=== PATIENT | female | born 1955 | race Caucasian/White ===

== ENCOUNTER 2019-06-01 10:12 | Outpatient (CLI) | payer MEDICARE, SELFPAY ==
--- NOTE | ~2019-06-01 | US_ITS ---
EXAMINATION: US carotid duplex BI DATE: 06/01/2019 10:45 INDICATION: Dizziness and giddiness. TECHNIQUE: Grayscale, color Doppler, and pulsed Doppler images of the cervical carotid arteries were obtained. The degree of vessel stenosis is placed in one of the following categories: normal, <50%, 5 0-69%, >=70% but less than near-occlusion, near-occlusion, or total occlusion. Note that percent sten osis relative to normal distal artery lumen diameter is indirectly measured from velocity measurement s as described by Nelson, et al. Radiology 2003; 229:340-346. COMPARISON: None. FINDINGS: RIGHT: The right common carotid artery (CCA) peak systolic velocity (PSV) is 112 cm/s. The right internal ca rotid artery (ICA) PSV is 110 cm/s. The right ICA end-diastolic velocity (EDV) is 24 cm/s. The right ICA/CCA PSV ratio is 1.0. Grayscale and color Doppler images yield an estimate of <50% diameter reduc tion from plaque in the ICA. There is antegrade flow in the right vertebral artery. LEFT: The left CCA PSV is 116 cm/s. The left ICA PSV is 118 cm/s. The left ICA EDV is 37 cm/s. The left ICA /CCA PSV ratio is 1.0. Grayscale and color Doppler images yield an estimate of 0% diameter reduction from plaque in the ICA. There is antegrade flow in the left vertebral artery. IMPRESSION: 1. <50% stenosis in the right internal carotid artery. 2. Normal left internal carotid artery. Reviewed, dictated and finalized at location A. RVISOR BRINE
== END 2019-06-01 10:13 | disposition home or self-care (01) ==
PROVIDERS: PCP Family Medicine; Visit Provider Physician Assistant
DX: R42 Dizziness and giddiness (principal); I65.21 Occlusion and stenosis of right carotid artery
CPT/HCPCS: 93880

== ENCOUNTER → 2019-06-28 11:50 | Outpatient (CLI) | payer MEDICARE, SELFPAY ==
--- NOTE | ~2019-06-28 | MR_ITS ---
EXAMINATION: MR brain IAC wo/w con DATE: 06/28/2019 13:26 INDICATION: Right-sided pulsatile tinnitus. TECHNIQUE: Magnetic resonance imaging (MRI) of the brain, brainstem, and internal auditory canals was performed without and with 17 mL MultiHance intravenous contrast. Sequences included sagittal and ax ial T1-weighted FSE, axial diffusion-weighted FS EPI, axial T2*-weighted GRE, axial T2-weighted FLAIR Propeller, axial T2-weighted Propeller, small obytv-uj-ezhd coronal FIESTA, small rdubp-ap-iqzi abril nal T1-weighted FSE, and small lezzc-pv-rcex axial T1-weighted SPGR. Postcontrast sequences included axial T1-weighted FSE, small drntj-cw-bxjy coronal T1-weighted FSE, and small vyimw-ts-vham axial T1- weighted SPGR. Apparent diffusion coefficient (ADC) maps were created. COMPARISON: Brain MRI 10/07/2018, head CT 11/09/2018 FINDINGS: There are scattered areas of nonspecific increased T2-weighted signal intensity in the cere bral white matter, which is within normal limits for the patient's age. There is no intracranial hemo rrhage, acute infarction, or abnormal intracranial mass lesion. The ventricles are normal in size. Th ere is mild mucosal thickening in the ethmoid sinuses. The orbits are normal. The internal auditory c anals and inner and middle ears are normal. There are trace mastoid effusions. IMPRESSION: 1. Normal aging brain. Reviewed, dictated and finalized at location A. IMPRESSION: 1. Normal aging brain.
[2019-06-28 12:38] LABS: Estimated Glomerular Filt Rate > 60
== END ==
PROVIDERS: Visit Provider Physician Assistant
DX: H93.A1 Pulsatile tinnitus, right ear (principal); R42 Dizziness and giddiness
CPT/HCPCS: 36415; 70553; A9577

== ENCOUNTER 2021-02-09 13:33 | Emergency (ER) | payer MEDICARE, SELFPAY ==
[2021-02-09 13:48] VITALS: BP 153/75; PULSE 65; RESP 18; TEMP 37.1; O2SAT 98
--- NOTE | 2021-02-09 14:15 | ED.FEMALEGU ---
HPI - Female Genitourinary General Chief complaint: Urogenital-Female Stated complaint: uti Time Seen by Provider: 02/09/21 13:58 Source: patient Mode of arrival: ambulatory Limitations: no limitations History of Present Illness HPI Narrative: Patient is a 65-year-old female complaining of red ring last night, has not recurred since. Patient is worried that she might have a urinary tract infection, since she has a multiple history of it. Patient denies any other symptoms. Patient denies any abdominal pain, flank pain, nausea, vomiting, dysuria, urinary frequency, fever or chills. Related Data Home Medications Medication Instructions Recorded Confirmed multivitamin 1 tablet PO DAILY 04/01/19 01/25/21 calcium citrate 200 mg 1 tablet PO BID 06/18/19 01/25/21 calcium-vitamin D3 6.25 mcg (250 unit) tablet 5-hydroxytryptophan (5-HTP) 100 mg 100 mg PO BID 01/11/20 01/25/21 capsule glycine 500 mg capsule mg PO 01/11/20 01/25/21 prasterone (dhea) 25 mg tablet 25 mg PO DAILY 01/11/20 01/25/21 ascorbic acid (vitamin C) 500 mg 500 mg PO DAILY 09/21/20 01/25/21 tablet cholecalciferol (vitamin D3) 75 6,000 unit PO DAILY tablet 09/21/20 01/25/21 mcg (3,000 unit) tablet Allergies Allergy/AdvReac Type Severity Reaction Status Date / Time naproxen Allergy Intermediate Other Verified 01/25/21 15:34 albuterol Allergy Mild Jittery Verified 01/25/21 15:34 budesonide Allergy Unknown Unknown Verified 01/25/21 15:34 erythromycin base Allergy Unknown Diarrhea Verified 01/25/21 15:34 formoterol Allergy Unknown Unknown Verified 01/25/21 15:34 cephalexin Allergy Rash Verified 02/09/21 14:09 nitrofurantoin Allergy Rash Verified 02/09/21 14:10 [From Macrobid] acetaminophen AdvReac Mild Fatigued Verified 01/25/21 15:34 donepezil AdvReac Mild Hypertensio Verified 01/25/21 15:34 n topiramate AdvReac Mild VISION Verified 01/25/21 15:34 ABNORMALITIES Review of Systems Review of Systems: All systems reviewed & are unremarkable except as noted in HPI and below Constitutional: Constitutional: Denies body ache(s), Denies chills, Denies excessive sweating, Denies fatigue, Denies fever(s), Denies headache(s), Denies lethargy, Denies malaise, Denies weakness and Denies weight loss Eyes: Eyes: Denies blurry vision, Denies change in vision and Denies loss of vision ENT: Denies dizziness, Denies ear discharge, Denies headache(s), Denies lip swelling, Denies epistaxis, Denies nasal congestion, Denies neck pain, Denies throat swelling and Denies tongue swelling Cardiovascular: Cardiovascular: Denies chest pain, Denies chest pain at rest, Denies chest pain with activity, Denies diaphoresis, Denies rapid heart rate, Denies edema, Denies irregular heart rhythm, Denies lightheadedness, Denies palpitations, Denies dyspnea and Denies dyspnea on exertion Respiratory: Respiratory: Denies chest congestion, Denies cough, Denies hemoptysis, Denies dyspnea and Denies dyspnea on exertion Gastrointestinal: Gastrointestinal: Denies abdominal pain, Denies melena, Denies hematochezia, Denies diarrhea, Denies nausea, Denies vomiting and Denies hematemesis Musculoskeletal: Musculoskeletal: Denies abnormal gait, Denies deformity, Denies joint swelling, Denies limited range of motion, Denies neck pain and Denies numbness Neurologic: Denies Abnormal speech present, Denies abnormal gait, Denies confusion, Denies dizziness, Denies headache(s), Denies focal weakness, Denies loss of vision, Denies numbness, Denies Other visual disturbances, Denies Sensory deficit (Neuro) and Denies weakness Psychiatric: Psychiatric: Denies confusion, Denies depression, Denies auditory hallucinations, Denies homicidal ideation and Denies suicidal ideation Endocrine: Endocrine: Denies cold intolerance, Denies excessive sweating, Denies fatigue, Denies heat intolerance and Denies palpitations Hematologic/Lymphatic: Hematologic/Lymphatic: Denies easy bleeding and Denies easy bruising
[2021-02-09 15:37] LABS: Add Urine Microscopic? YES; Appearance Urine Cloudy (Clear); Bilirubin Urine Negative (Negative); Color Urine Yellow (Yellow); Glucose Urine UA Negative (Negative); Ketones Urine Negative (Negative); Leukocyte Esterase Ur 1+ LEU/UL (Negative); Mucus Urine Rare /lpf; Nitrate Urine Negative (Negative); Protein Urine Negative (Negative); Specific Grav Ur 1.011 (1.001-1.035); Squamous Epithelial Cell Urine Few /hpf (Few); Urobilinogen Urine Negative mg/dL (<2.0)
[2021-02-09 15:54] LABS: Blood Urine Negative (Negative)
== END 2021-02-09 16:29 | disposition home or self-care (01) ==
PROVIDERS: Emergency Provider Emergency Medicine; PCP Family Medicine
DX: N30.01 Acute cystitis with hematuria (principal); I10 Essential (primary) hypertension; E03.9 Hypothyroidism, unspecified; E78.2 Mixed hyperlipidemia; E66.3 Overweight; Z68.26 Body mass index [BMI] 26.0-26.9, adult
CPT/HCPCS: 81001; 87086; 99283

== ENCOUNTER 2021-08-20 09:35 | Outpatient (CLI) | payer MEDICARE, SELFPAY ==
--- NOTE | ~2021-08-20 | DEXA_ITS ---
Bone Density Report Name: ASHLEY HILL Age: 65 Sex: Female Ethnicity: White Date of : 1955 Indication: postmenopausal; screening for osteoporosis; Referring Provider: JAISON MILNER Study: Bone densitometry was performed. Exam Date: August 20, 2021 Accession number: [id number] Bone Density: Region BMD T-score Z-score Classification AP Spine(L1-L4) 0.980 -0.6 1.3 Normal Femoral Neck (Left) 0.674 -1.6 0.1 Osteopenia Total Hip (Left) 0.773 -1.4 0.0 Osteopenia Femoral Neck (Right) 0.700 -1.3 0.3 Osteopenia Total Hip (Right) 0.806 -1.1 0.3 Osteopenia Total Hip Mean 0.790 -1.3 0.2 Osteopenia World Health Organization criteria for BMD impression classify patients as: Normal (T-score at or above -1.0), Osteopenia (T-score between -1.0 and -2.5), or Osteoporosis (T-score at or below -2.5). 10-year Fracture Risk(1): Major Osteoporotic Fracture 9.5% Hip Fracture 1.2% Reported Risk Factors: [place] (), Neck BMD=0.674, BMI=27.2 (1) FRAX(R) Version 3.08. Fracture probability calculated for an untreated patient. Fracture probability may be lower if the patient has received treatment. Previous Exams: Region Exam Age BMD T-score BMD Change BMD Change Date g/cm2 vs Baseline vs Previous AP Spine (L1-L4) 08/20/2021 65 0.980 -0.6 -0.017 (-1.8%) -0.017 (-1.8%) 04/29/2019 63 0.998 -0.4 Total Hip(Left) 08/20/2021 65 0.773 -1.4 -0.056 (-6.7%) -0.056 (-6.7%) 04/29/2019 63 0.828 -0.9 Total Hip(Right) 08/20/2021 65 0.806 -1.1 -0.099 (-11.0% -0.099 (-11.0% 04/29/2019 63 0.906 -0.3 *Denotes significance at 95% confidence level, LSC for AP Spine = 0.022 g/cm2, LSC for Total Hip = 0.027 g/cm2 Clinical Information Provided by Patient: Has used the following medications: Vitamin D, Calcium Patient maximum height was 71 Menopause Age: 46 No regular weight bearing exercise Does not regularly consume dairy products Drinks caffeinated beverages Onset of menses at age 11 Number of children 2 Impression: The patient has low bone mass, based on the Left Femoral Neck T-score. The patient has an estimated ten-year risk of hip fracture of 1.2% and an estimated ten-year risk of major fracture of 9.5%, based on the WHO FRAX algorithm. The BMD for the Total Hip(Left) decreased, changing by -6.7% since the last DXA exam. The BMD for the Total Hip(Right) decreased, changing by -11.0% since the last DXA exam. Di
== END 2021-08-20 09:36 | disposition home or self-care (01) ==
LOC: ANHIMG 09:36
PROVIDERS: PCP Family Medicine; Visit Provider Physician Assistant
DX: Z78.0 Asymptomatic menopausal state (principal); M85.852 Other specified disorders of bone density and structure, left thigh; M85.851 Other specified disorders of bone density and structure, right thigh
CPT/HCPCS: 77080

== ENCOUNTER → 2023-03-20 13:36 | Outpatient (CLI) | payer MEDICARE, SELFPAY ==
--- NOTE | ~2023-03-20 | XR_ITS ---
XR knee LT min 4V 03/20/2023 14:17 Indication: Left knee pain Procedure: 4 views left knee Comparison: No prior studies for comparison. Findings: No fracture, subluxation or dislocation. No significant joint effusion. No foreign bodies. There is a possible small osteochondral defect medial femoral condyle. Impression: 1: Possible small osteochondral defect medial femoral condyle. Reviewed, dictated and finalized at location L. E SWAGER Impression: 1: Possible small osteochondral defect medial femoral condyle.
--- NOTE | ~2023-03-20 | XR_ITS ---
XR shoulder LT min 2V 03/20/2023 14:17 Indication: Left shoulder pain Procedure: 4 views left shoulder Comparison: No prior studies for comparison. Findings: There is mild osteoarthritis of the left acromioclavicular joint with marginal osteophytes. No fracture or traumatic malalignment. No soft tissue abnormality. No foreign body. Impression: 1: Mild osteoarthritis of the left acromioclavicular joint. Reviewed, dictated and finalized at location L. CTOR PARK Impression: 1: Mild osteoarthritis of the left acromioclavicular joint.
== END ==
PROVIDERS: PCP Family Medicine; Visit Provider Emergency Medicine
DX: M25.562 Pain in left knee (principal); M19.012 Primary osteoarthritis, left shoulder
CPT/HCPCS: 73030; 73564

== ENCOUNTER 2023-05-17 06:39 | Emergency (ER) | payer MEDICARE, SELFPAY ==
--- NOTE | ~2023-05-17 | US_ITS ---
EXAMINATION:US venous doppler LE RT INDICATION:Right leg pain TECHNIQUE: Multiple grayscale, color flow and Doppler images of the right lower extremity deep venous systems were obtained and reviewed. COMPARISON:No prior studies for comparison. FINDINGS: The common femoral, superficial femoral and popliteal veins demonstrate normal respiratory variation, augmentation and compressibility. Color flow is also seen within the posterior tibial, pe roneal, greater saphenous and profunda veins. IMPRESSION: 1: No lower extremity deep venous thrombosis. Reviewed, dictated and finalized at location A. ICE COUNSELOR
[2023-05-17 06:37] VITALS: BP 165/79; PULSE 72; RESP 16; O2SAT 100
--- NOTE | 2023-05-17 07:26 | ED.EXTPRO ---
HPI - Extremity Problem General Chief complaint: Extremity Problem,Nontraumatic Stated complaint: foot discomfort / lump palpated by pt Time Seen by Provider: 05/17/23 07:14 History of Present Illness HPI Narrative: patient is a 67-year-old female who presents ER with concerns for DVT. She woke up this morning and saw that her right foot might be slightly more swollen. She then felt a lump over the medial aspect of her distal calf and proximal ankle. She read on [employer] that this could be insurance representative of a blood clot so she came here for further evaluation. No chest pain or shortness of breath. No recent trauma. She is not on any hormonal medications. No recent surgeries. No long distance travel. Related Data Home Medications Medication Instructions Recorded Confirmed multivitamin 1 tablet PO DAILY 04/01/19 05/07/23 calcium citrate 200 mg 1 tablet PO BID 06/18/19 05/07/23 calcium-vitamin D3 6.25 mcg (250 unit) tablet 5-hydroxytryptophan (5-HTP) 100 mg 100 mg PO BID 01/11/20 05/07/23 capsule glycine 500 mg capsule mg PO 01/11/20 05/07/23 prasterone (dhea) 25 mg tablet 25 mg PO DAILY 01/11/20 05/07/23 (DHEA) ascorbic acid (vitamin C) 500 mg 500 mg PO DAILY 09/21/20 05/07/23 tablet cholecalciferol (vitamin D3) 75 6,000 unit PO DAILY 09/21/20 05/07/23 mcg (3,000 unit) tablet Allergies Allergy/AdvReac Type Severity Reaction Status Date / Time naproxen Allergy Intermediate Other Verified 05/07/23 13:11 albuterol Allergy Mild Jittery Verified 05/07/23 13:11 budesonide Allergy Unknown Unknown Verified 05/07/23 13:11 erythromycin base Allergy Unknown Diarrhea Verified 05/07/23 13:11 formoterol Allergy Unknown Unknown Verified 05/07/23 13:11 cephalexin Allergy Rash Verified 05/07/23 13:11 nitrofurantoin Allergy Rash Verified 05/07/23 13:11 [From Macrobid] acetaminophen AdvReac Mild Fatigued Verified 05/07/23 13:11 donepezil AdvReac Mild Hypertensio Verified 05/07/23 13:11 n topiramate AdvReac Mild VISION Verified 05/07/23 13:11 ABNORMALITIES Review of Systems Constitutional: Constitutional: Reports no additional constitutional complaints Cardiovascular: Cardiovascular: Reports no additional cardiovascular complaints Respiratory: Respiratory: Reports no additional respiratory complaints Musculoskeletal: Musculoskeletal: Reports no additional musculoskeletal complaints PMFSH Past Medical History Medical History Essential (primary) hypertension Hepatitis C antibody test negative (~03/11/17) Hx of colonic polyp Hypothyroidism Metabolic syndrome X Mixed hyperlipidemia Osteopenia Overweight Postmenopausal Surgical History Surgical History History of adenoidectomy (~1956) History of breast biopsy (~1991) History of colonoscopy (~02/28/21) History of dilation and curettage History of tonsillectomy (~1956) Hx of laparoscopy (~1986) Family History Family History Mother Hypertension Cerebrovascular accident Father Family history of cardiovascular disease Social History Social History Smoking status: Never smoker Second hand tobacco smoke exposure: No Alcohol intake: current Substance use: never Lack of Transportation: No Lack of Food: Never True Current Housing: I Have Housing Concerned About Future Housing: No Difficulty Paying Gas/Electric Bills: No Difficulty Paying for Meds: No Currently Unemployed: No Education: Master's Degree or Higher Difficulty w/ Childcare or Family Care: No Exam Narrative: GENERAL: Well-appearing, well-nourished, and in no acute distress. HEAD: Normocephalic, atraumatic. ENT: Mucous membranes moist. EXTREMITIES: Normal range of motion. No edema. No palpable cord SKIN: Warm, dry, no rash.
[2023-05-17 09:11] VITALS: BP 140/72; PULSE 70; RESP 12; O2SAT 100
== END 2023-05-17 09:11 | disposition home or self-care (01) ==
PROVIDERS: Emergency Provider Emergency Medicine; PCP Family Medicine
DX: R25.2 Cramp and spasm (principal); I10 Essential (primary) hypertension; E03.9 Hypothyroidism, unspecified; E78.2 Mixed hyperlipidemia; E88.810 Metabolic syndrome; E66.3 Overweight; Z68.29 Body mass index [BMI] 29.0-29.9, adult; M85.80 Other specified disorders of bone density and structure, unspecified site; Z86.010 Personal history of colon polyps
CPT/HCPCS: 93971; 99284

== ENCOUNTER 2023-07-06 13:21 | Outpatient (CLI) | payer MEDICARE, SELFPAY ==
--- NOTE | ~2023-07-06 | MR_ITS ---
MRI of the left shoulder Technique: Axial proton-density fat-sat images, coronal proton density fat-sat and T2 fat-sat images, and sagittal T1-weighted and T2 fat-sat images were acquired. Clinical History: Arthropathy Findings: There is moderate AC joint degenerative change, probably productive change about the joint and minimal fluid within the joint space. No significant subacromial spur evident. Coracoclavicular, coracoacromial, and coracohumeral ligaments are intact. Supraspinatus and infraspinatus tendons are intact, without partial or full-thickness tear. There is minimal tendinosis. Subscapularis tendon intact. Tendon of long head of the biceps is intact. There is probable degenerative attenuation/tearing of the superior labrum extending to the anterosupe rior portion. There is extensive high-grade chondromalacia the glenoid, subchondral cystic change in the superior g lenoid. There is mild contemplation the medial humeral head. Inferior glenohumeral ligament is intact with minimal glenohumeral joint fluid. No subacromial/subdeltoid bursitis. No muscle atrophy or danita a. Impression: Moderate glenohumeral joint degenerative change, as above. Rotator cuff tendinosis without partial or full-thickness tear. Moderate AC joint degenerative change. Probable degenerative attenuation/tearing of the superior labrum, extending to the anterosuperior por tion. Reviewed, dictated and finalized at [facility]. Impression: Moderate glenohumeral joint degenerative change, as above. Rotator cuff tendinosis without partial or full-thickness tear. Moderate AC joint degenerative change. Probable degenerative attenuation/tearing of the superior labrum, extending to the anterosuperior portion.
--- NOTE | ~2023-07-06 | MR_ITS ---
MRI of the left humerus CLINICAL HISTORY: Arthropathy TECHNIQUE: Coronal T1-weighted and STIR images, axial T1-weighted and STIR images, and sagittal T1-we ighted and STIR images were acquired. FINDINGS: Bone marrow signals are essentially unremarkable. No fracture, suspicious marrow edema, or other suspicious bony lesion identified. No periosteal reaction evident. No significant joint effusion seen at the shoulder or elbow. Visualized musculature unremarkable. Subcutaneous soft tissues are unremarkable. No muscle atrophy or edema seen. No mass lesion or fluid collection evident. IMPRESSION: No significant abnormality seen. Please refer to separately reported shoulder MR for further details of findings about the shoulder. Reviewed, dictated and finalized at location M. IMPRESSION: No significant abnormality seen. Please refer to separately reported shoulder M R for further details of findings about the shoulder.
== END 2023-07-06 13:22 | disposition home or self-care (01) ==
LOC: ANHIMG 13:22
PROVIDERS: PCP Family Medicine; Visit Provider Family Medicine
DX: M25.612 Stiffness of left shoulder, not elsewhere classified (principal); M89.8X2 Other specified disorders of bone, upper arm; M19.012 Primary osteoarthritis, left shoulder
CPT/HCPCS: 73218; 73221

== ENCOUNTER 2023-08-28 10:51 | Outpatient (CLI) | payer MEDICARE, SELFPAY ==
--- NOTE | ~2023-08-28 | XR_ITS ---
AP view of the pelvis and AP and lateral views of the left hip Clinical history: Pain Findings: No acute fracture or dislocation is seen. Osseous alignment is anatomic. Bilateral hip and SI joint spaces are preserved. Soft tissues are unremarkable. Impression: No significant abnormality is seen. Reviewed, dictated and finalized at location . Impression: No significant abnormality is seen.
== END 2023-08-28 10:52 ==
LOC: GOSHIMG 10:52
PROVIDERS: PCP Family Medicine; Visit Provider Family Medicine
DX: M25.552 Pain in left hip (principal)
CPT/HCPCS: 73502

== ENCOUNTER 2023-10-09 15:33 | Outpatient (CLI) | payer MEDICARE, SELFPAY ==
--- NOTE | ~2023-10-09 | MR_ITS ---
EXAMINATION: MR hip LT wo con DATE: 10/09/2023 17:29 INDICATION: Left hip pain. Left lower quadrant abdominal pain. TECHNIQUE: Magnetic resonance imaging (MRI) of the left hip was performed without intravenous contras t. COMPARISON: Pelvis and left hip radiographs 08/28/2023 FINDINGS: Bones/cartilage: There is lumbar levocurvature and severe spondylosis. No fracture. The femoral head/neck morphologies are normal. The hip joints demonstrate tiny osteophytes. Right hip joint demonstrates deep partial-t hickness cartilage loss superiorly. Small uqoec-iq-uwfp images of left hip demonstrate deep partial-t hickness cartilage loss superiorly. Labrum: There is a tear of the left acetabular labrum. Fluid: There is a left hip joint effusion. There is mild bilateral trochanteric bursitis. Soft tissues: There is moderate tendinopathy of right gluteus minimus tendon with partial tear. There is mild tendi nopathy of right gluteus medius and left gluteus minimus and gluteus medius. There is mild tendinopat hy of the hamstring origins bilaterally. There is a 14 mm Bartholin's cyst on the left. IMPRESSION: 1. Moderate chondrosis of the hips. 2. Left hip joint effusion. Reviewed, dictated and finalized at location A.
--- NOTE | ~2023-10-09 | MR_ITS ---
EXAMINATION: MR pelvis wo con DATE: 10/09/2023 17:28 INDICATION: Left hip pain. Left lower quadrant abdominal pain. TECHNIQUE: Magnetic resonance imaging (MRI) of the pelvis was performed without intravenous contrast. COMPARISON: None. FINDINGS: There are no dilated loops of bowel. There are no pathologically enlarged lymph nodes. There is no fr ee intraperitoneal fluid. There is a 14 mm cyst in the vulva on the left, likely a Bartholin cyst. Thien ne alignment is normal. No fracture. There is mild osteoarthritis of the hips. There is a left hip nathaniel int effusion. IMPRESSION: 1. Left hip joint effusion. Reviewed, dictated and finalized at location A. IMPRESSION: 1. Left hip joint effusion.
== END 2023-10-09 15:34 | disposition home or self-care (01) ==
LOC: ANHIMG 15:33
PROVIDERS: PCP Family Medicine; Visit Provider Family Medicine
DX: R10.32 Left lower quadrant pain (principal); M25.552 Pain in left hip; M25.452 Effusion, left hip
CPT/HCPCS: 72195; 73721

== ENCOUNTER 2023-12-04 11:12 | Outpatient (CLI) | payer MEDICARE, SELFPAY ==
--- NOTE | ~2023-12-04 | XR_ITS ---
EXAMINATION: XR chest 2V 12/04/2023 11:43 INDICATION: Cough and congestion PROCEDURE: 2 view chest COMPARISON: 05/06/2018 FINDINGS: The lungs are clear. The cardiomediastinal silhouette is within normal limits. There are no pleural effusions. There is no pneumothorax suspected. There is apical pleural thickening/scarri ng. IMPRESSION: 1: NO ACUTE CARDIOPULMONARY DISEASE. Reviewed, dictated and finalized at location B.
== END 2023-12-04 11:13 | disposition home or self-care (01) ==
PROVIDERS: PCP Family Medicine; Visit Provider Family Medicine
DX: R05.9 Cough, unspecified (principal)
CPT/HCPCS: 71046

== ENCOUNTER 2024-04-13 02:11 | Emergency (ER) | payer MEDICARE, SELFPAY ==
--- NOTE | ~2024-04-13 | XR_ITS ---
EXAMINATION: XR chest 1V portable DATE: 04/13/2024 02:25 INDICATION: Mid to left-sided chest pain. TECHNIQUE: A single frontal view of the chest was obtained. COMPARISON: Chest 2 views 12/04/2023 FINDINGS: There is mild scarring at the lung apices. No pleural effusion or pneumothorax. The heart s ize is normal. There are prominent pericardial fat pads. IMPRESSION: 1. Stable mild scarring at the lung apices. Reviewed, dictated and finalized at location A. INA PLANT SUPERVISOR
--- NOTE | ~2024-04-13 | CT_ITS ---
EXAMINATION: CT abdomen pelvis w con DATE: 04/13/2024 03:45 INDICATION: Left lower quadrant abdominal pain. TECHNIQUE: Computed tomography (CT) of the abdomen and pelvis was performed with 100 mL Omnipaque 350 intravenous contrast. Automated exposure control and iterative reconstruction technique were employe d. The dose-length product was 1173.09 mGy-cm. COMPARISON: None. FINDINGS: The visualized portions of the lung bases demonstrate mild atelectasis. No pleural effusion . The heart size is normal. No pericardial effusion. There is a small sliding hiatal hernia. The live r and spleen are normal. There is a gallstone in the gallbladder, which is distended. The pancreas, a drenal glands, and kidneys are normal. There are no dilated loops of bowel. The appendix is normal. T here are no pathologically enlarged lymph nodes. There is no free intraperitoneal fluid. The periuter ine and ovarian veins are enlarged, consistent with pelvic venous insufficiency. There is severe lumb ar spondylosis. IMPRESSION: 1. Cholelithiasis. Gallbladder distention may be secondary to fasting or acute cholecystitis. Correla te with physical exam. 2. Small sliding hiatal hernia. 3. Pelvic venous insufficiency. Reviewed, dictated and finalized at location A. URCE ENGINEER IMPRESSION: 1. Cholelithiasis. Gallbladder distention may be secondary to fasting or acute cholecystitis. Correlate with physical exam. 2. Small sliding hiatal hernia. 3. Pelvic venous insufficiency.
[2024-04-13 01:59] VITALS: BP 176/72; PULSE 61; RESP 12; TEMP 36.7; O2SAT 95
--- NOTE | 2024-04-13 02:01 | ED_ITS ---
HPI - Chest Pain General Chief Complaint: Chest Pain Stated Complaint: L sided CP History of Present Illness HPI narrative: Patient is a 68-year-old female who presents to the emergency department this evening complaining of mid epigastric abdominal pain radiating to her chest. She describes it as a burning sensation. Admits to nausea but denies any vomiting episodes. Patient states the pain is intermittent and 3 hours prior to arrival she did feel some chest pressure and decided to come to the emergency department for further evaluation. Approximately 2 weeks ago patient was seen at [facility] for similar symptoms and full workup revealed no acute process and she was discharged home. Patient states that she had a chest x-ray that was normal but no CT scans were done. At that time she was complaining mainly of chest pain not epigastric pain. Patient admits that she has struggled with constipation. Denies any recent illness, fevers or chills, denies any urinary symptoms. No additional symptoms or concerns at this time. Related Data Home Medications ?Medication ?Instructions ?Recorded ?Confirmed ?Last Taken ?Type multivitamin 1 tablet PO DAILY 04/01/19 03/01/24 Unknown History calcium 200 mg (as 1 tablet PO BID 06/18/19 03/01/24 Unknown History citrate)-vitamin D3 6.25 mcg (250 unit) tablet glycine 500 mg capsule mg PO 01/11/20 03/01/24 Unknown History prasterone (dhea) 25 mg tablet 25 mg PO DAILY 01/11/20 03/01/24 Unknown History (DHEA) ascorbic acid (vitamin C) 500 mg 500 mg PO DAILY 09/21/20 03/01/24 Unknown History tablet cholecalciferol (vitamin D3) 75 6,000 unit PO DAILY 09/21/20 03/01/24 Unknown History mcg (3,000 unit) tablet Allergies Allergy/AdvReac Type Severity Reaction Status Date / Time naproxen Allergy Intermediate Other Verified 03/01/24 09:58 albuterol Allergy Mild Jittery Verified 03/01/24 09:58 budesonide Allergy Unknown Unknown Verified 03/01/24 09:58 erythromycin base Allergy Unknown Diarrhea Verified 03/01/24 09:58 formoterol Allergy Unknown Unknown Verified 03/01/24 09:58 cephalexin Allergy Rash Verified 03/01/24 09:58 nitrofurantoin (From Allergy Rash Verified 03/01/24 09:58 Macrobid) acetaminophen AdvReac Mild Fatigued Verified 03/01/24 09:58 donepezil AdvReac Mild Hypertensio Verified 03/01/24 09:58 n methylprednisolone AdvReac Mild Unknown Verified 03/01/24 09:58 topiramate AdvReac Mild VISION Verified 03/01/24 09:58 ABNORMALITIES Review of Systems 2 Review of Systems: All systems are reviewed and are negative unless stated otherwise in the HPI. [facility] Past Medical History Medical History Hx of colonic polyp Osteopenia Postmenopausal Hepatitis C antibody test negative (~03/11/17) Metabolic syndrome X Mixed hyperlipidemia Overweight Hypothyroidism Essential (primary) hypertension Surgical History Surgical History History of dilation and curettage History of tonsillectomy (~1956) History of adenoidectomy (~1956) Hx of laparoscopy (~1986) History of breast biopsy (~1991) History of colonoscopy (~02/28/21) Family History Family History Mother Hypertension Father Family history of cardiovascular disease Grandparent Cerebrovascular accident Social History Social History Smoking status: Never smoker Second hand tobacco smoke exposure: No Alcohol intake: current Alcohol use details: rarely Substance use: never Do You Feel Safe in your Home?: Yes Lack of Transportation: No Lack of Food: Never True Current Housing: I Have Housing Concerned About Future Housing: No Difficulty Paying Gas/Electric Bills: No Difficulty Paying for Meds: No Currently Unemployed: No Education: Master's Degree or Higher Difficulty w/ Childcare or Family Care: No Living arrangements: with family Occupation/Education: retired Exam 2 Narrative: General: Alert, awake, afebrile, in no acute distress. HEENT: PERRL, no rhinorrhea, no post nasal drip, oropharynx clear. Neck: Trachea midline, no JVD, no lymphadenopathy. Cardiovascular: Regular rate and rhythm, no murmurs, rubs or gallops, no peripheral edema. Respiratory: Clear to auscultation bilaterally, no tachypnea, no wheezing, no rhonchi, no rubs, no respiratory distress. Abdomen: Soft, nontender, nondistended, no rebound, no guarding, no peritoneal signs. Musculoskeletal: No joint swelling or deformity, normal muscle tone. Skin: No rashes or petechia, no signs of infection. Psychiatric: Alert and oriented, normal behavior and judgment for situation. Neurological: Alert and oriented to person, place, and time. Follows all commands. No focal deficits, speech is clear and fluent. Course Vital Signs Vital signs: Vital Signs Temperature 98.0 F 04/13/24 01:59 Pulse Rate 61 04/13/24 01:59 Respiratory Rate 12 04/13/24 01:59 Blood Pressure 176/72 H 04/13/24 01:59 Pulse Oximetry 95 04/13/24 01:59 Oxygen Delivery Room Air 04/13/24 01:59 Temperature 98.0 F 04/13/24 01:59 Pulse Rate 61 04/13/24 01:59 Respiratory Rate 12 04/13/24 01:59 Blood Pressure 176/72 H 04/13/24 01:59 Pulse Oximetry 100 04/13/24 02:06 Oxygen Delivery Room Air 04/13/24 02:06 MDM - Chest Pain MDM Narrative Medical decision making narrative: The patient was evaluated by myself in the emergency department. History is obtained from patient who is an independent historian and physical exam was performed. External medical records were reviewed at this time. IV was established and pertinent tests were ordered. Patient was administered 1 L IV fluid bolus with normal saline and 40 mg of IV Protonix. Patient was also administered 2 mg of IV morphine for pain and 4 mg IV Zofran for nausea. EKG was obtained which revealed sinus bradycardia rate of 59 beats per minute. No ST changes, T wave inversions or evidence of acute ischemia. EKG was independently interpreted by me and is currently pending official cardiology read. Laboratory results obtained revealing no acute process. Imaging studies obtained included CT abdomen and pelvis with IV contrast which was independently interpreted by me revealing cholelithiasis no evidence of acute cholecystitis, which is pending final radiology interpretation. Patient was informed of these findings at bedside and informed that she will need to follow-up with a general surgeon regarding her symptoms as this is likely biliary colic and patient is agreeable with this plan. Differential diagnosis considerations include peptic ulcer disease, gastroenteritis, coronary artery disease, GERD, cholecystitis, pancreatitis. Comorbidities impacting this visit include none. I have evaluated and discussed social determinants of health with the patient that could potentially impact subsequent diagnosis and treatment plans. On repeat assessment of the patient, reevaluation revealed that the patient is doing well and is in no acute distress. Patient symptoms have improved since she arrived to our emergency department. Repeat vital signs were all reviewed and noted to be stable. Differential diagnosis and treatment plan were discussed with the patient at bedside. Patient agrees with discussion and after shared medical decision making agrees with discharge. All questions were answered to the patient's satisfaction. Patient will follow up with her general surgery with Dr. Mendosa in 3-5 days. Script for Pepcid and Zofran was sent to patient's pharmacy to use as needed for pain. Patient was provided with strict return precautions and instructed to return to the emergency department if any new or worsening symptoms develop. The patient was discharged in stable condition. Lab Data 04/13/24 02:07 04/13/24 02:07 Labs: Lab Results 04/13/24 04/13/24 Range/Units 02:07 02:21 WBC 11.1 H (4.5-10.0) K/mm3 RBC 3.97 L (4.2-5.4) M/mm3 Hgb 12.6 (12.0-15.0) g/dL Hct 37.9 (37.0-47.0) % MCV 95.5 (80-100) fl MCH 31.7 (26-34) pg MCHC 33.2 (32-36) g/dl RDW 12.2 (11.5-14.5) % Plt Count 324 (150-375) k/mm3 MPV 9.3 (7.4-10.4) fl Immature Gran % (Auto) 0.4 (0-0.5) % Neut % (Auto) 71.9 (45.5-73.1) % Lymph % (Auto) 19.9 (18.3-44.2) % Mcpherson % (Auto) 6.2 (2.6-8.5) % Eos % (Auto) 1.2 (0-4.4) % Baso % (Auto) 0.4 (0.2-1.2) % Lymph # (Auto) 2.22 (0.9-3.2) K/mm3 Mcpherson # (Auto) 0.7 H (0.1-0.6) K/mm3 Eos # (Auto) 0.1 (0-0.3) K/mm3 Baso # (Auto) 0.0 (0.0-0.1) K/mm3 Abs Immat Gran (auto) 0.04 H (0.00-0.031) K/mm3 Absolute Neuts (auto) 8.0 H (1.3-6.7) K/mm3 Absolute Nucleated RBC 0.000 (0.0-0.012) K/mm3 Nucleated RBC % 0.0 (0.0-0.2) % PT 14.9 H (11.1-14.7) Seconds INR 1.1 APTT 31.8 (22.3-36.8) Seconds Sodium 138 (137-145) mmol/L Potassium 3.5 (3.4-5.0) mmol/L Chloride 105 (98-107) mmol/L Carbon Dioxide 29 (22-30) mmol/L Anion Gap 4 (4-12) mmol/L BUN 18 H (7-17) mg/dL Creatinine 0.60 L (0.7-1.0) mg/dL Estim Creat Clear Calc 92 ml/min Estimated GFR > 60 (59 - ) Glucose 130 H (65-110) mg/dL Calcium 9.0 (8.4-10.2) mg/dL Magnesium 2.1 (1.6-2.3) mg/dL Total Bilirubin 0.5 (0.2-1.3) mg/dL AST 41 H (14-36) U/L ALT 29 (6-35) U/L Alkaline Phosphatase 98 (38-126) U/L Troponin I < 0.012 (0.000-0.034) ng/mL Total Protein 7.0 (6.3-8.2) g/dL Albumin 4.1 (3.5-5.1) g/dL Lipase 67 (23-300) U/L Influenza A (RT-PCR) Negative (Negative) Influenza B (RT-PCR) Negative (Negative) RSV (RT-PCR) Negative (Negative) SARS-CoV-2 RNA (RT-PCR) Negative (Negative) Discharge Plan Discharge Clinical Impression: Acute epigastric pain, Chest pain, Biliary colic, Gallstones Patient Disposition: Home, Self-Care Condition: Improved Instructions: Antibiotic Form, Chest Pain (ED), Biliary Colic (ED), Abdominal Pain (ED) Additional Instructions: Please follow-up with your doctor within the next 3-5 days. Return to the emergency department for any new or worsening symptoms develop. Use the prescribed Pepcid and Zofran as needed for nausea/epigastric pain until you follow-up with the surgeon that you were provided with today. Call tomorrow or after the holidays set up a follow-up appointment. Patient Language: Latvian Prescriptions: New famotidine [Pepcid] 20 mg tablet 20 mg PO DAILY Qty: 14 0RF ondansetron 4 mg tablet,disintegrating 4 mg PO Q8H PRN (Reason: nausea and vomiting) Qty: 14 0RF famotidine [Pepcid] 20 mg tablet 20 mg PO DAILY Qty: 14 0RF ondansetron 4 mg tablet,disintegrating 4 mg PO Q8H PRN (Reason: nausea and vomiting) Qty: 14 0RF No Action calcium citrate-vitamin D3 200 mg calcium -250 unit tablet 1 tablet PO BID cholecalciferol (vitamin D3) 75 mcg (3,000 unit) tablet 6,000 unit PO DAILY Patient Comments: 4,000 units one day 6,0000 units next day alternating nystatin 100,000 unit/gram powder 1 applic topical BID Qty: 60 0RF multivitamin Tablet 1 tablet PO DAILY DHEA 25 mg tablet 25 mg PO DAILY glycine 500 mg capsule PO ascorbic acid (vitamin C) 500 mg tablet 500 mg PO DAILY atenolol 50 mg tablet See Rx Instructions .ROUTE .COMPLEX Qty: 90 1RF Dose Instruction: TAKE 1 TABLET BY MOUTH EVERY DAY Rx Instructions: TAKE 1 TABLET BY MOUTH EVERY DAY amlodipine 5 mg tablet See Rx Instructions .ROUTE .COMPLEX Qty: 90 1RF Dose Instruction: TAKE 1 TABLET BY MOUTH EVERY DAY Rx Instructions: TAKE 1 TABLET BY MOUTH EVERY DAY thyroid (pork) [[place] Thyroid] 60 mg tablet 60 mg PO DAILY Qty: 90 1RF Follow-up/Referrals: Vika Mendosa MD [Physician] - 3 Days Rosie Bryant DO [Primary Care Provider] - 3 Days Time of Disposition: 06:18
[2024-04-13 02:05] VITALS: O2SAT 98
--- NOTE | 2024-04-13 02:05 | ECG_ITS ---
Test Date: 2024-04-13 02:09:21 Measurements Intervals [place] Rate: 59 P: 5 WA: 177 QRS: 23 QRSD: 108 T: 16 QT: 404 QTc: 403 Interpretive Statements SINUS BRADYCARDIA No previous ECG available for comparison Electronically Signed On 04-13-2024 14:53:15 REFRIGERATION ENGINEER by Henrique Hutton M.D.
[2024-04-13 02:06] VITALS: O2SAT 100
[2024-04-13 02:12] LABS: Basophils Percent Auto 0.4 % (0.2-1.2); Eosinophils Absolute Auto 0.1 K/mm3 (0-0.3); Eosinophils Percent Auto 1.2 % (0-4.4); Hematocrit 37.9 % (37.0-47.0); Hemoglobin 12.6 g/dL (12.0-15.0); Immature Granulocyte Absolute 0.04 K/mm3 (0.00-0.031); Immature Granulocyte Percent A 0.4 % (0-0.5); Lymphocytes Absolute Auto 2.22 K/mm3 (0.9-3.2); Lymphocytes Percent Auto 19.9 % (18.3-44.2); Mean Corpuscular HGB Conc 33.2 g/dl (32-36); Mean Corpuscular Hemoglobin 31.7 pg (26-34); Mean Corpuscular Volume 95.5 fl (80-100); Mean Platelet Volume 9.3 fl (7.4-10.4); Monocytes Absolute Auto 0.7 K/mm3 (0.1-0.6); Monocytes Percent Auto 6.2 % (2.6-8.5); Neutrophils Percent Auto 71.9 % (45.5-73.1); Platelet Count Result 324 k/mm3 (150-375); Red Blood Count 3.97 M/mm3 (4.2-5.4); Red Cell Distribution Width 12.2 % (11.5-14.5); White Blood Count 11.1 K/mm3 (4.5-10.0)
[2024-04-13 02:23] LABS: Alanine Aminotransferase 29 U/L (6-35); Albumin Level 4.1 g/dL (3.5-5.1); Alkaline Phosphatase 98 U/L (38-126); Anion Gap 4 mmol/L (4-12); Aspartate Amino Transferase 41 U/L (14-36); Bilirubin,Total 0.5 mg/dL (0.2-1.3); Blood Urea Nitrogen 18 mg/dL (7-17); Carbon Dioxide 29 mmol/L (22-30); Chloride 105 mmol/L (98-107); Estimated CRCL calculation 92 ml/min; Estimated Glomerular Filt Rate > 60; Glucose 130 mg/dL (65-110); INR 1.1; Lipase 67 U/L (23-300); Partial Thromboplastin Time 31.8 Seconds (22.3-36.8); Potassium 3.5 mmol/L (3.4-5.0); Prothrombin Time 14.9 Seconds (11.1-14.7); Sodium 138 mmol/L (137-145)
[2024-04-13 02:26] LABS: Magnesium 2.1 mg/dL (1.6-2.3)
[2024-04-13 02:35] LABS: Troponin I < 0.012 ng/mL (0.000-0.034)
[2024-04-13 03:02] LABS: Influenza A QL RT-PCR Negative (Negative); Influenza B QL RT-PCR Negative (Negative); RSV RNA, RT-PCR Negative (Negative); SARS-CoV-2 RNA PCR Negative (Negative)
[2024-04-13] MEDS: SODIUM CHLORIDE 0.9% IV 1,000 ML 999 ML IV CONT (03:29)
[2024-04-13] MEDS: PANTOPRAZOLE SODIUM IV 40 MG VIAL IV PUSH (03:29)
[2024-04-13] MEDS: ONDANSETRON INJ 4 MG/2 ML VIAL IV PUSH (06:25)
[2024-04-13] MEDS: MORPHINE SULFATE (*CRX) 2 MG/ML INJ IV PUSH (06:25)
--- OUTSIDE RECORDS SUMMARY | 2024-04-20 02:28 | XMS_ITS | Encounter Summary ---
Author Organization [facility] Address [address] [place] [address]. [place] [address] [place] [address] Care Team Providers Care Straightener Gun Parts Name Role Phone Rosie Bryant DO Primary Care Provider [phone] Encounter Details Date Type Department Care Team (Latest Contact Info) Description 11/11/2023 Scan HEALTH INFO SRVCS Scanned, Doc Med Group Social History Tobacco Use Types Packs/Day Years Used Date Smoking Tobacco: Never Smokeless Tobacco: Never Alcohol Use Standard Drinks/Week Comments Yes 0 (1 standard drink = 0.6 oz pur e alcohol) rare AUDIT-C Answer Date Recorded Q1: How often do you have a drink containing alc ohol? Never 02/21/2020 Average Number of Drinks Not on file 020 Frequency of Binge Drinking Not on file 05/2019 PHQ-2 Answer Date Recorded Patient Health Questionnaire-2 Score 0 11/10/2023 Comments No Sex and Gender Information Value Date Recorded Sex Assigned at Not on file Legal Sex Female 7:00 PM CDT Gender Identity Not on file Sexual Orientation Not on file documented as of this encounter Plan of Treatment Upcoming Encounters Date Type Department Care Team (Late st Contact Info) Description 04/28/2024 2:40 PM LEDGER POSTER Office Visit [facility] Orthopedic & Sports Medicine - [place] [address] [place] [address] Jared Mejia MD [address] [place] [address] 05/20/2024 10:20 AM LEDGER POSTER Office Visit [facility] Multispecialty Care - [facility] [address] [facility], [address] [place] [address] Scarlet Mendoza MD [address] [facility] [place] [address] 10/11/2024 10:00 AM CDT Office Visit [facility] [facility] [place] [address] Galdino Santos MD Three [facility]. [address] [place], [place] [address] Lary Joel PA [address] [facility], [address] [place] [address] documented as of this encounter Visit Diagnoses Not on filedocumented in this encounter Care Teams Straightener Gun Parts Relationship Specialty Start Date End Date Rosie Bryant DO [address] [place] [address] PCP - General FAMILY PRACTICE 02/21/20 documented as of this encounter
--- OUTSIDE RECORDS SUMMARY | 2024-04-20 02:28 | XMS_ITS | Encounter Summary ---
Author Organization [facility] Address [address] [place] [address]. [place], [place] [id number] [place] [address] Care Team Providers Care Spotter Name Role Phone Rosie Bryant Primary Care Provider [phone] Encounter Details Date Type Department Care Team (Latest Contact Info) Description 12/09/2023 Travel Social History Tobacco Use Types Packs/Day Years [...] st Contact Info) Description 04/28/2024 2:40 PM RADIO NEWS WRITER Office Visit [facility] Medical Group Orthopedic & Sports Medicine - [place] [address] [place] [address] Jared Mejia MD [address] [place] [address] 05/20/2024 10:20 AM RADIO NEWS WRITER Office Visit [facility] Medical Group Multispecialty Care - [facility] [address] [facility], [address] [place] [address] Scarlet Mendoza MD [address] [facility] [place] [address] 10/11/2024 10:00 AM CDT Office Visit [facility] [facility], [address] [place] [address] Galdino Santos MD [address] [facility]. [address] [place] [address] Lary Joel PA [address] [facility], [address] [place] [address] documented as of this encounter Visit Diagnoses Not on filedocumented in this encounter Care Teams Spotter Relationship Specialty Start Date End Date Rosie Bryant DO [address] [place] [address] PCP - General FAMILY PRACTICE 02/21/20 documented as of this encounter
--- OUTSIDE RECORDS SUMMARY | 2024-04-20 02:28 | XMS_ITS | Encounter Summary ---
Author Organization [facility] Address [address] [place] [address]. [place], [place] [address] [place] [address] Care Team Providers Care Personal Caregiver Name Role Phone Rosie Bryant Primary Care Provider [phone] Reason for Visit * Reason Comments Chest Pain 1yr Lipids Hypertension Encounter Details Date Type Department Care Team (Late st Contact Info) Description 10/09/2023 10:30 AM CDT Office Visit [facility], [facility] [address] [place], [place] [id number] Ed Sanchez MD [facility]. [facility] [address] [place], [place] [id number] Chest Pain (1yr); Lipids; Hypertension Social History Tobacco Use Types Packs/Day Years [...] on file 05/2019 PHQ-2 Answer Date Recorded PHQ-2 Score - If the patient scores above 3, please move on to questions 3-9 0 03/08/2022 Comments No Sex and Gender Information Value Date Recorded Sex Assigned at Not on file Legal Sex Female 7:00 PM CDT Gender Identity Not on file Sexual Orientation Not on file documented as of this encounter Last Filed Vital Signs Vital Sign Reading Time Taken Comments Blood Pressure 138/74 10/09/2023 10:34 AM CDT Pulse 74 10/09/2023 10:34 AM CDT Temperature - - Respiratory Rate - - Oxygen Saturation 95% 10/09/2023 10: 34 AM CDT Inhaled Oxygen Concentration - - Weight 97.9 kg (215 lb 12.8 oz) 024 10:34 AM CDT Height 180.3 cm (5' 11 ) 10/09/2023 10: 34 AM CDT Body Mass Index 30.1 10/09/2023 10:34 AM CDT documented in this encounter Patient Instructions * Patient Instructions* Ed Sanchez MD - 10/09/2023 10:30 AM CDT Images from the original note were not included. Patient Education Patient Education Heart Healthy Diet General With a heart healthy food plan, you will learn to make better food choices. This diet may help you lower your blood cholesterol level, manage your blood pressure, and lower your risk for heart problems. Smaller portions may also be helpful. Sodium is a type of mineral found in many foods. It helps keep the balance of fluids in your body. Too much sodium can raise your blood pressure. It can also make you take on extra water. This is called edema. Pay careful attention to how much salt or sodium is in your food. You may need to avoid salt or eat foods with less sodium. Cholesterol is a fat-like, waxy substance in your blood. It is normal to have some cholesterol in your blood because your body makes it. You also get extra cholesterol from all animal products. Theseare foods like meats, eggs, and dairy products. Too much cholesterol in your blood can block or damage your blood vessels. This can lead to a heart attack or stroke. Fats in your food have calories which give energy. Not all fats are bad. Some fats are healthy, like the fat found in fish, nuts, and olive oil. These are called unsaturated fats. They help manage body functions and lower cholesterol levels. Learn about the best fats to use in your diet and where to use them. Eating too much fat may make you more likely to weigh more than is healthy. This raises your risk of many heart problems. Fiber is found in plants. Meat and dairy products do not have fiber in them. Fiber can help you lower your unhealthy cholesterol level. You may need more water as you eat more fiber so you do not gethard stools. What lifestyle changes are needed? Eat a healthy diet and workout often. Try to use as many calories as you take in each day. What changes to diet are needed? Eat oily fish at least 2 times a week. These are fish like tuna, salmon, and mackerel. Limit sodium to no more than 2,300 mg of sodium per day. This is about 1 teaspoon (5 grams) of table salt. Use little or no salt when making food. Try other spices or seasoning instead. Limit how much cholesterol you eat to less than 300 mg per day. You can do this by having lean meats. Also eat lots of fruits, vegetables, and fat-free and low- fat dairy products. Limit how much trans fats you eat. Trans fats are found in many processed foods like stick margarine, shortening, and some fried foods. Also, lower how much hydrogenated fats you eat. They are used to make pastries, biscuits, cookies, crackers, chips, and many snack foods. Have no more than 1 drink per day of beer, wine, and mixed drinks (alcohol). Who should use this diet? A heart healthy diet is good for everyone. What foods are good to eat? Grains: Try to eat 6 to 8 servings of whole grain, high fiber foods each day. These are whole grainbread, cereals, brown rice, or pasta. Fruits and vegetables: Eat 4 to 5 servings each day. Try to pick many kinds and colors. Try to eat more that are fresh or frozen. Look for low sodium or salt- free if you choose canned. Rinse canned items before cooking or eating. Dried peas, beans, and lentils are also good. Dairy: Choose low fat (1%) or fat-free milk. Eat nonfat or low-fat products. Protein: Try to eat more low fat or lean meats like chicken and turkey. Eat less red meat and eat more fish, eggs, egg whites, and beans instead. Fats: Use good fats found in fish, nuts, and avocados. Try using olive oil, canola oil, and low-sodium and low-fat salad dressing and mayonnaise. Use corn, safflower, sunflower, and soybean oils. Condiments: Use low-sodium or salt-free broths, soups, soy sauce, and condiments. Pepper, herbs, spices, vinegar, lemon or [place] juices are great for seasoning. Sugar, cocoa powder, honey, syrup, and jams may be eaten in small amounts. Sweets: Low-fat, trans fat-free cookies, cakes, and pies; flynn crackers; animal crackers; low-fatfig bars; and jose snaps. What foods should be limited or avoided? Grains: Salted breads, rolls, crackers, quick breads, self-rising flours, biscuit mixes, regular bread crumbs, instant hot cereals, commercially-prepared rice, pasta, stuffing mixes Fruits and vegetables: Commercially-prepared potatoes and vegetable mixes, regular canned vegetables and juices, vegetables frozen with sauce or pickled vegetables, processed fruits with added sugar or salt Dairy: Whole milk, malted milk, chocolate milk, buttermilk Protein: Smoked, cured, salted, or canned meat, fish, or poultry such as rousseau and sausages Fats: Cut back on solid fats like butter, lard, and margarine. Condiments and snacks: Salted and canned peas, beans, and olives; salted snack foods; fried foods; soda, juices, or other sweetened drinks; commercially- softened water. Miso, salsa, ketchup, barbecuesauce, [place] sauce, soy sauce, and teriyaki sauce are also high in salt. Sweets: High-fat baked goods such as muffins, donuts, pastries, commercial baked goods Helpful tips When you go to a grocery store, have a list or a meal plan. Do not shop when you are hungry to avoid cravings for foods. You need to know about the sodium and fat content of the food you eat. Read food labels with care. They will show you how much of each is in a serving. This amount is given as a percentage of the total amount you need each day. Reading the labels will help you make healthy food choices. Avoid fast foods. Watch your portions when eating out. Split an order or bring home half for another meal. Talk to a dietitian for help. Last Reviewed Date 2019-07-16 Consumer Information Use and Disclaimer This generalized information is a limited summary of diagnosis, treatment, and/or medication information. It is not meant to be comprehensive and should be used as a tool to help the user understand and/or assess potential diagnostic and treatment options. It does NOT include all information about conditions, treatments, medications, side effects, or risks that may apply to a specific patient. Itis not intended to be medical advice or a substitute for the medical advice, diagnosis, or treatment of a health care provider based on the health care provider's examination and assessment of a patient???s specific and unique circumstances. Patients must speak with a health care provider for complete information about their health, medical questions, and treatment options, including any risks orbenefits regarding use of medications. This information does not endorse any treatments or medications as safe, effective, or approved for treating a specific patient. [employer] and its affiliates disclaim any warranty or liability relating to this information or the use thereof. The use of this information is governed by the Terms of Use, available at https://www.[employer].com/en/know/bpeanahw-oyjsvozcohaou-cryhy Copyright Copyright ?? 2023 [employer] and its affiliates and/or licensors. All rights reserved. documented in this encounter Progress Notes * Pao Mckeon - 10/09/2023 12:40 PM CDTAssociated Problem(s): Obesity (BMI 30-39.9) Encouraged lifestyle modifications including diet and exercise. * Pao Mckeon - 10/09/2023 12:40 PM CDTAssociated Problem(s): Hyperlipidemia, mixed Her LDL is 155. I discussed options with her including Coronary Artery Calcium scoring, PCSK9 inhibitor, or Bempedoic acid. We will try to obtain her most recent lipid panel from primary care. I encouraged lifestyle modifications we well. * Pao Mckeon - 10/09/2023 12:40 PM CDTAssociated Problem(s): Precordial pain She is not having any symptoms at this time. * Ed Sanchez MD - 10/09/2023 10:30 AM CDT Reason for Visit: Chest Pain (1yr), Lipids, and Hypertension History of Present Illness: I had the pleasure of seeing Maria G Barrow in follow-up at the [facility] in [place], [place]. Since I last saw Maria G Barrow, she denies any anginal symptoms such as chest pain. She states she recently had blood work done with her primary care provider. She reports left hip pain that radiates to her lower extremity which limits her mobility and causesdifficulty walking. She is scheduled for an MRI at [place]. Diagnoses/Impression: In summary, Maria G Barrow is a 67-year-old year old female who presents for follow-up. Recommendations and Plan: Precordial pain She is not having any symptoms at this time. Hyperlipidemia, mixed Her LDL is 155. I discussed options with her including Coronary Artery Calcium scoring, PCSK9 inhibitor, or Bempedoic acid. We will try to obtain her most recent lipid panel from primary care. I encouraged lifestyle modifications we well. Obesity (BMI 30-39.9) Encouraged lifestyle modifications including diet and exercise. No orders of the defined types were placed in this encounter. Maria G Barrow will see us in follow-up in 1 year. Maria G Barrow voiced understanding of my recommendations and did not have any further questions. Thank you for allowing me to participate in the care of your patient. Medications: Current Outpatient Medications Medication Sig Dispense Refill 5-Hydroxytryptophan (5-HTP OR) Take 200 mg by mouth daily. amLODIPine 5 MG tablet Take 1 tablet (5 mg total) by mouth daily. atenolol 50 MG tablet Take 1 tablet (50 mg total) by mouth daily. Cholecalciferol (VITAMIN D3) 50 MCG (2000 UT) Cap Take 4,000 Units by mouth daily. Alternates 2000 and 4000 Digestive Enzymes (DIGESTIVE ENZYME OR) Take 200 mg by mouth daily. [id number] OR Take 500 mg by mouth daily. 500mg AM. 1000mg PM MAGNESIUM OR Take 96 mg by mouth daily. Menaquinone-7 (VITAMIN K2 OR) Take by mouth 2 (two) times a day. Multiple Vitamin (MULTIVITAMIN IRON-FREE) Tab Take by mouth daily. 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 vitamin C 1000 MG tablet Take 1 tablet (1,000 mg total) by mouth daily. No current facility-administered medications for this visit. Allergies Allergen Reactions Symbicort [Budesonide-Formoterol Fumarate] Anaphylaxis Acetaminophen Fatigue Donepezil Other (see comment) htn Erythromycin Diarrhea Ezetimibe Memory Loss Icosapent Ethyl Diarrhea Macrobid [Nitrofurantoin] Chest pressure Melatonin Unknown Naproxen Other (see comment) Hot flashes, constipation, bruising Statins Other (see comment) Intolerant Topamax [Topiramate] Blurred vision Ventolin [Albuterol] Shakiness Cephalexin Rash Past Medical History: Diagnosis Date Disease of thyroid gland Hyperlipemia Hypertension Past Surgical History: Procedure Laterality Date TONSILLECTOMY Social History Socioeconomic History Marital status: Tobacco Use Smoking status: Never Smokeless tobacco: Never Vaping Use Vaping status: Never Used Substance and Sexual Activity Alcohol use: Yes Comment: rare Drug use: Never Other Topics Concern Caffeine Concern No Special Diet No Exercise No Family History Problem Relation Name Age of Onset Other (cardiac stent) Father Transient ischemic attack Maternal Grandmother Family Status Relation Name Status Mother Alive Father Sister Brother Alive Brother Alive Brother Alive MGM MGF PGM PGF No partnership data on file Review of Systems Constitutional: Negative for chills, fever and weight loss. HENT: Negative for ear pain, hearing loss and sore throat. Eyes: Negative for blurred vision and double vision. Respiratory: Negative for cough, hemoptysis, shortness of breath and wheezing. Cardiovascular: Negative for chest pain, palpitations, orthopnea, claudication, leg swelling and PND. Gastrointestinal: Negative for abdominal pain, blood in stool, constipation, diarrhea, heartburn, melena, nausea and vomiting. Genitourinary: Negative for dysuria, hematuria and urgency. Musculoskeletal: Positive for joint pain. Negative for myalgias. Left hip pain radiating to LE Skin: Negative for rash. Neurological: Negative for dizziness, loss of consciousness, weakness and headaches. Endo/Heme/Allergies: Negative for environmental allergies and polydipsia. Does not bruise/bleed easily. Psychiatric/Behavioral: Negative for depression. Filed Vitals: 10/09/23 1034 BP: 138/74 Pulse: 74 SpO2: 95% Weight: 97.9 kg (215 lb 12.8 oz) Height: 1.803 m (5' 11 ) Body mass index is 30.1 kg/m??. Cardiac Exam Rate/Rhythm: Normal rate and regular rhythm. PMI: PMI is not displaced. Pulses: Carotid pulses are 2+ on the right side and 2+ on the left side. Radial pulses are 2+ on the right side and 2+ on the left side. Femoral pulses are 2+ on the right side and 2+ on the left side. Popliteal pulses are 2+ on the right side and 2+ on the left side. Dorsalis pedis pulses are 2+ on the right side and 2+ on the left side. Posterior tibial pulses are 2+ on the right side and 2+ on the left side. Heart Sounds: Normal heart sounds. Normal S1 sounds. Normal S2 sounds. No gallop present. No S3. NoS4. Murmurs: Physical Exam Constitutional: No distress. Healthy Appearance. HENT: Oropharynx clear. Eyes: Pupils equal, round, and reactive to light. Conjunctivae normal. Neck: Neck supple. No JVD. Abdomen: Abdomen soft. Bowel sounds normal. No tenderness. No mass. No hepatomegaly. No splenomegaly. Abdominal aorta not palpably enlarged. No abdominal bruit present. Pulmonary: Effort normal. Breath sounds normal. Skin: No rash. No clubbing. No xanthoma. Musculoskeletal: No kyphosis. Normal ROM. Neurological: Alert. Oriented x 3. Appropriate mood and affect. Normal motor skills. Normal gait. Comments: Labs: I have personally reviewed the following labs: Lab Results Component Value Date/Time WBC 3.7 (L) 03/16/2022 12:22 PM HGB 13.0 03/16/2022 12:22 PM HCT 39.5 03/16/2022 12:22 PM PLT 194 03/16/2022 12:22 PM Lab Results Component Value Date/Time NA 140 03/16/2022 12:22 PM K 3.7 03/16/2022 12:22 PM CL 108 03/16/2022 12:22 PM CO2 27.7 03/16/2022 12:22 PM BUN 13 03/16/2022 12:22 PM CR 0.75 03/16/2022 12:22 PM GLU 94 03/16/2022 12:22 PM Lab Results Component Value Date/Time CHOL 234 02/27/2022 12:00 AM TRI 117 02/27/2022 12:00 AM HDL 56 02/27/2022 12:00 AM LDL 155 02/27/2022 12:00 AM By signing my name below, I, Pao Mckeon, attest that this documentation has been prepared under the direction of ED SANCHEZ MD on 10/09/2023. 1:01 PM, 10/09/2023, ED Fontenot MD, personally performed the services described in this documentation. I haveauthorized the scribe to complete the medical record entries input within this chart. I have reviewed the chart and agree that the record reflects my personal performance and is accurate and complete. 1:01 PM, 10/09/2023, ED SANCHEZ MD Portions of this note were dictated using [employer] speech recognition software. Occasional wrong wordor sound-alike substitutions may have occurred due to the inherent limitations of voice recognition software. Please read the chart carefully and recognize, using context, where the substitutions may have occurred. 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 [address] [facility], [address] [place] [address] Scarlet Mendoza MD [address] [facility] [place] [address] 10/11/2024 10:00 AM CDT Office Visit [facility], [facility] [address] [place] [address] Ed Sanchez MD [facility]. [facility] [address] [place], [place] [address] Lary Joel PA [address] [facility], [address] [place] [address] documented as of this encounter Visit Diagnoses Diagnosis Precordial pain- Primary Hyperlipidemia, mixed Mixed hyperlipidemia Obesity (BMI 30-39.9) Obesity, unspecified documented in this encounter Care Teams Personal Caregiver Relationship Specialty Start Date End Date Rosie Bryant DO [address] [place] [address] PCP - General FAMILY PRACTICE 02/21/20 documented as of this encounter
--- OUTSIDE RECORDS SUMMARY | 2024-04-20 02:28 | XMS_ITS | Encounter Summary ---
Author Organization [facility] Address [address] [place] [address]. [place], [place] [id number] [place] [address] Care Team Providers Care Topographical Engineer Name Role Phone Rosie Bryant DO Primary Care Provider [phone] Reason for Visit * Reason Onset Date Comments Appointment Request 09/08/2023 Encounter Details Date Type Department Care Team (Late st Contact Info) Description 09/08/2023 [facility]phone [facility] [address] [place] [address] Galdino Santos MD [facility]. [facility] [address] [place], [place] [address] Appointment Request Social History Tobacco Use Types Packs/Day Years [...] on file documented as of this encounter Progress Notes * MALIHA Taylor - 09/08/2023 9:10 AM CDT ----- Message from MALIHA Natarajan sent at 09/04/2023 2:28 PM CDT ----- Regarding: office visit Please return call to schedule visit for high cholesterol. Pt is deangelo headley/Tom CALL TO PT, WILL KEEP 10/08 APPT documented in this encounter Plan of Treatment Upcoming Encounters Date Type Department Care Team (Late st Contact Info) Description 04/28/2024 2:40 PM DOBIE MAN Office Visit [facility] [place] [address] [place] [address] Jared Mejia MD [address] [place] [address] 05/20/2024 10:20 AM DOBIE MAN Office Visit [facility] Multispecialty Care - [facility] [address] [facility], [address] [place] [id number] Scarlet Mendoza MD [address] [place] [address] 10/11/2024 10:00 AM CDT Office Visit [facility], [place] [address] [place] [address] Galdino Santos MD Three [facility]. [facility] [address] [place] [address] Lary Joel PA [address] [facility], [address] [place] [address] documented as of this encounter Visit Diagnoses Not on filedocumented in this encounter Care Teams Topographical Engineer Relationship Specialty Start Date End Date Rosie Bryant DO [address] [place] [address] PCP - General FAMILY PRACTICE 02/21/20 documented as of this encounter
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
--- OUTSIDE RECORDS SUMMARY | 2024-04-20 02:28 | XMS_ITS | Data Portability ---
Author Organization [facility] - [facility], P.CRoberta, [facility] Address [address] [place] [address] Assessment No assessment recorded. Plan of Treatment Reminders Order Date Submit Date Provider Last Modified By Organization Details Last Modified Time Details Appointments None recorded. Lab culture, skin 2014 015 jblechle Not available 5 08:49:07 rapid strep group A, throat 2017 018 [facility] In-House Results, For Internal Use Only, Do Not Delete/merge, [id number] 8 21:19:16 respirator y allergen panel - [facility] b 2018 019 smimms In-House Results, For Internal Use Only, Do Not Delete/merge, [id number] 9 09:38:18 food allergen panel, serum 2018 019 [facility] In-House Results, For Internal Use Only, Do Not Delete/merge, [id number] 9 18:56:25 TSH, serum or plasma - on or about 09-30-182018 019 [facility] In-House Results, For Internal Use Only, Do Not Delete/merge, [id number] 9 09:26:45 T4, free, serum 2018 019 [facility] In-House Results, For Internal Use Only, Do Not Delete/merge, [id number] 9 09:26:45 T3, total, serum 2018 019 [facility] In-House Results, For Internal Use Only, Do Not Delete/merge, [id number] 9 09:26:45 T3, reverse, serum 2018 019 [facility] In-House Results, For Internal Use Only, Do Not Delete/merge, [id number] 9 09:26:45 Referral None recorded. Procedures None recorded. Surgeries None recorded. Imaging XR, chest, 2 view 2018 [facility] [address] Norah Benton, Jo[facility], [place], [address], 9 04:45:22 Medication Orders Ledum Palustre 2014 015 [facility], [address] [facility] [place], [place], [address], 8 13:43:57 Zithromax 250 mg tablet 2017 018 [facility] #05921, [address], [place], [place], [id number], 9 13:22:16 Berberis Quartz 2017 018 [facility] #17899, [address], [place], [place], [id number], 9 13:22:14 Eupatorium Compound 2017 018 [facility] #73760, [address], [place], [place], [id number], 9 13:22:12 Phosphorus 2018 019 [facility] #57836, [address], [place], [place], [id number], 9 16:16:32 Phosphorus 2018 019 [facility] #95991, [address], [place], [place], [id number], 9 16:16:32 Phosphatid yl Serine 2018 019 INTERFACE [facility] #22073, [address], [place], [place], [id number], 9 17:07:20 DHEA 25mg 2018 019 [facility] #39639, [address], [place], [place], [id number], 9 17:07:13 [facility] 2018 [facility] #54589, [address], [place], [place], [id number], 9 17:07:13 Patient TargetsNo targets recorded. Patient Instructions Encounter Date Encounter Id Patient Instructions Last Modified By Organization Details Last Modified Time 02/01/2015 [id number] Don't scratch us e cream tid cwessling Not available 02/01/2015 17:57:21 04/03/2018 [id number] strep throat: care instructions cwessling Not available 04/03/2018 15:10:06 upper respirator y infection (cold): care instructions cwessling Not available 04/03/2018 15:10:06 05/05/2018 [id number] chronic cough: care instructions cwessling Not available 05/05/2018 18:43:01 [facility] IgG food Allergen panel cwessling Not available 05/05/2018 18:42:14 06/02/2018 [id number] hair loss from alopecia areata: care instructions cwessling Not available 06/02/2018 14:04:52 Provide copy of recent blood work. ZRT Neuroadrenal expanded cwessling Not available 06/02/2018 14:04:30 09/01/2018 [id number] 5HTP to bid cwessling Not available 17:07:11 Reason for Referral None Reported. Results Created Date Observation Date Name Description Value Unit Range Abnormal Flag Note LastModifiedBy Organization Detail LastModifiedTime 02/04/2015 cultu re, aerob ic culture, aerobic bacteria SEE NOTE CULTU RE, AEROB IC BACTE DEBI MICRO NUMBE R: [id number] TEST STATU S: FINAL SPECI MEN SOURC E: INSEC T BITE WOUND SPECI MEN QUALI TY: ADEQU ATE RESUL T: No Growt h NO COLLE CTION DATE RECEI LUIS. WE HAVE USED THE DATE THE SPECI MEN WAS RECEI LUIS BY THIS LABOR ATORY THE COLLE CTION DATE. IF THIS IS INCOR RECT, PLEAS E CONTA CT CLIEN T SERVI CHRYSTAL. PHONE NUMBE R: [phone] Not Available [facility] [address] [address] [place], [address], 02/05/2015 19:53:09 01/13/2001/13/2015 T4, free, serum T4, free 0.9 NG/dL 0.8-1. 8 normal Not Available [facility] [address] [address] [place], [address], 01/13/2015 08:50:19 01/13/2001/13/2015 TSH, serum or plasm a TSH 2.40 mIU/L 0.40-4 .50 normal Not Available [facility] [address] [address] [place], [address], 01/13/2015 08:50:19 01/13/2001/13/2015 T3, free, serum or plasm a T3, free 2.8 pg/mL 2.3-4. 2 normal Not Available [facility] [address] [address] [place], [address], 01/13/2015 08:50:20 01/13/2001/13/2015 vitam in D, 25-hy droxy , total , serum vitamin D,25-oh,tota l,ia 36 NG/mL 30-100 normal Vitam in D Statu s 25-OH Vitam in D: Defic iency : <20 ng/mL Insuf ficie ncy: 20 - 29 ng/mL Optim al: > or = 30 ng/mL For 25-OH Vitam in D testi ng on patie nts on D2-dotson pplem entat ion and patie nts for whom quant itati on of D2 and D3 fract ions is requi red, the [facility] Assur eD(TM ) 25-OH VIT D, (D2,D 3), LC/MS /MS is recom mirtha d: order code [id number] (pee ents >2yrs ). For more infor dia mccloud on this test, go to: http: [email or web address]/fa [email or web address] (This link is being provi ded for infor dia nal/e ducat ional purpo ses only. ) Not Available [address] [address] [place], [address], 01/13/2015 08:50:20 01/13/20 15 01/13/2015 vitam in D, 25-hy droxy , total , serum comment We recei luis a handw ritte n test order for Vitam in D and perfo rmed [id number] , Vitam in D, 25-OH ,Tota l,IA test. If this is not what you inten ded to order , pleas e conta ct your local clien t servi ce repre senta tive immed iatel y so that we may adjus t our anibal ng appro yary jessica. You may also inqui re about alter nativ e or addit ional testi ng. Not Available [address] [address] [facility] [place], [address], 01/13/2015 08:50:20 04/03/20 18 04/03/2018 rapid strep group A, throa t Strep positi ve Not Available In-House Results For Internal Use Only, Do Not Delete/merge, [id number] 04/03/2018 15:11:14 05/07/19 19 05/11/2018 respi rator y aller gen panel - [facility] er Bradley berrios y b dermatophago ides pteronyssinu s (D1) IgE <0.10 kU/L normal Not Available [address] [address] [place], [address], 05/11/2018 18:56:24 05/07/19 19 05/11/2018 respi rator y aller gen panel - great er Bradley berrios y b class 0 Not Available [address] [address] [place], [address], 05/11/2018 18:56:24 05/07/19 19 05/11/2018 respi rator y aller gen panel - great er Bradley berrios y b dermatophago ides farinae (D2) IgE <0.10 kU/L normal Not Available [address] [address] [address] , [place], [address], 05/11/2018 18:56:24 05/07/19 19 05/11/2018 respi rator y aller gen panel - great er Bradley berrios y b class 0 Not Available [address] [address] [place], [address], 05/11/2018 18:56:24 05/07/19 19 05/11/2018 respi rator y aller gen panel - great er Bradley berrios y b penicillium notatum (M1) IgE <0.10 kU/L normal Not Available [address] [address] [address] , [place], [address], 05/11/2018 18:56:24 05/07/19 19 05/11/2018 respi rator y aller gen panel - great er Bradley berrios y b class 0 Not Available [address] [address] [place], [address], 05/11/2018 18:56:24 05/07/19 19 05/11/2018 respi rator y aller gen panel - great er Bradley berrios y b cladosporium herbarum (M2) IgE <0.10 kU/L normal Not Available [address] [address] [place], [address], 05/11/2018 18:56:24 05/07/19 19 05/11/2018 respi rator y aller gen panel - great er Bradley berrios y b class 0 Not Available [address] [address] [place], [address], 05/11/2018 18:56:24 05/07/19 19 05/11/2018 respi rator y aller gen panel - great er Bradley berrios y b aspergillus fumigatus (M3) IgE <0.10 kU/L normal Not Available [address] [address] [place], [address], 05/11/2018 18:56:24 05/07/19 19 05/11/2018 respi rator y aller gen panel - great er Bradley berrios y b class 0 Not Available [address] [address] [place], [address], 05/11/2018 18:56:24 05/07/19 19 05/11/2018 respi rator y aller gen panel - great er Bradley berrios y b alternaria alternata (M6) IgE <0.10 kU/L normal Not Available [address] [address] [place], [address], 05/11/2018 18:56:24 05/07/19 19 05/11/2018 respi rator y aller gen panel - great er Bradley berrios y b class 0 Not Available [address] [address] [place], [address], 05/11/2018 18:56:24 05/07/19 19 05/11/2018 respi rator y aller gen panel - great er Bradley berrios y b CAT dander (E1) IgE <0.10 kU/L normal Not Available [address] [address] [place], [address], 05/11/2018 18:56:24 05/07/19 19 05/11/2018 respi rator y aller gen panel - great er Bradley berrios y b class 0 Not Available [address] [address] [place], [address], 05/11/2018 18:56:24 05/07/19 19 05/11/2018 respi rator y aller gen panel - great er Bradley berrios y b dog dander (E5) IgE <0.10 kU/L normal Not Available [address] [address] [place], [address], 05/11/2018 18:56:24 05/07/19 19 05/11/2018 respi rator y aller gen panel - great er Bradley berrios y b class 0 Not Available [address] [address] [place], [address], 05/11/2018 18:56:24 05/07/19 19 05/11/2018 respi rator y aller gen panel - great er Bradley berrios y b cockroach (I6) IgE <0.10 kU/L normal Not Available [address] [address] [place], [address], 05/11/2018 18:56:24 05/07/19 19 05/11/2018 respi rator y aller gen panel - great er Bradley berrios y b class 0 Not Available [address] [address] [place], [address], 05/11/2018 18:56:24 05/07/19 19 05/11/2018 respi rator y aller gen panel - great er Bradley berrios y b maple (box elder) (T1) IgE <0.10 kU/L normal Not Available [address] [address] [place], [address], 05/11/2018 18:56:24 05/07/19 19 05/11/2018 respi rator y aller gen panel - great er Bradley berrios y b class 0 Not Available [address] [address] [place], [address], 05/11/2018 18:56:24 05/07/19 19 05/11/2018 respi rator y aller gen panel - great er Bradley berrios y b mountain cedar (T6) IgE <0.10 kU/L normal Not Available [address] [address] [place], [address], 05/11/2018 18:56:24 05/07/19 19 05/11/2018 respi rator y aller gen panel - great er Bradley berrios y b class 0 Not Available [address] [address] [place], [address], 05/11/2018 18:56:24 05/07/19 19 05/11/2018 respi rator y aller gen panel - great er Bradley berrios y b walnut tree (T10) IgE <0.10 kU/L normal Not Available [address] [address] [place], [address], 05/11/2018 18:56:24 05/07/19 19 05/11/2018 respi rator y aller gen panel - great er Bradley berrios y b class 0 Not Available [address] [address] [place], [address], 05/11/2018 18:56:24 05/07/19 19 05/11/2018 respi rator y aller gen panel - great er Bradley berrios y b sycamore (T11) IgE <0.10 kU/L normal Not Available [address] [address] [address] , [place], [address], 05/11/2018 18:56:24 05/07/19 19 05/11/2018 respi rator y aller gen panel - great er Bradley berrios y b class 0 Not Available [address] [address] [place], [address], 05/11/2018 18:56:24 05/07/19 19 05/11/2018 respi rator y aller gen panel - great er Bradley berrios y b cottonwood (T14) IgE <0.10 kU/L normal Not Available [address] [address] [place], [address], 05/11/2018 18:56:24 05/07/19 19 05/11/2018 respi rator y aller gen panel - great er Bradley berrios y b class 0 Not Available [address] [address] [address], [place], [address], 05/11/2018 18:56:24 05/07/19 19 05/11/2018 respi rator y aller gen panel - great er Bradley berrios y b white alexa (T15) IgE <0.10 kU/L normal Not Available [address] [address] [address], [place], [address], 05/11/2018 18:56:24 05/07/19 19 05/11/2018 respi rator y aller gen panel - great er Bradley berrios y b class 0 Not Available [address] [address] [address] , [place], [address], 05/11/2018 18:56:24 05/07/19 19 05/11/2018 respi rator y aller gen panel - great er Bradley berrios y b oak (T7) IgE <0.10 kU/L normal Not Available [address] [address] [address], [place], [address], 05/11/2018 18:56:24 05/07/19 19 05/11/2018 respi rator y aller gen panel - great er Bradley berrios y b class 0 Not Available [address] [address] [place], [address], 05/11/2018 18:56:24 05/07/19 19 05/11/2018 respi rator y aller gen panel - great er Bradley berrios y b elm (T8) IgE <0.10 kU/L normal Not Available [address] [address] [address] , [place], [address], 05/11/2018 18:56:24 05/07/19 19 05/11/2018 respi rator y aller gen panel - great er Bradley berrios y b class 0 Not Available [address] [address] [place], [address], 05/11/2018 18:56:24 05/07/19 19 05/11/2018 respi rator y aller gen panel - great er Bradley berrios y b hickory/peca n tree (T22) IgE <0.10 kU/L normal Not Available [address] [address] [place], [address], 05/11/2018 18:56:24 05/07/19 19 05/11/2018 respi rator y aller gen panel - great er Bradley berrios y b class 0 Not Available [address] [address] [place], [address], 05/11/2018 18:56:24 05/07/19 19 05/11/2018 respi rator y aller gen panel - great er Bradley berrios y b white mulberry (T70) IgE <0.10 kU/L normal Not Available [address] [address] [place], [address], 05/11/2018 18:56:24 05/07/19 19 05/11/2018 respi rator y aller gen panel - great er Bradley berrios y b class 0 Not Available [address] [address] [place], [address], 05/11/2018 18:56:24 05/07/19 19 05/11/2018 respi rator y aller gen panel - great er Bradley berrios y b bermuda grass (g2) IgE <0.10 kU/L normal Not Available [address] [address] [place], [address], 05/11/2018 18:56:24 05/07/19 19 05/11/2018 respi rator y aller gen panel - great er Bradley berrios y b class 0 Not Available [address] [address] [place], [address], 05/11/2018 18:56:24 05/07/19 19 05/11/2018 respi rator y aller gen panel - great er Bradley berrios y b aaron grass (g6) IgE <0.10 kU/L normal Not Available [address] [address] [place], [address], 05/11/2018 18:56:24 05/07/19 19 05/11/2018 respi rator y aller gen panel - great er Bradley berrios y b class 0 Not Available [address] [address] [place], [address], 05/11/2018 18:56:24 05/07/19 19 05/11/2018 respi rator y aller gen panel - great er Bradley berrios y b common ragweed (short) (W1) IgE <0.10 kU/L normal Not Available [address] [address] [place], [address], 05/11/2018 18:56:24 05/07/19 19 05/11/2018 respi rator y aller gen panel - great er Bradley berrios y b class 0 Not Available [address] [address] [place], [address], 05/11/2018 18:56:24 05/07/19 19 05/11/2018 respi rator y aller gen panel - [facility] er Bradley berrios y b rough pigweed (W14) IgE <0.10 kU/L normal Not Available [address] [address] [place], [address], 05/11/2018 18:56:24 05/07/19 19 05/11/2018 respi rator y aller gen panel - great er Bradley berrios y b class 0 Not Available [address] [address] [place], [address], 05/11/2018 18:56:24 05/07/19 19 05/11/2018 respi rator y aller gen panel - great er Bradley berrios y b v[place] thistle (W11) IgE <0.10 kU/L normal Not Available [address] [address] [place], [address], 05/11/2018 18:56:24 05/07/19 19 05/11/2018 respi rator y aller gen panel - great er Bradley berrios y b class 0 Not Available [address] [address] [address], [place], [address], 05/11/2018 18:56:24 05/07/19 19 05/11/2018 respi rator y aller gen panel - great er Bradley berrios y b rough tam elder (W16) IgE <0.10 kU/L normal Not Available [address] [address] [place], [address], 05/11/2018 18:56:24 05/07/19 19 05/11/2018 respi rator y aller gen panel - great er Bradley berrios y b class 0 Not Available [address] [address] [place], [address], 05/11/2018 18:56:24 05/07/19 19 05/11/2018 respi rator y aller gen panel - great er Bradley berrios y b mouse urine proteins (E72) IgE <0.10 kU/L normal Not Available [address] [address] [address] , [place], [address], 05/11/2018 18:56:24 05/07/19 19 05/11/2018 respi rator y aller gen panel - great er Bradley berrios y b class 0 Not Available [address] [address] [address] , [place], [address], 05/11/2018 18:56:24 05/07/19 19 05/11/2018 respi rator y aller gen panel - great er Bradley berrios y b immunoglobul in E 20 kU/L <or=11 4 normal Not Available [address] [address] [place], [address], 05/11/2018 18:56:24 05/07/19 19 05/11/2018 inter preta tion interpretati on Speci fic Level of Aller gen IGE Class kU/L Speci fic IGE Antib malcolm ----- ----- ---- ----- ----- ----- ---- 0 <0.10 Absen t/Und etect able 0/1 0.10- 0.34 Very Low Level 1 0.35- 0.69 Low Level 2 0.70- 3.49 Moder ate Level 3 3.50- 17.4 High Level 4 17.5- 49.9 Very High Level 5 50-10 0 Very High Level 6 >100 Very High Level The clini everett relev ance of aller gen resul ts of 0.10- 0.34 kU/L are undet ermin ed and inten ded for speci alist use. Aller gens denot ed with a inclu de resul ts using one or more sandoval te speci fic reage nts. In those cases , the test was devel oped and its sandoval tical perfo rmanc e aba cteri stics have been deter mined by [facility]. It has not been clear ed or appro luis by the U.S. Food and Drug Admin istra tion. This assay has been valid ated pursu ant to the CLIA regul ation s and is used for clini everett purpo ses. Not Available [facility] [address] [address] [place], [address], 05/11/2018 18:56:24 05/07/19 19 05/11/2018 food aller gen panel , serum casein (F78) IgG 14.1 mcg/m L < 2.0 high Not Available [facility] [address] [address] [place], [address], 05/11/2018 18:56:25 05/07/19 19 05/11/2018 food aller gen panel , serum cacao (chocolate) (F93) IgG <2.0 mcg/m L < 2.0 Not Available [facility] [address] [address] [place], [address], 05/11/2018 18:56:25 05/07/19 19 05/11/2018 food aller gen panel , serum codfish (F3) IgG <2.0 mcg/m L < 2.0 Not Available [address], [address], 05/11/2018 18:56:25 05/07/19 19 05/11/2018 food aller gen panel , serum coffee (F221) IgG 4.7 mcg/m L < 2.0 high Not Available [address], [address], 05/11/2018 18:56:25 05/07/19 19 05/11/2018 food aller gen panel , serum maize/corn (F8) IgG 5.9 mcg/m L < 2.0 high Not Available [address], [address], 05/11/2018 18:56:25 05/07/19 19 05/11/2018 food aller gen panel , serum egg white (F1) IgG 2.8 mcg/m L < 2.0 high Not Available [address], [address], 05/11/2018 18:56:25 05/07/19 19 05/11/2018 food aller gen panel , serum peanut (F13) IgG <2.0 mcg/m L < 2.0 Not Available [address], [address], 05/11/2018 18:56:25 05/07/19 19 05/11/2018 food aller gen panel , serum soybean (F14) IgG 2.5 mcg/m L < 2.0 high Not Available [address], [address], 05/11/2018 18:56:25 05/07/19 19 05/11/2018 food aller gen panel , serum tomato (F25) IgG 2.1 mcg/m L < 2.0 high Not Available [address], [place], [address], 05/11/2018 18:56:25 05/07/19 19 05/11/2018 food aller gen panel , serum wheat (F4) IgG 5.0 mcg/m L < 2.0 high Not Available [address] [address] [place], [address], 05/11/2018 18:56:25 05/07/19 19 05/11/2018 food aller gen panel , serum yeast (F45) IgG <2.0 mcg/m L < 2.0 This test( s) was perfo rmed using a kit that has not been clear ed or appro luis by the FDA. The sandoval tical perfo rmanc e aba cteri stics of this test have been deter mined by [facility] [employer] [place], [place]. This test, and any food speci fic aller gen IgG resul t, shoul d not be used for the diagn osis of aller gic or atopi c disea se state s (exce pt for sensi tivit y to milk in neona danae and glute n sensi tivit y). The use of food speci fic aller gen IgG resul ts shoul d be restr icted to the asses sment of respo nse to thera peuti c inter venti ons. Not Available [facility] [address], [address], 05/11/2018 18:56:25 10/01/1910/04/2018 T3, rever se, serum T3 reverse, lc/MS/MS 11 NG/dL 8-25 This test was devel oped and its sandoval tical perfo rmanc e aba cteri stics have been deter mined by [facility] mig[facility] . It has not been clear ed or appro luis by FDA. This assay has been valid ated pursu ant to the CLIA regul ation s and is used for clini everett purpo ses. Not Available [facility] [address] [place], [address], 10/04/2018 20:25:30 10/01/19 19 10/04/2018 T3, total , serum T3, total 108 NG/dL 76-181 normal Not Available [address] [address] [place], [address], 10/04/2018 20:25:31 10/01/19 19 10/04/2018 T4, free, serum T4, free 0.9 NG/dL 0.8-1. 8 normal Not Available [address] [address] [place], [address], 10/04/2018 20:25:31 10/01/1910/04/2018 TSH, serum or plasm a TSH 2.47 mIU/L 0.40-4 .50 normal Not Available [address], [address], 10/04/2018 20:25:31 05/06/19 19 05/06/2018 XR, chest , 2 view No observ ation record ed. [facility] (Imaging) [address], [place], [address], 05/07/2018 09:59:58 Result Notes None recorded. Problems Name Problem SNOMED Code Status Onset Date Resolution Date Notes Provider Name and Address Organization Details Recorded Time Hypothyroidis m 05142820 Active Paco Marshall MD [address] [place] [address], [address] , [facility] 5 19:39:02 Vitamin D deficiency 17972834 Active Paco Marshall MD [address] [place], [address] , [facility] 5 19:39:02 Essential hypertension 96228417 Active Paco Marshall MD [address] [place], [address] , [facility] 5 19:39:02 Menopause present 929037441 Active Paco Marshall MD [address] [place], [address] , [facility] 5 19:39:02 Loss of hair 558025267 Active Paco Marshall MD [address] [place] [address], [address] , [facility] 5 19:39:02 Insect bite - wound 395682583 Active Paco Marshall MD [address] [place] [address], [address] , [facility] 5 17:57:20 Lichenificati on Active Paco Marshall MD [address] [place] [address], [address] , [facility] 5 17:57:20 Fracture of tooth 92167424 Active Paco Marshall MD [address] [place] [address], [address] , [facility] 5 17:57:20 Problem Notes None recorded. Procedures Surgical History None recorded. Imaging Results Imaging Date Name Status LastModified by Organiz ation Details LastModified Time 05/06/2018 XR, chest, 2 view completed [facility] ([facility]) [address] [facility] [address], [place], [address], 05/07/2018 09:59:58 Procedure Notes None recorded. Medical Equipment None Reported. Allergies Allergen ID Allergen Name Allergen Category Reaction Reaction Severity Criticality Documentation Date Start Date Code Code System Note Provider Name and Address Organization Details Recorded Time erythromy travon medicatio n diarrhea Not available Not available 04/22/2014 4053 RxNorm Z mike shelia ated Paco Marshall MD [address] [place], [address], [facility] 8 15:10:34 47713 Topamax medicatio n Not available Not available Not available 04/22/2014 53896 3 RxNorm Yi Lawton rk [facility] 5 18:05:18 58724 albuterol sulfate medicatio n Not available Not available Not available 04/03/2018 96953 3 RxNorm Betty beckman [facility] [facility] 8 13:45:27 17360 naproxen medicatio n Not available Not available Not available 04/03/2018 7258 RxNorm Betty Naplestariq beckman, [facility] 8 13:45:37 17069 acetamino phen medicatio n Not available Not available Not available 04/03/2018 161 RxNorm Betty Radhatariq beckman [facility] 8 13:45:46 09060 Symbicort medicatio n Not available Not available Not available 04/03/2018 44583 8 RxNorm Betty Radhatariq beckman, [facility] 8 13:45:57 40098 Darvocet- N medicatio n other Not available Not available 04/03/2018 alter ed menta l [facility] Paco Marshall MD [address] [place], [address] [place] [address] [facility] 8 14:56:13 Medications Name Sig Start Date Stop Date Status Note LastModified by Organization Details LastModified Time Phosphorus 200 2d; 12x 3 qd 09/01 completed Not Available Not Available Not Available Ledum Palustre 12x 3 tid 04/03 completed Not Available Not Available Not Available DHEA 25mg 1qd 2018 active Not Available Not Available Not Avai lable Eupatorium Compound 1 sc 06/02 completed Not Available Not Available Not Available Calcarea Carbonica 200 1m 2d; 12x 3 bid 2018 active Not Available Not Available Not Avai lable Phosphorus 200 1m 2d; 12x3 tid 06/02 completed Not Available Not Available Not Available Phosphatidy l Serine 100 mg 1 bid 2018 active Not Available Not Available Not Avai lable Berberis Quartz 1sc 06/02 completed Not Available Not Available Not Available azithromyci n 250 mg tablet TAKE 2 TABLETS (500 MG) BY ORAL ROUTE ONCE DAILY FOR 1 DAY THEN 1 TABLET (250 MG) BY ORAL ROUTE ONCE DAILY FOR 4 DAYS 06/02 completed Not Available Not Available Not Available benzonatate 200 mg capsule 04/03 completed Not Available Not Available Not Available atenolol 25 mg tablet Take 1 tablet every day by oral route. 09/01 completed Not Available Not Available Not Available triamcinolo ne acetonide 0.1 % topical cream 04/03 completed Not Available Not Available Not Available levothyroxi ne 75 mcg tablet 09/01 completed Not Available Not Available Not Available [place] Thyroid 15 mg tablet Take 1 tablet every day by oral route. 2013 active Not Available Not Available Not Avai lable prednisone 50 mg tablet 04/03 completed Not Available Not Available Not Available Synthroid 50 mcg tablet 06/02 completed Not Available Not Available Not Available [place] Thyroid 30 mg tablet Take 1 tablet every day by oral route. 2013 active Not Available Not Available Not Avai lable doxycycline hyclate 100 mg tablet 04/03 completed Not Available Not Available Not Available atenolol 50 mg tablet active Not Available Not Available No t Available naproxen 500 mg tablet 04/03 completed Not Available Not Available Not Available Zostavax (PF) 19,400 unit/0.65 mL subcutaneou s suspension INJECT 0.65 ML SUBCUTANE OUSLY DIRECTED. 04/03 completed Not Available Not Available Not Available ProAir HFA 90 mcg/actuati on aerosol inhaler 04/03 completed Not Available Not Available Not Available Symbicort 160 mcg-4.5 mcg/actuati on HFA aerosol inhaler 04/03 completed Not Available Not Available Not Available Nature-Thro id 48.75 mg tablet Take 1 tablet every day by oral route. active Not Available Not Available No t Available Virtussin AC 10 mg-100 mg/5 mL oral liquid 04/03 completed Not Available Not Available Not Available Vitals Date Recorded Body weight Heart rate Body mass index (BMI) Body height Systolic blood pressure Diastolic blood pressure Provider Name and Address Organization Details Last Updated DateTime 5 27779.8 0533 g 73 /min 29.1 kg/m2 180.34 cm 129 mm[Hg] 78 mm[Hg] Yaron Kaplan [facility] 5 17:18:25 Date Recorded Body weight Body mass index (BMI) Body height Heart rate Body temperature Systolic blood pressure Diastolic blood pressure Provider Name and Address Organization Details Last Updated DateTime 8 33985.5 8 g 26.7 kg/m2 180.34 cm 90 /min 100.3 [degF] 162 mm[Hg] 82 mm[Hg] Betty Garcia [facility] 8 13:48:27 Date Recorded Body height Body mass index (BMI) Body weight Heart rate Body temperature Systolic blood pressure Diastolic blood pressure Provider Name and Address Organization Details Last Updated DateTime 9 180.34 cm 26.5 kg/m2 56216.5 5 g 69 /min 97.7 [degF] 143 mm[Hg] 81 mm[Hg] Rubi Lisa [facility] 9 17:46:17 Date Recorded Body height Body mass index (BMI) Body weight Heart rate Systolic blood pressure Diastolic blood pressure Provider Name and Address Organization Details Last Updated DateTime 9 180.34 cm 26.5 kg/m2 01283.5 5 g 65 /min 145 mm[Hg] 79 mm[Hg] Davide Willett [facility] 9 13:24:14 Date Recorded Body height Body mass index (BMI) Body weight Heart rate Systolic blood pressure Diastolic blood pressure Provider Name and Address Organization Details Last Updated DateTime 9 180.34 cm 26.8 kg/m2 50877.7 4 g 73 /min 135 mm[Hg] 79 mm[Hg] Davide Willett [facility] 9 16:16:39 Social History Question Answer Notes LastModified by Organizat ion Details LastModified Time Tobacco Smoking Status Never Smoker Not Available [employer] 02/22/2020 03:29:37 What Is Your Level Of Alcohol Consumption? Occasional [id number] Information not available 02/22/2020 How Much Tobacco Do You Smoke? No [id number] Information not available 02/22/2020 Sex: Unknown Functional Status None recorded. Mental Status None recorded. Family History Nothing Reported. Medical History Condition Response Coronary Artery Disease N Gout N Kidney Stones N Blood Diseases N Hyperthyroidism N Hypothyroidism N Depression N COPD N Developmental or Behavioral Disorders N Anxiety Disorder N Muscle, Joint, or Bone Problems N Vision or Eye Problems N Arthritis N Head Injury/Concussion N Congenital Anomalies N Cancer N Stroke N ADHD N Bladder or Kidney Problems N Hospital Admission other than N High Cholesterol N Liver Disease N Headaches N Fibromyalgia N Kidney Disease N Ear or Hearing Problems N Thyroid Problems N Skin Problems N Anemia N Constipation N Mental Illness N Diabetes N Bedwetting N Seizures/Epilepsy N Heart Problems/Murmur N Tuberculosis N Diverticulitis N Asthma N Allergies N Reflux/GERD N Heart Disease N Pulmonary Embolism N Hypertension N Osteoporosis N Chicken Pox Y Autism Spectrum Disorder (ASD) N Gynecological HistoryNo gynecological history recorded. Obstetrics History GPAL:G 0 P 0 0 0 0 Past Encounters Encounter ID Performer Location Encounter Start Date Encounter Closed Date Diagnosis/Indication Diagnosis SNOMED-CT Code Diagnosis ICD10 Code [id number] [facility] Main Office [address] [place] [address] 04/22/2014 17:11:49 04/22/2014 18:59:59 Hypothyroidism 08849862 Vitamin D deficiency 347 10526 Essential hypertension 79412435 Menopause present 079225 006 [id number] [facility] Main Office [address] [place] [address] 01/09/2015 17:47:26 01/09/2015 20:00:36 Hypothyroidism 03255788 Essential hypertension 98036066 Menopause present 415794 006 Vitamin D deficiency 347 18019 Loss of hair 668014291 [id number] [facility] Main Office [address] [place] [address] 02/01/2015 16:58:49 02/01/2015 18:05:50 Insect bite - wound 569223756 T14.8 Lichenification 95850475 6 L28.0 Fracture of tooth 399083 09 S02.5XXB [id number] Paco Marshall MD Main Office [address] [place] [address] 04/03/2018 13:38:45 04/03/2018 15:15:40 Streptococcal sore throat 45196770 J02.0 Upper resp iratory infection 12165899 J06.9 [id number] Paco Marshall MD Main Office [address] [place] [address] 05/05/2018 17:43:44 05/05/2018 18:56:34 Chronic cough 20464327 R05 [id number] Paco Marshall MD Main Office [address] [place] [address] 06/02/2018 13:20:27 06/02/2018 14:15:55 Chronic cough 69845275 R05 Constipation 93891105 K5 9.00 Poor short -term memory 431649116 R41.3 Loss of hair 209148617 L 65.9 [id number] Paco Marshall MD Main Office [address] [place] [address] 09/01/2018 16:14:51 09/01/2018 17:16:11 Hypothyroidism 28846671 E03.9 Insomnia 526341106 G47.0 0 Impaired cognition 69365 6002 R41.89 Hypertensive disorder 38 485679 I10 Dysphoric mood 32827965 R45.89 Health Concerns Section Related Observation LastModified by Organization Detai ls LastModified Time None Recorded Concern Status LastModified by Organization Details LastModified Time None Recorded Advance Directives Directive None Recorded Payers Encounter Date Sequence Insurance Name Policy Number Policy Montoya Covered Member ID Montoya Member ID Guarantor Name 02/01/2015 1 [place] [id number] Maria G M Kassing [id number] Maria G Jessica Kassing 04/03/2018 1 [place] [id number] Maria G M Kassing [id number] Maria G Jessica Kassing 05/05/2018 1 [place] [id number] Maria G M Kassing [id number] Maria G Jessica Kassing 06/02/2018 1 [place] [id number] Maria G Barrow [id number] Maria G Barrow 09/01/2018 1 [place] [id number] Maria G Barrow [id number] Maria G Barrow Notes Date Note Type Note Provider Name and Address Organization Details Recorded Time 5 text/html L tooth broke off during night - concern over exposure to mercury filling. Has dentist appointment for tomorrow. spider bite R forearm started itching - saw PA for in [place] - steroid cream Triamcinolone 0.1% helped only slightly. area has not diminished. Skin now thickened Paco Marshall MD [address] [place], [address], [facility] 02/01/2015 17:57:35 8 text/html Sick since mid January.Current symptoms:fevercough which disturbs sleep. Minimally productive.Light headed as though would fall Paco Marshall MD [address] [place], [address], [facility] 04/03/2018 15:11:48 9 text/html Continued cough - not a day without cough since 01-30 Generally better but not gone.Completed Z mike for strep the and cough has reduced, but is not gone. something in my throat - mucus and I swallow it. Tired of coughing.Pain sternum and lower chest during and after the cough. Faint nausea with it.Does not wake me at night.Has not noticed other triggers. Paco Marshall MD [address] [place], [address], [facility] 05/05/2018 18:43:46 9 text/html Phosphorus helped a lot Cough down to occasional throat clearing and has now stopped completely, therefore stopped the Phosphorus.Happier more cheerful. Now: last 6-8 weeks - wakes at after 30-45 in a panic thinking she had failed to take care of some matter when in fact she had. 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 Weakened memory since 2017 - in part related to stress with daughter who has borderline personality. Slightly better this year. Hair thinnerConstipation since a month ago. Paco Marshall MD [address] [place], [address], [facility] 06/02/2018 14:04:55 9 text/html Phosphorus helped cough but had to stop because of constipation.BP increased to 150s/100s - PMD doubled Atenolol to 50 and it is back down.NT 48.75 (or levothyroxin 75 she can't get the NT). Just switched back to NT - unsure if she feels any different)At times wakes in a panic All the things that haven't been done now panics about things that are already done. Double checks. Issues are memoryTo sleep easily, but wakes after an hour in a panic about things to do, or early 1-2 hours before alarm, and worries about things she is supposed to do. Cold sensitive.desires sweetsNot tidy. Paco Marshall MD [address] [place], [address], [facility] 09/01/2018 17:07:28 OBGyn Episode No OBEpisode recorded.
--- OUTSIDE RECORDS SUMMARY | 2024-04-20 02:28 | XMS_ITS | Encounter Summary ---
Author Organization [facility] Address [address] [place] [address]. [place] [address] [place] [address] Care Team Providers Care Supply Chain Intern Name Role Phone Rosie Bryant DO Primary Care Provider [phone] Encounter Details Date Type Department Care Team (Late st Contact Info) Description 03/02/2024 Orders Only [facility] Orthopedic & [facility] Medicine - [place] [address] [place] [address] Jared Mejia MD [address] [place] [address] Social History Tobacco Use Types Packs/Day Years [...] as of this encounter Progress Notes * Eliz Real MA - 03/02/2024 12:42 PM CST Oxr ING VESSEL MATE documented in this encounter Plan of Treatment Upcoming Encounters Date Type Department Care Team (Late st Contact Info) Description 04/28/2024 2:40 PM FISHING VESSEL MATE Office Visit [facility] Orthopedic & Sports Medicine - [place] [address] [place] [address] Jared Mejia MD [address] [place] [address] 05/20/2024 10:20 AM FISHING VESSEL MATE Office Visit [facility] Multispecialty Care - [facility] [address] [facility], [address] [place] [address] Scarlet Mendoza MD [address] [place] [address] 10/11/2024 10:00 AM CDT Office Visit [facility] THREE [facility], [address] [place] [address] Galdino Santos MD Three [facility]. [facility] [address] [place] [address] Lary Joel PA [address] [facility], [address] [place] [address] Scheduled Orders Name Type Priority Associated Diagnoses Orde r Schedule OXR PELVIS AP+LT HIP 2V Imaging Routine Pain of left hip Expected: 03/22/2024, Expires: 03/02/2025 documented as of this encounter Visit Diagnoses Diagnosis Pain of left hip- Primary documented in this encounter Care Teams Supply Chain Intern Relationship Specialty Start Date End Date Rosie Bryant DO [address] [place] [address] PCP - General FAMILY PRACTICE 02/21/20 documented as of this encounter
--- OUTSIDE RECORDS SUMMARY | 2024-04-20 02:28 | XMS_ITS | Encounter Summary ---
Author Organization [facility] Address [address] [place] [address]. [place], [place] [address] [place] [address] Care Team Providers Care Rn House Supervisor Name Role Phone Rosie Bryant Primary Care Provider [phone] Encounter Details Date Type Department Care Team (Late st Contact Info) Description 06/17/[address] [facility] [address] [place], [place] [id number] Jacob Montgomery MD [address] [place] [address] Social History Tobacco Use Types Packs/Day Years [...] Encounters Date Type Department Care Team (Late Contact Info) Description 04/28/2024 2:40 PM TECHNICIAN SEMICONDUCTOR DEVELOPMENT Office Visit [facility] - [place] [address] [place] [address] Jared Mejia MD [address] [place] [address] 05/20/2024 10:20 AM TECHNICIAN SEMICONDUCTOR DEVELOPMENT Office Visit [facility] Multispecialty Care - [facility] [address] [facility], [address] [place] [address] Scarlet Mendoza MD [address] [place] [address] 10/11/2024 10:00 AM CDT Office Visit [facility] THREE [facility], [address] [place] [address] Galdino Santos MD Three [facility]. [address] [place] [address] Lary Joel PA [address] [facility], [address] [place] [address] documented as of this encounter Visit Diagnoses Diagnosis Sleep apnea, unspecified type- Primary documented in this encounter Care Teams Rn House Supervisor Relationship Specialty Start Date End Date Rosie Bryant DO [address] [place] [address] PCP - General FAMILY PRACTICE 02/21/20 documented as of this encounter
--- OUTSIDE RECORDS SUMMARY | 2024-04-20 02:28 | XMS_ITS | Encounter Summary ---
Author Organization [facility] Address [address] [place] [address]. [place], [place] [address] [place] [id number] Care Team Providers Care Refinery Technician Name Role Phone Rosie Bryant Primary Care Provider [phone] Reason for Visit * Reason Comments Chest Pain Encounter Details Date Type Department Care Team (Late st Contact Info) Description 04/07/2024 5:09 AM WINCHMAN/CRANE OPERATOR - 04/07/2024 8:[address] [facility] Emergency [facility] [place] [address] Crow Hernadez MD [address] [place] [address] Jim Rahman MD [address] [place] [address] Chest Pain Discharge Disposition: Home or Self Care (Routine Discharge) Social History Tobacco Use Types Packs/Day Years [...] Sign Reading Time Taken Comments Blood Pressure 165/76 04/07/2024 6:20 AM WINCHMAN/CRANE OPERATOR Pulse 77 04/07/2024 6:20 AM WINCHMAN/CRANE OPERATOR Temperature 36.6 ??C (97.9 ??F) 04/07/2024 5:05 AM CS T Respiratory Rate 22 04/07/2024 6:20 AM WINCHMAN/CRANE OPERATOR Oxygen Saturation 96% 04/07/2024 6:20 AM WINCHMAN/CRANE OPERATOR Inhaled Oxygen Concentration - - Weight 97.8 kg (215 lb 9.8 oz) 04/07/2024 5:05 A M WINCHMAN/CRANE OPERATOR Height 177.8 cm (5' 10 ) 04/07/2024 5:05 AM WINCHMAN/CRANE OPERATOR Body Mass Index 30.94 04/07/2024 5:05 AM WINCHMAN/CRANE OPERATOR documented in this encounter Discharge Instructions * Discharge Instructions* Jim Rahman MD - 04/07/2024 7:55 AM WINCHMAN/CRANE OPERATOR Thank you for entrusting your health with me. I have obtained information about your health and reviewed your work-up. Please access [employer] to see my note and work-up. Medical care is complex and your health is important to me. I encourage you to ask questions for further understanding of today's visit and return if something changes. Sincerely, Dr. Rahman HMAN/CRANE OPERATOR * Attachments The following attachments cannot be sent through Care Everywhere. * Chest Pain That Is Not Caused by the Heart Discharge Instructions (Polish) documented in this encounter Medications at Time of Discharge 5-Hydroxytryptop cortes (5-HTP OR) Take 200 mg by mouth daily. amLODIPine 5 MG tablet Take 1 tablet (5 mg total) by mouth daily. 08/11/2021 atenolol 50 MG tablet Take 1 tablet (50 mg total) by mouth daily. 07/23/2021 Cholecalciferol (VITAMIN D3) 50 MCG (2000 UT) Cap Take 4,000 Units by mouth daily. Alternates 2000 and 4000 Digestive Enzymes (DIGESTIVE ENZYME OR) Take 200 mg by mouth daily. [id number] OR Take 500 mg by mouth daily. 500mg AM. 1000mg PM ibuprofen (MOTRIN) 200 MG tablet Take 1 tablet (200 mg total) by mouth every 8 (eight) hours as needed for Pain. MAGNESIUM OR Take 96 mg by mouth daily. Menaquinone-7 (VITAMIN K2 OR) Take by mouth 2 (two) times a day. Multiple Vitamin (MULTIVITAMIN IRON-FREE) Tab Take by mouth daily. MILIEU COUNSELOR THYROID 60 MG tablet Take 1 tablet (60 mg total) by mouth daily. 10/20/2020 vitamin C 1000 MG tablet Take 1 tablet (1,000 mg total) by mouth daily. documented as of this encounter ED Notes * Jim Rahman MD - 04/07/2024 8:02 AM CST I received sign out on pt Chief Complaint : Chest Pain HPI : Maria G Barrow is a 68-year-old female who presents with chest pain. Physical Exam Filed Vitals: 04/07/24 0505 04/07/24 0530 04/07/24 0620 BP: (!) 162/88 (!) 154/78 (!) 165/76 Pulse: 76 75 77 Resp: 16 16 22 Temp: 97.9 ??F (36.6 ??C) TempSrc: Oral SpO2: 99% 98% 96% Weight: 97.8 kg (215 lb 9.8 oz) Height: 1.778 m (5' 10 ) Diagnostic Studies / Procedures ELECTROCARDIOGRAMS: Sinus rhythm. Rate of 74. Normal AR interval, normal QTc. No signs of acute ischemia. LABORATORY STUDIES: Results for orders placed or performed during the hospital encounter of 04/07/24 CBC W/DIFF AUTOMATED Result Value Ref Range WBC 9.60 4.5 - 11.0 x10'3/uL RBC 4.36 4.20 - 5.40 x10'6/uL HGB 13.7 12.0 - 16.0 G/DL HCT 40.7 38.0 - 48.0 % MCV 93.3 81.0 - 99.0 FL MCH 31.4 (H) 27.0 - 31.0 PG MCHC 33.7 32.0 - 36.0 G/DL RDW 12.4 11.5 - 14.5 % PLT 356 130 - 400 x10'3/uL MPV 10.1 9.3 - 12.2 FL DIFFERENTIAL TYPE AUTOMATED DIFFERENTIAL NEUTROPHILS % 67.1 % LYMPHOCYTES % 20.3 % MONOCYTES % 9.5 % EOSINOPHILS 1.7 % BASOPHILS 0.6 % IMMATURE GRANS % 0.8 % ABS. NEUTROPHILS 6.44 1.80 - 7.70 x10'3/uL ABS. LYMPHOCYTES 1.95 1.00 - 4.80 x10'3/uL ABS. MONOCYTES 0.91 (H) 0.24 - 0.86 x10'3/uL ABS. EOSINOPHILS 0.16 0.04 - 0.36 x10'3/uL ABS. BASOPHILS 0.06 0.01 - 0.08 x10'3/uL ABS. IMMATURE GRANULOCYTES 0.08 0.00 - 0.49 x10'3/uL COMPREHENSIVE METABOLIC PANEL Result Value Ref Range GLUCOSE 105 (H) 70 - 99 MG/DL BUN 13 7 - 18 MG/DL CREATININE S/P/B 0.77 0.55 - 1.02 MG/DL SODIUM S/P/B 140 136 - 145 MMOL/L POTASSIUM S/P/B 3.3 (L) 3.5 - 5.1 MMOL/L CHLORIDE S/P/B 108 97 - 115 MMOL/L CO2 28.0 21 - 32 MMOL/L CALCIUM S/P/B 9.2 8.5 - 10.1 MG/DL BILIRUBIN TOTAL S/P/B 0.4 0.2 - 1.2 MG/DL TOTAL PROTEIN S/P/B 7.4 6.4 - 8.2 G/DL ALBUMIN S/P/B 3.7 3.4 - 5.0 G/DL AST 25 15 - 37 U/L ALT 33 14 - 55 U/L ALKALINE PHOSPHATASE S/P/B 106 50 - 136 U/L ANION GAP 4.0 2 - 10 MMOL/L BUN CREATININE RATIO 16.9 6 - 26 A/G RATIO 1.0 1.0 - 2.0 RATIO GFR ESTIMATE 83 (L) >90 ML/MIN/1.73 M2 TROPONIN, QUANT Result Value Ref Range TROPONIN I HIGH SENSITIVITY 4 <54 ng/L TROPONIN, QUANT Result Value Ref Range TROPONIN I HIGH SENSITIVITY 4 <54 ng/L IMAGING STUDIES XR CHEST PORTABLE Result Date: 04/07/2024 IMPRESSION: 1. No significant change and no acute pulmonary disease. 2. Mild emphysematous changes in the upper lobes suggesting COPD. Referred By: Interpreted By: Nohelia Soliman MD, 04/07/2024 5:48 AM ED Course MDM Amount and/or Complexity of Data Reviewed Tests in the radiology section of CPT??: reviewed Tests in the medicine section of CPT??: reviewed White count normal. No sign of infection. Chest x-ray without signs of pneumonia. Patient does havemild emphysematous changes. Labs grossly benign. Troponin negative x 2. Patient overall reports feeling well while in the ER. Will have patient follow- up with primary careprovider. Return precautions given. Medications - No data to display Clinical Impression Chest pain, unspecified type (Primary) Current Discharge Medication List Disposition: Discharge Follow-Up: Rosie Bryant, DO [address] [place] [address] Call in 1 day JIM RAHMAN MD 04/07/2024 Jim Rahman MD 04/07/24 0804 HMAN/CRANE OPERATOR * Crow Hernadez MD - 04/07/2024 5:32 AM CST Chief Complaint Chief Complaint Patient presents with Chest Pain History of Present Illness Chest Pain 68y F here with c/o chest pain. Symptoms awoke her from sleep this morning. Pain is substernal and non-radiating. Described as tightness and aching. No associated shortness of breath. No nausea or vomiting. No worsening or alleviating factors identified. Pt was given ASA by EMS en route. Medical History ALLERGIES: Allergies Allergen Reactions Symbicort [Budesonide-Formoterol Fumarate] Anaphylaxis Acetaminophen Fatigue Donepezil Other (see comment) htn Doxepin Blurred vision Erythromycin Diarrhea Ezetimibe Memory Loss Icosapent Ethyl (Epa Ethyl Deedee) (Fish) Diarrhea Macrobid [Nitrofurantoin] Chest pressure Melatonin Unknown Naproxen Other (see comment) Hot flashes, constipation, bruising Propoxyphene Other (see comment) Gets high Statins Other (see comment) Intolerant Topamax [Topiramate] Blurred vision Ventolin [Albuterol] Shakiness Cephalexin Rash MEDICATIONS: Prior to Admission medications Medication Sig Start Date End Date Taking? Authorizing Provider 5-Hydroxytryptophan (5-HTP OR) Take 200 mg by mouth daily. Doc [facility] amLODIPine 5 MG tablet Take 1 tablet (5 mg total) by mouth daily. 08/11/21 Doc [facility] atenolol 50 MG tablet Take 1 tablet (50 mg total) by mouth daily. 07/23/21 [facility] Cholecalciferol (VITAMIN D3) 50 MCG (2000 UT) Cap Take 4,000 Units by mouth daily. Alternates 2000 and 4000 Doc [facility] Digestive Enzymes (DIGESTIVE ENZYME OR) Take 200 mg by mouth daily. Default History Genericprovider [id number] OR Take 500 mg by mouth daily. 500mg AM. 1000mg PM Doc [facility] Abstract ibuprofen (MOTRIN) 200 MG tablet Take 1 tablet (200 mg total) by mouth every 8 (eight) hours as needed for Pain. Default History Genericprovider MAGNESIUM OR Take 96 mg by mouth daily. Doc [facility] Menaquinone-7 (VITAMIN K2 OR) Take by mouth 2 (two) times a day. Doc [facility] Multiple Vitamin (MULTIVITAMIN IRON-FREE) Tab Take by mouth daily. Default History Genericprovider MILIEU COUNSELOR THYROID 60 MG tablet Take 1 tablet (60 mg total) by mouth daily. 10/20/20 [facility] Abstract vitamin C 1000 MG tablet Take 1 tablet (1,000 mg total) by mouth daily. Doc [facility] Abstract PAST MEDICAL HISTORY: Past Medical History: Diagnosis Date Disease of thyroid gland Hyperlipemia Hypertension Leg pain, left 2023 PAST SURGICAL HISTORY: Past Surgical History: Procedure Laterality Date TONSILLECTOMY FAMILY HISTORY: Family History Problem Relation Name Age of Onset Other (cardiac stent) Father Transient ischemic attack Maternal Grandmother SOCIAL HISTORY: Social History Tobacco Use Smoking status: Never Smokeless tobacco: Never Vaping Use Vaping status: Never Used Substance Use Topics Alcohol use: Yes Comment: rare Drug use: Never Review of Systems Review of Systems Cardiovascular: Positive for chest pain. Physical Exam Filed Vitals: 04/07/24 0505 BP: (!) 162/88 Pulse: 76 Resp: 16 Temp: 97.9 ??F (36.6 ??C) TempSrc: Oral SpO2: 99% Weight: 97.8 kg (215 lb 9.8 oz) Height: 1.778 m (5' 10 ) Physical Exam Vitals and nursing note reviewed. Constitutional: General: She is not in acute distress. Appearance: She is not toxic-appearing. HENT: Head: Normocephalic. Nose: Nose normal. Eyes: General: No scleral icterus. Conjunctiva/sclera: Conjunctivae normal. Cardiovascular: Rate and Rhythm: Normal rate and regular rhythm. Heart sounds: Normal heart sounds. Pulmonary: Effort: Pulmonary effort is normal. Breath sounds: Normal breath sounds. Abdominal: General: There is no distension. Palpations: Abdomen is soft. Tenderness: There is no abdominal tenderness. Musculoskeletal: Cervical back: Neck supple. Skin: General: Skin is warm and dry. Neurological: Mental Status: She is alert. Diagnostic Studies / Procedures ELECTROCARDIOGRAMS: Results for orders placed or performed during the hospital encounter of 04/07/24 ECG 12 lead Narrative [place] Test Date: 2024-04-07 Pat Name: MARIA G BARROW Department: Room: Gender: Female Timber Harvester Operator: : 1955 Requested By: CROW HERNADEZ Order Number: [id number] Reading MD: Measurements Intervals [place] Rate: 74 P: 40 AR: 189 QRS: 28 QRSD: 82 T: 25 QT: 364 QTc: 405 Interpretive Statements SINUS RHYTHM Compared to ECG 12/09/2023 06:26:10 No significant changes LABORATORY STUDIES: No results found for this visit on 04/07/24. IMAGING STUDIES XR CHEST PORTABLE (Results Pending) ED Course / Medical Decision Making Medical Decision Making Signed out at change of shift pending labs Problems Addressed: Chest pain, unspecified type: acute illness or injury Amount and/or Complexity of Data Reviewed Labs: ordered. Radiology: ordered. ECG/medicine tests: ordered and independent interpretation performed. Clinical Impression None Disposition: Data Unavailable Crow Hernadez MD 04/07/24 0614 HMAN/CRANE OPERATOR * Kirsten Yin RN - 04/07/2024 5:12 AM CST Bed: 12 Expected date: Expected time: Means of arrival: Comments: EMS 1242 HMAN/CRANE OPERATOR * Kirsten Yin RN - 04/07/2024 5:03 AM CST Pt BIB EMS c/o chest pain that started when she was sleeping. Pt stated she had a burning sensationin her chest that did not go away after googling her symptoms pt is concerned that she is having a heart attack. EMS gave 324 mg of ASA in route. Pt has no cardiac history. HMAN/CRANE OPERATOR documented in this encounter Plan of Treatment Upcoming Encounters Date Type Department Care Team (Late st Contact Info) Description 04/28/2024 2:40 PM WINCHMAN/CRANE OPERATOR Office Visit [facility] [place] [address] [place] [address] Jared Mejia MD [address] [place] [address] 05/20/2024 10:20 AM WINCHMAN/CRANE OPERATOR Office Visit [facility] [address] [facility], [address] [place] [address] Scarlet Mendoza MD [address] [place] [address] 10/11/2024 10:00 AM CDT Office Visit [facility] [address] [facility], [address] [place] [address] Galdino Santos MD Three [facility]. [address] [place] [address] Lary Joel PA [address] [facility], [address] [place] [address] documented as of this encounter Procedures Procedure Name Priority Date/Time Associated Diagnosis Comments TROPONIN, QUANT STAT 04/07/2024 7:10 AM WINCHMAN/CRANE OPERATOR XR CHEST PORTABLE STAT 04/07/2024 5:4 5 AM WINCHMAN/CRANE OPERATOR COMPREHENSIVE METABOLIC PANEL STAT 04/07/2024 5:20 AM WINCHMAN/CRANE OPERATOR CBC W/DIFF AUTOMATED STAT 04/07/2024 5:20 AM WINCHMAN/CRANE OPERATOR TROPONIN, QUANT STAT 04/07/2024 5:20 AM WINCHMAN/CRANE OPERATOR ECG 12-LEAD Routine 04/07/2024 5:04 AM WINCHMAN/CRANE OPERATOR documented in this encounter Results * TROPONIN, QUANT (04/07/2024 7:10 AM WINCHMAN/CRANE OPERATOR) TROPONIN I HIGH SENSITIVITY 4 <54 ng/L 04/07/2024 7:53 AM WINCHMAN/CRANE OPERATOR [facility] Comment: HIGH DOSES OF BIOTIN, TROPONIN-SPECIFIC AUTOANTIBODIES, AND ANTIBODY THERAPY CONTAINING HAMA MAY INTERFERE WITH THIS TEST RESULT. CORRELATION TO CLINICAL HISTORY AND PRESENTATION RECOMMENDED. 04/07/2024 7:10 AM WINCHMAN/CRANE OPERATOR us Jim Rahman MD LABORATORY Final Result [facility] [address] [place] [address], * XR CHEST PORTABLE (04/07/2024 5:45 AM WINCHMAN/CRANE OPERATOR) Anatomical Region Laterality Modality Chest Radiographic Loyda ging 04/07/2024 5:48 AM WINCHMAN/CRANE OPERATOR Impressions 04/07/2024 5:50 AM WINCHMAN/CRANE OPERATOR IMPRESSION: 1. No significant change and no acute pulmonary disease. 2. ??Mild emphysematous changes in the upper lobes suggesting COPD. Referred By: ?? Interpreted By: Nohelia Soliman MD, 04/07/2024 5:48 AM Narrative 04/07/2024 5:50 AM WINCHMAN/CRANE OPERATOR [place] [address] EXAMINATION: ??XR Portable CXR, 1 View INDICATION: ??Chest pain. COMPARISON: PA and lateral chest x-ray 03/16/2022. FINDINGS: The cardiomediastinal silhouette is within normal limits. ??vehicle monitor technician leads overlie the chest and abdomen. ??Calcifications in the aortic arch. ??Pulmonary vascularity is normal. ??Chronic pleural thickening in the lung apices. ??There may be mild emphysematous changes in the upper lobes. ??No acute infiltrate, consolidation, pneumothorax, or pleural effusion. Osteopenia with no acute osseous abnormality. Procedure Note Nohelia Soliman MD - 04/07/2024 [place] [address] EXAMINATION: XR Portable CXR, 1 View INDICATION: Chest pain. COMPARISON: PA and lateral chest x-ray 03/16/2022. FINDINGS: The cardiomediastinal silhouette is within normal limits. Cardiac monitorleads overlie the chest and abdomen. Calcifications in the aortic arch.Pulmonary vascularity is normal. Chronic pleural thickening in the lungapices. There may be mild emphysematous changes in the upper lobes. Noacute infiltrate, consolidation, pneumothorax, or pleural effusion.Osteopenia with no acute osseous abnormality. IMPRESSION: 1. No significant change and no acute pulmonary disease. 2. Mild emphysematous changes in the upper lobes suggesting COPD. Referred By: Interpreted By: Nohelia Soliman MD, 04/07/2024 5:48 AM Crow Hernadez MD GENERAL IMAGING Final Resul t * TROPONIN, QUANT (04/07/2024 5:20 AM WINCHMAN/CRANE OPERATOR) TROPONIN I HIGH SENSITIVITY 4 <54 ng/L 04/07/2024 6:07 AM WINCHMAN/CRANE OPERATOR [facility] Comment: HIGH DOSES OF BIOTIN, TROPONIN-SPECIFIC AUTOANTIBODIES, AND ANTIBODY THERAPY CONTAINING HAMA MAY INTERFERE WITH THIS TEST RESULT. CORRELATION TO CLINICAL HISTORY AND PRESENTATION RECOMMENDED. 04/07/2024 5:20 AM WINCHMAN/CRANE OPERATOR Crow Hernadez MD LABORATORY Final Resul t [facility] [address] [place] [address], * (ABNORMAL) COMPREHENSIVE METABOLIC PANEL (04/07/2024 5:20 AM WINCHMAN/CRANE OPERATOR) GLUCOSE 105(H) 70 - 99 MG/DL 04/07/2024 6:07 AM [facility] BUN 13 7 - 18 MG/DL 04/07/2024 6:07 AM [facility] CREATININE S/P/B 0.77 0.55 - 1.02 MG/DL 04/07/2024 6:07 AM [facility] SODIUM S/P/B 140 136 - 145 MMOL/L 04/07/2024 6:07 AM [facility] POTASSIUM S/P/B 3.3(L) 3.5 - 5.1 MMOL/L 04/07/2024 6:07 AM [facility] CHLORIDE S/P/B 108 97 - 115 MMOL/L 04/07/2024 6:07 AM [facility] CO2 28.0 21 - 32 MMOL/L 04/07/2024 6:07 AM [facility] CALCIUM S/P/B 9.2 8.5 - 10.1 MG/DL 04/07/2024 6:07 AM [facility] BILIRUBIN TOTAL S/P/B 0.4 0.2 - 1.2 MG/DL 04/07/2024 6:07 AM [facility] Comment: THIS ASSAY IS NOT RECOMMENDED FOR PATIENTS UNDERGOING TREATMENT WITH ELTROMBOPAG DUE TO THE POTENTIAL FOR FALSELY ELEVATED RESULTS. TOTAL PROTEIN S/P/B 7.4 6.4 - 8.2 G/DL 04/07/2024 6:07 AM [facility] ALBUMIN S/P/B 3.7 3.4 - 5.0 G/DL 04/07/2024 6:07 AM [facility] AST 25 15 - 37 U/L 04/07/2024 6:07 AM [facility] ALT 33 14 - 55 U/L 04/07/2024 6:07 AM [facility] ALKALINE PHOSPHATASE S/P/B 106 50 - 136 U/L 04/07/2024 6:07 AM [facility] ANION GAP 4.0 2 - 10 MMOL/L 04/07/2024 6:07 AM [facility] BUN CREATININE RATIO 16.9 6 - 26 04/07/2024 6:07 AM [facility] A/G RATIO 1.0 1.0 - 2.0 RATIO 04/07/2024 6:07 AM [facility] GFR ESTIMATE 83(L) >90 ML/MIN/1.7 3 M2 04/07/2024 6:07 AM [facility] Comment: NOTE: eGFR is not calculated for patients <18 years of age or gender unknown. This is an estimated GFR calculation using the new CKD EPI creatinine equation without race and so does not require a correction factor for race. This estimated GFR should not be used for calculating drug doses. 04/07/2024 5:20 AM WINCHMAN/CRANE OPERATOR Crow Hernadez MD LABORATORY Final Resul t [facility] [address] [place] [address], * (ABNORMAL) CBC W/DIFF AUTOMATED (04/07/2024 5:20 AM WINCHMAN/CRANE OPERATOR) WBC 9.60 4.5 - 11.0 x10'3/uL 04/07/2024 6:50 AM WINCHMAN/CRANE OPERATOR [facility] RBC 4.36 4.20 - 5.40 x10'6/uL 04/07/2024 6:50 AM [facility] HGB 13.7 12.0 - 16.0 G/DL 04/07/2024 6:50 AM WINCHMAN/CRANE OPERATOR [facility] HCT 40.7 38.0 - 48.0 % 04/07/2024 6:50 AM WINCHMAN/CRANE OPERATOR [facility] MCV 93.3 81.0 - 99.0 FL 04/07/2024 6:50 AM [facility] MCH 31.4(H) 27.0 - 31.0 PG 04/07/2024 6:50 AM WINCHMAN/CRANE OPERATOR [facility] MCHC 33.7 32.0 - 36.0 G/DL 04/07/2024 6:50 AM WINCHMAN/CRANE OPERATOR [facility] RDW 12.4 11.5 - 14.5 % 04/07/2024 6:50 AM [facility] PLT 356 130 - 400 x10'3/uL 04/07/2024 6:50 AM [facility] MPV 10.1 9.3 - 12.2 FL 04/07/2024 6:50 AM [facility] DIFFERENTIAL TYPE AUTOMATED DIFFERENTIAL 04/07/2024 6:50 AM [facility] NEUTROPHILS % 67.1 % 04/07/2024 6:50 AM [facility] LYMPHOCYTES % 20.3 % 04/07/2024 6:50 AM [facility] MONOCYTES % 9.5 % 04/07/2024 6:50 AM [facility] EOSINOPHILS 1.7 % 04/07/2024 6:50 AM [facility] BASOPHILS 0.6 % 04/07/2024 6:50 AM [facility] IMMATURE GRANS % 0.8 % 04/07/20 6:50 AM [facility] ABS. NEUTROPHILS 6.44 1.80 - 7.70 x10'3/uL 04/07/2024 6:50 AM [facility] ABS. LYMPHOCYTES 1.95 1.00 - 4.80 x10'3/uL 04/07/2024 6:50 AM [facility] ABS. MONOCYTES 0.91(H) 0.24 - 0.86 x10'3/uL 04/07/2024 6:50 AM [facility] ABS. EOSINOPHILS 0.16 0.04 - 0.36 x10'3/uL 04/07/2024 6:50 AM [facility] ABS. BASOPHILS 0.06 0.01 - 0.08 x10'3/uL 04/07/2024 6:50 AM [facility] ABS. IMMATURE GRANULOCYTES 0.08 0.00 - 0.49 x10'3/uL 04/07/2024 6:50 AM [facility] 04/07/2024 5:20 AM WINCHMAN/CRANE OPERATOR us Crow Hernadez MD LABORATORY Final Resul t [facility] [address] [place] [address], * ECG 12 lead (04/07/2024 5:04 AM WINCHMAN/CRANE OPERATOR) 04/07/2024 5:04 AM WINCHMAN/CRANE OPERATOR Narrative [facility] - 04/07/2024 4:02 PM WINCHMAN/CRANE OPERATOR [facility] [address] [place] ? Test Date: ?2024-04-07 Pat Name: ? MARIA G APARNAANNIKAIda ? Department: ?? 41 ? Room: ? EXAM12 Gender: ? Female ? Timber Harvester Operator: ?? : ?1955 ? Requested By: CROW HERNADEZ Order Number: [id number] ? Reading : ?? Emilia Childs ? Measurements Intervals ?[place] ? Rate: ? 74 ? P: ?40 AR: ? 189 ?QRS: ?28 QRSD: ? 82 ? T: ?25 QT: ? 364 ? QTc: ?405 ? Interpretive Statements SINUS RHYTHM Compared to ECG 12/09/2023 06:26:10 No significant changes HMAN/CRANE OPERATOR Procedure Note Emilia Childs MD - 04/07/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: : 1955 Requested By: CROW HERNADEZ Order Number: [id number] Javier MD: Emilia Childs Measurements Intervals [place] Rate: 74 P: 40 AR: 189 QRS: 28 QRSD: 82 T: 25 QT: 364 QTc: 405 Interpretive Statements SINUS RHYTHM Compared to ECG 12/09/2023 06:26:10 No significant changes HMAN/CRANE OPERATOR us Crow Hernadez MD ECG ORDERABLES Final Resul t [facility] RAD documented in this encounter Visit Diagnoses Diagnosis Chest pain, unspecified type- Primary documented in this encounter Care Teams Refinery Technician Relationship Specialty Start Date End Date Rosie Bryant DO [address] [place] [address] PCP - General FAMILY PRACTICE 02/21/20 documented as of this encounter
--- OUTSIDE RECORDS SUMMARY | 2024-04-20 02:28 | XMS_ITS | Encounter Summary ---
Author Organization [facility] Address [address] [place] [address]. [place], [place] [address] [place] [address] Care Team Providers Care Outreach Counselor Name Role Phone Rosie Bryant Primary Care Provider [phone] Encounter Details Date Type Department Care Team (Latest Contact Info) Description 10/18/2022 Travel Social History Tobacco Use Types Packs/Day [...] Recorded In the last 10 days, have yo u been in contact with someone who was confirmed or suspected to have Coronavirus/COVID-19? No / Unsure 10/03/2022 11:04 AM CDT documented as of this encounter Plan of Treatment Upcoming Encounters Date Type Department Care Team (Late st Contact Info) Description 04/28/2024 2:40 PM DROP CREW LABORER Office Visit [facility] Medical Group Orthopedic & Sports Medicine - [place] [address] Jared Mejia MD [address] [place] [address] 05/20/2024 10:20 AM DROP CREW LABORER Office Visit [facility] Medical Group Multispecialty Care - [facility] [address] [facility], [address] [place] [address] Scarlet Mendoza MD 3 [place] [address] 10/11/2024 10:00 AM CDT Office Visit [place] [facility] THREE [facility], [address] [place] [address] Galdino Santos MD Three [facility]. [address] [place] [address] Lary Joel PA 3 [facility], [address] [place] [address] documented as of this encounter Visit Diagnoses Not on filedocumented in this encounter Care Teams Outreach Counselor Relationship Specialty Start Date End Date Rosie Bryant DO [address] [place] [address] PCP - General FAMILY PRACTICE 02/21/20 documented as of this encounter
--- OUTSIDE RECORDS SUMMARY | 2024-04-20 02:28 | XMS_ITS | Encounter Summary ---
Author Organization [facility] Address [address] [place] [address]. [place], [place] [address] [place] [address] Care Team Providers Care Scrap Hooker Name Role Phone Rosie Bryant Primary Care Provider [phone] Encounter Details Date Type Department Care Team (Latest Contact Info) Description 09/06/2022 Travel Social History Tobacco Use Types Packs/Day [...] st Contact Info) Description 04/28/2024 2:40 PM MIDDLE SCHOOL GUIDANCE COUNSELOR Office Visit [facility] Orthopedic & Sports Medicine - [place] [address] Jared Mejia MD [address] [place] [address] 05/20/2024 10:20 AM MIDDLE SCHOOL GUIDANCE COUNSELOR Office Visit [facility] Multispecialty Care - [facility] 3 [facility], [address] [place] [address] Scarlet Mendoza MD 3 [place] [address] 10/11/2024 10:00 AM CDT Office Visit [facility] THREE [facility], [address] [place] [address] Galdino Santos MD Three [facility]. [address] [place] [address] Lary Joel PA 3 [facility], [address] [place] [address] documented as of this encounter Visit Diagnoses Not on filedocumented in this encounter Care Teams Scrap Hooker Relationship Specialty Start Date End Date Rosie Bryant DO [address] [place] [address] PCP - General FAMILY PRACTICE 02/21/20 documented as of this encounter
--- OUTSIDE RECORDS SUMMARY | 2024-04-20 02:28 | XMS_ITS | Encounter Summary ---
Author Organization [facility] Address [address] [place] [address]. [place] [address] [place] [address] Care Team Providers Care Splitting Machine Tender Name Role Phone Rosie Bryant DO Primary Care Provider [phone] Encounter Details Date Type Department Care Team (Latest Contact Info) Description 01/19/2024 Scan HEALTH INFO SRVCS Scanned, Doc Med [...] st Contact Info) Description 04/28/2024 2:40 PM WINDOWS SYSTEMS ENGINEER Office Visit [facility] Medical Group Orthopedic & Sports Medicine - [place] [address] [place] [address] Jared Mejia MD [address] [place] [address] 05/20/2024 10:20 AM WINDOWS SYSTEMS ENGINEER Office Visit [facility] Medical Group Multispecialty Care - [facility] 3 [facility], [address] [place] [address] Scarlet Mendoza MD 3 [facility] [place] [address] 10/11/2024 10:00 AM CDT Office Visit [facility] THREE [facility], [address] [place] [address] Galdino Santos MD Three [facility]. [address] [place], [place] [address] Lary Joel PA 3 [facility], [address] [place] [address] documented as of this encounter Visit Diagnoses Not on filedocumented in this encounter Care Teams Splitting Machine Tender Relationship Specialty Start Date End Date Rosie Bryant DO [address] [place] [address] PCP - General FAMILY PRACTICE 02/21/20 documented as of this encounter
--- OUTSIDE RECORDS SUMMARY | 2024-04-20 02:28 | XMS_ITS | Encounter Summary ---
Author Organization [facility] Address [address] [place] [address]. [place], [place] [address] [place] [address] Care Team Providers Care Canoe Builder Name Role Phone Rosie Bryant DO Primary Care Provider [phone] Encounter Details Date Type Department Care Team (Latest Contact Info) Description 05/27/2022 Scan HEALTH INFO SRVCS Scanned, Doc Med [...] (Late Contact Info) Description 04/28/2024 2:40 PM DENT REMOVER Office Visit [facility] Medical Group Orthopedic & Sports Medicine - [place] [address] [place] [address] Jared Mejia MD [address] [place] [address] 05/20/2024 10:20 AM DENT REMOVER Office Visit [facility] Medical Group Multispecialty Care - [facility] [address] [facility], [address] [place] [address] Scarlet Mendoza MD 3 [place] [address] 10/11/2024 10:00 AM CDT Office Visit [facility] THREE [facility], [address] [place] [address] Galdino Santos MD Three [facility]. [address] [place], [place] [address] Lary Joel PA [address] [facility], [address] [place] [address] documented as of this encounter Visit Diagnoses Not on filedocumented in this encounter Care Teams Canoe Builder Relationship Specialty Start Date End Date Rosie Bryant DO [address] [place] [address] PCP - General FAMILY PRACTICE 02/21/20 documented as of this encounter
--- OUTSIDE RECORDS SUMMARY | 2024-04-20 02:28 | XMS_ITS | Encounter Summary ---
Author Organization [facility] Address [address] [place] [address]. [place], [place] [address] [place] [address] Care Team Providers Care Fireworks Inspector Name Role Phone SymonemarivelRosie buchanan Jerson GUERRERO Primary Care Provider [phone] Reason for Referral * Physical Medicine (Routine) - Closed Specialty Diagnoses / Procedures Referred By Meet machado Referred To Contact PHYSICAL THERAPY / [facility] Physical Therapy Diagnoses Hip joint effusion, left Procedures OFFICE/OUTPATIENT NEW LOW MDM 30-44 MINUTES OFFICE/OUTPT VISIT,NEW,LEVL IV OFFICE/OUTPT VISIT,NEW,LEVL V OFFICE/OUTPT VISIT,EST,LEVL III OFFICE/OUTPT VISIT,EST,LEVL IV OFFICE/OUTPT VISIT,EST,LEVL V Jared Mejia MD [address] [place] [address] Phone: tel: fax: [facility] Physical Therapy [address] [facility] [address] [place] [address] Phone: tel: fax: Referral ID Status Reason Start Date Expiration Date V isits Requested Visits Authorized [id number] Closed Physical Therapy 11/10/2023 11/09/2024 1 1 Reason for Visit * Reason Comments New Patient Left leg Encounter Details Date Type Department Care Team (Late st Contact Info) Description 11/10/2023 10:00 AM CDT Office Visit [facility] Medical Group Orthopedic & Sports Medicine - [place] [address] [place] [address] Jared Mejia MD [address] [place] [address] New Patient (Left leg) Social History Tobacco Use Types Packs/Day Years Used Date Smoking Tobacco: Never Smokeless Tobacco: Never Tobacco Cessation:Counseling Given: No Alcohol Use Standard Drinks/Week Comments Yes 0 [...] Sign Reading Time Taken Comments Blood Pressure 133/73 11/10/2023 10:01 AM CDT Pulse 65 11/10/2023 10:01 AM CDT Temperature 36.2 ??C (97.2 ??F) 11/10/2023 1 0:01 AM CDT Respiratory Rate - - Oxygen Saturation 97% 11/10/2023 10: 01 AM CDT Inhaled Oxygen Concentration - - Weight 98.8 kg (217 lb 12.8 oz) 024 10:01 AM CDT Height 177.8 cm (5' 10 ) 11/10/2023 10: 01 AM CDT Body Mass Index 31.25 11/10/2023 10:01 AM CDT documented in this encounter Progress Notes * Jared Mejia MD - 11/10/2023 10:00 AM CDT Office Visit Reason for Visit: New Patient (Left leg) History of Present Illness: Patient is a 67 year old female who presents today for an evaluation of her left leg pain. Patient has tried physical therapy. This was in the winter 2023. She says this was mostly for her knee. She reports this pain began after her had a surgery last fall. There was no injury or acute trauma. This pain progressed to the knee, then into the groin more recently. She has tried Ibuprofen 2 or 3 times per-day with meals. She has had a DEXA scan but does not remember the outcome. She thinks she was diagnosed with osteoporosis but is not certain of that. Vitals: Filed Vitals: 11/10/23 1001 BP: 133/73 Pulse: 65 Temp: 97.2 ??F (36.2 ??C) SpO2: 97% Weight: 98.8 kg (217 lb 12.8 oz) Height: 1.778 m (5' 10 ) Physical Exam: Physical Exam Constitutional: She is oriented to person, place, and time. She appears well- developed and well-nourished. HENT: Head: Normocephalic. Eyes: EOM are normal. Cardiovascular: Extremities perfused. Pulmonary/Chest: Effort normal. No respiratory distress. Neurological: She is alert and oriented to person, place, and time. Psychiatric: She has a normal mood and affect. Ortho: Significant limp when ambulates RLE: No pain with hip flexion. Palpable DP pulses. In a supine position, at 90 degrees hip flexion,the hip has 75 degrees external rotation and 15 degrees internal rotation. LLE: Pain with hip flexion. Palpable DP pulses. In a supine position, at 90 degrees hip flexion, the hip has 60 degrees external rotation and 5 degrees internal rotation, pain in both rotational directions. MRI from 10/09/23 is reviewed which shows a joint effusion in the left hip, mild degenerative changes. No image results found. Assessment: Left hip joint effusion. Plan: She will restart physical therapy and NSAIDs as needed. If this does not improve her symptoms in the next 6 to 8 weeks, she can call and we can schedule her for a steroid injection in the radiology suite. She says she plans to ask her PCP if she is due for another DEXA scan. Procedures Summary: Maria G was seen today for new patient. Diagnoses and all orders for this visit: Hip joint effusion, left - Ambulatory referral to Physical Therapy ROS: ROS Medications: Current Outpatient Medications: 5-Hydroxytryptophan (5-HTP OR), Take 200 mg by mouth daily., Disp: , Rfl: amLODIPine 5 MG tablet, Take 1 tablet (5 mg total) by mouth daily., Disp: , Rfl: atenolol 50 MG tablet, Take 1 tablet (50 mg total) by mouth daily., Disp: , Rfl: Cholecalciferol (VITAMIN D3) 50 MCG (2000 UT) Cap, Take 4,000 Units by mouth daily. Alternates 2000and 4000, Disp: , Rfl: Digestive Enzymes (DIGESTIVE ENZYME OR), Take 200 mg by mouth daily., Disp: , Rfl: [id number] OR, Take 500 mg by mouth daily. 500mg AM. 1000mg PM, Disp: , Rfl: ibuprofen (MOTRIN) 200 MG tablet, Take 1 tablet (200 mg total) by mouth every 8 (eight) hours as needed for Pain., Disp: , Rfl: MAGNESIUM OR, Take 96 mg by mouth daily., Disp: , Rfl: Menaquinone-7 (VITAMIN K2 OR), Take by mouth 2 (two) times a day., Disp: , Rfl: Multiple Vitamin (MULTIVITAMIN IRON-FREE) Tab, Take by mouth daily., Disp: , Rfl: FARM WORKER THYROID 60 MG tablet, Take 1 tablet (60 mg total) by mouth daily., Disp: , Rfl: vitamin C 1000 MG tablet, Take 1 tablet (1,000 mg total) by mouth daily., Disp: , Rfl: Allergies: Review of patient's allergies indicates: Allergen Reactions Symbicort [Budesonide-Formoterol Fumarate] Anaphylaxis Acetaminophen Fatigue Donepezil Other (see comment) htn Doxepin Blurred vision Erythromycin Diarrhea Ezetimibe Memory Loss Icosapent Ethyl Diarrhea Macrobid [Nitrofurantoin] Chest pressure Melatonin Unknown Naproxen Other (see comment) Hot flashes, constipation, bruising Propoxyphene Other (see comment) Gets high Statins Other (see comment) Intolerant Topamax [Topiramate] Blurred vision Ventolin [Albuterol] Shakiness Cephalexin Rash Medical History: Past Medical History: Diagnosis Date Disease of thyroid gland Hyperlipemia Hypertension Leg pain, left 2023 Surgical History: Past Surgical History: Procedure Laterality Date TONSILLECTOMY Social History: Social History Socioeconomic History Marital status: Tobacco Use Smoking status: Never Smokeless tobacco: Never Vaping Use Vaping status: Never Used Substance and Sexual Activity Alcohol use: Yes Comment: rare Drug use: Never Other Topics Concern Caffeine Concern No Special Diet No Exercise No Family History: Family History Problem Relation Name Age of Onset Other (cardiac stent) Father Transient ischemic attack Maternal Grandmother By signing below, Ally Orozco, attest that this documentation has been prepared in the presence of and under the direction of Dr. Jared Mejia MD. Provider Attestation: JARED Orozco MD, personally performed the services described in thisdocumentation. All medical record and diagnosis entries made by the scribe were at my direction andin my presence. I have reviewed the chart and agree that the record reflects my personal performance and is accurate and complete. documented in this encounter Plan of Treatment Upcoming Encounters Date Type Department Care Team (Late st Contact Info) Description 04/28/2024 2:40 PM SYSTEM CONSULTANT Office Visit [facility] Medical Group Orthopedic & Sports Medicine - [place] [address] [place] [address] Jared Mejai MD [address] [place] [address] 05/20/2024 10:20 AM SYSTEM CONSULTANT Office Visit [facility] Multispecialty Care - [facility] [address] [facility], [address] [place] [address] Scarlet Mendoza MD [address] [place] [address] 10/11/2024 10:00 AM CDT Office Visit [place] [facility] THREE [facility], [address] [place] [address] Galdino Santos MD Three [facility]. [address] [place] [address] Lary Joel PA 3 [facility], [address] [place] [address] Scheduled Referrals Name Type Priority Associated Diagnoses Orde r Schedule Ambulatory referral to Physical Therapy Referral Routine Hip joint effusion, left Ordered: 11/10/2023 documented as of this encounter Visit Diagnoses Diagnosis Hip joint effusion, left- Primary documented in this encounter Care Teams Fireworks Inspector Relationship Specialty Start Date End Date Rosie Bryant DO [address] [place] [address] PCP - General FAMILY PRACTICE 02/21/20 documented as of this encounter
--- OUTSIDE RECORDS SUMMARY | 2024-04-20 02:28 | XMS_ITS | Encounter Summary ---
Author Organization [facility] Address [address] [place] [address]. [place], [place] [address] [place] [address] Care Team Providers Care Field Clerk Name Role Phone Rosie Bryant Primary Care Provider [phone] Encounter Details Date Type Department Care Team (Latest Contact Info) Description 10/03/2022 Travel Social History Tobacco Use Types Packs/Day [...] st Contact Info) Description 04/28/2024 2:40 PM DATA CAPTURE SPECIALIST Office Visit [facility] Medical Group Orthopedic & Sports Medicine - [place] [address] Jared Mejia MD [address] [place] [address] 05/20/2024 10:20 AM DATA CAPTURE SPECIALIST Office Visit [facility] Medical Group Multispecialty Care - [facility] 3 [facility], [address] [place] [address] Scarlet Mendoza MD 3 [place] [address] 10/11/2024 10:00 AM CDT Office Visit [facility] THREE [facility], [address] [place] [address] Galdino Santos MD Three [facility]. [address] [place] [address] Lary Joel PA 3 [facility], [address] [place] [address] documented as of this encounter Visit Diagnoses Not on filedocumented in this encounter Care Teams Field Clerk Relationship Specialty Start Date End Date Rosie Bryant DO [address] [place] [address] PCP - General FAMILY PRACTICE 02/21/20 documented as of this encounter
--- OUTSIDE RECORDS SUMMARY | 2024-04-20 02:28 | XMS_ITS | Encounter Summary ---
Author Organization [facility] Address [address] [place] [address]. [place] [address] [place] [address] Care Team Providers Care Machine Paint Mixer Name Role Phone Rosie Bryant Primary Care Provider [phone] Encounter Details Date Type Department Care Team (Latest Contact Info) Description 11/10/2023 Travel Social History Tobacco Use Types Packs/Day [...] st Contact Info) Description 04/28/2024 2:40 PM TABLE SETTER Office Visit [facility] Medical Group Orthopedic & Sports Medicine - [place] [address] [place] [address] Jared Mejia MD [address] [place] [address] 05/20/2024 10:20 AM TABLE SETTER Office Visit [facility] Medical Group Multispecialty Care - [facility] 3 [facility], [address] [place] [address] Scarlet Mendoza MD 3 [place] [address] 10/11/2024 10:00 AM CDT Office Visit [facility] THREE [facility], [address] [place] [address] Galdino Santos MD Three [facility]. [address] [place] [address] Lary Joel PA 3 [facility], [address] [place] [address] documented as of this encounter Visit Diagnoses Not on filedocumented in this encounter Care Teams Machine Paint Mixer Relationship Specialty Start Date End Date Rosie Bryant DO [address] [place] [address] PCP - General FAMILY PRACTICE 02/21/20 documented as of this encounter
--- OUTSIDE RECORDS SUMMARY | 2024-04-20 02:28 | XMS_ITS | Encounter Summary ---
Author Organization [facility] Address [address] [place] [address]. [place], [place] [id number] [place] [id number] Care Team Providers Care Health Specialist Name Role Phone Kathryn James Primary Care Provider [phone] Reason for Referral * Imaging (Emergency) - New Request Specialty Diagnoses / Procedures Referred By Meet t Referred To Contact RADIOLOGY Procedures CT HEAD WO CON Esperanza Rendon MD [address] [address] Phone: tel: fax: Referral ID Status Reason Start Date Expiration Date V isits Requested Visits Authorized [id number] New Request 12/09/2023 12/08/2024 1 1 Reason for Visit * Reason Comments Hypertension Headache Encounter Details Date Type Department Care Team (Late st Contact Info) Description 12/09/2023 5:44 AM CDT - 12/09/2023 8:[address] [facility] [place] [address] Esperanza Rendon MD [address] [id number] Hypertension; Headache Discharge Disposition: Home or Self Care (Routine [...] Sign Reading Time Taken Comments Blood Pressure 160/86 12/09/2023 8:00 AM CDT Pulse 57 12/09/2023 8:00 AM CDT Temperature 36.7 ??C (98 ??F) 12/09/2023 5:41 AM CDT Respiratory Rate 18 12/09/2023 8:00 AM CDT Oxygen Saturation 98% 12/09/2023 8:00 AM CDT Inhaled Oxygen Concentration - - Weight 95.3 kg (210 lb) 12/09/2023 5:41 AM CDT Height 177.8 cm (5' 10 ) 12/09/2023 5:41 AM CDT Body Mass Index 30.13 12/09/2023 5:41 AM CDT documented in this encounter Discharge Instructions * Discharge Instructions* Esperanza Rendon MD - 12/09/2023 8:01 AM CDT Return to ER for new or worsening symptoms or any other concerns. Follow-up with your primary care provider in 2 to 3 days to get your blood pressure rechecked. * Attachments The following attachments cannot be sent through Care Everywhere. * High Blood Pressure Discharge Instructions (New Zealander) documented in this encounter Medications at Time [...] OR) Take 200 mg by mouth daily. [id number] OR Take 500 mg by mouth daily. 500mg AM. 1000mg PM ibuprofen (MOTRIN) 200 MG tablet Take 1 tablet (200 mg total) by mouth every 8 (eight) hours as needed for Pain. MAGNESIUM OR Take 96 mg by mouth daily. Menaquinone-7 (VITAMIN K2 OR) Take by mouth 2 (two) times a day. Multiple Vitamin (MULTIVITAMIN IRON-FREE) Tab Take by mouth daily. FIFTH HAND THYROID 60 MG tablet Take 1 tablet (60 mg total) by mouth daily. 10/20/2020 vitamin C 1000 MG tablet Take 1 tablet (1,000 mg total) by mouth daily. documented as of this encounter ED Notes * Bean Brown RN - 12/09/2023 8:24 AM CDT Provider discussed today's findings with the patient/family. The patient has been given informationregarding their treatment, follow up and concerning symptoms for which they should seek urgent or emergent attention. I have expressed the the importance of seeking attention should there be any new,or worsening symptoms or persistence of their condition. Patient verbalized understanding of the discharge instructions. * Esperanza Rendon MD - 12/09/2023 6:16 AM CDT [place], [place] EMERGENCY DEPARTMENT ENCOUNTER Chief Complaint Chief Complaint Patient presents with Hypertension Headache History of Present Illness Provider at Bedside Date/Time Event User Comments 12/09/23 0606 Provider at Bedside Assessing Patient ESPERANZA RENDON -- Hypertension Associated symptoms: headaches Associated symptoms: no abdominal pain, no chest pain, no fever, no nausea, no palpitations, no shortness of breath, not vomiting and no weakness Headache Pertinent negatives include no fever, no palpitations, no shortness of breath, no nausea and no vomiting. The patient is a 68-year-old female with a PMH of disease of thyroid gland, HLD, and HTN who presents to the emergency department for evaluation of hypertension. Patient reports high BP reading at home this morning approximately 3 hours ago, 0330, of 187/87. Patient reports that she took her BP dueto her ear pulsing that worsened with lying down. Patient reports associated headache. Patient den ies chest pain and dyspnea. Patient reports that she normally takes her BP medications, atenolol and amlodipine, at breakfast. Patient did not take BP medications [employer] REPRESENTATIVES in ED. Patient also endorses that she is currently on methylprednisolone steroid pack for a recent URI I. She notes her last dose is supposed to be this morning. Medical History ALLERGIES: Review of patient's allergies indicates: Allergen Reactions [...] mg by mouth daily. Default History Genericprovider [id number] OR Take 500 mg by mouth daily. [...] Take by mouth daily. Default History Genericprovider FIFTH HAND THYROID 60 MG tablet Take 1 tablet [...] Never Review of Systems Review of Systems Constitutional: Negative for chills and fever. Respiratory: Negative for cough and shortness of breath. Cardiovascular: Negative for chest pain and palpitations. Gastrointestinal: Negative for abdominal pain, nausea and vomiting. Neurological: Positive for headaches. Negative for speech difficulty and weakness. Physical Exam Filed Vitals: 12/09/23 0541 12/09/23 0630 12/09/23 0705 12/09/23 0800 BP: (!) 177/89 (!) 158/88 (!) 183/93 (!) 160/86 Pulse: 68 64 (!) 57 Resp: 18 18 18 Temp: 98 ??F (36.7 ??C) TempSrc: Oral SpO2: 98% 98% 97% 98% Weight: 95.3 kg (210 lb) Height: 1.778 m (5' 10 ) Physical Exam Vitals and nursing note reviewed. Constitutional: Appearance: She is well-developed. HENT: Head: Normocephalic and atraumatic. Eyes: Conjunctiva/sclera: Conjunctivae normal. Cardiovascular: Rate and Rhythm: Normal rate and regular rhythm. Pulmonary: Effort: Pulmonary effort is normal. Breath sounds: Normal breath sounds. No stridor. Abdominal: Palpations: Abdomen is soft. Tenderness: There is no abdominal tenderness. Musculoskeletal: General: No deformity. Cervical back: Neck supple. Skin: General: Skin is warm and dry. Neurological: General: No focal deficit present. Mental Status: She is alert and oriented to person, place, and time. Diagnostic Studies / Procedures ELECTROCARDIOGRAMS: Results for orders placed or performed during the hospital encounter of 12/09/23 [address] 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: : 1955 Requested By: ESPERANZA RENDON Order Number: [id number] Reading MD: Measurements Intervals [place] Rate: 62 P: 19 RI: 181 QRS: 50 QRSD: 89 T: 29 QT: 407 QTc: 415 Interpretive Statements SINUS RHYTHM Compared to ECG 03/16/2022 12:08:57 No significant changes LABORATORY STUDIES: Results for orders placed or performed during the hospital encounter of 12/09/23 CBC W/DIFF AUTOMATED Result Value Ref Range WBC 13.49 (H) 4.5 - 11.0 x10'3/uL RBC 4.32 4.20 - 5.40 x10'6/uL HGB 13.5 12.0 - 16.0 G/DL HCT 41.4 38.0 - 48.0 % MCV 95.8 81.0 - 99.0 FL MCH 31.3 (H) 27.0 - 31.0 PG MCHC 32.6 32.0 - 36.0 G/DL RDW 12.8 11.5 - 14.5 % PLT 419 (H) 130 - 400 x10'3/uL MPV 10.0 9.3 - 12.2 FL DIFFERENTIAL TYPE AUTOMATED DIFFERENTIAL NEUTROPHILS % 75.2 % LYMPHOCYTES % 17.0 % MONOCYTES % 6.6 % EOSINOPHILS 0.3 % BASOPHILS 0.1 % IMMATURE GRANS % 0.8 % ABS. NEUTROPHILS 10.14 (H) 1.80 - 7.70 x10'3/uL ABS. LYMPHOCYTES 2.29 1.00 - 4.80 x10'3/uL ABS. MONOCYTES 0.89 (H) 0.24 - 0.86 x10'3/uL ABS. EOSINOPHILS 0.04 0.04 - 0.36 x10'3/uL ABS. BASOPHILS 0.02 0.01 - 0.08 x10'3/uL ABS. IMMATURE GRANULOCYTES 0.11 0.00 - 0.49 x10'3/uL RBC MORPHOLOGY RBC MORPHOLOGY APPEARS NORMAL. SLIDE REVIEWED. PLT EST. INCREASED COMPREHENSIVE METABOLIC PANEL Result Value Ref Range GLUCOSE 102 (H) 70 - 99 MG/DL BUN 19 (H) 7 - 18 MG/DL CREATININE S/P/B 0.84 0.55 - 1.02 MG/DL SODIUM S/P/B 138 136 - 145 MMOL/L POTASSIUM S/P/B 3.8 3.5 - 5.1 MMOL/L CHLORIDE S/P/B 105 100 - 108 MMOL/L CO2 27.8 21 - 32 MMOL/L CALCIUM S/P/B 9.4 8.5 - 10.1 MG/DL BILIRUBIN TOTAL S/P/B 0.6 0.2 - 1.2 MG/DL TOTAL PROTEIN S/P/B 7.3 6.4 - 8.2 G/DL ALBUMIN S/P/B 3.6 3.4 - 5.0 G/DL AST 38 (H) 15 - 37 U/L ALT 89 (H) 14 - 55 U/L ALKALINE PHOSPHATASE S/P/B 98 50 - 136 U/L ANION GAP 5.2 5 - 15 MMOL/L BUN CREATININE RATIO 22.7 6 - 26 A/G RATIO 1.0 1.0 - 2.0 RATIO GFR ESTIMATE 75 (L) >90 ML/MIN/1.[address] HEAD WO CON Final Result by User, [id number] (12/08 701) CT brain without contrast INDICATION: Headache. Hypertension. COMPARISON: 02/21/2020. TECHNIQUE: Noncontrast images from the skull base through the vertex. Radiation dose reduction technique(s) were used. FINDINGS: No intracranial mass, hemorrhage or infarct is demonstrated. There is minimal parenchymal volume loss and chronic microvascular disease. No extra-axial fluid collection. No orbital abnormality is seen. There is intracranial vascular calcification. Bony structures are unremarkable and visualized paranasal sinuses and mastoid air cells are well aerated. IMPRESSION: No acute intracranial abnormality is demonstrated. Referred By: Interpreted By: Manoj Flores MD, 12/09/2023 6:59 AM ED Course / Medical Decision Making Medical Decision Making Problems Addressed: Elevated LFTs: undiagnosed new problem with uncertain prognosis Hypertension: acute illness or injury Amount and/or Complexity of Data Reviewed External Data Reviewed: notes. Details: Reviewed cardiology office note from 10/09/23 where she was seen for chest pain (1 yr), lipids, and hypertension. Labs: ordered. Decision-making details documented in ED Course. Radiology: ordered. Decision-making details documented in ED Course. ECG/medicine tests: ordered and independent interpretation performed. Decision- making details documented in ED Course. ED Course as of 12/09/23805Dec 09, 2023 06 EKG shows normal sinus rhythm. Rate 62. No ischemia. [] 0703 CT head shows no acute intracranial abnormality. [] 0800 WBC elevated at 13.49. Patient is currently on steroids. No anemia. Chemistry unremarkable other than mildly elevated LFTs with AST 38 and ALT 89. [] 0806 Patient given her home dose of blood pressure medication. Her pulse came down. On reevaluation, patient states that she feels well. Suspect that her blood pressure is running high due to steroids. Discussed all results with patient. Discussed home care, return precautions and need for follow up. Patient verbalized understanding and agreement with plan. [] ED Course User Index [] Esperanza Rendon MD Pulse Ox ordered and interpreted: Saturation: 98 (%) Oxygen Delivery: Room air Interpretation: No acute hypoxia at this time. Rhythm strip ordered and interpreted: Normal sinus rhythm. Rate 62. No ectopy. Data reviewed: All current, pertinent and timely studies (laboratory, imaging, and procedures) wereordered and results reviewed by Esperanza Rendon MD unless otherwise noted. Triage notes and available nursing notes reviewed. Previous medical record reviewed when available. Repeat vital signs reviewed. Medications amLODIPine (NORVASC) tablet 5 mg (5 mg Oral Given 12/09/2345) atenolol (TENORMIN) tablet 50 mg (50 mg Oral Given 12/09/2345) Clinical Impression Hypertension (Primary) Elevated LFTs Current Discharge Medication List Disposition: Discharge Follow-Up: KATHRYN JAMES DO I, Kaitlynn Danielson, acting as a scribe, am personally taking down the notes in the presence of Esperanza Rendon MD. Take no action on this note until reviewed and authenticated by the physician. Esperanza Rendon MD 08/20/24 0806 * Toi Ordoñez RN - 12/09/2023 5:37 AM CDT Pt to the ed with c/o HTN and headache. Reports she took her bp at home around 0330 d/t not feelingwell. Reports bp was 187/80. Pt takes two hypertensives (50mg atenolol 5mg amlodipine) and has not missed any doses. Pt currently taking medrol dose pk for cough. Is on last day of steroids. documented in this encounter Plan of Treatment Upcoming Encounters Date Type Department Care Team (Late st Contact Info) Description 04/28/2024 2:40 PM COMMODITY TRADER Office Visit [facility] [place] [address] [place] [address] Jared Meija MD [address] [place] [address] 05/20/2024 10:20 AM COMMODITY TRADER Office Visit [facility] [place] [facility] - [facility] [address] [facility], [address] [place] [address] Scarlet Mendoza MD [address] [place] [address] 10/11/2024 10:00 AM CDT Office Visit [facility] [facility], [address] [place] [address] Galdino Santos MD [facility]. [address] [place] [address] Lary Joel PA [address] [facility], [address] [place] [address] documented as of this encounter Procedures Procedure Name Priority Date/Time Associated Diagnosis Comments COMPREHENSIVE METABOLIC PANEL STAT 12/09/2023 7:[address] HEAD WO CON STAT 12/09/2023 6:40 AM CDT CBC W/DIFF AUTOMATED STAT 12/09/2023 6:28 AM CDT ECG 12-LEAD Routine 12/09/2023 6:26 AM CDT documented in this encounter Results * (ABNORMAL) COMPREHENSIVE METABOLIC PANEL (12/09/2023 7:15 AM CDT) GLUCOSE 102(H) 70 - 99 MG/DL 12/09/2023 7:52 AM CDT [facility] BUN 19(H) 7 - 18 MG/DL 12/09/2023 7:52 AM CDT [facility] CREATININE S/P/B 0.84 0.55 - 1.02 MG/DL 12/09/2023 7:52 AM CDT [facility] SODIUM S/P/B 138 136 - 145 MMOL/L 12/09/2023 7:52 AM CDT [facility] POTASSIUM S/P/B 3.8 3.5 - 5.1 MMOL/L 12/09/2023 7:52 AM CDT [facility] CHLORIDE S/P/B 105 100 - 108 MMOL/L 12/09/2023 7:52 AM CDT [facility] CO2 27.8 21 - 32 MMOL/L 12/09/2023 7:52 AM CDT [facility] CALCIUM S/P/B 9.4 8.5 - 10.1 MG/DL 12/09/2023 7:52 AM T [facility] BILIRUBIN TOTAL S/P/B 0.6 0.2 - 1.2 MG/DL 12/09/2023 7:52 AM [facility] Comment: THIS ASSAY IS NOT RECOMMENDED FOR PATIENTS UNDERGOING TREATMENT WITH ELTROMBOPAG DUE TO THE POTENTIAL FOR FALSELY ELEVATED RESULTS. TOTAL PROTEIN S/P/B 7.3 6.4 - 8.2 G/DL 12/09/2023 7:52 AM T [facility] ALBUMIN S/P/B 3.6 3.4 - 5.0 G/DL 12/09/2023 7:52 AM [facility] AST 38(H) 15 - 37 U/L 12/09/2023 7:52 AM [facility] ALT 89(H) 14 - 55 U/L 12/09/2023 7:52 AM [facility] ALKALINE PHOSPHATASE S/P/B 98 50 - 136 U/L 12/09/2023 7:52 AM [facility] ANION GAP 5.2 5 - 15 MMOL/L 12/09/2023 7:52 AM [facility] BUN CREATININE RATIO 22.7 6 - 26 12/09/2023 7:52 AM [facility] A/G RATIO 1.0 1.0 - 2.0 RATIO 12/09/2023 7:52 AM [facility] GFR ESTIMATE 75(L) >90 ML/MIN/1.7 3 M2 12/09/2023 7:52 AM [facility] Comment: NOTE: eGFR is not calculated for patients <18 years of age. This is an estimated GFR calculation using the new CKD EPI creatinine equation without race and so does not require a correction factor for race. This estimated GFR should not be used for calculating drug doses. 12/09/2023 7:15 AM CDT Esperanza Rendon MD LABORATORY Final Result [facility] [address] [place] [address], [place] [phone] * CT HEAD WO CON (12/09/2023 6:40 AM CDT) Anatomical Region Laterality Modality Head Computed Tomogra phy 12/09/2023 6:59 AM CDT Impressions 12/09/2023 7:01 AM CDT IMPRESSION: No acute intracranial abnormality is demonstrated. Referred By: ?? Interpreted By: Manoj Flores MD, 12/09/2023 6:59 AM Narrative 12/09/2023 7:[address] brain without contrast INDICATION: Headache. ??Hypertension. COMPARISON: 02/21/2020. TECHNIQUE: Noncontrast images from the skull base through the vertex. Radiation dose reduction technique(s) were used. FINDINGS: No intracranial mass, hemorrhage or infarct is demonstrated. ??There is minimal parenchymal volume loss and chronic microvascular disease. ??No extra- axial fluid collection. No orbital abnormality is seen. There is intracranial vascular calcification. Bony structures are unremarkable and visualized paranasal sinuses and mastoid air cells are well aerated. Procedure Note Manoj Flores MD - 12/09/2023 CT brain without contrast INDICATION: Headache. Hypertension. COMPARISON: 02/21/2020. TECHNIQUE: Noncontrast images from the skull base through the vertex. Radiation dose reduction technique(s) were used. FINDINGS: No intracranial mass, hemorrhage or infarct is demonstrated.There is minimal parenchymal volume loss and chronic microvasculardisease. No extra-axial fluid collection. No orbital abnormality is seen. There is intracranial vascular calcification. Bony structures are unremarkable and visualized paranasal sinuses andmastoid air cells are well aerated. IMPRESSION: No acute intracranial abnormality is demonstrated. Referred By: Interpreted By: Manoj Flores MD, 12/09/2023 6:59 AM Esperanza Rendon MD CT Final Result * (ABNORMAL) CBC W/DIFF AUTOMATED (12/09/2023 6:28 AM CDT) WBC 13.49(H) 4.5 - 11.0 x10'3/uL 12/09/2023 7:20 AM CDT [facility] RBC 4.32 4.20 - 5.40 x10'6/uL 12/09/2023 7:20 AM CDT [facility] HGB 13.5 12.0 - 16.0 G/DL 12/09/2023 7:20 AM CDT [facility] HCT 41.4 38.0 - 48.0 % 12/09/2023 7:20 AM CDT [facility] MCV 95.8 81.0 - 99.0 FL 12/09/2023 7:20 AM CDT [facility] MCH 31.3(H) 27.0 - 31.0 PG 12/09/2023 7:20 AM CDT [facility] MCHC 32.6 32.0 - 36.0 G/DL 12/09/2023 7:20 AM CDT [facility] RDW 12.8 11.5 - 14.5 % 12/09/2023 7:20 AM CDT [facility] PLT 419(H) 130 - 400 x10'3/uL 12/09/2023 7:20 AM CDT [facility] MPV 10.0 9.3 - 12.2 FL 12/09/2023 7:20 AM CDT [facility] DIFFERENTIAL TYPE AUTOMATED DIFFERENTIAL 12/09/2023 7:20 AM CDT [facility] NEUTROPHILS % 75.2 % 12/09/2023 7:20 AM CDT [facility] LYMPHOCYTES % 17.0 % 12/09/2023 7:20 AM CDT [facility] MONOCYTES % 6.6 % 12/09/2023 7:20 AM CDT [facility] EOSINOPHILS 0.3 % 12/09/2023 7:20 AM CDT [facility] BASOPHILS 0.1 % 12/09/2023 7:20 AM CDT [facility] IMMATURE GRANS % 0.8 % 12/09/19 7:20 AM CDT [facility] ABS. NEUTROPHILS 10.14(H) 1.80 - 7.70 x10'3/uL 12/09/2023 7:20 AM CDT [facility] ABS. LYMPHOCYTES 2.29 1.00 - 4.80 x10'3/uL 12/09/2023 7:20 AM CDT [facility] ABS. MONOCYTES 0.89(H) 0.24 - 0.86 x10'3/uL 12/09/2023 7:20 AM CDT [facility] ABS. EOSINOPHILS 0.04 0.04 - 0.36 x10'3/uL 12/09/2023 7:20 AM CDT [facility] ABS. BASOPHILS 0.02 0.01 - 0.08 x10'3/uL 12/09/2023 7:20 AM CDT [facility] ABS. IMMATURE GRANULOCYTES 0.11 0.00 - 0.49 x10'3/uL 12/09/2023 7:20 AM T [facility] RBC MORPHOLOGY RBC MORPHOLOGY APPEARS NORMAL. SLIDE REVIEWED. 12/09/2023 7:20 AM CDT [facility] PLT EST. INCREASED 12/09/2023 7:20 AM CDT [facility] 12/09/2023 6:28 AM CDT Esperanza Rendon MD LABORATORY Final Result [facility] [address] [place] [address], * ECG 12 lead (12/09/2023 6:26 AM CDT) 12/09/2023 6:26 AM CDT Narrative [facility] - 12/09/2023 6:45 PM CDT ?[facility] ? [address] [facility] ? Test Date: ?2023-12-09 Pat Name: ? MARIA G BARROW ? Department: ?? 41 ? Room: ? [id number] Gender: ? Female ? 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 : ?1955 ? Requested By: ESPERANZA RENDON Order Number: [id number] ? Reading : ?? Emilia Childs ? Measurements Intervals ?[place] ? Rate: ? 62 ? P: ?19 RI: ? 181 ?QRS: ?50 QRSD: ? 89 ? T: ?29 QT: ? 407 ? QTc: ?415 ? Interpretive Statements SINUS RHYTHM Compared to ECG 03/16/2022 12:08:57 No significant changes Procedure Note Emilia Childs MD - 12/09/2023 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1955 Requested By: ESPERANZA RENDON Order Number: [id number] Reading MD: Emilia Childs Measurements Intervals [place] Rate: 62 P: 19 RI: 181 QRS: 50 QRSD: 89 T: 29 QT: 407 QTc: 415 Interpretive Statements SINUS RHYTHM Compared to ECG 03/16/2022 12:08:57 No significant changes us Esperanza Rendon MD ECG ORDERABLES Final Result [facility] documented in this encounter Visit Diagnoses Diagnosis Hypertension- Primary Unspecified essential hypertension Elevated LFTs Other abnormal blood chemistry documented in this encounter Administered Medications Inactive Administered Medications - up to 3 most recent administrations Medication Order MAR Action Action Date Dose Rate Site amLODIPine (NORVASC) tablet 5 mg 5 mg, Oral, Once, 1 dose, On e 12/09/23 at 0630 Given 12/09/2023 6:45 AM CDT 5 mg atenolol (TENORMIN) tablet 50 mg 50 mg, Oral, Once, 1 dose, On 12/09/23 at 0630 Given 12/09/2023 6:45 AM CDT 50 mg documented in this encounter Active and Recently Administered Medications Times are shown in CDT. Scheduled Medication Order 2023 12/08/2023 12/09/2023 amLODIPine (NORVASC) tablet 5 mg (COMPLETED) 5 mg, Oral, Once, 1 dose, On e 12/09/23 at 0630 0645 (Given - Provid er: Jaquelin Yu RN) atenolol (TENORMIN) tablet 50 mg (COMPLETED) 50 mg, Oral, Once, 1 dose, On 12/09/23 at 0630 0645 (Given - Provid er: Jaquelin Yu RN) documented in this encounter Care Teams Health Specialist Relationship Specialty Start Date End Date Kathryn James DO [address] [place] [address] PCP - General FAMILY PRACTICE 02/21/20 documented as of this encounter
--- OUTSIDE RECORDS SUMMARY | 2024-04-20 02:28 | XMS_ITS | Encounter Summary ---
Author Organization [facility] Address [address] [place] [address]. [place], [place] [address] [place] [address] Care Team Providers Care Gas Distribution Supervisor Name Role Phone Rosie Bryant Primary Care Provider [phone] Reason for Referral * Imaging (Routine) - Closed Specialty Diagnoses / Procedures Referred By Ryanac carter Referred To Contact RADIOLOGY Diagnoses Hyperreflexia Procedures MRI CERV SPINE WO CON Sophia Randolph MD Phone: tel: fax: Referral ID Status Reason Start Date Expiration Date Visits Re quested Visits Authorized [id number] Closed 09/06/2022 09/07/2023 1 1 Reason for Visit * Imaging (Routine) - Closed Specialty Diagnoses / Procedures Referred By Meet machado Referred To Contact RADIOLOGY Diagnoses Hyperreflexia Procedures MRI CERV SPINE WO CON Sophia Randolph MD Phone: tel: fax: Referral ID Status Reason Start Date Expiration Date Visits Re quested Visits Authorized [id number] Closed 09/06/2022 09/07/2023 1 1 Encounter Details Date Type Department Care Team (Latest Contact Info) Description 10/18/2022 10:41 AM CDT - 10/18/2022 11:59 PM CDT Hospital Encounter [facility] Open MRI [address] [place] [address] Sophia Randolph MD [address] [place] [address] Discharge Disposition: Home or Self Care (Routine [...] AM CDT documented as of this encounter Medications at Time of Discharge [...] OR) Take 200 mg by mouth daily. [id number] OR Take 500 mg by mouth daily. 500mg AM. 1000mg PM MAGNESIUM OR Take 96 mg by mouth daily. Menaquinone-7 (VITAMIN K2 OR) Take by mouth 2 (two) times a day. Multiple Vitamin (MULTIVITAMIN IRON-FREE) Tab Take by mouth daily. AIRPLANE TESTER THYROID 60 MG tablet Take 1 tablet (60 mg total) by mouth daily. 10/20/2020 vitamin C 1000 MG tablet Take 1 tablet (1,000 mg total) by mouth daily. 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 We will continue to monitor. * Chula Love MA - 10/18/2022 11:00 AM CDT Called patient and informed that their cervical spine shows that she has mild to moderate arthritisthat is unchanged from her last cervical spine mri done in August 2021. So, we will continue to monitor. Patient verbalized understanding. documented in this encounter Plan of Treatment Upcoming Encounters Date Type Department Care Team (Late st Contact Info) Description 04/28/2024 2:40 PM TILE LAYER HELPER Office Visit [facility] Orthopedic & Sports Medicine - [place] [address] [place] [address] Jared Mejia MD [address] [place] [address] 05/20/2024 10:20 AM TILE LAYER HELPER Office Visit [facility] Multispecialty Care - [facility] [address], [address] [place] [address] Scarlet Mendoza MD [address] [place] [address] 10/11/2024 10:00 AM CDT Office Visit [facility] [facility], [address] [place] [address] Galdino Santos MD Three [facility]. [address] [place] [address] Lary Joel PA [address], [address] [place] [address] documented as of this encounter Procedures Procedure Name Priority Date/Time Associated Diagnosis Comments MRI CERV SPINE WO CON Routine 10/18/2022 11:38 AM CDT Hyperreflexia documented in this encounter Results * MRI CERV SPINE [...] documented in this encounter Visit Diagnoses Diagnosis Hyperreflexia Abnormal reflex documented in this encounter Care Teams Gas Distribution Supervisor Relationship Specialty Start Date End Date Rosie Bryant DO [address] [place] [address] PCP - General FAMILY PRACTICE 02/21/20 documented as of this encounter
--- OUTSIDE RECORDS SUMMARY | 2024-04-20 02:28 | XMS_ITS | Encounter Summary ---
Author Organization [facility] Address [address] [place] [address]. [place] [address] [place] [address] Care Team Providers Care Standards Analyst Name Role Phone Rosie Bryant DO Primary Care Provider [phone] Encounter Details Date Type Department Care Team (Latest Contact Info) Description 10/09/2023 Travel Social History Tobacco Use Types Packs/Day [...] st Contact Info) Description 04/28/2024 2:40 PM SURGICAL MANAGER Office Visit [facility] Orthopedic & Sports Medicine - [place] [address] [place] [address] Jared Mejia MD [address] [place] [address] 05/20/2024 10:20 AM SURGICAL MANAGER Office Visit [facility] Multispecialty Care - [facility] [address], [address] [place] [address] Scarlet Mendoza MD 3 [facility] [place] [address] 10/11/2024 10:00 AM CDT Office Visit [facility] THREE [facility], [address] [place], [place] [address] Galdino Santos MD Three [facility]. [address] [place], [place] [address] Lary Joel PA [address] [facility], [address] [place] [address] documented as of this encounter Visit Diagnoses Not on filedocumented in this encounter Care Teams Standards Analyst Relationship Specialty Start Date End Date Rosie Bryant DO [address] [place] [address] PCP - General FAMILY PRACTICE 02/21/20 documented as of this encounter
--- OUTSIDE RECORDS SUMMARY | 2024-04-20 02:28 | XMS_ITS | Clinical Summary ---
Author Organization [facility] Address [address] [place] [address] Care Team Providers Care Welder Repair Name Role Phone Rosie Bryant DO Primary Care Provider [phone] Source Comments [facility],non-owned Affiliates and Associated Physician Practices is amultiple site organization consisting of ambulatory clinics and hospital sitesin [place], [place] and [place]. This disclosure is being madepursuant to the Care Everywhere program and may not contain all information available regarding this patient. Last updated 18.[facility] Social History Tobacco Use Types Packs/Day Years Used Date Smoking Tobacco: Never Smokeless Tobacco: Never Tobacco Cessation:Counseling Given: Not Answered PHQ-2 Answer Date Recorded Patient Health Questionnaire-2 Score 0 03/10/2023 Sex and Gender Information Value Date Recorded Sex Assigned at Not on file Gender Identity Not on file Sexual Orientation Not on file Plan of Treatment Health Maintenance Due Date Last Done Comments BONE DENSITY TESTING 1955 COLOGUARD (AGES 45-75) - COL ON CA SCREENING 1953 COLON MONITORING 1953 COLONOSCOPY - COLON CA SCREENING 1953 CT COLONOGRAPHY - COLON CA SCREENING 1953 Colorectal Cancer Screening 1953 FIT - COLON CA SCREENING 1953 FLEX SIG - COLON CA SCREENING 1953 LIPID TESTING 1953 MAMMOGRAM 1953 MEDICARE AWV ? 12 MONTHS 1953 HEPATITIS C SCREENING 12/03/1971 DTAP/TDAP/TD VACCINES (1 - Tdap) 1972 ZOSTER VACCINE (1 of 2) 12/08/2003 PNEUMOCOCCAL VACCINE 65+ (1 of 1 - PCV) 2018 DEPRESSION SCREENING 04/21/2023 03/17/2023, 01/28/2022 COVID-19 VACCINE (1 - 2023-2 5 season) 2023 INFLUENZA VACCINE (#1) 2023 Respiratory Syncytial Virus (RSV) Vaccine Pt: or over 60 yrs (1 - 1-dose 75+ series) 2028 HEPATITIS B VACCINE Aged Out No longe r eligible based on patient's age to complete this topic HIB VACCINE Aged Out No longer eligi ble based on patient's age to complete this topic HPV VACCINE Aged Out No longer eligi ble based on patient's age to complete this topic MENINGOCOCCAL VACCINE Aged Out No dieter tavares eligible based on patient's age to complete this topic Care Teams Welder Repair Relationship Specialty Start Date End Date Rosie Bryant DO [address] [place] [address] PCP - General 12/12/21
--- OUTSIDE RECORDS SUMMARY | 2024-04-20 02:28 | XMS_ITS | Encounter Summary ---
Author Organization [facility] Address [address] [place] [address]. [place], [place] [address] [place] [address] Care Team Providers Care Style Advisor Name Role Phone Rosie Bryant Primary Care Provider [phone] Encounter Details Date Type Department Care Team (Late Contact Info) Description 05/02/2022 Abstract [facility] [address] Vero Le MA Social History Tobacco Use Types Packs/Day Years [...] suspected to have Coronavirus/COVID-19? No / Unsure 04/04/2022 10:40 AM AIR QUALITY SPECIALIST documented as of this encounter Plan of Treatment Upcoming Encounters Date Type Department Care Team (Late Contact Info) Description 04/28/2024 2:40 PM AIR QUALITY SPECIALIST Office Visit [facility] Medical [facility] Orthopedic & Sports Medicine - [place] [address] [place] [address] Jared Mejia MD [address] [place] [address] 05/20/2024 10:20 AM AIR QUALITY SPECIALIST Office Visit [facility] Mult[facility]ialty Care - [facility] [address] [facility], [address] [place] [phone] Scarlet Mendoza MD 3 [place] [address] 10/11/2024 10:00 AM CDT Office Visit [facility] [facility], [address] [place] [address] Galdino Santos MD Three [facility]. [address] [place], [place] [address] Lary Joel PA [address] [facility], [address] [place], [place] [address] documented as of this encounter Procedures Procedure Name Priority Date/Time Associated Diagnosis Comments LIPID PANEL Routine 02/27/2022 documented in this encounter Results * LIPID PANEL (02/27/2022) CHOLESTEROL 234 TRIGLYCERIDES 117 HDL 56 LDL (CALCULATED) 155 NON HDL CHOLESTEROL 178 us Default History Genericprovider LABORATORY Final Result documented in this encounter Visit Diagnoses Not on filedocumented in this encounter Care Teams Style Advisor Relationship Specialty Start Date End Date Rosie Bryant DO [address] [place] [address] PCP - General FAMILY PRACTICE 02/21/20 documented as of this encounter
--- OUTSIDE RECORDS SUMMARY | 2024-04-20 02:28 | XMS_ITS | Encounter Summary ---
Author Organization [facility] Address [address] [place] [address]. [place], [place] [address] [place] [address] Care Team Providers Care Ornamental Metal Worker Name Role Phone Rosie Bryant DO Primary Care Provider Reason for Visit * Reason Onset Date Comments Appointment Request 06/13/2023 Encounter Details Date Type Department Care Team (Late st Contact Info) Description 06/13/2023 Telephone [facility] Family Medicine - [place] [address] [facility], [address] [place] [phone] Christ Cannon MD [address] [facility] [address] [place] [id number] Appointment Request Social History Tobacco Use Types [...] as of this encounter Progress Notes * Jody Melo MA - 06/16/2023 8:59 AM CST Called and informed pt that Dr Cannon was not accepting new patients at this time but would recommend Dr. Bourgeois. Pt asked if Dr. Bourgeois has been practicing for awhile. Informed her that Dr. Bourgeois is freshly out of residency and has been with our clinic since about December. Pt stated that she would talk with her and get back to us. INE ROUGH ROUNDER * Ann Mcelroy - 06/13/2023 3:41 PM CST Pt is calling, her son and daughter in law are pt's of dr cannon. She is wanting to know if dr arroyotake her and her as new pt's. Cb# [phone] INE ROUGH ROUNDER documented in this encounter Plan of Treatment Upcoming Encounters Date Type Department Care Team (Late st Contact Info) Description 04/28/2024 2:40 PM MACHINE ROUGH ROUNDER Office Visit [facility] Orthopedic & Sports Medicine - [place] [address] [place] [address] Jared Mejia MD [address] [place] [address] 05/20/2024 10:20 AM MACHINE ROUGH ROUNDER Office Visit [facility] Multispecialty Care - [facility] [address] [facility], [address] [place] [address] Scarlet Mendoza MD [address] [place] [address] 10/11/2024 10:00 AM CDT Office Visit [facility] [facility], [address] [place] [address] Galdino Santos MD Three [facility]. [address] [place], [place] [address] Lary Joel PA [address] [facility], [address] [place], [place] [phone] documented as of this encounter Visit Diagnoses Not on filedocumented in this encounter Care Teams Ornamental Metal Worker Relationship Specialty Start Date End Date Rosie Bryant DO [address] [place] [address] PCP - General FAMILY PRACTICE 02/21/20 documented as of this encounter
--- OUTSIDE RECORDS SUMMARY | 2024-04-20 02:28 | XMS_ITS | Encounter Summary ---
Author Organization [facility] Address [address] [place] [address]. [place], [place] [address] [place] [address] Care Team Providers Care Gospel Singer Name Role Phone Rosie Bryant Primary Care Provider [phone] Reason for Visit * Reason Onset Date Comments Question 09/11/2022 Encounter Details Date Type Department Care Team (Late st Contact Info) Description 09/11/2022 Telephone [facility] Multispecialty Care - [facility] [address] [facility], [address] [place] [address] Chasity Phan MD [address] [place] [address] Question Social History Tobacco Use Types Packs/Day Years [...] AM CDT documented as of this encounter Progress Notes * Chula Love MA - 09/11/2022 3:35 PM CDT Called patient, no answer, left detailed message on patient voicemail explaining that Dr Bronson wantedto follow up on the 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 There were no changes on the last brain MRI that needed to followed up on. Asked patient to return call with anyquestions. * Chasity Phan MD - 09/11/2022 3:26 PM CDT I just wanted to follow up on the 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 There were no changes on the last brain MRI that needed to followed up on, but I will be happy to order another one. * Radha Phillips - 09/11/2022 11:49 AM CDTSummary: MRI Scan Please everett the patient to discuss the current order vs last years orders. Patient asked when the last MRI was done. I advised per the chart that the spine w/o contrast and brain w/o contrast were done on 09/07/22. The current order is for spine w/o contrast. The pt advise that it is the brain she ishaving trouble with. So, she is wondering why there is no order for the brain too. Since Dr. Bronson wanted to compare last year to this year. Please call to discuss. Thank you very much. documented in this encounter Plan of Treatment Upcoming Encounters Date Type Department Care Team (Late st Contact Info) Description 04/28/2024 2:40 PM AVIATION SAFETY INSPECTOR Office Visit [facility] Orthopedic & Sports Medicine - [place] [address] [place] [address] Jared Mejia MD [address] [place] [address] 05/20/2024 10:20 AM AVIATION SAFETY INSPECTOR Office Visit [facility] Multispecialty Care - [facility] [address] [facility], [address] [place] [address] Scarlet Mendoza MD [address] [place] [address] 10/11/2024 10:00 AM CDT Office Visit [facility] THREE [facility], [address] [place] [address] Galdino Santos MD Three [facility]. [address] [place] [address] Lary Joel PA [address] [facility], [address] [place] [address] documented as of this encounter Visit Diagnoses Not on filedocumented in this encounter Care Teams Gospel Singer Relationship Specialty Start Date End Date Rosie Bryant DO [address] [place] [address] PCP - General FAMILY PRACTICE 02/21/20 documented as of this encounter
--- OUTSIDE RECORDS SUMMARY | 2024-04-20 02:28 | XMS_ITS | Encounter Summary ---
Author Organization [facility] Address [address] [place] [address]. [place] [address] [place] [address] Care Team Providers Care Manager Wireless Name Role Phone Rosie Bryant DO Primary Care Provider [phone] Reason for Visit * Reason Onset Date Comments Appointment Request 10/13/2023 Encounter Details Date Type Department Care Team (Late st Contact Info) Description 10/13/2023 Telephone [facility] Orthopedic & Sports Medicine - [place] [address] [place], [place] [phone] Jared Avila MD [address] [place] [address] Appointment Request Social History Tobacco Use Types [...] as of this encounter Progress Notes * Shelly Vargas RN - 10/13/2023 4:37 PM CDT Thank you for the information. * Feli Cobos - 10/13/2023 2:14 PM CDT Patient called in to the office and stated that her pcp had referred her to see Dr Avila, she said that she has been having L Leg pain for a while, no other symptoms, she did try physical therapy,and they did do an mri last week at [facility], she was notified to bring the disc and reports with her, she has not had any other work up done, she has medicare a and b and secondary, no auth required, she was scheduled with Dr Avila documented in this encounter Plan of Treatment Upcoming Encounters Date Type Department Care Team (Late st Contact Info) Description 04/28/2024 2:40 PM DEPARTMENT COORDINATOR Office Visit [facility] Orthopedic & Sports Medicine - [place] [address] [place] [address] Jared Avlia MD [address] [place] [address] 05/20/2024 10:20 AM DEPARTMENT COORDINATOR Office Visit [facility] Medical [facility] Mult[facility]pecialty Care - [facility] [address] [facility], [address] [place] [address] Scarlet Mendoza MD 3 [place] [address] 10/11/2024 10:00 AM CDT Office Visit [facility] THREE [facility], [address] [place] [address] Galdino Santos MD Three [facility]. [address] [place] [address] Lary Joel PA [address] [facility], [address] [place], [place] [address] documented as of this encounter Visit Diagnoses Not on filedocumented in this encounter Care Teams Manager Wireless Relationship Specialty Start Date End Date Rosie Bryant DO [address] [place] [address] PCP - General FAMILY PRACTICE 02/21/20 documented as of this encounter
--- OUTSIDE RECORDS SUMMARY | 2024-04-20 02:28 | XMS_ITS | Referral Summary ---
Author Organization [facility] Address [address] [place] [address] Care Team Providers Care Textile Converter Name Role Phone Rosie Bryant DO Primary Care Provider [phone] Source Comments [facility],non-owned Affiliates and Associated Physician Practices is amultiple site organization consisting of ambulatory clinics and hospital sitesin [place], [place], [place] and [place]. This disclosure is being madepursuant to the Care Everywhere program and may not contain all information available regarding this patient. Last updated 18.[facility] Social History Tobacco Use Types Packs/Day Years Used Date Smoking Tobacco: Never Smokeless Tobacco: Never Tobacco Cessation:Counseling Given: Not Answered PHQ-2 Answer Date Recorded Patient Health Questionnaire-2 Score 0 03/10/2023 Sex and Gender Information Value Date Recorded Sex Assigned at Not on file Gender Identity Not on file Sexual Orientation Not on file Plan of Treatment Not on file Care Teams Textile Converter Relationship Specialty Start Date End Date Rosie Bryant DO [address] [address] PCP - General 12/12/21
--- OUTSIDE RECORDS SUMMARY | 2024-04-20 02:28 | XMS_ITS | Encounter Summary ---
Author Organization [facility] Address [address] [place] [address]. [place], [place] [address] [place] [address] Care Team Providers Care Hyperbaric Technician Name Role Phone Rosie Bryant Primary Care Provider [phone] Reason for Visit * Reason Comments Chest Pain 6 month Lipids Hypertension Encounter Details Date Type Department Care Team (Late st Contact Info) Description 10/03/2022 11:30 AM CDT Office Visit [facility] THREE [facility], [place] [place], [place] [id number] Maria G Sims, Jessie Armstrong PA-C Three [facility] [address] [place], [place] [id number] Chest Pain (6 month); Lipids; Hypertension Social History Tobacco Use Types [...] Sign Reading Time Taken Comments Blood Pressure 148/76 10/03/2022 11:23 AM CDT Pulse 63 10/03/2022 11:23 AM CDT Temperature - - Respiratory Rate - - Oxygen Saturation 98% 10/03/2022 11: 23 AM CDT Inhaled Oxygen Concentration - - Weight 91.1 kg (200 lb 12.8 oz) 023 11:23 AM CDT Height 180.3 cm (5' 11 ) 10/03/2022 11: 23 AM CDT Body Mass Index 28.01 10/03/2022 11:23 AM CDT documented in this encounter Progress Notes * Jessie Amor PA-C - 10/03/2022 11:30 AM CDT Reason for Visit: Chest Pain (6 month), Lipids, and Hypertension History of Present Illness: I had the pleasure of seeing Maria G Barrow in follow up at the [facility] in [place], [place]. Maria G Barrow is a 66-year-old female with a past medical history of chest pain, hypertension and hyperlipidemia here today for scheduled follow up appointment. Patient has been doing well since her last office visit. No new chest pain, dyspnea, palpitations, near-syncope, fatigue, orthopnea, cla udication, or lower extremity edema. She denies any further episodes of chest pain at this time. Suspects the chest pain was related to COIVD19. Patient remains mindful of her diet and tries to remain as active as possible. Patient reports that overall she doing well from a cardiac standpoint. Recommendations and Plan: Chest pain: Resolved. The pain was atypical. No further workup needed at this time. Essential Hypertension: Blood pressure is elevated today. She does note routinely monitor at home. Denies any headaches or vision changes. Continue current regimen for now. On Amlodipine and Atenolol. Mixed hyperlipidemia: intolerant to statins and Zeita. Not interested PCSK9 inhibitor at this time. Maria G Barrow will see us in follow-up in 1 year or sooner. Maria G Barrow voiced understanding of my [...] OR) Take 200 mg by mouth daily. [id number] OR Take 500 mg by mouth daily. 500mg AM. 1000mg PM MAGNESIUM OR Take 96 mg by mouth daily. Menaquinone-7 (VITAMIN K2 OR) Take by mouth 2 (two) times a day. Multiple Vitamin (MULTIVITAMIN IRON-FREE) Tab Take by mouth daily. MASTER DYER THYROID 60 MG tablet Take 1 tablet [...] Vaping Use Vaping Use: Never used Substance and Sexual Activity Alcohol use: Yes Comment: rare Drug use: Never Other Topics Concern Caffeine Concern No Special Diet No Exercise No Family History Problem Relation Name Age of Onset Other (cardiac stent) Father Transient ischemic attack Maternal Grandmother Family Status Relation Name Status Mother Alive Father Sister Brother Alive Brother Alive Brother Alive MGM MGF PGM PGF Review of Systems Constitutional: Negative for chills, [...] Negative for dysuria, hematuria and urgency. Musculoskeletal: Negative for joint pain and myalgias. Skin: Negative for rash. Neurological: Negative for dizziness, loss of consciousness, weakness and headaches. Endo/Heme/Allergies: Negative for environmental allergies and polydipsia. Does not bruise/bleed easily. Psychiatric/Behavioral: Negative for depression. Filed Vitals: 10/03/22 1123 BP: (!) 148/76 Pulse: 63 SpO2: 98% Weight: 91.1 kg (200 lb 12.8 oz) Height: 5' 11 (1.803 m) Cardiac Exam Rate/Rhythm: Normal rate and regular rhythm. PMI: PMI is not displaced. Pulses: Heart Sounds: Normal heart sounds. Normal S1 sounds. Normal S2 sounds. No gallop present. No S3. NoS4. Murmurs: Edema left: 0. Edema Right: 0. Negative for edema. Physical Exam Constitutional: No distress. Healthy Appearance. HENT: Oropharynx clear. Eyes: Conjunctivae normal. Neck: Neck supple. Abdomen: Pulmonary: Effort normal. Breath sounds normal. No stridor. No rales. No wheezes. Skin: Dry. Warm. No rash. No cyanosis. No clubbing. Musculoskeletal: No gross deformity.. Neurological: Alert. Oriented x 3. Appropriate mood and affect. Normal motor skills. Normal gait. Comments: Labs: I have personally reviewed the following labs Lab Results Component Value Date/Time WBC 3.7 [...] 12:00 AM LDL 155 02/27/2022 12:00 AM documented in this encounter Plan of Treatment Upcoming Encounters Date Type Department Care Team (Late st Contact Info) Description 04/28/2024 2:40 PM J2EE ENGINEER Office Visit [facility] - [place] [address] [place] [address] Jared Mejia MD [address] [place] [address] 05/20/2024 10:20 AM J2EE ENGINEER Office Visit [facility] [address] [facility], [address] [place] [id number] Scarlet Mendoza MD [address] [place] [address] 10/11/2024 10:00 AM CDT Office Visit [facility] THREE [facility], [place] [address] [place] [address] Galdino Santos MD Three [facility]. [place] [address] [place] [address] Lary Joel PA [address] [facility], [address] [place] [address] documented as of this encounter Visit Diagnoses Diagnosis Precordial pain- Primary Hyperlipidemia, mixed Mixed hyperlipidemia Primary hypertension Unspecified essential hypertension documented in this encounter Care Teams Hyperbaric Technician Relationship Specialty Start Date End Date Rosie Bryant DO [address] [place] [address] PCP - General FAMILY PRACTICE 02/21/20 documented as of this encounter
--- OUTSIDE RECORDS SUMMARY | 2024-04-20 02:28 | XMS_ITS | Encounter Summary ---
Author Organization [facility] Address [address] [place] [address]. [place] [address] [place] [address] Care Team Providers Care Technical Support Representative Name Role Phone Rosie Bryant DO Primary Care Provider [phone] Encounter Details Date Type Department Care Team (Latest Contact Info) Description 08/28/2023 Scan HEALTH INFO SRVCS Scanned, Doc Med [...] st Contact Info) Description 04/28/2024 2:40 PM SCREW DOWN Office Visit [facility] - [place] [address] [place] [address] Jared Mejia MD [address] [place] [address] 05/20/2024 10:20 AM SCREW DOWN Office Visit [facility]ty Care - [facility] [address] [facility], [address] [place] [address] Scarlet Mendoza MD 3 [place] [address] 10/11/2024 10:00 AM CDT Office Visit [facility] THREE [facility], [address] [place] [address] Galdino Santos MD Three [facility]. [place] [address] [place], [place] [address] Lary Joel PA [address] [facility], [address] [place] [address] documented as of this encounter Visit Diagnoses Not on filedocumented in this encounter Care Teams Technical Support Representative Relationship Specialty Start Date End Date Rosie Bryant DO [address] [place] [address] PCP - General FAMILY PRACTICE 02/21/20 documented as of this encounter
--- OUTSIDE RECORDS SUMMARY | 2024-04-20 02:28 | XMS_ITS | Encounter Summary ---
Author Organization [facility] Address [address] [place] [address]. [place], [place] [address] [place] [address] Care Team Providers Care Tank Setter Name Role Phone Rosie Bryant DO Primary Care Provider [phone] Encounter Details Date Type Department Care Team (Latest Contact Info) Description 02/10/2023 Scan HEALTH INFO SRVCS Scanned, Doc Med [...] (Late Contact Info) Description 04/28/2024 2:40 PM MACHINE WASHER Office Visit [facility] Orthopedic & Sports Medicine - [place] [address] [place] [address] Jared Mejia MD [address] [place] [address] 05/20/2024 10:20 AM MACHINE WASHER Office Visit [facility] Multispecialty Care - [facility] [address] [facility], [address] [place] [address] Scarlet Mendoza MD 3 [facility] [place] [address] 10/11/2024 10:00 AM CDT Office Visit [facility] THREE [facility], [address] [place] [address] Galdino Santos MD Three [facility]. [place] [address] [place], [place] [address] Lary Joel PA [address] [facility], [address] [place] [address] documented as of this encounter Visit Diagnoses Not on filedocumented in this encounter Care Teams Tank Setter Relationship Specialty Start Date End Date Rosie Bryant DO [address] [place] [address] PCP - General FAMILY PRACTICE 02/21/20 documented as of this encounter
--- OUTSIDE RECORDS SUMMARY | 2024-04-20 02:28 | XMS_ITS | Patient Health Summary ---
Author Organization [facility] Address [address] [place] [address] Care Team Providers Care Sales Analyst Name Role Phone Rosie Bryant DO Primary Care Provider [phone] [facility],non-owned Affiliates and Associated Physician Practices is amultiple site organization consisting of ambulatory clinics and hospital sitesin [place], [place], [place] and [place]. This disclosure is being madepursuant to the Care Everywhere program and may not contain all information available regarding this patient. Last updated 18.[facility] Social History Tobacco Use Types Packs/Day Years Used Date Smoking Tobacco: Never Smokeless Tobacco: Never Tobacco Cessation:Counseling Given: Not Answered PHQ-2 Answer Date Recorded Patient Health Questionnaire-2 Score 0 03/10/2023 Sex and Gender Information Value Date Recorded Sex Assigned at Not on file Gender Identity Not on file Sexual Orientation Not on file Care Teams Sales Analyst Relationship Specialty Start Date End Date Rosie Bryant DO [address] [place] [address] PCP - General 12/12/21
--- OUTSIDE RECORDS SUMMARY | 2024-04-20 02:28 | XMS_ITS | Encounter Summary ---
Author Organization [facility] Address [address] [place] [address]. [place], [place] [address] [place] [address] Care Team Providers Care Lieutenant Ballistics Name Role Phone Rosie Bryant DO Primary Care Provider [phone] Encounter Details Date Type Department Care Team (Latest Contact Info) Description 05/14/2022 Scan HEALTH INFO SRVCS Scanned, Doc Med [...] st Contact Info) Description 04/28/2024 2:40 PM MISCELLANEOUS MACHINE OPERATOR Office Visit [facility] - [place] [address] [place] [address] Jared Mejia MD [address] [place] [address] 05/20/2024 10:20 AM MISCELLANEOUS MACHINE OPERATOR Office Visit [facility] - [facility] [address] [facility], [address] [place] [address] Scarlet Mendoza MD 3 [facility] [place] [address] 10/11/2024 10:00 AM CDT Office Visit [facility] THREE [facility], [address] [place] [address] Galdino Santos MD Three [facility]. [place] [address] [place], [place] [address] Lary Joel PA [address] [facility], [address] [place] [address] documented as of this encounter Visit Diagnoses Not on filedocumented in this encounter Care Teams Lieutenant Ballistics Relationship Specialty Start Date End Date Rosie Bryant DO [address] [place] [address] PCP - General FAMILY PRACTICE 02/21/20 documented as of this encounter
--- OUTSIDE RECORDS SUMMARY | 2024-04-20 02:28 | XMS_ITS | Encounter Summary ---
Author Organization [facility] Address [address] [place] [address]. [place], [place] [address] [place], [place] [id number] Care Team Providers Care Screen Printing Machine Operator Name Role Phone Rosie Bryant DO Primary Care Provider [phone] Encounter Details Date Type Department Care Team (Latest Contact Info) Description 04/29/2022 Scan HEALTH INFO SRVCS Scanned, Doc Med [...] Coronavirus/COVID-19? No / Unsure 04/04/2022 10:40 AM CELEBRITY CHEF ENTREPRENEUR MEDIA PERSONALITY documented as of this encounter Plan of Treatment Upcoming Encounters Date Type Department Care Team ( Contact Info) Description 04/28/2024 2:40 PM CELEBRITY CHEF ENTREPRENEUR MEDIA PERSONALITY Office Visit [facility] Group Orthopedic & Sports Medicine - [place] [address] [place] [address] Jared Mejia MD [address] [place] [address] 05/20/2024 10:20 AM CELEBRITY CHEF ENTREPRENEUR MEDIA PERSONALITY Office Visit [facility] Multispecialty Care - [facility] [address] [facility], [address] [place] [address] Scarlet Mendoza MD [address] [place] [address] 10/11/2024 10:00 AM CDT Office Visit [facility] [facility], [address] [place] [address] Galdino Santos MD Three [facility]. [address] [address] [place] [address] Lary Joel PA 3 [facility], [address] [place] [address] documented as of this encounter Visit Diagnoses Not on filedocumented in this encounter Care Teams Screen Printing Machine Operator Relationship Specialty Start Date End Date Rosie Bryant DO [address] [place] [address] PCP - General FAMILY PRACTICE 02/21/20 documented as of this encounter
--- OUTSIDE RECORDS SUMMARY | 2024-04-20 02:28 | XMS_ITS | Encounter Summary ---
Author Organization [facility] Address [address] [place] [address]. [place] [address] [place] [address] Care Team Providers Care Chemists Name Role Phone Rosie Bryant DO Primary Care Provider [phone] Encounter Details Date Type Department Care Team (Latest Contact Info) Description 02/17/2024 Scan HEALTH INFO SRVCS Scanned, Doc Med [...] st Contact Info) Description 04/28/2024 2:40 PM SENIOR DIRECTOR OF STRATEGY Office Visit [facility] Orthopedic & Sports Medicine - [place] [address] [place] [address] Jared Mejia MD [address] [place] [address] 05/20/2024 10:20 AM SENIOR DIRECTOR OF STRATEGY Office Visit [facility] Group Multispecialty Care - [facility] 3 [facility], [address] [place] [address] Scarlet Mendoza MD 3 [facility] [place] [address] 10/11/2024 10:00 AM CDT Office Visit [facility] THREE [facility], [address] [place] [address] Galdino Santos MD Three [facility]. [address] [place], [place] [address] Lary Joel PA [address] [facility], [address] [place] [address] documented as of this encounter Visit Diagnoses Not on filedocumented in this encounter Care Teams Chemists Relationship Specialty Start Date End Date Rosie Bryant DO [address] [place] [address] PCP - General FAMILY PRACTICE 02/21/20 documented as of this encounter
--- OUTSIDE RECORDS SUMMARY | 2024-04-20 02:28 | XMS_ITS | Encounter Summary ---
Author Organization [facility] Address [address] [place] [address]. [place] [address] [place] [address] Care Team Providers Care Manager Professional Development Name Role Phone Rosie Bryant DO Primary Care Provider [phone] Encounter Details Date Type Department Care Team (Latest Contact Info) Description 03/24/2023 Travel Social History Tobacco Use Types Packs/Day [...] st Contact Info) Description 04/28/2024 2:40 PM SR. DIRECTOR Office Visit [facility] Orthopedic & Sports Medicine - [place] [address] [place] [address] Jared Mejia MD [address] [place] [address] 05/20/2024 10:20 AM SR. DIRECTOR Office Visit [facility]pecialty Care - [facility] [address] [facility], [address] [place] [address] Scarlet Mendoza MD 3 [facility] [place] [address] 10/11/2024 10:00 AM CDT Office Visit [facility] THREE [facility], [address] [place], [place] [address] Galdino Santos MD Three [facility]. [address] [place], [place] [address] Lary Joel PA 3 [facility], [address] [place] [address] documented as of this encounter Visit Diagnoses Not on filedocumented in this encounter Care Teams Manager Professional Development Relationship Specialty Start Date End Date Rosie Bryant DO [address] [place] [address] PCP - General FAMILY PRACTICE 02/21/20 documented as of this encounter
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
--- OUTSIDE RECORDS SUMMARY | 2024-04-20 02:28 | XMS_ITS | Encounter Summary ---
Author Organization [facility] Address [address] [place] [address]. [place], [place] [address] [place], [place] [id number] Care Team Providers Care Counterintelligence Analyst Name Role Phone Rosie Bryant DO Primary Care Provider [phone] Encounter Details Date Type Department Care Team (Latest Contact Info) Description 09/10/2022 Scan HEALTH INFO SRVCS Scanned, Doc Med [...] Encounters Date Type Department Care Team ( st Contact Info) Description 04/28/2024 2:40 PM HOME AID Office Visit [facility] Orthopedic [facility] Sports Medicine - [place] [address] [place] [address] Jared Mejia MD [address] [place] [address] 05/20/2024 10:20 AM HOME AID Office Visit [facility] Medical Group Multispecialty Care - [facility] [address] [facility], [address] [place] [address] Scarlet Mendoza MD [address] [place] [address] 10/11/2024 10:00 AM CDT Office Visit [facility] THREE [facility], [address] [place] [address] Galdino Santos MD Three [facility]. [address] [place] [address] Lary Joel PA [address] [facility], [address] [place] [address] documented as of this encounter Visit Diagnoses Not on filedocumented in this encounter Care Teams Counterintelligence Analyst Relationship Specialty Start Date End Date Rosie Bryant DO [address] [place] [address] PCP - General FAMILY PRACTICE 02/21/20 documented as of this encounter
--- OUTSIDE RECORDS SUMMARY | 2024-04-20 02:28 | XMS_ITS | Encounter Summary ---
Author Organization [facility] Address [address] [place] [address]. [place] [address] [place] [address] Care Team Providers Care Security Strategist Name Role Phone Rosie Bryant Primary Care Provider [phone] Encounter Details Date Type Department Care Team (Latest Contact Info) Description 11/17/2023 Travel Social History Tobacco Use Types Packs/Day [...] st Contact Info) Description 04/28/2024 2:40 PM GUEST EXPERIENCE REPRESENTATIVE Office Visit [facility] Orth[facility] - [place] [address] [place] [address] Jared Mjeia MD [address] [place] [address] 05/20/2024 10:20 AM GUEST EXPERIENCE REPRESENTATIVE Office Visit [facility] Medical [facility] Multispecialty Care - [facility] [address] [facility], [address] [place] [address] Scarlet Mendoza MD [address] [place] [address] 10/11/2024 10:00 AM CDT Office Visit [facility] THREE [facility], [address] [place] [address] Galdino Santos MD Three [facility]. [address] [place] [address] Lary Joel PA [address] [facility], [address] [place] [address] documented as of this encounter Visit Diagnoses Not on filedocumented in this encounter Care Teams Security Strategist Relationship Specialty Start Date End Date Rosie Bryant DO [address] [place] [address] PCP - General FAMILY PRACTICE 02/21/20 documented as of this encounter
--- OUTSIDE RECORDS SUMMARY | 2024-04-20 02:28 | XMS_ITS | Encounter Summary ---
Author Organization [facility] Address [address] [place] [address]. [place] [address] [place] [address] Care Team Providers Care Library Science Instructor Name Role Phone Rosie Bryant Primary Care Provider [phone] Encounter Details Date Type Department Care Team (Latest Contact Info) Description 04/07/2024 Travel Social History Tobacco Use Types Packs/Day [...] st Contact Info) Description 04/28/2024 2:40 PM TECHNICAL BUSINESS ANALYST Office Visit [facility] Medical [facility] Orthopedic & Sports Medicine - [place] [address] [place] [address] Jared Mejia MD [address] [place] [address] 05/20/2024 10:20 AM TECHNICAL BUSINESS ANALYST Office Visit [facility] Medical Group Multispecialty Care - [facility] 3 [facility], [address] [place] [address] Scarlet Mendoza MD 3 [facility] [place] [address] 10/11/2024 10:00 AM CDT Office Visit [facility] THREE [facility], [address] [place] [address] Galdino Santos MD Three [facility]. [address] [place] [address] Lary Joel PA 3 [facility], [address] [place] [address] documented as of this encounter Visit Diagnoses Not on filedocumented in this encounter Care Teams Library Science Instructor Relationship Specialty Start Date End Date Rosie Bryant DO [address] [place] [address] PCP - General FAMILY PRACTICE 02/21/20 documented as of this encounter
--- OUTSIDE RECORDS SUMMARY | 2024-04-20 02:28 | XMS_ITS | Encounter Summary ---
Author Organization [facility] Address [address] [place] [address]. [place] [address] [place] [address] Care Team Providers Care Media Services Specialist Name Role Phone Rosie Bryant DO Primary Care Provider [phone] Encounter Details Date Type Department Care Team (Latest Contact Info) Description 12/12/2023 Scan HEALTH INFO SRVCS Scanned, Doc Med [...] st Contact Info) Description 04/28/2024 2:40 PM PHOTO MASK CLEANER Office Visit [facility] Medical Group Orthopedic & Sports Medicine - [place] [address] [place] [address] Jared Mejia MD [address] [place] [address] 05/20/2024 10:20 AM PHOTO MASK CLEANER Office Visit [facility] Medical Group Multispecialty Care - [facility] 3 [facility], [address] [place] [address] Scarlet Mendoza MD 3 [facility] [place] [address] 10/11/2024 10:00 AM CDT Office Visit [facility] THREE [facility], [address] [place] [address] Galdino Santos MD Three [facility]. [address] [place], [place] [address] Lary Joel PA 3 [facility], [address] [place] [address] documented as of this encounter Visit Diagnoses Not on filedocumented in this encounter Care Teams Media Services Specialist Relationship Specialty Start Date End Date Rosie Bryant DO [address] [place] [address] PCP - General FAMILY PRACTICE 02/21/20 documented as of this encounter
--- OUTSIDE RECORDS SUMMARY | 2024-04-20 02:28 | XMS_ITS | Encounter Summary ---
Author Organization [facility] Address [address] [place] [address] Care Team Providers Care Supply Chain Buyer Name Role Phone Rosie Bryant DO Primary Care Provider [phone] Encounter Details Date Type Department Care Team (Latest Contact Info) Description 02/10/2023 Travel Social History Tobacco Use Types Packs/Day Years Used Date Smoking Tobacco: Never Smokeless Tobacco: Never PHQ-2 Answer Date Recorded PHQ2 TOTAL SCORE 0 02/18/2022 Sex and Gender Information Value Date Recorded Sex Assigned at Not on file Gender Identity Not on file Sexual Orientation Not on file documented as of this encounter Plan of Treatment Not on file documented as of this encounter Visit Diagnoses Not on filedocumented in this encounter Care Teams Supply Chain Buyer Relationship Specialty Start Date End Date Rosie Bryant DO [address] [address] PCP - General 12/12/21 documented as of this encounter
--- OUTSIDE RECORDS SUMMARY | 2024-04-20 02:28 | XMS_ITS | Encounter Summary ---
Author Organization [facility] Address [address] [place] [address]. [place], [place] [address] [place] [address] Care Team Providers Care Media Consultant Name Role Phone Rosie Bryant Primary Care Provider [phone] Reason for Visit * Reason Comments MRI (SCAN) Encounter Details Date Type Department Care Team (Latest Contact Info) Description 10/09/2023 Scan HEALTH INFO SRVCS Scanned, Doc Med Group MRI (SCAN) Social History Tobacco Use Types Packs/Day Years [...] (Late Contact Info) Description 04/28/2024 2:40 PM HUMAN FACTORS SCIENTIST Office Visit [facility] Medical [facility] Orthopedic & Sports Medicine - [place] [address] [place] [address] Jared Mejia MD [address] [place] [address] 05/20/2024 10:20 AM HUMAN FACTORS SCIENTIST Office Visit [facility] Medical Group Multispecialty Care - [facility] [address] [facility], [address] [place] [address] Scarlet Mendoza MD 3 [facility] [place] [address] 10/11/2024 10:00 AM CDT Office Visit [facility] THREE [facility], [address] [place] [address] Galdino Santos MD Three [facility]. [address] [place], [place] [address] Lary Joel PA [address] [facility], [address] [place], [place] [address] documented as of this encounter Procedures Procedure Name Priority Date/Time Associated Diagnosis Comments MRI GENERIC 10/09/2023 MRI GENERIC 10/09/2023 documented in this encounter Results * MRI GENERIC (10/09/2023) Anatomical Region Laterality Modality Other 10/09/2023 [facility] Doc Med Group Scanned SCANNING Final Resu lt * MRI GENERIC (10/09/2023) Anatomical Region Laterality Modality Other 10/09/2023 us Doc Med Group Scanned SCANNING Final Resu lt documented in this encounter Visit Diagnoses Not on filedocumented in this encounter Care Teams Media Consultant Relationship Specialty Start Date End Date Rosie Bryant DO [address] [place] [address] PCP - General FAMILY PRACTICE 02/21/20 documented as of this encounter
--- OUTSIDE RECORDS SUMMARY | 2024-04-20 02:28 | XMS_ITS | Clinical Summary ---
Author Organization [facility] Address [address] [place] [address]. [place], [place] [address] [place] [address] Care Team Providers Care Inside Barrel Lathe Operator Name Role Phone Rosie Bryant Primary Care Provider [phone] Allergies Active Allergy Reactions Criticality Noted Date Comments Acetaminophen Fatigue 10/24/2020 Cephalexin Rash Low 11/24/2021 Donepezil Other (see comment) 10/24/2020 htn Doxepin Blurred vision 11/10/2023 Erythromycin Diarrhea 10/24/2020 Ezetimibe Memory Loss 11/24/2021 Icosapent Ethyl (Epa Ethyl Deedee) (Fish) Diarrhea 11/24/2021 Nitrofurantoin Chest pressure 10/24/2020 Melatonin Unknown 03/08/2022 Naproxen Other (see comment) 10/24/2020 Hot flashes, constipation, bruising Propoxyphene Other (see comment) 04/04/2022 Gets high Statins Other (see comment) 10/24/2020 Intolerant Budesonide-Formoterol Fumarate Anaphylaxis High 10/24/2020 Topiramate Blurred vision 10/24/2020 Albuterol Shakiness 10/24/2020 Medications ADMINISTRATION INTERN THYROID 60 MG tablet Take 1 tablet (60 mg total) by mouth daily. 1 Active atenolol 50 MG tablet Take 1 tablet (50 mg total) by mouth daily. 2 Active amLODIPine 5 MG tablet Take 1 tablet (5 mg total) by mouth daily. 2 Active Cholecalciferol (VITAMIN D3) 50 MCG (2000 UT) Cap Take 4,000 Units by mouth daily. Alternates 2000 and 4000 Active vitamin C 1000 MG tablet Take 1 tablet (1,000 mg total) by mouth daily. Active Menaquinone-7 (VITAMIN K2 OR) Take by mouth 2 (two) times a day. Active MAGNESIUM OR Take 96 mg by mouth daily. Active 5-Hydroxytrypto chappell (5-HTP OR) Take 200 mg by mouth daily. Active [id number] OR Take 500 mg by mouth daily. 500mg AM. 1000mg PM Active Digestive Enzymes (DIGESTIVE ENZYME OR) Take 200 mg by mouth daily. Active Multiple Vitamin (MULTIVITAMIN IRON-FREE) Tab Take by mouth daily. Active ibuprofen (MOTRIN) 200 MG tablet Take 1 tablet (200 mg total) by mouth every 8 (eight) hours as needed for Pain. Active Active Problems Problem Noted Date Diagnosed Date Lichenification 11/17/2023 Obesity (BMI 30-39.9) 10/09/2023 Assessment & Plan (10/09/2023 12:40 PM CDT): Encouraged lifestyle modifications including diet and exercise. Fracture of tooth 09/26/2022 Hypothyroidism 09/26/2022 Insect bite 09/26/2022 Loss of hair 09/26/2022 Menopause present 09/26/2022 Vitamin D deficiency 09/26/2022 Primary hypertension 07/31/2022 Precordial pain 04/04/2022 Assessment & Plan (10/09/2023 12:40 PM CDT): She is not having any symptoms at this time. Assessment & Plan (04/04/2022 11:41 AM STAFF CLIMATE SCIENTIST): She has not had any more chest discomfort. Her symptoms sound noncardiac in nature. I discussed exercise stress testing, but at this time she would like to monitor her symptoms. I am in agreement. Hyperlipidemia, mixed 04/04/2022 Assessment & Plan (10/09/2023 12:40 PM CDT): Her LDL is 155. I discussed options with her including Coronary Artery Calcium scoring, PCSK9 inhibitor, or Bempedoic acid. We will try to obtain her most recent lipid panel from primary care. I encouraged lifestyle modifications we well. Assessment & Plan (04/04/2022 11:41 AM STAFF CLIMATE SCIENTIST): Her most recent lipids show an LDL of 150. She is not tolerant of statins or Zetia. I discussed PCSK9 inhibitor therapy and she has not interested at this time. Encounters Date Type Department Care Team Description 04/07/2024 5:09 AM STAFF CLIMATE SCIENTIST - 04/07/2024 8:04 AM STAFF CLIMATE SCIENTIST Emergency [facility] [place] [address] Crow Hernadez MD Normansell, Daniel Allen, MD Chest Pain Discharge Disposition: Home or Self Care (Routine Discharge) 04/07/2024 Travel 03/02/2024 Orders Only [facility] - [place] [place] [address] Jared Mejia MD 02/17/2024 Scan [facility] INFO SRVCS Scanned, [facility] 01/19/2024 Scan [facility] INFO SRVCS Scanned, [facility] from Last 3 Months Immunizations Name Administration Dates Next Due Zoster (Zostavax) 87111 Unt/0.65Ml 01/18/2014 Family History Medical History Relation Comments cardiac stent Father Transient ischemic attack Maternal Grandmother Relation Status Comments Brother 1 Alive Brother 2 Alive Brother 3 Alive Father Maternal Grandfather Maternal Grandmother Mother Alive Paternal Grandfather Paternal Grandmother Sister Social History Tobacco Use Types Packs/Day Years [...] on file Sexual Orientation Not on file Last Filed Vital Signs Vital Sign Reading Time Taken Comments Blood Pressure 165/76 04/07/2024 6:20 AM STAFF CLIMATE SCIENTIST Pulse 77 04/07/2024 6:20 AM STAFF CLIMATE SCIENTIST Temperature 36.6 ??C (97.9 ??F) 04/07/2024 5:05 AM CS T Respiratory Rate 22 04/07/2024 6:20 AM STAFF CLIMATE SCIENTIST Oxygen Saturation 96% 04/07/2024 6:20 AM STAFF CLIMATE SCIENTIST Inhaled Oxygen Concentration - - Weight 97.8 kg (215 lb 9.8 oz) 04/07/2024 5:05 A M STAFF CLIMATE SCIENTIST Height 177.8 cm (5' 10 ) 04/07/2024 5:05 AM STAFF CLIMATE SCIENTIST Body Mass Index 30.94 04/07/2024 5:05 AM STAFF CLIMATE SCIENTIST Plan of Treatment Upcoming Encounters Date Type Department Care Team (Late st Contact Info) Description 04/28/2024 2:40 PM STAFF CLIMATE SCIENTIST Office Visit [facility] - [address] [place] [address] Jared Mejia MD [address] [place] [address] 05/20/2024 10:20 AM STAFF CLIMATE SCIENTIST Office Visit [facility] - [facility] [address] [facility], [address] [place] [id number] Scarlet Mendoza MD [address] [place] [address] 10/11/2024 10:00 AM CDT Office Visit [facility] [address] [facility], [address] [place], [place] [address] Galdino Santos MD Three [facility]. [address] [place], [place] [address] Lary Joel PA [address] [facility], [address] [place] [address] Health Maintenance Due Date Last Done Comments Colorectal Cancer Screening Colonoscopy (10 Years) 1955 Hepatitis C 12/08/1971 Mammogram Screening 1993 Zoster Vaccines (2 of 3) 03/15/2014 01/18/2014 Annual Medicare Wellness Visit 2018 Dexa Scan (General) 2018 Pneumococcal Vaccine: 65+ Ye ars (2 of 2 - PPSV23 or PCV20) 10/23/2022 10/23/2021 COVID-19 Vaccine (1 - 2023-2 5 season) 2023 Influenza Adult (#1) 2024 RSV Immunization or 60+ Years (1 - 1-dose 75+ series) 2028 DTaP, Tdap and Td Vaccines ( 2 - Td or Tdap) 08/13/2032 08/13/2022 Meningococcal Vaccine Aged Out No dieter tavares eligible based on patient's age to complete this topic RSV Immunizations Under 20 Months Aged Out No longer eligible based on patient's age to complete this topic Procedures Procedure Name Priority Date/Time Associated Diagnosis Comments TROPONIN, QUANT STAT 04/07/2024 7:10 AM STAFF CLIMATE SCIENTIST XR CHEST PORTABLE STAT 04/07/2024 5:4 5 AM STAFF CLIMATE SCIENTIST TROPONIN, QUANT STAT 04/07/2024 5:20 AM STAFF CLIMATE SCIENTIST COMPREHENSIVE METABOLIC PANEL STAT 04/07/2024 5:20 AM STAFF CLIMATE SCIENTIST CBC W/DIFF AUTOMATED STAT 04/07/2024 5:20 AM STAFF CLIMATE SCIENTIST ECG 12-LEAD Routine 04/07/2024 5:04 AM STAFF CLIMATE SCIENTIST from Last 3 Months Results * TROPONIN, QUANT (04/07/2024 7:10 AM STAFF CLIMATE SCIENTIST) Only the most recent of2 resultswithin the time period is included. Pathologist [facility] [place] TROPONIN I HIGH SENSITIVITY 4 <54 ng/L 04/07/2024 7:53 AM STAFF CLIMATE SCIENTIST [facility] Comment: HIGH DOSES OF BIOTIN, TROPONIN-SPECIFIC AUTOANTIBODIES, AND ANTIBODY THERAPY CONTAINING HAMA MAY INTERFERE WITH THIS TEST RESULT. CORRELATION TO CLINICAL HISTORY AND PRESENTATION RECOMMENDED. 04/07/2024 7:10 AM STAFF CLIMATE SCIENTIST Jim De Souza MD LABORATORY Final Result [facility] [address] [place] [address], * XR CHEST PORTABLE (04/07/2024 5:45 AM STAFF CLIMATE SCIENTIST) Anatomical Region Laterality Modality Chest Radiographic Loyda ging 04/07/2024 5:48 AM STAFF CLIMATE SCIENTIST Impressions 04/07/2024 5:50 AM STAFF CLIMATE SCIENTIST IMPRESSION: 1. No significant change and no acute pulmonary disease. 2. ??Mild emphysematous changes in the upper lobes suggesting COPD. Referred By: ?? Interpreted By: Nohelia Soliman MD, 04/07/2024 5:48 AM Narrative 04/07/2024 5:50 AM STAFF CLIMATE SCIENTIST [facility] [address] [place], [place] [address] EXAMINATION: ??XR Portable CXR, 1 View INDICATION: ??Chest pain. COMPARISON: PA and lateral chest x-ray 03/16/2022. FINDINGS: The cardiomediastinal silhouette is within normal limits. ??hospital monitor leads overlie the chest and abdomen. ??Calcifications in the aortic arch. ??Pulmonary vascularity is normal. ??Chronic pleural thickening in the lung apices. ??There may be mild emphysematous changes in the upper lobes. ??No acute infiltrate, consolidation, pneumothorax, or pleural effusion. Osteopenia with no acute osseous abnormality. Procedure Note Soliman, Nohelia K, MD - 04/07/2024 [facility] [address] [place], [place] [address] EXAMINATION: XR Portable CXR, 1 View INDICATION: [...] MD GENERAL IMAGING Final Resul t * (ABNORMAL) COMPREHENSIVE METABOLIC PANEL (04/07/2024 5:20 AM STAFF CLIMATE SCIENTIST) GLUCOSE 105(H) 70 - 99 MG/DL 04/07/2024 6:07 AM STAFF CLIMATE SCIENTIST [facility] BUN 13 7 - 18 MG/DL 04/07/2024 6:07 AM STAFF CLIMATE SCIENTIST [facility] CREATININE S/P/B 0.77 0.55 - 1.02 MG/DL 04/07/2024 6:07 AM STAFF CLIMATE SCIENTIST [facility] SODIUM S/P/B 140 136 - 145 MMOL/L 04/07/2024 6:07 AM [facility] POTASSIUM S/P/B 3.3(L) 3.5 - 5.1 MMOL/L 04/07/2024 6:07 AM [facility] CHLORIDE S/P/B 108 97 - 115 MMOL/L 04/07/2024 6:07 AM [facility] CO2 28.0 21 - 32 MMOL/L 04/07/2024 6:07 AM [facility] CALCIUM S/P/B 9.2 8.5 - 10.1 MG/DL 04/07/2024 6:07 AM [facility] BILIRUBIN TOTAL S/P/B 0.4 0.2 - 1.2 MG/DL 04/07/2024 6:07 AM [facility] Comment: THIS ASSAY IS NOT RECOMMENDED FOR PATIENTS UNDERGOING TREATMENT WITH ELTROMBOPAG DUE TO THE POTENTIAL FOR FALSELY ELEVATED RESULTS. TOTAL PROTEIN S/P/B 7.4 6.4 - 8.2 G/DL 04/07/2024 6:07 AM [facility] ALBUMIN S/P/B 3.7 3.4 - 5.0 G/DL 04/07/2024 6:07 AM [facility] AST 25 15 - 37 U/L 04/07/2024 6:07 AM [facility] ALT 33 14 - 55 U/L 04/07/2024 6:07 AM [facility] ALKALINE PHOSPHATASE S/P/B 106 50 - 136 U/L 04/07/2024 6:07 AM [facility] ANION GAP 4.0 2 - 10 MMOL/L 04/07/2024 6:07 AM [facility] BUN CREATININE RATIO 16.9 6 - 26 04/07/2024 6:07 AM [facility] A/G RATIO 1.0 1.0 - 2.0 RATIO 04/07/2024 6:07 AM [facility] GFR ESTIMATE 83(L) >90 ML/MIN/1.7 3 M2 04/07/2024 6:07 AM STAFF CLIMATE SCIENTIST [facility] Comment: NOTE: eGFR is not calculated for patients <18 years of age or gender unknown. This is an estimated GFR calculation using the new CKD EPI creatinine equation without race and so does not require a correction factor for race. This estimated GFR should not be used for calculating drug doses. 04/07/2024 5:20 AM STAFF CLIMATE SCIENTIST Crow Hernadez MD LABORATORY Final Resul t [facility] [address] [place] [address], [place] [phone] * (ABNORMAL) CBC W/DIFF AUTOMATED (04/07/2024 5:20 AM STAFF CLIMATE SCIENTIST) WBC 9.60 4.5 - 11.0 x10'3/uL 04/07/2024 6:50 AM STAFF CLIMATE SCIENTIST [facility] RBC 4.36 4.20 - 5.40 x10'6/uL 04/07/2024 6:50 AM [facility] HGB 13.7 12.0 - 16.0 G/DL 04/07/2024 6:50 AM [facility] HCT 40.7 38.0 - 48.0 % 04/07/2024 6:50 AM STAFF CLIMATE SCIENTIST [facility] MCV 93.3 81.0 - 99.0 FL 04/07/2024 6:50 AM STAFF CLIMATE SCIENTIST [facility] MCH 31.4(H) 27.0 - 31.0 PG 04/07/2024 6:50 AM STAFF CLIMATE SCIENTIST [facility] MCHC 33.7 32.0 - 36.0 G/DL 04/07/2024 6:50 AM [facility] RDW 12.4 11.5 - 14.5 % 04/07/2024 6:50 AM [facility] PLT 356 130 - 400 x10'3/uL 04/07/2024 6:50 AM [facility] MPV 10.1 9.3 - 12.2 FL 04/07/2024 6:50 AM [facility] DIFFERENTIAL TYPE AUTOMATED DIFFERENTIAL 04/07/2024 6:50 AM [facility] NEUTROPHILS % 67.1 % 04/07/2024 6:50 AM [facility] LYMPHOCYTES % 20.3 % 04/07/2024 6:50 AM [facility] MONOCYTES % 9.5 % 04/07/2024 6:50 AM [facility] EOSINOPHILS 1.7 % 04/07/2024 6:50 AM [facility] BASOPHILS 0.6 % 04/07/2024 6:50 AM [facility] IMMATURE GRANS % 0.8 % 04/07/20 6:50 AM [facility] ABS. NEUTROPHILS 6.44 1.80 - 7.70 x10'3/uL 04/07/2024 6:50 AM [facility] ABS. LYMPHOCYTES 1.95 1.00 - 4.80 x10'3/uL 04/07/2024 6:50 AM [facility] ABS. MONOCYTES 0.91(H) 0.24 - 0.86 x10'3/uL 04/07/2024 6:50 AM [facility] ABS. EOSINOPHILS 0.16 0.04 - 0.36 x10'3/uL 04/07/2024 6:50 AM [facility] ABS. BASOPHILS 0.06 0.01 - 0.08 x10'3/uL 04/07/2024 6:50 AM [facility] ABS. IMMATURE GRANULOCYTES 0.08 0.00 - 0.49 x10'3/uL 04/07/2024 6:50 AM STAFF CLIMATE SCIENTIST [facility] 04/07/2024 5:20 AM STAFF CLIMATE SCIENTIST us Crow Hernadez MD LABORATORY Final Resul t [facility] [address] [place] [address], * ECG 12 lead (04/07/2024 5:04 AM STAFF CLIMATE SCIENTIST) 04/07/2024 5:04 AM STAFF CLIMATE SCIENTIST Narrative [facility] - 04/07/2024 4:02 PM STAFF CLIMATE SCIENTIST ?[place]`tariq Thayer ? [address] [facility] ? Test Date: ?2024-04-07 Pat Name: ? MARIA G APARNANAYELY ? Department: ?? 41 ? Room: ? EXAM12 Gender: ? Female ? Die Cleaner: ?? : ?1955 ? Requested By: CROW HERNADEZ Order Number: [id number] ? Reading : ?? Emilia Childs ? Measurements Intervals ?[place] ? Rate: ? 74 ? P: ?40 KS: ? 189 ?QRS: ?28 QRSD: ? 82 ? T: ?25 QT: ? 364 ? QTc: ?405 ? Interpretive Statements SINUS RHYTHM Compared to ECG 12/09/2023 06:26:10 No significant changes F CLIMATE SCIENTIST Procedure Note Emilia Childs MD - 04/07/2024 [facility] [address] Fitz[address] Test Date: 2024-04-07 Pat Name: MARIA G BARROW Department: 41 Room: [facility] Gender: Female Die Cleaner: : 1955 Requested By: CROW HERNADEZ Order Number: [id number] Reading MD: Emilia Childs Measurements Intervals [place] Rate: 74 P: 40 KS: 189 QRS: 28 QRSD: 82 T: 25 QT: 364 QTc: 405 Interpretive Statements SINUS RHYTHM Compared to ECG 12/09/2023 06:26:10 No significant changes F CLIMATE SCIENTIST us Crow Hernadez MD ECG ORDERABLES Final Resul t [facility] ([facility] RAD from Last 3 Months Insurance MEDICARE [facility] Care Teams Inside Barrel Lathe Operator Relationship Specialty Start Date End Date Rosie Bryant DO [address] [place] [address] PCP - General FAMILY PRACTICE 02/21/20
--- OUTSIDE RECORDS SUMMARY | 2024-04-20 02:28 | XMS_ITS | Encounter Summary ---
Author Organization [facility] Address [address] [place] [address]. [place], [place] [id number] [place] [address] Care Team Providers Care Wool Batting Worker Name Role Phone Rosie Bryant Primary Care Provider [phone] Reason for Visit * Reason Onset Date Comments Results 11/26/2022 Encounter Details Date Type Department Care Team (Late st Contact Info) Description 11/26/2022 Telephone [facility] Multispecialty Care - [facility] [address] [facility], [address] [place] [address] Chasity Phan MD [address] [place] [address] Results Social History Tobacco Use Types Packs/Day Years [...] Progress Notes * Chula Love MA - 11/27/2022 9:38 AM CDT Returned call to patient and informed that Mri showed arthritis that is unchanged from August 2021. Patient verbalized understanding and appreciation for the return call. * Iris Ramirez - 11/27/2022 9:33 AM CDT Pt called today wanting her test results . Please give her a call * Chula Love MA - 11/26/2022 11:22 AM CDT Called patient, no answer, left message requesting a return call to discuss MRI results. * Chasity Phan MD - 11/26/2022 11:16 AM CDT We called her about a month ago regarding her results. Can you please let them know that their cervical spine shows that she has mild to moderate arthritis that is unchanged from her last cervical spine mri done in August 2021. We will continue to monitor. We can also mail her MRI report to her. * Iris Ramirez - 11/26/2022 10:16 AM CDT Pt called today saying that she needs her results to her MRI. Please give her a call documented in this encounter Plan of Treatment Upcoming Encounters Date Type Department Care Team (Late st Contact Info) Description 04/28/2024 2:40 PM DEBT COLLECTION SPECIALIST Office Visit [facility] [place] [address] [place] [address] Jared Mejia MD [address] [place] [address] 05/20/2024 10:20 AM DEBT COLLECTION SPECIALIST Office Visit [facility] Multispecialty Care - [facility] [address] [facility], [address] [place] [address] Scarlet Mendoza MD [address] [place] [address] 10/11/2024 10:00 AM CDT Office Visit [facility] [address] [facility], [address] [place] [address] Galdino Santos MD Three [facility]. [address] [place] [address] Lary Joel PA [address] [facility], [address] [place] [address] documented as of this encounter Visit Diagnoses Not on filedocumented in this encounter Care Teams Wool Batting Worker Relationship Specialty Start Date End Date Rosie Bryant DO [address] [place] [address] PCP - General FAMILY PRACTICE 02/21/20 documented as of this encounter
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
--- OUTSIDE RECORDS SUMMARY | 2024-04-20 02:28 | XMS_ITS | Encounter Summary ---
Author Organization [facility] Health Address [address] [place] [address] Care Team Providers Care Door Opener Name Role Phone Rosie Bryant DO Primary Care Provider [phone] Encounter Details Date Type Department Care Team (Latest Contact Info) Description 09/10/2022 Travel Social History Tobacco Use Types Packs/Day [...] suspected to have Coronavirus/COVID-19? No / Unsure 09/10/2022 8:47 AM CDT documented as of this encounter Plan of Treatment Not on file documented as of this encounter Visit Diagnoses Not on filedocumented in this encounter Care Teams Door Opener Relationship Specialty Start Date End Date Rosie Bryant DO [address] [place] [address] PCP - General 12/12/21 documented as of this encounter
--- OUTSIDE RECORDS SUMMARY | 2024-04-20 02:29 | XMS_ITS | Encounter Summary ---
Author Organization [facility] Address [address] [place] [address]. [place], [place] [address] [place] [address] Care Team Providers Care Chute Tender Name Role Phone Rosie Bryant DO Primary Care Provider [phone] Encounter Details Date Type Department Care Team (Latest Contact Info) Description 11/24/2021 Travel Social History Tobacco Use Types Packs/Day Years Used Date Smoking Tobacco: Never Smokeless Tobacco: Never Alcohol Use Standard Drinks/Week Comments Never 0 (1 standard drink = 0.6 oz pur e alcohol) AUDIT-C Answer Date Recorded Q1: How often do you have a drink containing alc ohol? Never 02/21/2020 Average Number of Drinks Not on file 020 Frequency of Binge Drinking Not on file 05/2019 Comments No Sex and Gender Information Value Date Recorded Sex Assigned at Not on file Legal Sex Female 7:00 PM CDT Gender Identity Not on file Sexual Orientation Not on file COVID-19 Exposure Response Date Recorded In the last 10 days, have yo u been in contact with someone who was confirmed or suspected to have Coronavirus/COVID-19? No / Unsure 11/24/2021 10:55 AM CDT documented as of this encounter Plan of Treatment Upcoming Encounters Date Type Department Care Team (Late st Contact Info) Description 04/28/2024 2:40 PM HOSPICE CLINICAL MANAGER Office Visit [facility] Group Orthopedic & Sports Medicine - [place] [address] [place] [address] Jared Mejia MD [address] [place] [address] 05/20/2024 10:20 AM HOSPICE CLINICAL MANAGER Office Visit [facility] Multispecialty Care - [facility] [address] [facility], [address] [place] [address] Scarlet Mendoza MD 3 [facility] [place] [address] 10/11/2024 10:00 AM CDT Office Visit [facility] THREE [facility], [address] [place] [address] Galdino Santos MD Three [facility]. [address] [place] [address] Lary Joel PA [address] [facility], [address] [place] [address] documented as of this encounter Visit Diagnoses Not on filedocumented in this encounter Care Teams Chute Tender Relationship Specialty Start Date End Date Rosie Bryant DO [address] [place] [address] PCP - General FAMILY PRACTICE 02/21/20 documented as of this encounter
--- OUTSIDE RECORDS SUMMARY | 2024-04-20 02:29 | XMS_ITS | Encounter Summary ---
Author Organization [facility] Address [address] [place] [address]. [place], [place] [address] [place] [address] Care Team Providers Care Timber Appraiser Name Role Phone Rosie Bryant Primary Care Provider [phone] Encounter Details Date Type Department Care Team (Late st Contact Info) Description 03/25/2022 Transcribe Orders [facility] [address] [place] [address] Chasity Phan MD 1 [place] [address] Social History Tobacco Use Types Packs/Day Years [...] Coronavirus/COVID-19? No / Unsure 04/04/2022 10:40 AM EXTRUSION DIE TEMPLATE MAKER documented as of this encounter Plan of Treatment Upcoming Encounters Date Type Department Care Team (Late st Contact Info) Description 04/28/2024 2:40 PM EXTRUSION DIE TEMPLATE MAKER Office Visit [facility] Orthopedic & Sports Medicine - [place] [address] [place] [address] Jared Mejia MD [address] [place] [address] 05/20/2024 10:20 AM EXTRUSION DIE TEMPLATE MAKER Office Visit [facility] Multispecialty Care - [facility] [address] [facility], [address] [place] [address] Scarlet Mendoza MD [address] [place] [address] 10/11/2024 10:00 AM CDT Office Visit [facility] THREE [facility], [address] [place] [address] Galdino Santos MD Three [facility]. [facility] [address] [place] [address] Lary Joel PA [address] [facility], [address] [place] [address] documented as of this encounter Visit Diagnoses Not on filedocumented in this encounter Additional Health Concerns Infection Onset Date Last Indicated Resolved Time COVID-19 Confirmed 03/16/2022 03/16/2022 12:32 AM EXTRUSION DIE TEMPLATE MAKER documented as of this encounter Care Teams Timber Appraiser Relationship Specialty Start Date End Date Rosie Bryant DO [address] [place] [address] PCP - General FAMILY PRACTICE 02/21/20 documented as of this encounter
--- OUTSIDE RECORDS SUMMARY | 2024-04-20 02:29 | XMS_ITS | Encounter Summary ---
Author Organization [facility] Address [address] [place] [address]. [place], [place] [address] [place] [address] Care Team Providers Care Bottom Loader Name Role Phone Kathryn James Primary Care Provider [phone] Reason for Visit * Reason Comments Follow Up * Consultation/Treatment (Routine) - Closed Specialty Diagnoses / Procedures Referred By Meet machado Referred To Contact Neurology Psychiatry / NEUROLOGY Diagnoses Other amnesia Luna Segura PA [address] [place] [address] Phone: tel: fax: Chasity Phan MD Phone: tel: fax: Referral ID Status Reason Start Date Expiration Date Visits Re quested Visits Authorized [id number] Closed 05/22/2021 06/19/2022 100 100 Encounter Details Date Type Department Care Team (Late st Contact Info) Description 03/08/2022 11:40 AM INTERACTIVE MEDIA DESIGNER [facility] - [facility] [address] [facility], [address] [place] [address] Chasity Phan MD 1 [place] [address] Follow Up Social History Tobacco Use Types Packs/Day Years Used Date Smoking Tobacco: Never Smokeless Tobacco: Never Tobacco Cessation:Counseling Given: Not Answered Alcohol Use Standard Drinks/Week Comments Never 0 [...] suspected to have Coronavirus/COVID-19? No / Unsure 03/08/2022 11:27 AM INTERACTIVE MEDIA DESIGNER documented as of this encounter Last Filed Vital Signs Vital Sign Reading Time Taken Comments Blood Pressure 139/79 03/08/2022 12:17 PM INTERACTIVE MEDIA DESIGNER Pulse 60 03/08/2022 12:17 PM INTERACTIVE MEDIA DESIGNER Temperature 37.3 ??C (99.2 ??F) 03/08/2022 1 1:45 AM INTERACTIVE MEDIA DESIGNER Respiratory Rate - - Oxygen Saturation 98% 03/08/2022 11: 45 AM INTERACTIVE MEDIA DESIGNER Inhaled Oxygen Concentration - - Weight 86.9 kg (191 lb 9.6 oz) 03/08/20 22 11:45 AM INTERACTIVE MEDIA DESIGNER Height 180.3 cm (5' 11 ) 03/08/2022 11: 45 AM INTERACTIVE MEDIA DESIGNER pt stated Body Mass Index 26.72 03/08/2022 11:45 AM INTERACTIVE MEDIA DESIGNER documented in this encounter Progress Notes * Chasity Phan MD - 03/08/2022 11:40 AM CST [facility] Multis[facility]ty Care - [address], [address] [facility] [address] Dept: [phone] Name: Maria G Barrow Date of : 1955 PCP: KATHRYN JAMES DO Date: 03/08/2022 Chief Complaint: Memory loss History of Present Illness: Maria G Barrow is a 66-year-old female with a past medical history significant for multiple head injuries, hypertension, hypothyroidism, hyperlipidemia who was referred by Kathryn James DO to [facility] for evaluation of memory loss. They were last seen by me in clinic on 11/19/2021 and the plan was as follows: #Subjective memory loss - Referral to neuropsych -Okay for her to continue following with her neuro naturopathic doctor to add on B complex if she is not already taking it #Hyperreflexia - Continue to monitor Since last time she was seen in clinic, she was evaluated by neuropsych who felt that her presentation was consistent with a mild neurocognitive disorder. She had deficits in learning and memory. Overall, she feels that her memory has been stable since last visit and over the last year. She still able to function independently. There have been noes new symptoms. She does endorse that she has to take daytime naps and wakes up more than 2 times per night usuallyto go to the bathroom or for unexplained reasons and has trouble going back to sleep.. She goes to sleep late at night. Initial History: She presents with her who [...] Dispense Refill ??? 5-Hydroxytryptophan (5-HTP OR) Take by mouth daily. ??? amLODIPine 5 MG tablet Take 5 mg by mouth daily. ??? atenolol 50 MG tablet Take 50 mg by mouth daily. ??? Cholecalciferol (VITAMIN D3) 50 MCG (2000 UT) Cap Take 4,000 Units by mouth daily. ??? ezetimibe 10 MG tablet Take 10 mg by mouth daily. ??? [id number] OR Take 500 mg by mouth daily. ??? Magnesium 80 MG Tab ??? Menaquinone-7 (VITAMIN K2 OR) ??? CORE MAKER HELPER THYROID 60 MG tablet Take 60 mg by mouth daily. ??? vitamin C 1000 MG tablet Take 1,000 mg by mouth daily. No current facility-administered medications for this visit. Past Medical History: Diagnosis Date ??? Disease of thyroid gland ??? Hyperlipemia ??? Hypertension Past Surgical History: Procedure Laterality Date ??? TONSILLECTOMY No family history on file. Social History Tobacco Use ??? Smoking status: Never ??? Smokeless tobacco: Never Vaping Use ??? Vaping Use: Never used Substance Use Topics ??? Alcohol use: Never ??? Drug use: Never Review of Systems Psychiatric/Behavioral: Positive for memory loss. All other systems reviewed and are negative. Filed Vitals: 03/08/22 1145 03/08/22 1217 BP: (!) 144/81 139/79 Pulse: 68 60 Temp: 99.2 ??F (37.3 ??C) TempSrc: Temporal SpO2: 98% Weight: 86.9 kg (191 lb 9.6 oz) Height: 5' 11 (1.803 m) GENERAL EXAMINATION Patient is in no apparent distress, cooperates with examination. HEAD: normocephalic, atraumatic EYES: normal. EARS, NOSE AND THROAT: normal, no lesions or exudates. NECK: supple CHEST: breathing comfortably CARDIOVASCULAR: regular rate and rhythm, no murmurs GI: non distended EXTREMITIES: no clubbing, edema or cyanosis. MUSCULOSKELETAL: no contractures NEUROLOGY EXAMINATION MENTAL STATUS: IOV MMSE was 27/30 due to missing [...] all extremity symmetrically antigravity SENSATION: Deferred REFLEXES: Deferred COORDINATION: No tremor GAIT: Normal stride and base. Imaging and Pertinent Labs: See HPI Brain MRI did not show any significant abnormalities. Cervical spine MRI also did not show any significant stenosis Impression: Maria G Barrow is a 66-year-old female with a past medical history significant for multiple head injuries, hypertension, hypothyroidism, hyperlipidemia who was referred by DHIRAJ Stoddard [facility] for evaluation of memory loss. Formal neuropsych testing showed evidence of mild neurocognitive disorder. We discussed that this is nonspecific but could be the result of underlying medical condition such as untreated ARTI, stress or mood disorder. This can also be related to aging. A small minority of people with the symptoms can also progress to have dementia. Because she has had overall stability of her symptoms, I think that this is likely age-related or related to underlying medical conditions. We will do a sleep study to rule out sleep apnea as a contributing factor or cause of her difficulty maintaining sleep. We recommend that she continue to try to lead a healthy lifestyle and use compensatory strategies to help with her memory loss. Plan: #Mild cognitive impairment -Okay to continue current supplement regimen - Counseled on lifestyle modification - No safety issues identified #Insomnia - Home sleep study #Hyperreflexia - Continue to monitor Return to clinic in 6 to 9 months Chastiy Phan MD I spent 30 minutes today reviewing the patient's medical record, obtaining history, performing an exam, documenting in the medical record, counseling and educating the patient and family , reviewing and communicating test results and coordinating care. RACTIVE MEDIA DESIGNER documented in this encounter Plan of Treatment Upcoming Encounters Date Type Department Care Team (Late st Contact Info) Description 04/28/2024 2:40 PM INTERACTIVE MEDIA DESIGNER [facility] Orthopedic & Sports Medicine - [place] [address] [place] [address] Jared Mejia MD [address] [place] [address] 05/20/2024 10:20 AM INTERACTIVE MEDIA DESIGNER Office Visit [facility] Multispecialty Care - [address], [address] [place] [address] Scarlet Mendoza MD 3 [place] [address] 10/11/2024 10:00 AM CDT [facility] THREE [facility], [address] [place] [address] Galdino Santos MD Three [facility]. [address] [place], [place] [address] Lary Joel PA 3 [facility], [address] [place] [address] documented as of this encounter Visit Diagnoses Diagnosis Insomnia, unspecified type- Primary Memory loss documented in this encounter Care Teams Bottom Loader Relationship Specialty Start Date End Date Kathryn James DO [address] [place] [address] PCP - General FAMILY PRACTICE 02/21/20 documented as of this encounter
--- OUTSIDE RECORDS SUMMARY | 2024-04-20 02:29 | XMS_ITS | Encounter Summary ---
Author Organization [facility] Address [address] [place] [address]. [place], [place] [id number] [place] [address] Care Team Providers Care Commercial Loan Manager Name Role Phone Rosie Bryant Primary Care Provider [phone] Reason for Referral * Sleep Lab (Routine) - Closed Specialty Diagnoses / Procedures Referred By Meet t Referred To Contact Diagnoses Insomnia Memory loss Procedures Home Sleep Study - WatchPat ([id number]) Chasity Phan MD Phone: tel: fax: Referral ID Status Reason Start Date Expiration Date Visits Re quested Visits Authorized [id number] Closed 03/25/2022 03/25/2023 1 1 SURANCE CLAIMS ANALYST Encounter Details Date Type Department Care Team (Late st Contact Info) Description 03/25/2022 Transcribe Orders [facility] [address] [place] [address] Chasity Phan MD [address] [place] [address] Social History Tobacco Use Types Packs/Day Years [...] Coronavirus/COVID-19? No / Unsure 04/04/2022 10:40 AM REINSURANCE CLAIMS ANALYST documented as of this encounter Plan of Treatment Upcoming Encounters Date Type Department Care Team (Late st Contact Info) Description 04/28/2024 2:40 PM REINSURANCE CLAIMS ANALYST Office Visit [facility] Orthopedic & Sports Medicine - [address] [address] Jared Mejia MD [address] [place] [address] 05/20/2024 10:20 AM REINSURANCE CLAIMS ANALYST Office Visit [facility] Multispecialty Care - [facility] [address] [facility], [address] [place] [id number] Scarlet Mendoza MD 3 [place] [address] 10/11/2024 10:00 AM CDT Office Visit [facility], [address] [place] [address] Galdino Santos MD Three [facility]. [facility] [address] [place] [address] Lary Joel PA [address] [facility], [address] [place] [address] documented as of this encounter Results * Home Sleep Study - WatchPat ([id number]) (04/04/2022 2:00 PM REINSURANCE CLAIMS ANALYST) Narrative [facility] - 04/04/2022 2:00 PM REINSURANCE CLAIMS ANALYST Jacob Montgomery MD ? 04/11/2022 11:16 AM ??[facility] ??O? [place], [place] ?HOME SLEEP STUDY INTERPRETATION PATIENT NAME: Maria G Barrow ? DATE OF : 1955 ?? DATE OF SERVICE: 04/05/2022 ?? Ordering Phys. Exam Description Chasity Phan M.D. Home Sleep Study ATTENDING PHYSICIAN: Dr. Jacob Montgomery REFERRING PHYSICIAN: Dr. Chasity Phan SUMMARY DATA Sleep Study/ Architecture: This patient was studied using a WatchPAT home sleep study device. The evaluation was initiated at 04/05/2022 at 12:10 AM and was stopped at 04/05/2022 at 7:42 AM. The total recording time was 452.0 minutes, and the total monitoring time was 406.0 minutes. DIAGNOSTIC Total pAHI (Apnea-Hypopnea Index) (3%): Total pAHI (Apnea-Hypopnea Index) (4%): 6.7/hr 2.1/hr Average Sleep Oxygen Saturation: 95 Minimum Sleep Oxygen Saturation: Mean Heart Rate during Sleep: ??89 67.0 bpm ?? Assessment/Plan: Mild Obstructive Sleep Apnea. [place] treatment option should be discussed with the patient and a plan for treatment should be made. Potential health consequences and medical importance of treatment should also be discussed with the patient. This patient should maintain good sleep hygiene techniques, maintain a consistent sleep/wake schedule with adequate hours of sleep, and avoid hazardous activities when sleepy. The patient should be cautioned about factors that may potentially exacerbate snoring and sleep-related problems, such as ELEVATOR REPAIRER HELPER depressants, especially at bedtime. This document was electronically signed by: Jacob Montgomery M.D. on 04/10/2022 at 10:51 AM. Chasity Phan MD SLEEP CENTER ORDERAB LES Final Result [facility] [address] [place] [address], documented in this encounter Visit Diagnoses Diagnosis Insomnia- Primary Insomnia, unspecified Memory loss Insomnia Insomnia, unspecified Memory loss documented in this encounter Additional Health Concerns Infection Onset Date Last Indicated Resolved Time COVID-19 Confirmed 03/16/2022 03/16/2022 12:32 AM REINSURANCE CLAIMS ANALYST documented as of this encounter Care Teams Commercial Loan Manager Relationship Specialty Start Date End Date Rosie Bryant DO [address] [place] [address] PCP - General FAMILY PRACTICE 02/21/20 documented as of this encounter
--- OUTSIDE RECORDS SUMMARY | 2024-04-20 02:29 | XMS_ITS | Encounter Summary ---
Author Organization [facility] Address [address] [place] [address]. [place], [place] [id number] [place] [address] Care Team Providers Care Cylinder Machine Operator Pulp Drier Name Role Phone Rosie Bryant DO Primary Care Provider [phone] Reason for Visit * Reason Comments Consult Chest pain Encounter Details Date Type Department Care Team (Late st Contact Info) Description 04/04/2022 11:00 AM WILDLIFE REFUGE SPECIALIST Office Visit [facility], [facility] [address] [place], [place] [id number] Galdino Santos MD Three [facility]. [facility] [address] [place], [place] [id number] Consult (Chest pain) Social History Tobacco Use Types Packs/Day Years [...] Coronavirus/COVID-19? No / Unsure 04/04/2022 10:40 AM WILDLIFE REFUGE SPECIALIST documented as of this encounter Last Filed Vital Signs Vital Sign Reading Time Taken Comments Blood Pressure 130/70 04/04/2022 11:11 AM WILDLIFE REFUGE SPECIALIST Pulse 74 04/04/2022 11:11 AM WILDLIFE REFUGE SPECIALIST Temperature - - Respiratory Rate - - Oxygen Saturation - - Inhaled Oxygen Concentration - - Weight 87.1 kg (192 lb) 04/04/2022 11:11 AM WILDLIFE REFUGE SPECIALIST Height 180.3 cm (5' 11 ) 04/04/2022 11:11 AM WILDLIFE REFUGE SPECIALIST Body Mass Index 26.78 04/04/2022 11:11 AM WILDLIFE REFUGE SPECIALIST documented in this encounter Patient Instructions * Patient Instructions* Galdino Santos MD - 04/04/2022 11:00 AM WILDLIFE REFUGE SPECIALIST Images from the original note were not included. Patient Education Patient Education Cardiac Stress Test Why is this procedure done? A cardiac stress test is a screening tool. It tells the doctor how your heart works while you exercise. It may tell if there is slowing of the blood flow to the heart during exercise. This test uses a heart monitor that records your heart rate and rhythm while you exercise. It also records your blood pressure. This procedure is done in patients: Who have signs of heart disease, such as chest pain or tightness, feeling very tired, upset stomachand throwing up, jaw pain, and cold sweats. Who have trouble breathing At high risk for heart disease With high blood pressure to see how well their blood pressure is controlled with exercise To see if exercise causes unusual heartbeats, like rapid heartbeat or a fluttering feeling in your chest To see if drug therapy is working Who had some ECG changes that may be caused by heart disease With disease in a heart valve to see how much it affects daily life What will the results be? A cardiac stress test may give your doctor more information about how well your heart works during exercise or the presence of a heart rhythm disturbance. What happens before the procedure? Your doctor will take your history and do an exam. Talk to the doctor about: All the drugs you are taking. Be sure to include all prescription and tomu-cyg-ieofxed (OTC) drugs,and herbal supplements. Tell the doctor about any drug allergy. Bring a list of drugs you take withyou. Any bleeding problems. Be sure to tell your doctor if you are taking any drugs that may cause bleeding. Some of these are warfarin, rivaroxaban, apixaban, ticagrelor, clopidogrel, ketorolac, ibuprofen, naproxen, or aspirin. Certain vitamins and herbs, such as garlic and fish oil, may also add to the risk for bleeding. You may need to stop these drugs as well. Talk to your doctor about them. Your doctor may ask for a record of your heart's activity (ECG) before the procedure. Bring your inhaler to the test site if you have asthma. You will be asked to sign a consent. It will talk about risks of the procedure. Do not eat, drink, or smoke for 3 to 4 hours before the test. Wear comfortable shoes and loose clothing for exercise. Your doctor will tell you if you should take your usual drugs on the day of the test. Diabetic patients may be asked to change the dose or stop their diabetes drugs the morning of the test. Some heart drugs may be stopped the morning of the test. What happens during the procedure? You will be awake for the procedure. The a/c technician will place small, sticky patches on your chest. These are called electrodes. The electrodes are connected to a machine. It records your heart's electric signals. These are printed on paper for the doctor to see. The a/c technician will put a blood pressure cuff on your arm. This will squeeze your arm from time to time. The a/c technician may also put a small device on your finger to monitor the oxygen in your blood. If you cannot exercise, the doctor may give you a drug that will increase the blood flow to your heart and make your heart beat faster. If you can exercise, you will start walking on a treadmill. The pace and incline of the treadmill will slowly increase. Your doctor may have you use a bicycle or hand bicycle in place of a treadmill.With these, the pedals will get harder to move as the test goes on. The doctor may ask you to breathe into a tube for a couple of minutes. This will measure the air you breathe out. Your doctor will record your progress and increase your exercise every 3 minutes. Your heart rate, blood pressure, and how you feel will be recorded. The tests will continue until you reach a target heart rate, or until: You feel moderate to very bad chest pain It gets too hard to breathe Your blood pressure is too high or you have unusual heartbeats You become dizzy The doctor may have you keep going even if you feel weak or dizzy as long as your blood pressure and heart rate are still normal. The procedure may take up to 1 hour. The stress part may just take 15 to 20 minutes. What happens after the procedure? The staff will continue to monitor your heart rate and blood pressure until they are normal. Your doctor will tell you when you can go home after the procedure. What care is needed at home? Ask your doctor what you need to do when you go home. Make sure you ask questions if you do not understand what the doctor says. This way you will know what you need to do. You may go back to your normal activities. You may continue taking your usual drugs after the test. Ask your doctor what drugs you need to continue. If your doctor gave you a drug to increase your heart's blood flow, the effects will go away after a few hours. Drink lots of water to help flush the drug out. You may wash your chest with soap and warm water to remove the material left from the electrodes. What follow-up care is needed? Your doctor may ask you to make visits to the office to check on your progress. Be sure to keep these visits. Ask your doctor when you will talk about the test results. Your doctor will tell you if other tests are needed. Your doctor may have you see a mixing and dispensing supervisor. What problems could happen? Chest pain Arm or jaw discomfort Fainting Heart attack Asthma attack Unusual heartbeat Dizziness Leg cramps or soreness When do I need to call the doctor? Activate the emergency medical system right away if you have signs of a heart attack. Call 911 in the [place] or [place]. The sooner treatment begins, the better your chances for recovery. Call for emergency help right away if you have: Signs of heart attack: Chest pain Trouble breathing Fast heartbeat Feeling dizzy Where can I learn more? National Heart Lung and Blood [place] http://www.nhlbi.nih.gov/health/health-topics/topics/stress/ Last Reviewed Date 2020-04-24 Consumer Information Use and Disclaimer This generalized [...] or approved for treating a specific patient. [employer] and its affiliates disclaim any warranty or liability relating to this information or the use thereof. The use of this information is governed by the Terms of Use, available at https://www.[employer]ut[employer].com/en/know/xcyktpqj-jluqxalczsbkv-ceyfv Copyright Copyright ?? 2021 [employer] and its affiliates and/or licensors. All rights reserved. LIFE REFUGE SPECIALIST documented in this encounter Progress Notes * Galdino Santos MD - 04/04/2022 11:41 AM CSTAssociated Problem(s): Hyperlipidemia, mixed Her most recent lipids show an LDL of 150. She is not tolerant of statins or Zetia. I discussed PCSK9 inhibitor therapy and she has not interested at this time. LIFE REFUGE SPECIALIST * Galdino Santos MD - 04/04/2022 11:40 AM CSTAssociated Problem(s): Precordial pain She has not had any more chest discomfort. Her symptoms sound noncardiac in nature. I discussed exercise stress testing, but at this time she would like to monitor her symptoms. I am in agreement. LIFE REFUGE SPECIALIST * Galdino Santos MD - 04/04/2022 11:00 AM CST Reason for Visit: Consult (Chest pain) History of Present Illness: I had the pleasure of seeing Maria G Barrow in consultation at the [facility] in [place], [place]. Maria G Barrow is a 66-year-old female who presents in consultation for chest pain . She presented to the emergency department twice in February. The first time was for some left-sidedchest discomfort and a second time was for shortness of breath. The second time, she was diagnosed with COVID-19 and subsequently developed GI Symptoms. She Has Not Had Any More Chest Discomfort. HerCardiac Enzymes at That Time Were within Normal Limits. Diagnoses/Impression: In summary, Maria G Barrow is a 66-year-old year old female who presents in consultation for chest pain . Recommendations and Plan: Precordial pain She has not had any more chest discomfort. Her symptoms sound noncardiac in nature. I discussed exercise stress testing, but at this time she would like to monitor her symptoms. I am in agreement. Hyperlipidemia, mixed Her most recent lipids show an LDL of 150. She is not tolerant of statins or Zetia. I discussed PCSK9 inhibitor therapy and she has not interested at this time. Orders Placed This Encounter ??? Digestive Enzymes (DIGESTIVE ENZYME OR) Sig: Take 200 mg by mouth daily. ??? Multiple Vitamin (MULTIVITAMIN IRON-FREE) Tab Sig: Take by mouth daily. Maria G Barrow will see us in follow-up in 6 months. Maria G Barrow voiced understanding of my recommendations and did not have any further questions. Thank you for allowing me to participate in the care of your patient. Medications: Outpatient Medications Marked as Taking for the 04/04/22 encounter (Office Visit) with Galdino Santos MD Medication Sig Dispense Refill ??? amLODIPine 5 MG tablet Take 5 mg by mouth daily. ??? atenolol 50 MG tablet Take 50 mg by mouth daily. ??? I O PSYCHOLOGIST THYROID 60 MG tablet Take 60 mg by mouth daily. Current Outpatient Medications Medication Sig Dispense Refill [...] Take 200 mg by mouth daily. ??? [id number] OR Take 500 mg by mouth daily. 500mg AM. 1000mg PM ??? MAGNESIUM OR Take 96 mg by mouth daily. ??? Menaquinone-7 (VITAMIN K2 OR) Take by mouth 2 (two) times a day. ??? Multiple Vitamin (MULTIVITAMIN IRON-FREE) Tab Take by mouth daily. ??? I O PSYCHOLOGIST THYROID 60 MG tablet Take 60 mg by mouth daily. ??? vitamin C 1000 MG tablet Take 1,000 mg by mouth daily. No current facility-administered medications for this visit. Allergies Allergen Reactions ??? Symbicort [Budesonide-Formoterol Fumarate] Anaphylaxis ??? Acetaminophen Fatigue ??? Donepezil Other (see comment) htn ??? Erythromycin Diarrhea ??? Ezetimibe Memory Loss ??? Icosapent Ethyl Diarrhea ??? Macrobid [Nitrofurantoin] Chest pressure ??? Melatonin Unknown ??? Naproxen Other (see comment) Hot flashes, constipation, bruising ??? Statins Other (see comment) Intolerant ??? Topamax [Topiramate] Blurred vision ??? Ventolin [Albuterol] Shakiness ??? Cephalexin Rash Past Medical History: Diagnosis Date ??? Disease of thyroid gland ??? Hyperlipemia ??? Hypertension Past Surgical History: Procedure Laterality Date ??? TONSILLECTOMY Social History Socioeconomic History ??? Marital status: Tobacco Use ??? Smoking status: Never ??? Smokeless tobacco: Never Vaping Use ??? Vaping Use: Never used Substance and Sexual Activity ??? Alcohol use: Yes Comment: rare ??? Drug use: Never Other Topics Concern ??? Caffeine Concern No ??? Special Diet No ??? Exercise No Family History Problem Relation Name Age of Onset ??? Other (cardiac stent) Father ??? Transient ischemic attack Maternal Grandmother Family Status Relation Name Status ??? Mother Alive ??? Father ??? Sister ??? Brother Alive ??? Brother Alive ??? Brother Alive ??? MGM ??? MGF ??? PGM ??? PGF Review of Systems Constitutional: Negative for chills, fever and weight loss. HENT: Negative for ear pain, hearing loss and sore throat. Eyes: Negative for blurred vision and double vision. Respiratory: Negative for cough, hemoptysis, shortness of breath and wheezing. Cardiovascular: Positive for chest pain. Negative for palpitations, orthopnea, claudication, leg swelling and PND. [...] easily. Psychiatric/Behavioral: Negative for depression. Filed Vitals: 04/04/22 1111 BP: 130/70 Pulse: 74 Weight: 87.1 kg (192 lb) Height: 5' 11 (1.803 m) Cardiac Exam Rate/Rhythm: Normal rate and regular rhythm. PMI: PMI is not displaced. Pulses: Normal pulses. Carotid pulses are 2+ on the right side and 2+ on the left side. Radial pulses are 2+ on the right side and 2+ on the left side. Heart Sounds: Normal heart sounds. Normal S1 sounds. Normal S2 sounds. No gallop present. No S3. NoS4. Murmurs: Edema left: 0. Edema Right: 0. Physical Exam Constitutional: No distress. Healthy Appearance. HENT: Oropharynx clear. Eyes: Pupils equal, round, and reactive to light. Conjunctivae normal. Neck: Neck supple. Abdomen: Abdomen soft. Bowel sounds normal. No tenderness. No mass. No hepatomegaly. No splenomegaly. Abdominal aorta not palpably enlarged. No abdominal bruit present. Pulmonary: Effort normal. Breath sounds normal. No stridor. No rales. No wheezes. Skin: Dry. Warm. No rash. No cyanosis. No clubbing. No xanthoma. Musculoskeletal: No gross deformity.. Neurological: Alert. Oriented [...] 12:22 PM GLU 94 03/16/2022 12:22 PM No results found for: CHOL, TRI, HDL, LDL 03/10/2022 03/16/2022 TROPONIN I HIGH SENSITIVITY 9 8 TROPONIN I HIGH SENSITIVITY 7 7 I have reviewed her most recent lipid panel that shows an LDL of 155. Tests: Electrocardiogram: I have reviewed the electrocardiogram from 03/16/2022 and it shows normal sinus rhythm. I reviewed her chest x-ray from February 2022 and it is within normal limits. LIFE REFUGE SPECIALIST documented in this encounter Plan of Treatment Upcoming Encounters Date Type Department Care Team (Late st Contact Info) Description 04/28/2024 2:40 PM WILDLIFE REFUGE SPECIALIST Office Visit [facility] Orthopedic & Sports Medicine - [place] [address] [place] [address] Jared Mejia MD [address] [place] [address] 05/20/2024 10:20 AM WILDLIFE REFUGE SPECIALIST Office Visit [facility] Multispecialty Care - [address], [address] [place] [address] Scarlet Mendoza MD [address] [place] [address] 10/11/2024 10:00 AM CDT Office Visit [facility] [facility], [address] [place] [address] Galdino Santos MD Three [facility]. [address] [place] [address] Lary Joel PA 3 [facility], [address] [place] [address] documented as of this encounter Visit Diagnoses Diagnosis Precordial pain- Primary Hyperlipidemia, mixed Mixed hyperlipidemia documented in this encounter Additional Health Concerns Infection Onset Date Last Indicated Resolved Time COVID-19 Confirmed 03/16/2022 03/16/2022 12:32 AM WILDLIFE REFUGE SPECIALIST documented as of this encounter Care Teams Cylinder Machine Operator Pulp Drier Relationship Specialty Start Date End Date Rosie Bryant DO [address] [place] [address] PCP - General FAMILY PRACTICE 02/21/20 documented as of this encounter
--- OUTSIDE RECORDS SUMMARY | 2024-04-20 02:29 | XMS_ITS | Encounter Summary ---
Author Organization [facility] Address [address] [place] [address]. [place], [place] [id number] [place] [id number] Care Team Providers Care Sourcing Associate Name Role Phone Kathryn James Primary Care Provider [phone] Reason for Referral * Consultation/Treatment (Routine) - Closed Specialty Diagnoses / Procedures Referred By Meet machado Referred To Contact NEUROPSYCHOLOGY Diagnoses Memory loss Procedures OFFICE/OUTPT VISIT,NEW,LEVL III OFFICE/OUTPT VISIT,NEW,LEVL IV OFFICE/OUTPT VISIT,NEW,LEVL V OFFICE/OUTPT VISIT,EST,LEVL III OFFICE/OUTPT VISIT,EST,LEVL IV OFFICE/OUTPT VISIT,EST,LEVL V Chasity Phan MD Phone: tel: fax: [facility] [address] [place] [address] Phone: tel: fax: Referral ID Status Reason Start Date Expiration Date V isits Requested Visits Authorized [id number] Closed Specialty Services 11/19/2021 12/19/2022 100 1 Reason for Visit * Reason Comments Follow Up * Consultation/Treatment (Routine) - Closed Specialty Diagnoses / Procedures Referred By Meet machado Referred To Contact Neurology Psychiatry / NEUROLOGY Diagnoses Other amnesia Luna Segura PA [address] [place] [address] Phone: tel: fax: Chasity Phan MD Phone: tel: fax: Referral ID Status Reason Start Date Expiration Date Visits Re quested Visits Authorized [id number] Closed 05/22/2021 06/19/2022 100 100 Encounter Details Date Type Department Care Team (Late st Contact Info) Description 11/19/2021 11:20 AM CDT Office Visit [facility] Mult[facility] - [facility] [address] [place] [address] Chasity Phan MD [address] [place] [address] Follow Up Social History Tobacco Use Types [...] suspected to have Coronavirus/COVID-19? No / Unsure 11/19/2021 10:54 AM CDT documented as of this encounter Last Filed Vital Signs Vital Sign Reading Time Taken Comments Blood Pressure 151/87 11/19/2021 11:48 AM CDT Pulse 61 11/19/2021 11:48 AM CDT Temperature 37.1 ??C (98.7 ??F) 11/19/2021 11:08 AM C DT Respiratory Rate - - Oxygen Saturation 97% 11/19/2021 11:08 AM CDT Inhaled Oxygen Concentration - - Weight 86.4 kg (190 lb 8 oz) 11/19/2021 11:08 AM CDT Height 180.3 cm (5' 11 ) 11/19/2021 11:08 AM CDT Body Mass Index 26.57 11/19/2021 11:08 AM CDT documented in this encounter Progress Notes * Chasity Phan MD - 11/19/2021 11:20 AM CDT Neurology Clinic [facility] - [address], [address] [facility] [address] Dept: [phone] Name: Maria G Barrow Date of : 1955 PCP: KATHRYN JAMES DO Date: 11/19/2021 Chief Complaint: Memory loss History of Present Illness: Maria G Barrow is a 65-year-old female with a past medical history significant for multiple head injuries, hypertension, hypothyroidism, hyperlipidemia who was referred by Kathryn James DO [facility] for evaluation of memory loss. They were last seen by me in clinic on 08/15/2021 and the plan was as follows: #Subjective memory loss - Thiamine, folic acid, B12, B6, vitamin E, copper -Brain MRI with and without contrast -No safety issues identified -Continue to follow with homeopathic doctor #Hyperreflexia - Cervical spine MRI without contrast - Labs as above Since the last time she was seen in clinic, her laboratory studies were within normal limits. BrainMRI did not show any significant abnormalities. Cervical spine MRI also did not show any further survivability or significant stenosis to account for hyperreflexia. Her memory has been stable since her last visit. Initial History: She presents with her who [...] Take 4,000 Units by mouth daily. ??? [id number] OR Take 500 mg by mouth daily. ??? Magnesium 80 MG Tab ??? Menaquinone-7 (VITAMIN K2 OR) ??? TEACHERS' AIDE THYROID 60 MG tablet Take 60 mg by mouth daily. ??? vitamin C 1000 MG tablet Take 1,000 mg by mouth daily. ??? ezetimibe 10 MG tablet Take 10 mg by mouth daily. No current facility-administered medications for this visit. Past Medical History: Diagnosis Date ??? Hyperlipemia ??? Hypertension Past Surgical History: Procedure Laterality Date ??? TONSILLECTOMY No family history on file. Social History Tobacco Use ??? Smoking status: Never Smoker ??? Smokeless tobacco: Never Used Substance Use Topics ??? Alcohol use: Never ??? Drug use: Never Review of Systems Psychiatric/Behavioral: Positive for memory loss. All other systems reviewed and are negative. Filed Vitals: 11/19/21 1108 11/19/21 1148 BP: (!) 153/84 (!) 151/87 Pulse: 64 61 Temp: 98.7 ??F (37.1 ??C) TempSrc: Temporal SpO2: 97% Weight: 86.4 kg (190 lb 8 oz) Height: 5' 11 (1.803 m) GENERAL EXAMINATION Patient is in no apparent distress, cooperates with examination. HEAD: normocephalic, atraumatic EYES: normal. EARS, NOSE AND THROAT: normal, no lesions or exudates. NECK: supple CHEST: breathing comfortably CARDIOVASCULAR: regular rate and rhythm, no murmurs GI: non distended EXTREMITIES: no clubbing, edema or cyanosis. MUSCULOSKELETAL: no contractures NEUROLOGY EXAMINATION MENTAL STATUS: MMSE was 27/30 due to missing orientation [...] was midline and strong. No fasciculations. MOTOR: Normal strength 5/5 on MRC scale in the upper and lower extremities. Normal muscle tone. Fine finger movements were normal bilaterally. No pronator drift. SENSATION: Light touch was intact in all 4 extremities. REFLEXES: Deferred COORDINATION: Absent dysmetria on finger -nose -finger. No tremor. GAIT: Normal stride and base. Imaging and Pertinent Labs: See HPI Impression: Maria G Barrow is a 65-year-old female with a past medical history significant for multiple head injuries, hypertension, hypothyroidism, hyperlipidemia who was referred by [facility] for evaluation of memory loss. Her work-up thus far has been reassuring. MRI does show atrophy which does not appear to be out of range for her age. C-spine imaging also did not show any significant canal stenosis to account for her hyperreflexia. Due to the subjective nature of her memory loss and no clear findings to account for them, we discussed sending for markers of Alzheimer's disease however she declined. We also discussed sending her for neuropsych testing to better understand aspects of her cognition that she is struggling with. For now, recommend that she can continue her current supplementation, leading a healthy lifestyle, etc. Plan: #Subjective memory loss - Referral to ivania Montiel for her to continue following with her neuro naturopathic doctor to add on B complex if she is not already taking it #Hyperreflexia - Continue to monitor Return to clinic after evaluation by ivania Phan MD I spent 30 minutes today reviewing the patient's medical record, obtaining history, performing an exam, ordering medications, tests, and/or procedures, documenting in the medical record, counseling and educating the patient/family/caregiver, reviewing and communicating test results and coordinationof care. documented in this encounter Plan of Treatment Upcoming Encounters Date Type Department Care Team (Late st Contact Info) Description 04/28/2024 2:40 PM ICT SALES REPRESENTATIVE Office Visit [facility] [place] [address] [place] [address] Jared Mejia MD [address] [place] [address] 05/20/2024 10:20 AM ICT SALES REPRESENTATIVE Office Visit [facility] Mult[facility]pec[facility]ty Care - [facility] [address], [address] [place] [address] Scarlet Mendoza MD [address] [place] [address] 10/11/2024 10:00 AM CDT Office Visit [facility] [address] [facility] [place] [address] Galdino Santos MD [address] [facility]. [address] [place] [address] Lary Joel PA [address], [address] [place] [address] Scheduled Referrals Name Type Priority Associated Diagnoses Orde r Schedule Ambulatory referral to Neuropsych Referral Routine Memory loss Ordered: 11/19/2021 documented as of this encounter Visit Diagnoses Diagnosis Memory loss- Primary documented in this encounter Care Teams Sourcing Associate Relationship Specialty Start Date End Date Kathryn James DO [address] [place] [address] PCP - General FAMILY PRACTICE 02/21/20 documented as of this encounter
--- OUTSIDE RECORDS SUMMARY | 2024-04-20 02:29 | XMS_ITS | Encounter Summary ---
Author Organization [facility] Address [address] [place] [address]. [place], [place] [address] [place] [id number] Care Team Providers Care [employer] Name Role Phone Rosie Bryant Primary Care Provider [phone] Reason for Referral * Imaging (Emergency) - Closed Specialty Diagnoses / Procedures Referred By Meet t Referred To Contact RADIOLOGY Procedures CT HEAD WO CON Vijay Sandhu NP-C Referral ID Status Reason Start Date Expiration Date Visits Re quested Visits Authorized [id number] Closed 02/21/2020 03/22/2021 1 1 PHOTO OPERATOR Reason for Visit * Reason Comments Fall Encounter Details Date Type Department Care Team (Late st Contact Info) Description 02/21/2020 6:17 PM WIRE PHOTO OPERATOR - 02/21/2020 7:53 PM WIRE PHOTO OPERATOR Emergency [facility] [place] [address] Vijay Sandhu NP-C Fall Discharge Disposition: Home or Self Care (Routine [...] Exposure Response Date Recorded In the last month, have you been in contact with someone who was confirmed or suspected to have Coronavirus / COVID-19? No / Unsure 02/21/2020 5:01 PM WIRE PHOTO OPERATOR documented as of this encounter Last Filed Vital Signs Vital Sign Reading Time Taken Comments Blood Pressure 171/90 02/21/2020 7:52 PM WIRE PHOTO OPERATOR Pulse 71 02/21/2020 7:52 PM WIRE PHOTO OPERATOR Temperature 36.9 ??C (98.4 ??F) 02/21/2020 5:08 PM CS T Respiratory Rate 20 02/21/2020 7:52 PM WIRE PHOTO OPERATOR Oxygen Saturation 98% 02/21/2020 7:52 PM WIRE PHOTO OPERATOR Inhaled Oxygen Concentration - - Weight 83.5 kg (184 lb) 02/21/2020 5:08 PM WIRE PHOTO OPERATOR Height 177.8 cm (5' 10 ) 02/21/2020 5:08 PM WIRE PHOTO OPERATOR Body Mass Index 26.4 02/21/2020 5:08 PM WIRE PHOTO OPERATOR documented in this encounter Discharge Instructions * Discharge Instructions* HALLEY Mohamud - 02/21/2020 6:41 PM WIRE PHOTO OPERATOR Do not drive, work, operate heavy machinery, take care of small children, consume alcohol while taking this medication as it may cause drowsiness. You can take up to 4000 mg of Tylenol/day, up to 2400 mg of Ibuprofen per day. Thank you for giving us the opportunity to care for you today. If at any point you are becoming more ill, your condition worsens or have concern, please call your doctor or return here. You are always welcome back. If you have any questions about this visit, concerns about your symptoms, questions about your medications or other concerns, please give us a call... Our practice is committed to providing you the exceptional care. We want to hear from you! Please fill out the survey you get from us. Your feedback is anonymous & helps us improve the patient experience for you and others in the community we serve. - [facility] - Emergency Medicine Provider ADDITIONAL DISCHARGE INSTRUCTIONS: --Please follow all the instructions that we have discussed or are provided here. Take all medications as directed. --While the tests and exam we have performed in the Emergency Department did not show anything dangerous or life threatening it is important for you to follow up with your doctor for further evaluation of your symptoms. It is also important to return to the ED if your symptoms become worse or you have new or further concerns. -- Please mention to your follow-up physician that you were in the emergency department and requestthat they review your labs and/or imaging to ensure all findings are followed up on. --Again, it was a pleasure taking care of you. PHOTO OPERATOR * Attachments The following attachments cannot be sent through Care Everywhere. * Joint Pain (Marshallese) * Concussion in Adults (Marshallese) documented in this encounter Medications at Time of Discharge HYDROcodone-acetamin ophen 5-325 MG tabletIndications:Ac sanjay Pain < 7 Day Supply Take 1 tablet by mouth every 6 (six) hours as needed. Indications: Acute Pain < 7 Day Supply 20 tablet 02/21/2020 2 meclizine 25 MG tablet Take 1 tablet (25 mg total) by mouth 3 (three) times daily as needed. 30 tablet 02/21/2020 0 ondansetron 4 MG disintegrating tablet Take 1 tablet (4 mg total) by mouth every 8 (eight) hours as needed for Nausea. 20 tablet 02/21/2020 2 documented as of this encounter ED Notes * Kimberly Shaver RN - 02/21/2020 7:53 PM CST Pt evaluated and assessed by LINESPERSON. No nursing interventions needed or required PHOTO OPERATOR * Kimberly Shaver RN - 02/21/2020 7:52 PM CST Iv to left hand DC PHOTO OPERATOR * HALLEY Mohamud - 02/21/2020 6:31 PM CST Images from the original note were not included. ED NOTE Chief Complaint Chief Complaint Patient presents with ??? Fall History of Present Illness Pt is a pleasant 64 y/o white female presenting with c/o fall. Pt reports losing her footing while coming down off a ladder, missing the 2nd rung and falling onto concrete floor in garage. She deniesany LOC. She denies feeling dizzy or lightheaded prior to fall. Denies use of blood thinning medications. No tx initiated [employer]. No additional complaints. Medical History ALLERGIES: No Known Allergies MEDICATIONS: Prior to Admission medications Medication Sig Start Date End Date Taking? Authorizing Provider HYDROcodone-acetaminophen 5-325 MG tablet Take 1 tablet by mouth every 6 (six) hours as needed. Indications: Acute Pain < 7 Day Supply 02/21/20 Yes HALLEY Mohmaud meclizine 25 MG tablet Take 1 tablet (25 mg total) by mouth 3 (three) times daily as needed. 02/21/20 03/02/20 Yes HALLEY Mohamud ondansetron 4 MG disintegrating tablet Take 1 tablet (4 mg total) by mouth every 8 (eight) hours asneeded for Nausea. 02/21/20 Yes HALLEY Mohamud PAST MEDICAL HISTORY: Past Medical History: Diagnosis Date ??? Hyperlipemia ??? Hypertension PAST SURGICAL HISTORY: Past Surgical History: Procedure Laterality Date ??? TONSILLECTOMY FAMILY HISTORY: No family history on file. SOCIAL HISTORY: Social History Tobacco Use ??? Smoking status: Never Smoker ??? Smokeless tobacco: Never Used Substance Use Topics ??? Alcohol use: Never Frequency: Never ??? Drug use: Never Review of Systems Review of Systems Constitutional: Negative for activity change, appetite change, chills, diaphoresis, fatigue, fever and unexpected weight change. HENT: Negative for congestion, ear discharge, ear pain, facial swelling, mouth sores, postnasal drip, rhinorrhea, sinus pressure, sinus pain, sneezing, sore throat, tinnitus and trouble swallowing. Eyes: Negative for photophobia, pain, discharge, redness, itching and visual disturbance. Respiratory: Negative for cough, shortness of breath, wheezing and stridor. Cardiovascular: Negative for chest pain and palpitations. Gastrointestinal: Negative for abdominal pain, constipation, diarrhea, nausea and vomiting. Genitourinary: Negative. Negative for difficulty urinating. Musculoskeletal: Positive for arthralgias. Negative for back pain, gait problem, joint swelling, myalgias, neck pain and neck stiffness. Skin: Negative for rash. Neurological: Negative for dizziness, tremors, seizures, syncope, facial asymmetry, speech difficulty, weakness, light-headedness, numbness and headaches. Hematological: Negative for adenopathy. All other systems reviewed and are negative. Physical Exam Filed Vitals: 02/21/20 1708 BP: (!) 159/78 Pulse: 75 Resp: 16 Temp: 98.4 ??F (36.9 ??C) SpO2: 99% Weight: 83.5 kg (184 lb) Height: 5' 10 (1.778 m) Physical Exam Vitals signs and nursing note reviewed. Constitutional: General: She is not in acute distress. Appearance: She is well-developed. She is not ill-appearing, toxic-appearing or diaphoretic. Interventions: She is not intubated. HENT: Head: Normocephalic. No Bustos's sign or laceration. Right Ear: External ear normal. Left Ear: External ear normal. Nose: Nose normal. Mouth/Throat: Pharynx: No oropharyngeal exudate. Eyes: Conjunctiva/sclera: Conjunctivae normal. Pupils: Pupils are equal, round, and reactive to light. Neck: Musculoskeletal: Full passive range of motion without pain, normal range of motion and neck supple. Cardiovascular: Rate and Rhythm: Normal rate and regular rhythm. Chest Wall: PMI is not displaced. Heart sounds: Normal heart sounds, S1 normal and S2 normal. No murmur. No friction rub. No gallop. Pulmonary: Effort: Pulmonary effort is normal. No tachypnea, bradypnea, accessory muscle usage or respiratory distress. She is not intubated. Breath sounds: Normal breath sounds. No stridor. No decreased breath sounds, wheezing, rhonchi or rales. Chest: Chest wall: No tenderness. Abdominal: General: Bowel sounds are normal. There is no distension. Palpations: Abdomen is soft. There is no mass. Tenderness: There is no abdominal tenderness. There is no guarding or rebound. Musculoskeletal: Normal range of motion. Right elbow: Normal.She exhibits normal range of motion, no swelling, no effusion, no deformity andno laceration. No tenderness found. No radial head, no medial epicondyle, no lateral epicondyle andno olecranon process tenderness noted. Left elbow: Normal. She exhibits normal range of motion, no swelling, no effusion, no deformity andno laceration. No tenderness found. No radial head, no medial epicondyle, no lateral epicondyle andno olecranon process tenderness noted. Right forearm: Normal. She exhibits no tenderness, no bony tenderness, no swelling, no edema, no deformity and no laceration. Left forearm: Normal. She exhibits no tenderness, no bony tenderness, no swelling, no edema, no deformity and no laceration. Skin: General: Skin is warm and dry. Capillary Refill: Capillary refill takes less than 2 seconds. Findings: No rash. Comments: Skin color is appropriate for ethnicity Neurological: Mental Status: She is alert and oriented to person, place, and time. GCS: GCS eye subscore is 4. GCS verbal subscore is 5. GCS motor subscore is 6. Cranial Nerves: Cranial nerves are intact. Sensory: Sensation is intact. Motor: Motor function is intact. Coordination: Coordination is intact. Gait: Gait is intact. Comments: Pt ambulatory with brisk, steady gait No sensory deficit. Muscle strength 5/5 in upper and lower extremities, bilaterally. No arm drift. No leg drift. No facial droop. No slurred speech. Diagnostic Studies / Procedures ELECTROCARDIOGRAMS: No results found for this visit on 02/21/20. LABORATORY STUDIES: No results found for this visit on 02/21/20. IMAGING STUDIES XR ELBOW LT M3V Final Result by User, [id number] (02/20 1825) Left elbow Exam date: 02/21/2020. Indications: Fell. Left elbow pain. Comparison: None. Technique: 3 views of the left elbow were obtained. Findings: No plain film evidence of acute fracture, dislocation, or cortical destruction. IMPRESSION: No plain film evidence of acute fracture, dislocation, or cortical destruction. If symptoms persist, followup imaging in 10-14 days may be helpful. Interpreted By: Imtiaz Savage MD, 02/21/2020 6:[address] HEAD WO CON Final Result by User, [id number] (02/20 1821) EXAM: CT HEAD WO CON DATE: 02/21/2020 COMPARISON: None INDICATION: Fell from the second step of a ladder and hit head on concrete. TECHNIQUE: Noncontrast imaging FINDINGS: No findings for hemorrhage. There are bilateral basal ganglia calcifications. There are multiple thin, curvilinear densities within the substance of the cerebellum. The appearance is thought to be more suggestive of calcifications than multifocal and bilateral cerebellar hemorrhages. If patient does not have prior imaging elsewhere, consideration could be given to nonemergent MRI correlation. Probably a small dermoid adjacent to the confluence of the sinuses which measures about 6 mm and 2-3 smaller similar findings more superiorly along the falx. No extra-axial fluid collection. Normal ventricular size. Mild areas of decreased density in the deep white matter probably represent microangiopathy. There is a large crescentic scalp hematoma posterior laterally on the right side. No skull fracture. Mastoid air cells and visualized paranasal sinuses are clear. IMPRESSION: 1. Multiple small intracranial densities are thought to represent calcifications rather than hemorrhages. 2. Large scalp hematoma posterior laterally on the right. A dose lowering technique was used for this procedure, which may include, but is not limited to, dose reduction technique, automated exposure control, iterative reconstruction, ALARA (As Low As Reasonably Achievable), or Image Gently techniques. Interpreted By: Eduardo Garza MD, 02/21/2020 6:11 PM ED Course / Medical Decision Making MDM Number of Diagnoses or Management Options Fall from ladder: Hematoma of scalp: Left elbow pain: Amount and/or Complexity of Data Reviewed Tests in the radiology section of CPT??: ordered and reviewed Discuss the patient with other providers: yes Independent visualization of images, tracings, or specimens: yes Risk of Complications, Morbidity, and/or Mortality Presenting problems: minimal Diagnostic procedures: minimal Management options: minimal General comments: ?? I have discussed today's findings with the patient and provided information regarding the likely diagnosis. I believe at this time that the patient has no medical emergency and is appropriate for outpatient management. The patient has been given information regarding their treatment, follow up and concerning symptoms for which they should seek urgent or emergent attention; all questions were answered. I have expressed the the importance of seeking attention should there be any new, or worseningsymptoms or persistence of their condition. The patient is stable at discharge and has verbalized understanding of these instructions. Patient Progress Patient progress: stable Medications - No data to display Clinical Impression Fall from ladder (Primary) Hematoma of scalp Left elbow pain Current Discharge Medication List START taking these medications Details HYDROcodone-acetaminophen 5-325 MG tablet Take 1 tablet by mouth every 6 (six) hours as needed. Indications: Acute Pain < 7 Day Supply Qty: 20 tablet, Refills: 0 Class: Print meclizine 25 MG tablet Take 1 tablet (25 mg total) by mouth 3 (three) times daily as needed. Qty: 30 tablet, Refills: 0 Class: Print ondansetron 4 MG disintegrating tablet Take 1 tablet (4 mg total) by mouth every 8 (eight) hours asneeded for Nausea. Qty: 20 tablet, Refills: 0 Class: Print Disposition: Discharge Follow-Up: Rosie Bryant, DO [address] [place] [address] In 1 week HALLEY MOHAMUD 02/21/2020 HALLEY Mohamud 02/21/20 [id number] Cosigned by Gorge Post MD at 02/21/2020 11:01 PM WIRE PHOTO OPERATOR PHOTO OPERATOR PHOTO OPERATOR * Gaston Meeks RN - 02/21/2020 5:10 PM CST Pt to ED via EMS complaining of a fall from the 2nd step of a ladder. Hit head on concrete, has hematoma right posterior head. Denies LOC, no bleeding. No other injuries. Denies neck or back pain. PHOTO OPERATOR documented in this encounter Plan of Treatment Upcoming Encounters Date Type Department Care Team (Late st Contact Info) Description 04/28/2024 2:40 PM WIRE PHOTO OPERATOR Office Visit [facility] [place] [address] [place] [address] Jared Mejia MD [address] [place] [address] 05/20/2024 10:20 AM WIRE PHOTO OPERATOR Office Visit [facility] [address] [facility], [address] [place] [address] Scarlet Mendoza MD [address] [place] [address] 10/11/2024 10:00 AM CDT Office Visit [facility] [address] [facility], [address] [place] [address] Galdino Santos MD [address] [facility]. [address] [place] [address] Lary Joel PA [address] [facility], [address] [place] [address] documented as of this encounter Procedures Procedure Name Priority Date/Time Associated Diagnosis Comments XR ELBOW LT M3V STAT 02/21/2020 6:22 [address]IRE [address] CT HEAD WO CON STAT 02/21/2020 5:45 PM WIRE PHOTO OPERATOR documented in this encounter Results * XR ELBOW LT M3V (02/21/2020 6:22 PM WIRE PHOTO OPERATOR) Anatomical Region Laterality Modality Elbow Radiographic Loyda ging 02/21/2020 6:23 PM WIRE PHOTO OPERATOR Impressions 02/21/2020 6:23 PM WIRE PHOTO OPERATOR IMPRESSION: No plain film evidence of acute fracture, dislocation, or cortical destruction. ??If symptoms persist, followup imaging in 10-14 days may be helpful. Interpreted By: Imtiaz Savage MD, 02/21/2020 6:23 PM Narrative 02/21/2020 6:23 PM WIRE PHOTO OPERATOR Left elbow Exam date: 02/21/2020. Indications: Fell. ??Left elbow pain. Comparison: None. Technique: 3 views of the left elbow were obtained. Findings: No plain film evidence of acute fracture, dislocation, or cortical destruction. Procedure Note Imtiaz Savage MD - 02/21/2020 Left elbow Exam date: 02/21/2020. Indications: Fell. Left elbow pain. Comparison: None. Technique: 3 views of the left elbow were obtained. Findings: No plain film evidence of acute fracture, dislocation, or corticaldestruction. IMPRESSION: No plain film evidence of acute fracture, dislocation, or corticaldestruction. If symptoms persist, followup imaging in 10-14 days may behelpful. Interpreted By: Imtiaz Savage MD, 02/21/2020 6:23 PM us Vijay Sandhu LINESPERSON-C GENERAL IMAGING Final Resu lt * CT HEAD WO CON (02/21/2020 5:45 PM WIRE PHOTO OPERATOR) Anatomical Region Laterality Modality Head Computed Tomogra phy 02/21/2020 6:11 PM WIRE PHOTO OPERATOR Impressions 02/21/2020 6:20 PM WIRE PHOTO OPERATOR IMPRESSION: 1. ??Multiple small intracranial densities are thought to represent calcifications rather than hemorrhages. 2. ??Large scalp hematoma posterior laterally on the right. A dose lowering technique was used for this procedure, which may include, but is not limited to, dose reduction technique, automated exposure control, iterative reconstruction, ALARA (As Low As Reasonably Achievable), or Image Gently techniques. Interpreted By: Eduardo Garza MD, 02/21/2020 6:11 PM Narrative 02/21/2020 6:20 PM WIRE PHOTO OPERATOR EXAM: CT HEAD WO CON DATE: 02/21/2020 COMPARISON: None INDICATION: Fell from the second step of a ladder and hit head on concrete. TECHNIQUE: Noncontrast imaging FINDINGS: No findings for hemorrhage. ??There are bilateral basal ganglia calcifications. ??There are multiple thin, curvilinear densities within the substance of the cerebellum. ??The appearance is thought to be more suggestive of calcifications than multifocal and bilateral cerebellar hemorrhages. ??If patient does not have prior imaging elsewhere, consideration could be given to nonemergent MRI correlation. ??Probably a small dermoid adjacent to the confluence of the sinuses which measures about 6 mm and 2-3 smaller similar findings more superiorly along the falx. No extra-axial fluid collection. ??Normal ventricular size. ??Mild areas of decreased density in the deep white matter probably represent microangiopathy. There is a large crescentic scalp hematoma posterior laterally on the right side. ??No skull fracture. ??Mastoid air cells and visualized paranasal sinuses are clear. Procedure Note Eduardo Garza MD - 02/21/2020 EXAM: CT HEAD WO CON DATE: 02/21/2020 COMPARISON: None INDICATION: Fell from the second step of a ladder and hit head onconcrete. TECHNIQUE: Noncontrast imaging FINDINGS: No findings for hemorrhage. There are bilateral basal gangliacalcifications. There are multiple thin, curvilinear densities within thesubstance of the cerebellum. The appearance is thought to be moresuggestive of calcifications than multifocal and bilateral cerebellarhemorrhages. If patient does not have prior imaging elsewhere,consideration could be given to nonemergent MRI correlation. Probably asmall dermoid adjacent to the confluence of the sinuses which measuresabout 6 mm and 2-3 smaller similar findings more superiorly along thefalx. No extra-axial fluid collection. Normal ventricular size. Mild areas ofdecreased density in the deep white matter probably representmicroangiopathy. There is a large crescentic scalp hematoma posterior laterally on theright side. No skull fracture. Mastoid air cells and visualizedparanasal sinuses are clear. IMPRESSION: 1. Multiple small intracranial densities are thought to representcalcifications rather than hemorrhages. 2. Large scalp hematoma posterior laterally on the right. A dose lowering technique was used for this procedure, which may include,but is not limited to, dose reduction technique, automated exposurecontrol, iterative reconstruction, ALARA (As Low As ReasonablyAchievable), or Image Gently techniques. Interpreted By: Eduardo Garza MD, 02/21/2020 6:11 PM us Vijay Sandhu LINESPERSON-C CT Final Resu lt documented in this encounter Visit Diagnoses Diagnosis Fall from ladder- Primary Accidental fall from ladder Hematoma of scalp Contusion of face, scalp, and neck except eye(s) Left elbow pain Pain in joint, upper arm documented in this encounter Care Teams [employer] Relationship Specialty Start Date End Date Rosie Bryant DO [address] [place] [address] PCP - General FAMILY PRACTICE 02/21/20 documented as of this encounter
--- OUTSIDE RECORDS SUMMARY | 2024-04-20 02:29 | XMS_ITS | Encounter Summary ---
Author Organization [facility] Address [address] [place] [address]. [place], [place] [id number] [place] [id number] Care Team Providers Care Motor Vehicle Lecturer Name Role Phone Rosie Bryant Primary Care Provider Reason for Visit * Reason Comments Insect Bite Encounter Details Date Type Department Care Team (Late st Contact Info) Description 10/24/2020 3:39 PM CDT - 10/24/2020 3:40 PM CDT Emergency [facility] Emergency [place] [address] Ayah Garzon, DHIRAJ [address], [place] [address] Insect Bite Discharge Disposition: Home or Self Care (Routine [...] have Coronavirus / COVID-19? No / Unsure 10/24/2020 1:35 PM CDT documented as of this encounter Last Filed Vital Signs Vital Sign Reading Time Taken Comments Blood Pressure 127/72 10/24/2020 2:01 PM CDT Pulse 71 10/24/2020 2:01 PM CDT Temperature 37 ??C (98.6 ??F) 10/24/2020 2:01 PM CDT Respiratory Rate 20 10/24/2020 2:01 PM CDT Oxygen Saturation 98% 10/24/2020 2:01 PM CDT Inhaled Oxygen Concentration - - Weight 85.7 kg (188 lb 15 oz) 10/24/2020 2:01 PM CDT Height 177.8 cm (5' 10 ) 10/24/2020 2:01 PM CDT Body Mass Index 27.11 10/24/2020 2:01 PM CDT documented in this encounter Discharge Instructions * Discharge Instructions* DHIRAJ Castellon 10/24/2020 2:09 PM CDT 1) Finish full course of antibiotics even if you notice improvement. 2) Follow-up with your doctor in the next 48-72 hours for wound re-evaluation. 3) Return to the emergency department for any new or worsening symptoms which includes fever greater than 100.4, streaking, increased redness/swelling/discharge(pus)/pain, severe discoloration, loss of mobility/sensation or other new emergent concerns. Thank you for giving us the opportunity [...] others in the community we serve. - Ayah Garzon PA-C - Emergency Medicine Provider ADDITIONAL DISCHARGE INSTRUCTIONS: --Please follow all the instructions that we have discussed or are provided here. Take all medications as directed. --Emergency Departments (ED) provide medical screening exams and initial stabilizing treatment of emergency medical conditions. Medicine is an inexact science and many conditions cannot be diagnosed or completely treated during a single ED visit. Your treating healthcare provider(s) today feel yourcondition has been stabilized so further care as an outpatient is reasonable. Emergency care does not substitute for complete, ongoing, or follow-up care by your primary care physician or guidance consultant.Please mention to your follow-up physician that you were in the emergency department and request that they review your labs and/or imaging to ensure all findings are followed up on. --Your medication list was reviewed prior to treatment, and at discharge, by the treating provider for the purpose of this outpatient visit only. Please review this entire medication list with your pharmacist, primary care physician, and specialist(s). It is your responsibility to share any new medication instructions you received this visit with your doctor(s). Although no medicine is without risk, your healthcare provider today feels reasonable decisions were made concerning starting new medications and stopping or changing the dosages of your usual medications until you receive follow-up care. Take medications only as directed. Many medications can cause drowsiness, especially those for pain, anxiety, muscle spasms, nausea, and allergies. DO NOT drive, drink alcohol, operate power machinery, or participate in potentially dangerous activities if taking medicines that make you tired. Chronic pain is best managed by pain specialists or primary care physicians, so narcotic refills are not routinely dispensed in the ED. DO NOT take multiple medications containing acetaminophen (Tylenol), such as many narcotic drug combinations and [id number] cold medicines. --Again, it was a pleasure taking care of you. * Attachments The following attachments cannot be sent through Care Everywhere. 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 10/20/2020 cephALEXin (KEFLEX) 500 MG capsule Take 1 capsule (500 mg total) by mouth 4 (four) times daily for 10 days. 40 capsule 10/24/2020 1 HYDROcodone-acetamin ophen 5-325 MG tabletIndications:Ac douglas Pain < 7 Day Supply Take 1 tablet by mouth every 6 (six) hours as needed. Indications: Acute Pain < 7 Day Supply 20 tablet 02/21/2020 2 ondansetron 4 MG disintegrating tablet Take 1 tablet (4 mg total) by mouth every 8 (eight) hours as needed for Nausea. 20 tablet 02/21/2020 2 documented as of this encounter ED Notes * Chani Sprague RN - 10/24/2020 3:38 PM CDT Pt seen and discharged by provider. * DHIRAJ Castellon - 10/24/2020 2:03 PM CDT ED NOTE Chief Complaint Chief Complaint Patient presents with ??? Insect Bite History of Present Illness 64-year-old female with a history of hypertension and hyperlipidemia who presents to the emergency room for evaluation of left inner leg insect bite that she noticed approximately 6 days ago. Patientreports that she thinks that she fell to little sand joshi. Was seen by her friend who was concerned for possible brown recluse which prompted her to come in for further evaluation. Denies any fever,chills, chest pain, shortness of breath, numbness, tingling, weakness, linear red streaking or significant pain. States that she otherwise feels well. No other acute complaints Medical History ALLERGIES: Allergies Allergen Reactions ??? Symbicort [Budesonide-Formoterol Fumarate] Anaphylaxis ??? Acetaminophen Fatigue ??? Donepezil Other (see comment) htn ??? Erythromycin Diarrhea ??? Macrobid [Nitrofurantoin] Chest pressure ??? Naproxen Other (see comment) Hot flashes, constipation, bruising ??? Statins Other (see comment) Intolerant ??? Topamax [Topiramate] Blurred vision ??? Ventolin [Albuterol] Shakiness MEDICATIONS: Prior to Admission medications Medication Sig Start Date End Date Taking? Authorizing Provider cephALEXin (KEFLEX) 500 MG capsule Take 1 capsule (500 mg total) by mouth 4 (four) times daily for 10 days. 10/24/20 11/03/20 Yes DHIRAJ Castellon HYDROcodone-acetaminophen 5-325 MG tablet Take 1 tablet by mouth every 6 (six) hours as needed. Indications: Acute Pain < 7 Day Supply 02/21/20 HALLEY Mohamud ondansetron 4 MG disintegrating tablet Take 1 tablet (4 mg total) by mouth every 8 (eight) hours asneeded for Nausea. 02/21/20 HALLEY Mohamud PAST MEDICAL HISTORY: Past Medical [...] Systems Constitutional: Negative for chills and fever. HENT: Negative for ear pain, sinus pain and sore throat. Eyes: Negative for pain and visual disturbance. Respiratory: Negative for cough and shortness of breath. Cardiovascular: Negative for chest pain and palpitations. Gastrointestinal: Negative for abdominal pain, diarrhea, nausea and vomiting. Genitourinary: Negative for dysuria, hematuria and urgency. Musculoskeletal: Negative for back pain and neck pain. Skin: Positive for wound. Negative for rash. Allergic/Immunologic: Negative for food allergies. Neurological: Negative for dizziness, tremors, seizures and numbness. Psychiatric/Behavioral: Negative. Physical Exam Filed Vitals: 10/24/20 1401 BP: 127/72 Pulse: 71 Resp: 20 Temp: 98.6 ??F (37 ??C) TempSrc: Temporal SpO2: 98% Weight: 85.7 kg (188 lb 15 oz) Height: 5' 10 (1.778 m) Physical Exam Vitals and nursing note reviewed. Constitutional: Appearance: Normal appearance. She is well-developed. Comments: Nontoxic appearing HENT: Head: Normocephalic and atraumatic. Nose: Nose normal. Mouth/Throat: Mouth: Mucous membranes are moist. Pharynx: Oropharynx is clear. Eyes: Conjunctiva/sclera: Conjunctivae normal. Cardiovascular: Rate and Rhythm: Normal rate and regular rhythm. Pulses: Normal pulses. Heart sounds: Normal heart sounds. Pulmonary: Effort: Pulmonary effort is normal. No respiratory distress. Breath sounds: Normal breath sounds. Abdominal: General: Bowel sounds are normal. There is no distension. Palpations: Abdomen is soft. Tenderness: There is no abdominal tenderness. Musculoskeletal: General: Normal range of motion. Cervical back: Normal range of motion and neck supple. Comments: approx 1.5 x 1cm area of erythema with possible inoculation center to left inner knee. Nounderlying fluctuance gangrene, necrosis or crepitus. Nontender to palpation. No linear red streaking. No vesicles or bullae noted. Moving all extremities fully. Distal pulses, sensation, CR, temp and strength intact and equal throughout Skin: General: Skin is warm and dry. Capillary Refill: Capillary refill takes less than 2 seconds. Neurological: General: No focal deficit present. Mental Status: She is alert and oriented to person, place, and time. Psychiatric: Mood and Affect: Mood normal. Behavior: Behavior normal. Diagnostic Studies / Procedures ELECTROCARDIOGRAMS: No results found for this visit on 10/24/20. LABORATORY STUDIES: No results found for this visit on 10/24/20. IMAGING STUDIES No orders to display ED Course / Medical Decision Making ED Course as of Oct 24 143 Tue Oct 24, 2020 1416 Nontoxic-appearing patient presents for findings suggestive of cellulitis possible from insectbite. No drainable abscess or areas of necrosis warranting debridement. Neurovascular status intactthroughout. No signs of sepsis or toxicity, stable for outpatient follow-up. Plan to treat with antibiotic and have patient follow-up with primary care doctor for close wound reevaluation. Strict verbal return precautions reviewed. Patient expresses verbal understanding and agreement with plan. All questions answered to the best of my ability. Teachback performed by patient. Nontoxic exit exam. Patient discharged home in stable condition. [AD] ED Course User Index [AD] DHIRAJ Castellon Medications - No data to display Clinical Impression Insect bite (Primary) Cellulitis Current Discharge Medication List START taking these medications Details cephALEXin (KEFLEX) 500 MG capsule Take 1 capsule (500 mg total) by mouth 4 (four) times daily for 10 days. Qty: 40 capsule, Refills: 0 Class: Eprescribe Pharmacy: [facility] [address] (Ph #: [phone]) Disposition: Discharge Follow-Up: Rosie Bryant, DO [address] [place] [address] In 2 days For wound re-check DHIRAJ CASTELLON 10/24/2020 DHIRAJ Castellon 10/24/20 1431 Cosigned by Dieter Ibarra MD,PHD at 10/24/2020 11:22 PM CDT * Jennifer Dueñas RN - 10/24/2020 1:59 PM CDT Pt to the ed reporting a possible brown recluse bite on her left posterior leg. Pt reports it is hardened and non-itchy. Area is circumferential and reddened.JENNIFER DUEÑAS RN documented in this encounter Plan of Treatment Upcoming Encounters Date Type Department Care Team (Late st Contact Info) Description 04/28/2024 2:40 PM FLOOR LAYER HELPER Office Visit [facility] [address] [place], [place] [id number] Jared Mejia MD [address] [place], [place] [id number] 05/20/2024 10:20 AM FLOOR LAYER HELPER Office Visit [facility] - [address], [address] [place] [address] Scarlet Mendoza MD [address] [place] [address] 10/11/2024 10:00 AM CDT Office Visit [facility], [address] [place] [address] Galdino Santos MD [facility]. [address] [place] [address] Lary Joel PA [address] [facility], [address] [place] [address] documented as of this encounter Visit Diagnoses Diagnosis Insect bite- Primary Other, multiple, and unspecified sites, insect bite, nonvenomous, without mention of infection Cellulitis Cellulitis and abscess of unspecified site documented in this encounter Care Teams Motor Vehicle Lecturer Relationship Specialty Start Date End Date Rosie Bryant DO [address] [place] [address] PCP - General FAMILY PRACTICE 02/21/20 documented as of this encounter
--- OUTSIDE RECORDS SUMMARY | 2024-04-20 02:29 | XMS_ITS | Encounter Summary ---
Author Organization [facility] Address [address] [place] [address]. [place], [place] [id number] [place] [id number] Care Team Providers Care Operations Professional Name Role Phone Kathryn James Primary Care Provider [phone] Reason for Visit * Reason Comments Shortness Of Breath Encounter Details Date Type Department Care Team (Late Contact Info) Description 03/16/2022 10:54 AM PIGMENT GRINDER - 03/16/2022 3:26 PM PIGMENT GRINDER Emergency [facility] [place] [address] Esperanza Rendon MD [address] [place] [address] Shortness Of Breath Discharge Disposition: Home or Self Care (Routine [...] suspected to have Coronavirus/COVID-19? No / Unsure 03/16/2022 10:19 AM PIGMENT GRINDER documented as of this encounter Last Filed Vital Signs Vital Sign Reading Time Taken Comments Blood Pressure 121/74 03/16/2022 1:22 PM PIGMENT GRINDER Pulse 61 03/16/2022 1:22 PM PIGMENT GRINDER Temperature 36.2 ??C (97.2 ??F) 03/16/2022 10:[address] Respiratory Rate 18 03/16/2022 1:22 PM PIGMENT GRINDER Oxygen Saturation 96% 03/16/2022 1:22 PM PIGMENT GRINDER Inhaled Oxygen Concentration - - Weight 86.2 kg (190 lb 0.6 oz) 03/16/2022 10:29 AM PIGMENT GRINDER Height 180.3 cm (5' 11 ) 03/16/2022 10:29 AM PIGMENT GRINDER Body Mass Index 26.5 03/16/2022 10:29 AM PIGMENT GRINDER documented in this encounter Discharge Instructions * Discharge Instructions* Esperanza Rendon MD - 03/16/2022 2:59 PM PIGMENT GRINDER Return to ER for new or worsening symptoms or any other concerns. Drink plenty of fluids. Take tylenol or ibuprofen as needed for fevers or body aches. ENT GRINDER * Attachments The following attachments cannot be sent through Care Everywhere. * COVID-19 Discharge Instructions (Guinean) documented in this encounter Medications at Time [...] by mouth daily. Alternates 2000 and 4000 [id number] OR Take 500 mg by mouth daily. 500mg AM. 1000mg PM MAGNESIUM OR Take 96 mg by mouth daily. Menaquinone-7 (VITAMIN K2 OR) Take by mouth 2 (two) times a day. [facility]ION[facility]ION SERVICE SPECIALIST THYROID 60 MG tablet Take 1 tablet (60 mg total) by mouth daily. 10/20/2020 vitamin C 1000 MG tablet Take 1 tablet (1,000 mg total) by mouth daily. ezetimibe 10 MG tablet Take 10 mg by mouth daily. 06/11/2021 2 nirmatrelvir & ritonavir 300/100 (PAXLOVID, 300/100,) 20 x 150 MG & 10 x 100MG tablet pack Take TWO nirmatrelvir 150 mg tablet(s) along with ONE ritonavir 100 mg tablet, with all three tablets taken together, twice daily for 5 days. May take with or without food. Swallow tablets whole. Do not chew, break or crush.. 15 tablet 03/16/2022 2 documented as of this encounter ED Notes * Esperanza Rendon MD - 03/16/2022 11:03 AM CST [place], [place] EMERGENCY DEPARTMENT ENCOUNTER Chief Complaint Chief Complaint Patient presents with ??? Shortness Of Breath History of Present Illness Provider at Bedside Date/Time Event User Comments 03/16/22 7519 Provider at Bedside Assessing Patient ESPERANZA RENDON -- Maria G Barrow is a 28-nbir-arg-year-old female with a PMH of hyperlipidemia and HTN presents to the ED for evaluation of shortness of breath which started this morning. The patient reports she hashad an intermittent cough for the past 2-3 days. She reports today her cough has resolved but she reports newly onset chest pain and shortness of breath. She was evaluated in this ED on 03/10 for chest pain and discharged to follow up with a waterway traffic checker. She reports her current pain feels different than past chest pain. Denies fever. Denies vomiting. She has not yet seen the waterway traffic checker. Medical History ALLERGIES: Allergies Allergen Reactions ??? [...] ??? Ventolin [Albuterol] Shakiness ??? Cephalexin Rash MEDICATIONS: Prior to Admission medications Medication Sig Start Date End Date Taking? Authorizing Provider nirmatrelvir & ritonavir 300/100 (PAXLOVID, 300/100,) 20 x 150 MG & 10 x 100MG tablet pack Take TWO nirmatrelvir 150 mg tablet(s) along with ONE ritonavir 100 mg tablet, with all three tablets taken together, twice daily for 5 days. May take with or without food. Swallow tablets whole. Do not chew, break or crush.. 03/16/22 Yes Esperanza Rendon MD 5-Hydroxytryptophan (5-HTP OR) Take by mouth daily. Doc [facility] amLODIPine 5 MG tablet Take 5 mg by mouth daily. 08/11/21 Doc [facility] atenolol 50 MG tablet Take 50 mg by mouth daily. 07/23/21 [facility] Cholecalciferol (VITAMIN D3) 50 MCG (2000 UT) Cap Take 4,000 Units by mouth daily. [facility] ezetimibe 10 MG tablet Take 10 mg by mouth daily. 06/11/21 Doc [facility] [id number] OR Take 500 mg by mouth daily. [facility] Magnesium 80 MG Tab Doc [facility] Menaquinone-7 (VITAMIN K2 OR) [facility]ION SERVICE SPECIALIST THYROID 60 MG tablet Take 60 mg by mouth daily. 10/20/20 Doc [facility] vitamin C 1000 MG tablet Take 1,000 mg by mouth daily. Doc [facility] PAST MEDICAL HISTORY: Past Medical History: Diagnosis Date ??? Disease of thyroid gland ??? Hyperlipemia ??? Hypertension PAST SURGICAL HISTORY: [...] for chills and fever. HENT: Negative for sore throat. Eyes: Negative for pain. Respiratory: Positive for cough and shortness of breath. Cardiovascular: Positive for chest pain. Gastrointestinal: Negative for abdominal pain, diarrhea and nausea. Endocrine: Negative for polyuria. Genitourinary: Negative for dysuria. Skin: Negative for rash. Neurological: Negative for dizziness and headaches. Psychiatric/Behavioral: Negative for behavioral problems. See HPI for further details. All systems negative except as marked. Physical Exam Filed Vitals: 03/16/22 1029 03/16/22 1322 BP: (!) 141/76 121/74 Pulse: 66 61 Resp: 16 18 Temp: 97.2 ??F (36.2 ??C) TempSrc: Tympanic SpO2: 96% 96% Weight: 86.2 kg (190 lb 0.6 oz) Height: 5' 11 (1.803 m) Physical Exam Vitals and nursing note reviewed. Constitutional: Appearance: She is well-developed. HENT: Head: Normocephalic and atraumatic. Eyes: Conjunctiva/sclera: Conjunctivae normal. Cardiovascular: Rate and Rhythm: Normal rate and regular rhythm. Comments: +No calf tenderness or edema. Pulmonary: Effort: Pulmonary effort is normal. Breath sounds: Normal breath sounds. No stridor. Abdominal: General: Bowel sounds are normal. Palpations: Abdomen is soft. Tenderness: There is no abdominal tenderness. Musculoskeletal: General: No deformity. Cervical back: Neck supple. Right lower leg: No tenderness. No edema. Left lower leg: No tenderness. No edema. Skin: General: Skin is warm and dry. Neurological: Mental Status: She is alert and oriented to person, place, and time. Diagnostic Studies / Procedures ELECTROCARDIOGRAMS: Results for orders placed or performed during the hospital encounter of 03/16/22 [address] [facility] [address] Test Date: 2022-03-16 Pat Name: MARIA G BARROW Department: Room: Gender: Female Vacuum Drier Operator: [id number] : 1955 Requested By: SHARON SUTHERLAND Order Number: [id number] Reading MD: Measurements Intervals [place] Rate: 62 P: 18 MO: 204 QRS: 35 QRSD: 75 T: 33 QT: 385 QTc: 392 Interpretive Statements SINUS RHYTHM LOW QRS VOLTAGE IN PRECORDIAL LEADS [QRS DEFLECTION < 1.0 mV IN CHEST LEADS] Compared to ECG 03/10/2022 10:40:32 Low QRS voltage now present LABORATORY STUDIES: Results for orders placed or performed during the hospital encounter of 03/16/22 CBC W/DIFF AUTOMATED Result Value Ref Range WBC 3.7 (L) 4.5 - 11.0 x10'3/uL RBC 4.18 (L) 4.20 - 5.40 x10'6/uL HGB 13.0 12.0 - 16.0 G/DL HCT 39.5 38.0 - 48.0 % MCV 94.5 81.0 - 99.0 FL MCH 31.1 (H) 27.0 - 31.0 PG MCHC 32.9 32.0 - 36.0 G/DL RDW 12.7 11.5 - 14.5 % PLT 194 130 - 400 x10'3/uL MPV 11.0 9.3 - 12.2 FL DIFFERENTIAL TYPE AUTOMATED DIFFERENTIAL NEUTROPHILS 38.8 % LYMPHOCYTES 46.8 % MONOCYTES 13.5 % EOSINOPHILS 0.3 % BASOPHILS 0.3 % IMMATURE GRANS 0.3 % ABS. NEUTROPHILS TOTAL 1.44 (L) 1.80 - 7.70 x10'3/uL ABS. LYMPHOCYTES 1.73 1.00 - 4.80 x10'3/uL ABS. MONOCYTES 0.50 0.24 - 0.86 x10'3/uL ABS. EOSINOPHILS 0.01 (L) 0.04 - 0.36 x10'3/uL ABS. BASOPHILS 0.01 0.01 - 0.08 x10'3/uL ABS. IMMATURE GRANULOCYTES 0.01 0.00 - 0.49 x10'3/uL COMPREHENSIVE METABOLIC PANEL Result Value Ref Range GLUCOSE 94 70 - 99 MG/DL BUN 13 7 - 18 MG/DL CREATININE S/P/B 0.75 0.55 - 1.02 MG/DL SODIUM 140 136 - 145 MMOL/L POTASSIUM 3.7 3.5 - 5.1 MMOL/L CHLORIDE S/P/B 108 100 - 108 MMOL/L CO2 27.7 21 - 32 MMOL/L CALCIUM 9.1 8.5 - 10.1 MG/DL BILIRUBIN TOTAL S/P/B 0.6 0.2 - 1.2 MG/DL TOTAL PROTEIN S/P/B 7.0 6.4 - 8.2 G/DL ALBUMIN S/P/B 3.3 (L) 3.4 - 5.0 G/DL AST 34 15 - 37 U/L ALT 37 14 - 55 U/L ALKALINE PHOSPHATASE S/P/B 79 50 - 136 U/L ANION GAP 4.3 (L) 5 - 15 MMOL/L BUN CREATININE RATIO 17.4 6 - 26 A/G RATIO 0.9 (L) 1.0 - 2.0 RATIO GFR ESTIMATE 87 (L) >90 ML/MIN/1.73 M2 TROPONIN, QUANT Result Value Ref Range TROPONIN I HIGH SENSITIVITY 7 <54 ng/L TROPONIN, QUANT Result Value Ref Range TROPONIN I HIGH SENSITIVITY 8 <54 ng/L PRO-BRAIN NATRIURETIC PEPTIDE Result Value Ref Range Pro-B TYPE NATRIURETIC PEPTIDE 64 <125 PG/ML D-DIMER, QUANTITATIVE Result Value Ref Range D-DIMER 370 0 - 500 ng[FEU]/mL CORONAVIRUS (COVID-19) INFLUENZA A & B ANTIGEN IA PANEL Specimen: NASAL Result Value Ref Range CORONAVIRUS ANTIGEN IA POSITIVE (AA) NEGATIVE INFLUENZA A NEGATIVE NEGATIVE INFLUENZA B NEGATIVE NEGATIVE Specimen Type NASAL FIRST TEST UNKNOWN EMPLOYED IN HEALTHCARE NO SYMPTOMATIC DEFINED BY CDC YES DATE OF SYMPTOM ONSET 20220316 HOSPITALIZATION STATUS NO RESIDENT OF [facility] NO IMAGING STUDIES XR CHEST PA+LAT Final Result by User, [id number] (03/16 1109) IMAGING STUDIES: XR CHEST PA+LAT DATE: 03/16/2022 10:47 AM HISTORY: cough 66-year-old female with shortness of breath today. Cough. COMPARISON: Chest portable 03/10/2022. CT abdomen and pelvis with contrast 09/03/2021. DISCUSSION: Upright PA and lateral views. Heart size within normal limits. No acute pulmonary vascular congestion. Aortic atherosclerotic calcification. Hyperinflated lungs. Bilateral pleural and parenchymal scarring in the upper chest/apices. No acute infiltrate, consolidation, effusion, or pneumothorax. Degenerative changes spine and shoulders. Rightward thoracic spinal curvature. IMPRESSION: No acute infiltrate or consolidation. Ordered By: SHARON SUTHERLAND Interpreted By: Khurram Mcneill, 03/16/2022 10:54 AM ED Course / Medical Decision Making ED Course as of 03/16/22 1500 Sat Mar 16, 2022 1234 EKG shows normal sinus rhythm. Rate 62. No ischemia. [] 1451 Chest x-ray clear. COVID-positive. Troponin negative x2. D-dimer negative. O2 sats normal. [BH] ED Course User Index [] Esperanza Rendon MD Pulse Ox Interpretation: Saturation: 96 (%) Oxygen Delivery: RA Interpretation: No acute hypoxia at this time. Rhythm strip interpretation: Rhythm sinus rate 66. No ectopy. Data reviewed: All current, pertinent and timely studies (laboratory, imaging, and procedures) wereordered and results reviewed by Esperanza Rendon MD unless otherwise noted. Triage notes and available nursing notes reviewed. Previous medical record reviewed when available. Repeat vital signs reviewed. Medications - No data to display Clinical Impression COVID-19 (Primary) Current Discharge Medication List START taking these medications Details nirmatrelvir & ritonavir 300/100 (PAXLOVID, 300/100,) 20 x 150 MG & 10 x 100MG tablet pack Take TWO nirmatrelvir 150 mg tablet(s) along with ONE ritonavir 100 mg tablet, with all three tablets taken together, twice daily for 5 days. May take with or without food. Swallow tablets whole. Do not chew, break or crush.. Qty: 15 tablet, Refills: 0 Class: Print Comments: Date of COVID-19 Diagnosis: 03/16/22. eGFR: 87. Disposition: Discharge Follow-Up: KATHRYN JAMES DO I, Boogie Manzo, acting as a scribe, am personally taking down the notes in the presence of Esperanza Rendon MD. Take no action on this note until reviewed and authenticated by the physician. Esperanza Rendon MD 03/16/22 1500 ENT GRINDER * DHIRAJ Laboy - 03/16/2022 10:33 AM [facility] EMERGENCY DEPARTMENT ENCOUNTER Medical Screening Examination 03/16/22 10:33 AM Chief Complaint : Shortness Of Breath HPI : Maria G Barrow is a 66-year-old female who presents with few days of cough woke up with increased shortness of breath today. She does have lower lobe chest pain that is worse with deep inspiration Vital Signs: Filed Vitals: 03/16/22 1029 BP: (!) 141/76 Pulse: 66 Resp: 16 Temp: 97.2 ??F (36.2 ??C) TempSrc: Tympanic SpO2: 96% Weight: 86.2 kg (190 lb 0.6 oz) Height: 5' 11 (1.803 m) Physical exam: A brief physical exam was completed to facilitate/expedite patient care. No wheezing noted patient is dyspnic Plan: Necessary labs/imaging/medications ordered to initiate pt care. DHIRAJ Laboy 03/16/22 1036 ENT GRINDER * Mai Oliva RN - 03/16/2022 10:32 AM CST Pt ambulatory to ed with a accounts payable coordinator shortness of breath that started today. Pt denies fever, chills, n/v/d. Pt has a cough in triage and reports a pain of 2-3/10. Pt is aox4. Vss. ENT GRINDER documented in this encounter Plan of Treatment Upcoming Encounters Date Type Department Care Team (Late st Contact Info) Description 04/28/2024 2:40 PM PIGMENT GRINDER Office Visit [facility] Orthopedic & [facility] - [place] [address] [place], [place] [id number] Jared Mejia MD [address] [place] [address] 05/20/2024 10:20 AM PIGMENT GRINDER Office Visit [facility] Multispecialty Care - [address], [address] [place] [phone] Scarlet Mendoza MD [address] [facility] [place] [address] 10/11/2024 10:00 AM CDT Office Visit [facility] [facility], [address] [place] [address] Galdino Santos MD [facility]. [address] [place], [place] [address] Lary Joel PA [address] [facility], [address] [place], [place] [phone] documented as of this encounter Procedures Procedure Name Priority Date/Time Associated Diagnosis Comments TROPONIN, QUANT STAT 03/16/2022 2:16 PM PIGMENT GRINDER CORONAVIRUS (COVID-19) INFLUENZA A & B ANTIGEN IA PANEL STAT 03/16/2022 12:22 PM PIGMENT GRINDER PRO-BRAIN NATRIURETIC PEPTIDE STAT 03/16/2022 12:22 PM PIGMENT GRINDER COMPREHENSIVE METABOLIC PANEL STAT 03/16/2022 12:22 PM PIGMENT GRINDER D-DIMER, QUANTITATIVE STAT 03/16/2022 12:22 PM PIGMENT GRINDER CBC W/DIFF AUTOMATED STAT 03/16/2022 12:22 PM PIGMENT GRINDER TROPONIN, QUANT STAT 03/16/2022 12:22 PM PIGMENT GRINDER ECG 12-LEAD STAT 03/16/2022 12:08 PM PIGMENT GRINDER XR CHEST PA+LAT STAT 03/16/2022 10:47 AM PIGMENT GRINDER documented in this encounter Results * TROPONIN, QUANT (03/16/2022 2:16 PM PIGMENT GRINDER) TROPONIN I HIGH SENSITIVITY 8 <54 ng/L 03/16/2022 2:49 PM PIGMENT GRINDER [facility] Comment: HIGH DOSES OF BIOTIN, TROPONIN-SPECIFIC AUTOANTIBODIES, AND ANTIBODY THERAPY CONTAINING HAMA MAY INTERFERE WITH THIS TEST RESULT. CORRELATION TO CLINICAL HISTORY AND PRESENTATION RECOMMENDED. 03/16/2022 2:16 PM PIGMENT GRINDER [facility] Final Result Performing Organization Address [facility] Co de Phone Number [facility] [address] [place] [address], * D-DIMER, QUANTITATIVE (03/16/2022 12:22 PM PIGMENT GRINDER) [facility] D-DIMER 370 0 - 500 ng{FEU}/mL 03/16/2022 1:44 PM PIGMENT GRINDER [facility] Comment: D-Dimer values less than or equal to 500 ng/mL FEU have a negative predictive value of >95% for exclusion of deep vein thrombosis and pulmonary embolism. In patients over 50 (who tend to have higher normal baseline D-Dimer values), recent studies suggest age-adjusted D-Dimer cutoff values (calculated as: age [years] x 10 ng/mL) result in equivalent outcomes and no additional false negative findings. 03/16/2022 12:2 2 PM PIGMENT GRINDER Esperanza Rendon MD LABORATORY Final Result Performing Organization Address [facility] Co de Phone Number [facility] [address] [place] [address], * PRO-BRAIN NATRIURETIC PEPTIDE (03/16/2022 12:22 PM PIGMENT GRINDER) [facility] PRO-B TYPE NATRIURETIC PEPTIDE 64 <125 PG/ML 03/16/2022 1:12 PM PIGMENT GRINDER [facility] Comment: CUT POINTS ESTABLISHED BY INTERNATIONAL [employer]LL[employer] ON NT PROBNP (ICON) STUDY (2006). AGE INDEPENDENT: <300 PG/ML HAS A 99% NEGATIVE PREDICTIVE VALUE FOR EXCLUDING ACUTE CHF <50 YEARS: >450 PG/ML IS CONSISTENT WITH ACUTE CHF 50-75 YEARS: >900 PG/ML IS CONSISTENT WITH ACUTE CHF >75 YEARS: >1800 PG/ML IS CONSISTENT WITH ACUTE CHF IN PATIENTS WITH RENAL INSUFFICIENCY (GFR <60), >1200 PG/ML YIELDS A DIAGNOSTIC SENSITIVITY AND SPECIFICITY OF 89% AND 72% FOR ACUTE CHF. 03/16/2022 12:2 2 PM PIGMENT GRINDER [place] [facility] Final Result Performing Organization Address [facility] Co de Phone Number [facility] [address] [place] [address], [place] [phone] * TROPONIN, QUANT (03/16/2022 12:22 PM PIGMENT GRINDER) Pathologist [facility] TROPONIN I HIGH SENSITIVITY 7 <54 ng/L 03/16/2022 1:12 PM PIGMENT GRINDER [facility] Comment: HIGH DOSES OF BIOTIN, TROPONIN-SPECIFIC AUTOANTIBODIES, AND ANTIBODY THERAPY CONTAINING HAMA MAY INTERFERE WITH THIS TEST RESULT. CORRELATION TO CLINICAL HISTORY AND PRESENTATION RECOMMENDED. 03/16/2022 12:2 2 PM PIGMENT GRINDER [place] [facility] Final Result Performing Organization Address City/[facility]/ZIP Co de Phone Number [facility] [address] [place] [address], [place] [phone] * (ABNORMAL) COMPREHENSIVE METABOLIC PANEL (03/16/2022 12:22 PM PIGMENT GRINDER) GLUCOSE 94 70 - 99 MG/DL 03/16/2022 1:12 PM PIGMENT GRINDER [facility] BUN 13 7 - 18 MG/DL 03/16/2022 1:12 PM PIGMENT GRINDER [facility] CREATININE S/P/B 0.75 0.55 - 1.02 MG/DL 03/16/2022 1:12 PM [facility] SODIUM S/P/B 140 136 - 145 MMOL/L 03/16/2022 1:12 PM [facility] POTASSIUM S/P/B 3.7 3.5 - 5.1 MMOL/L 03/16/2022 1:12 PM [facility] CHLORIDE S/P/B 108 100 - 108 MMOL/L 03/16/2022 1:12 PM [facility] CO2 27.7 21 - 32 MMOL/L 03/16/2022 1:12 PM [facility] CALCIUM S/P/B 9.1 8.5 - 10.1 MG/DL 03/16/2022 1:12 PM [facility] BILIRUBIN TOTAL S/P/B 0.6 0.2 - 1.2 MG/DL 03/16/2022 1:12 PM [facility] Comment: THIS ASSAY IS NOT RECOMMENDED FOR PATIENTS UNDERGOING TREATMENT WITH ELTROMBOPAG DUE TO THE POTENTIAL FOR FALSELY ELEVATED RESULTS. TOTAL PROTEIN S/P/B 7.0 6.4 - 8.2 G/DL 03/16/2022 1:12 PM [facility] ALBUMIN S/P/B 3.3(L) 3.4 - 5.0 G/DL 03/16/2022 1:12 PM [facility] AST 34 15 - 37 U/L 03/16/2022 1:12 PM [facility] ALT 37 14 - 55 U/L 03/16/2022 1:12 PM [facility] ALKALINE PHOSPHATASE S/P/B 79 50 - 136 U/L 03/16/2022 1:12 PM [facility] ANION GAP 4.3(L) 5 - 15 MMOL/L 03/16/2022 1:12 PM PIGMENT GRINDER [facility] BUN CREATININE RATIO 17.4 6 - 26 03/16/2022 1:12 PM [facility] A/G RATIO 0.9(L) 1.0 - 2.0 RATIO 03/16/2022 1:12 PM [facility] GFR ESTIMATE 87(L) >90 ML/MIN/1.7 3 M2 03/16/2022 1:12 PM [facility] Comment: NOTE: eGFR is not calculated for patients <18 years of age. This is an estimated GFR calculation using the new CKD EPI creatinine equation without race and so does not require a correction factor for race. This estimated GFR should not be used for calculating drug doses. 03/16/2022 12:2 2 PM PIGMENT GRINDER [facility] Final Result [facility] [address] [place] [address], [place] [phone] * (ABNORMAL) CBC W/DIFF AUTOMATED (03/16/2022 12:22 PM PIGMENT GRINDER) WBC 3.7(L) 4.5 - 11.0 x10'3/uL 03/16/2022 1:07 PM PIGMENT GRINDER [facility] RBC 4.18(L) 4.20 - 5.40 x10'6/uL 03/16/2022 1:07 PM [facility] HGB 13.0 12.0 - 16.0 G/DL 03/16/2022 1:07 PM [facility] HCT 39.5 38.0 - 48.0 % 03/16/2022 1:07 PM [facility] MCV 94.5 81.0 - 99.0 FL 03/16/2022 1:07 PM [facility] MCH 31.1(H) 27.0 - 31.0 PG 03/16/2022 1:07 PM [facility] MCHC 32.9 32.0 - 36.0 G/DL 03/16/2022 1:07 PM [facility] RDW 12.7 11.5 - 14.5 % 03/16/2022 1:07 PM [facility] PLT 194 130 - 400 x10'3/uL 03/16/2022 1:07 PM [facility] MPV 11.0 9.3 - 12.2 FL 03/16/2022 1:07 PM [facility] DIFFERENTIAL TYPE AUTOMATED DIFFERENTIAL 03/16/2022 1:07 PM [facility] NEUTROPHILS % 38.8 % 03/16/2022 1:07 PM [facility] LYMPHOCYTES % 46.8 % 03/16/2022 1:07 PM [facility] MONOCYTES % 13.5 % 03/16/2022 1:07 PM [facility] EOSINOPHILS 0.3 % 03/16/2022 1:07 PM [facility] BASOPHILS 0.3 % 03/16/2022 1:07 PM [facility] IMMATURE GRANS % 0.3 % 03/16/20 1:07 PM [facility] ABS. NEUTROPHILS TOTAL 1.44(L) 1.80 - 7.70 x10'3/uL 03/16/2022 1:07 PM [facility] ABS. LYMPHOCYTES 1.73 1.00 - 4.80 x10'3/uL 03/16/2022 1:07 PM [facility] ABS. MONOCYTES 0.50 0.24 - 0.86 x10'3/uL 03/16/2022 1:07 PM PIGMENT GRINDER [facility] ABS. EOSINOPHILS 0.01(L) 0.04 - 0.36 x10'3/uL 03/16/2022 1:07 PM PIGMENT GRINDER [facility] ABS. BASOPHILS 0.01 0.01 - 0.08 x10'3/uL 03/16/2022 1:07 PM PIGMENT GRINDER [facility] ABS. IMMATURE GRANULOCYTES 0.01 0.00 - 0.49 x10'3/uL 03/16/2022 1:07 PM PIGMENT GRINDER [facility] 03/16/2022 12:2 2 PM PIGMENT GRINDER [facility] Final Result [facility] [address] [place] [address], * (ABNORMAL) CORONAVIRUS (COVID-19) INFLUENZA A & B ANTIGEN IA PANEL (03/16/2022 12:22 PM PIGMENT GRINDER) [facility] CORONAVIRUS ANTIGEN IA POSITIVE(AA ) NEGATIVE 03/16/2022 1:19 PM PIGMENT GRINDER [facility] Comment: THIS TEST HAS BEEN AUTHORIZED BY THE FDA UNDER AN EMERGENCY USE AUTHORIZATION (EUA) FOR USE BY AUTHORIZED LABORATORIES. Successful Call: [id number] called 03/16/2022 01:20 PM to EMERGENCY ROOM ([id number]/BOOGIE BUTLER RN) by [phone]. Read Back: Yes INFLUENZA A NEGATIVE NEGATIVE 03/16/2022 1:19 PM PIGMENT GRINDER [facility] INFLUENZA B NEGATIVE NEGATIVE 03/16/2022 1:19 PM PIGMENT GRINDER [facility] Comment: Interpretation: Negative for Influenza A and B. A negative result does not exclude influenza virus infection. If influenza is circulating in your community, a diagnosis of influenza should be considered based on a patient's clinical presentation and empiric antiviral treatment should be considered, if indicated. If more conclusive testing is needed for hospitalized inpatients, follow-up confirmatory testing with RT-PCR requires a separate order. SPECIMEN TYPE NASAL 03/16/2022 12:13 PM PIGMENT GRINDER [facility] FIRST TEST UNKNOWN 03/16/2022 12:13 PM PIGMENT GRINDER [facility] EMPLOYED IN HEALTHCARE NO 03/16/2022 12:13 PM PIGMENT GRINDER [facility] SYMPTOMATIC DEFINED BY CDC YES 03/16/2022 12:13 PM [facility] DATE OF SYMPTOM ONSET 2022031603/16/2022 12:13 PM [facility] HOSPITALIZATION STATUS NO 03/16/2022 12:13 PM [facility] RESIDENT OF [facility] [facility] NO 03/16/2022 12:13 PM PIGMENT GRINDER [facility] NASAL STRUCTURE / Unknown 03/16/2022 12:22 PM PIGMENT GRINDER us Sharon HEARN MICROBIOLOGY - GENERAL ORDERABL ES Final Result [facility] [address] [place] [address], * ECG 12 lead (03/16/2022 12:08 PM PIGMENT GRINDER) 03/16/2022 12:0 8 PM PIGMENT GRINDER Narrative [facility] - 03/16/2022 4:20 PM PIGMENT GRINDER ?[place] ? [address] [place] ? Test Date: ?2022-03-16 Pat Name: ? MARIA G BARROW ? Department: ?? 41 ? Room: ? Gender: ? Female ? Vacuum Drier Operator: ?? [id number] : ?1955 ? Requested By: SHARON ENA Order Number: [id number] ? Reading MD: ?? Arslan Mari ? Measurements Intervals ?[place] ? Rate: ? 62 ? P: ?18 MO: ? 204 ?QRS: ?35 QRSD: ? 75 ? T: ?33 QT: ? 385 ? QTc: ?392 ? Interpretive Statements SINUS RHYTHM LOW QRS VOLTAGE IN PRECORDIAL LEADS [QRS DEFLECTION < 1.0 mV IN CHEST LEADS] Compared to ECG 03/10/2022 10:40:32 Low QRS voltage now present Preliminary EKG interpretation by ED Physician No ischemic changes Esperanza Rendon M.D. CRITICAL ALERT ISSUED ON 03-16-2022 12:36:08 ENT GRINDER Procedure Note Arslan Mari MD - 03/16/[address] Test Date: 2022-03-16 Pat Name: MARIA G [facility] Department: Room: Gender: Female Vacuum Drier Operator: [id number] : 1955 Requested By: SHARON SUTHERLAND Order Number: [id number] Reading MD: Arslan Mari Measurements Intervals [place] Rate: 62 P: 18 MO: 204 QRS: 35 QRSD: 75 T: 33 QT: 385 QTc: 392 Interpretive Statements SINUS RHYTHM LOW QRS VOLTAGE IN PRECORDIAL LEADS [QRS DEFLECTION < 1.0 mV IN CHESTLEADS] Compared to ECG 03/10/2022 10:40:32 Low QRS voltage now present Preliminary EKG interpretation by ED Physician No ischemic changes Esperanza Rendon M.D. CRITICAL ALERT ISSUED ON 03-16-2022 12:36:08 ENT GRINDER us Sharon Sutherland PA ECG ORDERABLES Final Result [facility] RAD * XR CHEST PA+LAT (03/16/2022 10:47 AM PIGMENT GRINDER) Anatomical Region Laterality Modality Chest Radiographic Loyda ging 03/16/2022 10:5 4 AM PIGMENT GRINDER Impressions 03/16/2022 10:57 AM PIGMENT GRINDER IMPRESSION: No acute infiltrate or consolidation. Ordered By: SHARON SUTHERLAND Interpreted By: Khurram Mcneill, 03/16/2022 10:54 AM Narrative 03/16/2022 10:57 AM PIGMENT GRINDER IMAGING STUDIES: ??XR CHEST PA+LAT ?DATE: ??03/16/2022 10:47 AM HISTORY: ??cough ? 66-year-old female with shortness of breath today. Cough. COMPARISON: ??Chest portable 03/10/2022. CT abdomen and pelvis with contrast 09/03/2021. DISCUSSION: Upright PA and lateral views. Heart size within normal limits. No acute pulmonary vascular congestion. Aortic atherosclerotic calcification. Hyperinflated lungs. Bilateral pleural and parenchymal scarring in the upper chest/apices. No acute infiltrate, consolidation, effusion, or pneumothorax. Degenerative changes spine and shoulders. Rightward thoracic spinal curvature. Procedure Note Khurram Mcneill MD - 03/16/2022 IMAGING STUDIES: XR CHEST PA+LATDATE: 03/16/2022 10:47 AM HISTORY: cough 66-year-old female with shortness of breath today.Cough. COMPARISON: Chest portable 03/10/2022. CT abdomen and pelvis withcontrast 09/03/2021. DISCUSSION: Upright PA and lateral views. Heart size within normal limits. No acute pulmonary vascular congestion.Aortic atherosclerotic calcification. Hyperinflated lungs. Bilateral pleural and parenchymal scarring in theupper chest/apices. No acute infiltrate, consolidation, effusion, or pneumothorax. Degenerative changes spine and shoulders. Rightward thoracic spinalcurvature. IMPRESSION: No acute infiltrate or consolidation. Ordered By: SHARON SUTHERLAND Interpreted By: Khurram Mcneill, 03/16/2022 10:54 AM Sharon HEARN GENERAL IMAGING Final Result documented in this encounter Visit Diagnoses Diagnosis COVID-19- Primary documented in this encounter Additional Health Concerns Infection Onset Date Last Indicated Resolved Time COVID-19 Rule Out 03/16/2022 03/16/2022 03/16/2022 1:19 PM PIGMENT GRINDER COVID-19 Confirmed 03/16/2022 03/16/2022 12:32 AM PIGMENT GRINDER documented as of this encounter Care Teams Operations Professional Relationship Specialty Start Date End Date Kathryn James DO [address] [place] [address] PCP - General FAMILY PRACTICE 02/21/20 documented as of this encounter
--- OUTSIDE RECORDS SUMMARY | 2024-04-20 02:29 | XMS_ITS | Encounter Summary ---
Author Organization [facility] Address [address] [place] [address]. [place], [place] [address] [place] [address] Care Team Providers Care Strap Cutting Machine Operator Name Role Phone Rosie Bryant DO Primary Care Provider [phone] Encounter Details Date Type Department Care Team (Latest Contact Info) Description 11/19/2021 Travel Social History Tobacco Use Types Packs/Day [...] st Contact Info) Description 04/28/2024 2:40 PM STOCK TRANSFER CLERK Office Visit [facility] Medical Group Orthopedic & Sports Medicine - [place] [address] [place] [address] Jared Mejia MD [address] [place] [address] 05/20/2024 10:20 AM STOCK TRANSFER CLERK Office Visit [facility] Medical Group Multispecialty Care - [facility] 3 [facility], [address] [place] [address] Scarlet Mendoza MD 3 [facility] [address] 10/11/2024 10:00 AM CDT Office Visit [facility] THREE [facility], [address] [place] [address] Galdino Santos MD Three [facility]. [address] [place] [address] Lary Joel PA [address] [facility], [address] [place] [address] documented as of this encounter Visit Diagnoses Not on filedocumented in this encounter Care Teams Strap Cutting Machine Operator Relationship Specialty Start Date End Date Rosie Bryant DO [address] [place] [address] PCP - General FAMILY PRACTICE 02/21/20 documented as of this encounter
--- OUTSIDE RECORDS SUMMARY | 2024-04-20 02:29 | XMS_ITS | Encounter Summary ---
Author Organization [facility] Address [address] [place] [address]. [place], [place] [address] [place] [address] Care Team Providers Care Vehicle Service Agent Name Role Phone Rosie Bryant Primary Care Provider [phone] Encounter Details Date Type Department Care Team (Latest Contact Info) Description 03/08/2022 Travel Social History Tobacco Use Types Packs/Day [...] Coronavirus/COVID-19? No / Unsure 03/08/2022 11:27 AM COATING MACHINE OPERATOR HELPER documented as of this encounter Plan of Treatment Upcoming Encounters Date Type Department Care Team (Late st Contact Info) Description 04/28/2024 2:40 PM COATING MACHINE OPERATOR HELPER Office Visit [facility] Medical Group Orthopedic & Sports Medicine - [place] [place] [address] Jared Mejia MD [address] [place] [address] 05/20/2024 10:20 AM COATING MACHINE OPERATOR HELPER Office Visit [facility] Medical Group Multispecialty Care - [facility] 3 [facility], [address] [place] [address] Scarlet Mendoza MD 3 [place] [address] 10/11/2024 10:00 AM CDT Office Visit [facility] THREE [facility], [address] [place] [address] Galdino Santos MD Three [facility]. [address] [place] [address] Lary Joel PA 3 [facility], [address] [place] [address] documented as of this encounter Visit Diagnoses Not on filedocumented in this encounter Care Teams Vehicle Service Agent Relationship Specialty Start Date End Date Rosie Bryant DO [address] [place] [address] PCP - General FAMILY PRACTICE 02/21/20 documented as of this encounter
--- OUTSIDE RECORDS SUMMARY | 2024-04-20 02:29 | XMS_ITS | Encounter Summary ---
Author Organization [facility] Address [address] [place] [address]. [place], [place] [address] [place], [place] [id number] Care Team Providers Care Plate Stacker Name Role Phone Rosie Bryant Primary Care Provider [phone] Reason for Referral * Sleep Lab (Routine) - Closed Specialty Diagnoses / Procedures Referred By Meet machado Referred To Contact Diagnoses Insomnia Memory loss Procedures Home Sleep Study - WatchPat ([id number]/G0400) Chasity Phan MD Phone: tel: fax: Referral ID Status Reason Start Date Expiration Date Visits Re quested Visits Authorized [id number] Closed 03/25/2022 03/25/2023 1 1 BENDER HAND Reason for Visit * Sleep Lab (Routine) - Closed Specialty Diagnoses / Procedures Referred By Meet machado Referred To Contact Diagnoses Insomnia Memory loss Procedures Home Sleep Study - WatchPat (26227/G0400) Chasity Phan MD Phone: tel: fax: Referral ID Status Reason Start Date Expiration Date Visits Re quested Visits Authorized [id number] Closed 03/25/2022 03/25/2023 1 1 Encounter Details Date Type Department Care Team (Latest Contact Info) Description 04/04/2022 1:45 PM TUBE BENDER HAND - 04/04/2022 11:59 PM TUBE BENDER HAND Hospital Encounter [facility] [address] [place] [address] Chasity Phan MD 1 [place] [address] Discharge Disposition: Home or Self Care (Routine [...] Coronavirus/COVID-19? No / Unsure 04/04/2022 10:40 AM TUBE BENDER HAND documented as of this encounter Medications at [...] OR) Take 200 mg by mouth daily. [id number] OR Take 500 mg by mouth daily. 500mg AM. 1000mg PM MAGNESIUM OR Take 96 mg by mouth daily. Menaquinone-7 (VITAMIN K2 OR) Take by mouth 2 (two) times a day. Multiple Vitamin (MULTIVITAMIN IRON-FREE) Tab Take by mouth daily. HEAT SEAL OPERATOR THYROID 60 MG tablet Take 1 tablet (60 mg total) by mouth daily. 10/20/2020 vitamin C 1000 MG tablet Take 1 tablet (1,000 mg total) by mouth daily. documented as of this encounter Procedure Notes * Jacob [place] MD - 04/04/2022 2:00 PM CSTAssociated Order(s): HOME SLEEP STUDY - WATCHPAT [facility]???[facility] O???[place], [place] HOME SLEEP STUDY INTERPRETATION PATIENT NAME: Maria G Barrow DATE OF : 1955 DATE OF SERVICE: 04/05/2022 Ordering Phys. Exam Description Chasity Phan M.D. [...] Oxygen Saturation: Mean Heart Rate during Sleep: 89 67.0 bpm Assessment/Plan: Mild Obstructive Sleep Apnea. [place] treatment option should be discussed with the [...] should be cautioned about factors that may potentiallyexacerbate snoring and sleep-related problems, such as TRIM ATTACHER depressants, especially at bedtime. This document was electronically signed by: Jacob [place] M.D. on 04/10/2022 at 10:51 AM. BENDER HAND documented in this encounter Plan of Treatment Upcoming Encounters Date Type Department Care Team (Late st Contact Info) Description 04/28/2024 2:40 PM TUBE BENDER HAND Office Visit [facility] Orthopedic & Sports Medicine - [place] [address] [place] [address] Jared Mejia MD [address] [place] [address] 05/20/2024 10:20 AM TUBE BENDER HAND Office Visit [facility] Multispecialty Care - [facility] [address] [facility], [address] [place] [phone] Scarlet Mendoza MD 3 [place] [address] 10/11/2024 10:00 AM CDT Office Visit [facility] THREE [facility], [address] [place] [address] Galdino Santos MD Three [facility]. [address] [place] [address] Lary Joel PA [address] [facility], [address] [place] [address] documented as of this encounter Procedures Procedure Name Priority Date/Time Associated Diagnosis Comments HOME SLEEP STUDY - WATCHPAT Routine 04/04/2022 2:00 PM TUBE BENDER HAND Insomnia Memory loss documented in this encounter Results * Home Sleep Study - WatchPat ([id number]) (04/04/2022 2:00 PM TUBE BENDER HAND) Narrative [facility] - 04/04/2022 2:00 PM TUBE BENDER HAND Jacob Montgomery MD ? 04/11/2022 11:16 AM ??[facility] ??O? [place], [place] ?HOME SLEEP STUDY INTERPRETATION PATIENT NAME: Maria [...] bpm ?? Assessment/Plan: Mild Obstructive Sleep Apnea. [place] treatment option should be discussed with the [...] exacerbate snoring and sleep-related problems, such as TRIM ATTACHER depressants, especially at bedtime. This document was electronically signed by: Jacob [place] M.D. on 04/10/2022 at 10:51 AM. Chasity Phan MD SLEEP CENTER ORDERAB LES Final Result [facility] [address] [place] [address], [place] [phone] documented in this encounter Visit Diagnoses Diagnosis Insomnia Insomnia, unspecified Memory loss documented in this encounter Additional Health Concerns Infection Onset Date Last Indicated Resolved Time COVID-19 Confirmed 03/16/2022 03/16/2022 2 12:32 AM TUBE BENDER HAND documented as of this encounter Care Teams Plate Stacker Relationship Specialty Start Date End Date Rosie Bryant DO [address] [place] [address] PCP - General FAMILY PRACTICE 02/21/20 documented as of this encounter
--- OUTSIDE RECORDS SUMMARY | 2024-04-20 02:29 | XMS_ITS | Encounter Summary ---
Author Organization [facility] Address [address] [place] [address]. [place], [place] [address] [place] [address] Care Team Providers Care Pit Furnace Operator Name Role Phone Rosie Bryant Primary Care Provider [phone] Encounter Details Date Type Department Care Team (Latest Contact Info) Description 04/04/2022 Travel Social History Tobacco Use Types Packs/Day [...] Coronavirus/COVID-19? No / Unsure 04/04/2022 10:40 AM TRACK AND FIELD COACH documented as of this encounter Plan of Treatment Upcoming Encounters Date Type Department Care Team (Late st Contact Info) Description 04/28/2024 2:40 PM TRACK AND FIELD COACH Office Visit [facility] Medical Group Orthopedic & Sports Medicine - [place] [place] [address] Jared Mejia MD [address] [place] [address] 05/20/2024 10:20 AM TRACK AND FIELD COACH Office Visit [facility] Medical Group Multispecialty Care - [facility] 3 [facility], [address] [place] [address] Scarlet Mendoza MD 3 [place] [address] 10/11/2024 10:00 AM CDT Office Visit [facility] THREE [facility], [address] [place] [address] Galdino Santos MD Three [facility]. [address] [place] [address] Lary Joel PA 3 [facility], [address] [place] [address] documented as of this encounter Visit Diagnoses Not on filedocumented in this encounter Additional Health Concerns Infection Onset Date Last Indicated Resolved Time COVID-19 Confirmed 03/16/2022 03/16/2022 12:32 AM TRACK AND FIELD COACH documented as of this encounter Care Teams Pit Furnace Operator Relationship Specialty Start Date End Date Rosie Bryant DO [address] [place] [address] PCP - General FAMILY PRACTICE 02/21/20 documented as of this encounter
--- OUTSIDE RECORDS SUMMARY | 2024-04-20 02:29 | XMS_ITS | Encounter Summary ---
Author Organization [facility] Address [address] [place] [address]. [place], [place] [address] [place] [address] Care Team Providers Care Surveyor Helper Name Role Phone SymonemarivelRosie buchanan Jerson GUERRERO Primary Care Provider [phone] Reason for Referral * Consultation (Routine) - Closed Specialty Diagnoses / Procedures Referred By Meet machado Referred To Contact OTOLARYNGOLOGY Diagnoses ARTI (obstructive sleep apnea) Procedures OFFICE/OUTPT VISIT,NEW,LEVL III OFFICE/OUTPT VISIT,NEW,LEVL IV OFFICE/OUTPT VISIT,NEW,LEVL V OFFICE/OUTPT VISIT,EST,LEVL III OFFICE/OUTPT VISIT,EST,LEVL IV OFFICE/OUTPT VISIT,EST,LEVL V Sophia Phan MD Phone: tel: fax: [facility], [address] [address] Phone: tel: fax: Referral ID Status Reason Start Date Expiration Date Visits Re quested Visits Authorized [id number] Closed 04/18/2022 05/18/2023 99 99 NSED VETERINARY TECHNICIAN Reason for Visit * Reason Onset Date Comments Orders 04/18/2022 Encounter Details Date Type Department Care Team (Late st Contact Info) Description 04/18/2022 Telephone [facility] Medical Group Multispecialty Care - [facility] 3 [facility], [address] [place] [address] Sophia Phan MD 1 [place] [address] Orders Social History Tobacco Use Types Packs/Day Years [...] Coronavirus/COVID-19? No / Unsure 04/04/2022 10:40 AM LICENSED VETERINARY TECHNICIAN documented as of this encounter Progress Notes * Lilly Marte - 04/18/2022 2:31 PM CST Patient called today asking if there is anything reason for her to see the Dr for. Please call her to discuss. NSED VETERINARY TECHNICIAN * Sophia Phan MD - 04/18/2022 12:54 PM CSTAddended by: SOPHIA PORTILLO on: 04/18/2022 12:54 PM Modules accepted: Orders NSED VETERINARY TECHNICIAN * Sophia Phan MD - 04/18/2022 12:54 PM CST I will refer her to sleep medicine for further evaluation. They can discuss other options. NSED VETERINARY TECHNICIAN * Anatoliy Christianson LPN - 04/18/2022 11:04 AM CST Spoke with sfaff member from [facility] and she states per insurance patient does not meet the criteria for a CPAP machine. [facility] has contacted patient and patient is okay with not receiving the CPAP machine. NSED VETERINARY TECHNICIAN documented in this encounter Plan of Treatment Upcoming Encounters Date Type Department Care Team (Late st Contact Info) Description 04/28/2024 2:40 PM LICENSED VETERINARY TECHNICIAN Office Visit [facility] Medical Group Orthopedic & Sports Medicine - [place] [address] [place] [address] Jared Mejia MD [address] [place] [address] 05/20/2024 10:20 AM LICENSED VETERINARY TECHNICIAN Office Visit [facility] Multispecialty Care - [facility] 3 [facility], [address] [place] [address] Scarlet Mendoza MD 3 [place] [address] 10/11/2024 10:00 AM CDT Office Visit [facility] THREE [facility], [address] [place] [address] Galdino Santos MD Three [facility]. [address] [place] [address] Lary Joel PA 3 [facility], [address] [place] [address] Scheduled Referrals Name Type Priority Associated Diagnoses Orde r Schedule Ambulatory referral to ENT Referral Routine ARTI (obstructive sleep apnea) Ordered: 04/18/2022 documented as of this encounter Visit Diagnoses Diagnosis ARTI (obstructive sleep apnea)- Primary Obstructive sleep apnea (adult) (pediatric) documented in this encounter Care Teams Surveyor Helper Relationship Specialty Start Date End Date Rosie Bryant DO [address] [place] [address] PCP - General FAMILY PRACTICE 02/21/20 documented as of this encounter
--- OUTSIDE RECORDS SUMMARY | 2024-04-20 02:29 | XMS_ITS | Encounter Summary ---
Author Organization [facility] Address [address] [place] [address]. [place], [place] [address] [place] [address] Care Team Providers Care Blood Splatter Analyst Name Role Phone Rosie Bryant Primary Care Provider [phone] Encounter Details Date Type Department Care Team (Latest Contact Info) Description 03/16/2022 Travel Social History Tobacco Use Types Packs/Day [...] Coronavirus/COVID-19? No / Unsure 03/16/2022 10:19 AM MECHANICAL LABORATORY TECHNICIAN documented as of this encounter Plan of Treatment Upcoming Encounters Date Type Department Care Team (Late st Contact Info) Description 04/28/2024 2:40 PM MECHANICAL LABORATORY TECHNICIAN Office Visit [facility] Medical Group Orthopedic & Sports Medicine - [place] [place] [address] Jared Mejia MD [address] [place] [address] 05/20/2024 10:20 AM MECHANICAL LABORATORY TECHNICIAN Office Visit [facility] Medical Group Multispecialty Care - [facility] 3 [facility], [address] [place] [address] Scarlet Mendoza MD 3 [place] [address] 10/11/2024 10:00 AM CDT Office Visit [facility] THREE [facility], [address] [place] [address] Galdino Santos MD Three [facility]. [address] [place] [address] Lary Joel PA 3 [facility], [address] [place] [address] documented as of this encounter Visit Diagnoses Not on filedocumented in this encounter Additional Health Concerns Infection Onset Date Last Indicated Resolved Time COVID-19 Rule Out 03/16/2022 03/16/2022 03/16/2022 1:19 PM MECHANICAL LABORATORY TECHNICIAN COVID-19 Confirmed 03/16/2022 03/16/2022 12:32 AM MECHANICAL LABORATORY TECHNICIAN documented as of this encounter Care Teams Blood Splatter Analyst Relationship Specialty Start Date End Date Rosie Bryant DO [address] [place] [address] PCP - General FAMILY PRACTICE 02/21/20 documented as of this encounter
--- OUTSIDE RECORDS SUMMARY | 2024-04-20 02:29 | XMS_ITS | Encounter Summary ---
Author Organization [facility] Address [address] [place] [address]. [place], [place] [address] [place] [address] Care Team Providers Care Fuel Oil Truck Driver Name Role Phone Rosie Bryant Primary Care Provider Reason for Visit * Reason Onset Date Comments Results 08/27/2021 Encounter Details Date Type Department Care Team (Late st Contact Info) Description 08/27/[address] [facility] Medical Group Multispecialty Care - [facility] 3 [facility], [address] [place] [address] Chasity Phan MD 1 [place] [address] Results Social History Tobacco Use Types Packs/Day [...] suspected to have Coronavirus/COVID-19? No / Unsure 08/15/2021 12:38 PM CDT documented as of this encounter Progress Notes * Janey Fenton MA - 08/28/2021 1:45 PM CDT Spoke to pt and let her know of her results. She voiced understanding. * Janey Fenton MA - 08/27/2021 3:27 PM CDT ----- Message from Chasity Phan MD sent at 08/27/2021 1:53 PM CDT ----- Can you please let them know that their labs were within normal limits. We can discuss their results further when they return to their follow up visit. Please let me know if there are any questions. documented in this encounter Plan of Treatment Upcoming Encounters Date Type Department Care Team (Late st Contact Info) Description 04/28/2024 2:40 PM SKOOG OPERATOR Office Visit [facility] Medical Group Orthopedic & Sports Medicine - [place] [address] [place] [address] Jared Mejia MD [address] [place] [address] 05/20/2024 10:20 AM SKOOG OPERATOR Office Visit [facility] Multispecialty Care - [facility] 3 [facility], [address] [place] [address] Scarlet Mendoza MD 3 [place] [address] 10/11/2024 10:00 AM CDT Office Visit [facility] THREE [facility], [address] [place] [address] Galdino Santos MD Three [facility]. [address] [place] [address] Lary Joel PA 3 [facility], [address] [place], [place] [id number] documented as of this encounter Visit Diagnoses Not on filedocumented in this encounter Care Teams Fuel Oil Truck Driver Relationship Specialty Start Date End Date Rosie Bryant DO [address] [place] [address] PCP - General FAMILY PRACTICE 02/21/20 documented as of this encounter
--- OUTSIDE RECORDS SUMMARY | 2024-04-20 02:29 | XMS_ITS | Encounter Summary ---
Author Organization [facility] Address [address] [place] [address]. [place], [place] [id number] [place] [id number] Care Team Providers Care Wireless Communications Engineer Name Role Phone Kathryn James Primary Care Provider [phone] Reason for Visit * Reason Comments Ankle Pain Leg Pain Encounter Details Date Type Department Care Team (Late st Contact Info) Description 11/24/2021 12:48 PM CDT - 11/24/2021 4:01 PM CDT Emergency [facility] [place] [address] Bhavana Morse PA [address] [place] [address] [id number] Ankle Pain; Leg Pain Discharge Disposition: Home or Self Care [...] Sign Reading Time Taken Comments Blood Pressure 135/92 11/24/2021 11:26 AM CDT Pulse 80 11/24/2021 11:26 AM CDT Temperature 36.7 ??C (98.1 ??F) 11/24/2021 11:26 AM C DT Respiratory Rate 18 11/24/2021 11:26 AM CDT Oxygen Saturation 99% 11/24/2021 11:26 AM CDT Inhaled Oxygen Concentration - - Weight 85.3 kg (188 lb) 11/24/2021 11:26 AM CDT Height 180.3 cm (5' 11 ) 11/24/2021 11:26 AM CDT Body Mass Index 26.22 11/24/2021 11:26 AM CDT documented in this encounter Discharge Instructions * Discharge Instructions* DHIRAJ Anton - 11/24/2021 3:52 PM CDT Thank you for giving us the opportunity to care for you today. If at any point you are becoming more ill, please call your doctor or return here. You are always welcome back. Our practice is committed to providing you the very best in healthcare. We want to hear from you! Please fill out the survey you get from us. Your feedback is anonymous & helps us improve the patient experience for you and others in the community we serve. - JAYDEN Lynch, PARoseC - Emergency Medicine Provider ADDITIONAL DISCHARGE INSTRUCTIONS: --Emergency Departments (ED) provide medical screening exams [...] care by your primary care physician or healthcare network pricing consultant.Please mention to your follow-up physician that [...] such as many narcotic drug combinations and [id number] cold medicines. * Attachments The following attachments cannot be sent through Care Everywhere. * Muscle and Bone Pain Discharge Instructions (Estonian) documented in this encounter Medications at Time [...] by mouth daily. Alternates 2000 and 4000 [id number] OR Take 500 mg by mouth daily. 500mg AM. 1000mg PM MAGNESIUM OR Take 96 mg by mouth daily. Menaquinone-7 (VITAMIN K2 OR) Take by mouth 2 (two) times a day. PORT CAPTAIN THYROID 60 MG tablet Take 1 tablet (60 mg total) by mouth daily. 10/20/2020 vitamin C 1000 MG tablet Take 1 tablet (1,000 mg total) by mouth daily. ezetimibe 10 MG tablet Take 10 mg by mouth daily. 06/11/2021 2 documented as of this encounter ED Notes * Alexis Medina RN - 11/24/2021 4:00 PM CDT Provider discussed today's findings with the patient/family. The patient has been given informationregarding their treatment, follow up and concerning symptoms for which they should seek urgent or emergent attention. I have expressed the the importance of seeking attention should there be any new,or worsening symptoms or persistence of their condition. Patient verbalized understanding of the discharge instructions. * DHIRAJ Anton - 11/24/2021 11:21 AM CDT [place], [place] EMERGENCY DEPARTMENT ENCOUNTER HISTORICAL INFORMATION Primary Care Doctor: KATHRYN JAMES DO Patient information was obtained primarily from the patient, nursing notes. History/Exam limitations: None Provider at Bedside Date/Time Event User Comments 11/24/21 8383 Provider at Bedside Assessing Patient BHAVANA MORSE -- CHIEF COMPLAINT Ankle Pain and Leg Pain Chief Complaint Patient presents with ??? Ankle Pain ??? Leg Pain HPI Maria G Barrow is a 65-year-old female who presents with some mild pain to her right lateral ankle for the past 2 days which she states has now spread to her posterior lower calf. She denies any history of blood clots. Denies any injury. Ambulatory to the ER. No recent travel. Nonsmoker. Not on any hormonal medications. PAST MEDICAL HISTORY Past Medical History: Diagnosis Date ??? Disease of thyroid gland ??? Hyperlipemia ??? Hypertension SURGICAL HISTORY Past Surgical History: Procedure Laterality Date ??? TONSILLECTOMY CURRENT MEDICATIONS No current facility-administered medications for this encounter. Current Outpatient Medications: ??? 5-Hydroxytryptophan (5-HTP OR), Take by mouth daily., Disp: , Rfl: ??? amLODIPine 5 MG tablet, Take 5 mg by mouth daily. , Disp: , Rfl: ??? atenolol 50 MG tablet, Take 50 mg by mouth daily., Disp: , Rfl: ??? Cholecalciferol (VITAMIN D3) 50 MCG (1999) Cap, Take 4,000 Units by mouth daily., Disp: , Rfl: ??? ezetimibe 10 MG tablet, Take 10 mg by mouth daily., Disp: , Rfl: ??? [id number] OR, Take 500 mg by mouth daily., Disp: , Rfl: ??? Magnesium 80 MG Tab, , Disp: , Rfl: ??? Menaquinone-7 (VITAMIN K2 OR), , Disp: , Rfl: ??? PORT CAPTAIN THYROID 60 MG tablet, Take 60 mg by mouth daily., Disp: , Rfl: ??? vitamin C 1000 MG tablet, Take 1,000 mg by mouth daily., Disp: , Rfl: ALLERGIES Allergies Allergen Reactions ??? Symbicort [Budesonide-Formoterol Fumarate] Anaphylaxis ??? Acetaminophen Fatigue ??? Donepezil Other (see comment) htn ??? Erythromycin Diarrhea ??? Ezetimibe Memory Loss ??? Icosapent Ethyl Diarrhea ??? Macrobid [Nitrofurantoin] Chest pressure ??? Naproxen Other (see comment) Hot flashes, constipation, bruising ??? Statins Other (see comment) Intolerant ??? Topamax [Topiramate] Blurred vision ??? Ventolin [Albuterol] Shakiness ??? Cephalexin Rash FAMILY HISTORY No family history on file. SOCIAL HISTORY Social History Socioeconomic History ??? Marital status: Tobacco Use ??? Smoking status: Never Smoker ??? Smokeless tobacco: Never Used Substance and Sexual Activity ??? Alcohol use: Never ??? Drug use: Never REVIEW OF SYSTEMS Constitutional: Denies fever, chills, weight loss or weakness. Skin: Denies rash. HEENT: Denies sore throat or ear pain. Respiratory: Denies cough or shortness of breath. Cardiovascular: Denies chest pain, palpitations or swelling. GI: Denies abdominal pain, nausea, vomiting, or diarrhea. : Denies dysuria, urinary frequency. Musculoskeletal: +Lower leg pain. Denies back pain. Neurologic: Denies headache, focal weakness or sensory changes. Psychiatric: Denies depression, suicidal ideation or homicidal ideation. See HPI for further details. All systems negative except as marked. Physical Exam VITAL SIGNS: Filed Vitals: 11/24/21 1126 BP: (!) 135/92 Pulse: 80 Resp: 18 Temp: 98.1 ??F (36.7 ??C) TempSrc: Temporal SpO2: 99% Weight: 85.3 kg (188 lb) Height: 5' 11 (1.803 m) Constitutional: Well developed, No acute distress, Non-toxic appearance. Integument: Warm, Dry, No erythema, No rash. HEENT: Normocephalic, Atraumatic, Conjunctiva normal Neck- Normal range of motion, Supple Back- Normal range of motion, No gross abnormality Respiratory: Normal breath sounds, No respiratory distress. Cardiovascular: Normal heart rate, Normal rhythm Musculoskeletal: Right lateral posterior ankle with mild tenderness extending to the posterior lower aspect of the calf, sensation intact, no obvious swelling, ROM intact, ambulatory, distal pulse 2+ Neurologic: Alert & oriented x 3, No focal deficits noted. Psychiatric: Affect normal, Judgment normal, Mood normal. EKG (interpreted by ED provider) No results found for this visit on 11/24/21. LABORATORY Results for orders placed or performed during the hospital encounter of 11/24/21 CBC W/DIFF AUTOMATED Result Value Ref Range WBC 8.9 4.5 - 11.0 x10'3/uL RBC 4.29 4.20 - 5.40 x10'6/uL HGB 13.7 12.0 - 16.0 G/DL HCT 40.5 38.0 - 48.0 % MCV 94.4 81.0 - 99.0 FL MCH 31.9 (H) 27.0 - 31.0 PG MCHC 33.8 32.0 - 36.0 G/DL RDW 12.9 11.5 - 14.5 % PLT 318 130 - 400 x10'3/uL MPV 9.7 9.3 - 12.2 FL DIFFERENTIAL TYPE AUTOMATED DIFFERENTIAL NEUTROPHILS 58.1 % LYMPHOCYTES 30.1 % MONOCYTES 8.7 % EOSINOPHILS 2.3 % BASOPHILS 0.6 % IMMATURE GRANS 0.2 % ABS. NEUTROPHILS TOTAL 5.17 1.80 - 7.70 x10'3/uL ABS. LYMPHOCYTES 2.67 1.00 - 4.80 x10'3/uL ABS. MONOCYTES 0.77 0.24 - 0.86 x10'3/uL ABS. EOSINOPHILS 0.20 0.04 - 0.36 x10'3/uL ABS. BASOPHILS 0.05 0.01 - 0.08 x10'3/uL ABS. IMMATURE GRANULOCYTES 0.02 0.00 - 0.49 x10'3/uL COMPREHENSIVE METABOLIC PANEL Result Value Ref Range GLUCOSE 95 70 - 99 MG/DL BUN 15 7 - 18 MG/DL CREATININE S/P/B 0.66 0.55 - 1.02 MG/DL SODIUM 141 136 - 145 MMOL/L POTASSIUM 3.8 3.5 - 5.1 MMOL/L CHLORIDE S/P/B 108 100 - 108 MMOL/L CO2 27.7 21 - 32 MMOL/L CALCIUM 9.6 8.5 - 10.1 MG/DL BILIRUBIN TOTAL S/P/B 0.4 0.2 - 1.2 MG/DL TOTAL PROTEIN S/P/B 7.5 6.4 - 8.2 G/DL ALBUMIN S/P/B 3.7 3.4 - 5.0 G/DL AST 22 15 - 37 U/L ALT 25 14 - 55 U/L ALKALINE PHOSPHATASE S/P/B 97 50 - 136 U/L ANION GAP 5.3 5 - 15 MMOL/L BUN CREATININE RATIO 22.7 6 - 26 A/G RATIO 1.0 1.0 - 2.0 RATIO GFR ESTIMATE >90 >90 ML/MIN/1.73 M2 D-DIMER, QUANTITATIVE Result Value Ref Range D-DIMER 451 0 - 500 ng[FEU]/mL RADIOLOGY XR ANKLE RT M3V Final Result by User, [id number] (11/24 124) EXAMINATION: right ankle 3 views EXAM DATE/TIME: 11/24/2021 12:26 PM REASON FOR EXAM: pain COMPARISON: None TECHNIQUE: AP, oblique and lateral views of the right ankle were obtained. FINDINGS: No evidence of fracture, dislocation or gross bone destruction. No remarkable arthritic change. Spurring from the medial lateral malleoli are noted. Ankle mortise is maintained. The talar dome is smooth. Spurring the calcaneus is noted. Spurring the midfoot is seen. ===== IMPRESSION:===== No evidence of acute fracture. Osteoarthritis the ankle. Referred By: Interpreted By: Landon Mena MD, 11/24/2021 12:38 PM PROCEDURES Procedures MDM ED Course as of 11/24/21 1552 Sat Nov 24, 2021 1241 XR ankle: IMPRESSION:===== No evidence of acute fracture. Osteoarthritis the ankle. [HS] 1345 D-DIMER: 451 Low risk of DVT with normal DDimer. [HS] 1551 Vies patient of all findings of work-up. D-dimer within normal limits making DVT unlikely. Advised patient on the mild finding of x-ray on the ankle. Suspect symptoms are likely musculoskeletal in nature. Advised on symptomatic care. [HS] ED Course User Index [HS] DHIRAJ Anton I have discussed today's findings with the patient and provided information regarding the likely diagnosis. The patient has been given information regarding their treatment, follow up and concerning symptoms for which they should seek urgent or emergent attention. I have expressed the the importance of seeking attention should there be any new, or worsening symptoms or persistence of their condition. The patient is stable at discharge and has verbalized understanding of these instructions. Impression/Disposition SNOMED CT(R) 1. Right ankle pain ANKLE PAIN 2. Lower leg pain PAIN IN LOWER LIMB Disposition: Discharge Medications - No data to display Current Discharge Medication List DHIRAJ ANTON PA 11/24/211918 Cosigned by Jim De Souza MD at 11/24/2021 8:53 PM CDT * Chani Sprague RN - 11/24/2021 11:20 AM CDT Ambulates to triage c/o rt ankle ache 2 days ago. Reports pain radiating up her leg today. Deniesinjury. Denies. hx blood clots. documented in this encounter Plan of Treatment Upcoming Encounters Date Type Department Care Team (Late st Contact Info) Description 04/28/2024 2:40 PM CLAY PROCESSING FACTORY WORKER Office Visit [facility] Orthopedic & Sports Medicine - [place] [address] [place] [address] Jared Mejia MD [address] [place] [address] 05/20/2024 10:20 AM CLAY PROCESSING FACTORY WORKER Office Visit [facility] Multispecialty Care - [facility] [address] [facility], [address] [place] [id number] Scarlet Mendoza MD [address] [place] [address] 10/11/2024 10:00 AM CDT Office Visit [facility] [address] [facility], [address] [place] [address] Galdino Santos MD Three [facility]. [address] [place] [address] Lary Joel PA [address] [facility], [address] [place] [address] documented as of this encounter Procedures Procedure Name Priority Date/Time Associated Diagnosis Comments COMPREHENSIVE METABOLIC PANEL STAT 11/24/2021 1:07 PM CDT D-DIMER, QUANTITATIVE STAT 11/24/2021 1:07 PM CDT CBC W/DIFF AUTOMATED STAT 11/24/2021 1:07 PM CDT XR ANKLE RT M3V STAT 11/24/2021 12:26 PM CDT documented in this encounter Results * D-DIMER, QUANTITATIVE (11/24/2021 1:07 PM CDT) Pathologist [facility] D-DIMER 451 0 - 500 ng{FEU}/mL 11/24/2021 1:40 PM CDT [facility] Comment: D-Dimer values less than or [...] outcomes and no additional false negative findings. 11/24/2021 1:07 PM CDT us Bhavana [facility] Final Resul t [facility] [address] [place] [address], [place] [phone] * COMPREHENSIVE METABOLIC PANEL (11/24/2021 1:07 PM CDT) [facility] GLUCOSE 95 70 - 99 MG/DL 11/24/2021 1:43 PM CDT [facility] BUN 15 7 - 18 MG/DL 11/24/2021 1:43 PM CDT [facility] CREATININE S/P/B 0.66 0.55 - 1.02 MG/DL 11/24/2021 1:43 PM CDT [facility] SODIUM S/P/B 141 136 - 145 MMOL/L 11/24/2021 1:43 PM CDT [facility] POTASSIUM S/P/B 3.8 3.5 - 5.1 MMOL/L 11/24/2021 1:43 PM CDT [facility] CHLORIDE S/P/B 108 100 - 108 MMOL/L 11/24/2021 1:43 PM CDT [facility] CO2 27.7 21 - 32 MMOL/L 11/24/2021 1:43 PM CDT [facility] CALCIUM S/P/B 9.6 8.5 - 10.1 MG/DL 11/24/2021 1:43 PM CDT [facility] BILIRUBIN TOTAL S/P/B 0.4 0.2 - 1.2 MG/DL 11/24/2021 1:43 PM CDT [facility] Comment: THIS ASSAY IS NOT RECOMMENDED FOR PATIENTS UNDERGOING TREATMENT WITH ELTROMBOPAG DUE TO THE POTENTIAL FOR FALSELY ELEVATED RESULTS. TOTAL PROTEIN S/P/B 7.5 6.4 - 8.2 G/DL 11/24/2021 1:43 PM CDT [facility] ALBUMIN S/P/B 3.7 3.4 - 5.0 G/DL 11/24/2021 1:43 PM CDT [facility] AST 22 15 - 37 U/L 11/24/2021 1:43 PM T [facility] ALT 25 14 - 55 U/L 11/24/2021 1:43 PM T [facility] ALKALINE PHOSPHATASE S/P/B 97 50 - 136 U/L 11/24/2021 1:43 PM CDT [facility] ANION GAP 5.3 5 - 15 MMOL/L 11/24/2021 1:43 PM CDT [facility] BUN CREATININE RATIO 22.7 6 - 26 11/24/2021 1:43 PM T [facility] A/G RATIO 1.0 1.0 - 2.0 RATIO 11/24/2021 1:43 PM T [facility] GFR ESTIMATE >90 >90 ML/MIN/1.7 3 M2 11/24/2021 1:43 PM CDT [facility] Comment: NOTE: eGFR is not calculated for patients <18 years of age. This is an estimated GFR calculation using the new CKD EPI creatinine equation without race and so does not require a correction factor for race. This estimated GFR should not be used for calculating drug doses. 11/24/2021 1:07 PM CDT [facility]havana [facility] Final Resul t [facility] [address] [place] [address], [place] [phone] * (ABNORMAL) CBC W/DIFF AUTOMATED (11/24/2021 1:07 PM CDT) WBC 8.9 4.5 - 11.0 x10'3/uL 11/24/2021 1:22 PM CDT [facility] RBC 4.29 4.20 - 5.40 x10'6/uL 11/24/2021 1:22 PM CDT [facility] HGB 13.7 12.0 - 16.0 G/DL 11/24/2021 1:22 PM CDT [facility] HCT 40.5 38.0 - 48.0 % 11/24/2021 1:22 PM CDT [facility] MCV 94.4 81.0 - 99.0 FL 11/24/2021 1:22 PM CDT [facility] MCH 31.9(H) 27.0 - 31.0 PG 11/24/2021 1:22 PM CDT [facility] MCHC 33.8 32.0 - 36.0 G/DL 11/24/2021 1:22 PM CDT [facility] RDW 12.9 11.5 - 14.5 % 11/24/2021 1:22 PM CDT [facility] PLT 318 130 - 400 x10'3/uL 11/24/2021 1:22 PM CDT [facility] MPV 9.7 9.3 - 12.2 FL 11/24/2021 1:22 PM CDT [facility] DIFFERENTIAL TYPE AUTOMATED DIFFERENTIAL 11/24/2021 1:22 PM CDT [facility] NEUTROPHILS % 58.1 % 11/24/2021 1:22 PM CDT [facility] LYMPHOCYTES % 30.1 % 11/24/2021 1:22 PM CDT [facility] MONOCYTES % 8.7 % 11/24/2021 1:22 PM CDT [facility] EOSINOPHILS 2.3 % 11/24/2021 1:22 PM CDT [facility] BASOPHILS 0.6 % 11/24/2021 1:22 PM CDT [facility] IMMATURE GRANS % 0.2 % 11/25/19 1:22 PM CDT [facility] ABS. NEUTROPHILS TOTAL 5.17 1.80 - 7.70 x10'3/uL 11/24/2021 1:22 PM CDT [facility] ABS. LYMPHOCYTES 2.67 1.00 - 4.80 x10'3/uL 11/24/2021 1:22 PM CDT [facility] ABS. MONOCYTES 0.77 0.24 - 0.86 x10'3/uL 11/24/2021 1:22 PM CDT [facility] ABS. EOSINOPHILS 0.20 0.04 - 0.36 x10'3/uL 11/24/2021 1:22 PM CDT [facility] ABS. BASOPHILS 0.05 0.01 - 0.08 x10'3/uL 11/24/2021 1:22 PM CDT [facility] ABS. IMMATURE GRANULOCYTES 0.02 0.00 - 0.49 x10'3/uL 11/24/2021 1:22 PM CDT [facility] 11/24/2021 1:07 PM CDT [facility] Final Resul t [facility] [address] [place] [address], [place] [phone] * XR ANKLE RT M3V (11/24/2021 12:26 PM CDT) Anatomical Region Laterality Modality Ankle Radiographic Loyda ging 11/24/2021 12:3 8 PM CDT Impressions 11/24/2021 12:39 PM CDT IMPRESSION:===== ?? No evidence of acute fracture. Osteoarthritis the ankle. Referred By: ?? Interpreted By: Landon Mena MD, 11/24/2021 12:38 PM Narrative 11/24/2021 12:39 PM CDT EXAMINATION: right ankle 3 views EXAM DATE/TIME: 11/24/2021 12:26 PM REASON FOR EXAM: ??pain ?? COMPARISON: None TECHNIQUE: AP, oblique and lateral views of the right ankle were obtained. FINDINGS: No evidence of fracture, dislocation or gross bone destruction. No remarkable arthritic change. Spurring from the medial lateral malleoli are noted. ??Ankle mortise is maintained. ??The talar dome is smooth. ??Spurring the calcaneus is noted. ??Spurring the midfoot is seen. ===== Procedure Note Landon Mena MD - 11/24/2021 EXAMINATION: right ankle 3 views EXAM DATE/TIME: 11/24/2021 12:26 PM REASON FOR EXAM: pain COMPARISON: None TECHNIQUE: AP, oblique and lateral views of the right ankle wereobtained. FINDINGS: No evidence of fracture, dislocation or gross bone destruction.No remarkable arthritic change. Spurring from the medial lateral malleoli are noted. Ankle mortise ismaintained. The talar dome is smooth. Spurring the calcaneus is noted.Spurring the midfoot is seen. ===== IMPRESSION:===== No evidence of acute fracture. Osteoarthritis the ankle. Referred By: Interpreted By: Landon Mena MD, 11/24/2021 12:38 PM us [facility] Final Resul t documented in this encounter Visit Diagnoses Diagnosis Right ankle pain- Primary Pain in joint, ankle and foot Lower leg pain Pain in limb documented in this encounter Care Teams Wireless Communications Engineer Relationship Specialty Start Date End Date Kathryn James DO [address] [place] [address] PCP - General FAMILY PRACTICE 02/21/20 documented as of this encounter
--- OUTSIDE RECORDS SUMMARY | 2024-04-20 02:29 | XMS_ITS | Encounter Summary ---
Author Organization [facility] Address [address] [place] [address]. [place], [place] [address] [place] [address] Care Team Providers Care Drywall Stripper Name Role Phone Rosie Bryant Primary Care Provider [phone] Encounter Details Date Type Department Care Team (Latest Contact Info) Description 03/10/2022 Travel Social History Tobacco Use Types Packs/Day [...] suspected to have Coronavirus/COVID-19? No / Unsure 03/10/2022 8:49 AM GATE GUARD documented as of this encounter Plan of Treatment Upcoming Encounters Date Type Department Care Team (Late st Contact Info) Description 04/28/2024 2:40 PM GATE GUARD Office Visit [facility] Orthopedic & Sports Medicine - [place] [address] Jared Mejia MD [address] [place] [address] 05/20/2024 10:20 AM GATE GUARD Office Visit [facility] Multispecialty Care - [facility] [address] [facility], [address] [place] [address] Scarlet Mendoza MD [address] [place] [address] 10/11/2024 10:00 AM CDT Office Visit [facility] [facility], [address] [place] [address] Galdino Santos MD Three [facility]. [address] [place] [address] Lary Joel PA [address] [facility], [address] [place] [address] documented as of this encounter Visit Diagnoses Not on filedocumented in this encounter Care Teams Drywall Stripper Relationship Specialty Start Date End Date Rosie Bryant DO [address] [place] [address] PCP - General FAMILY PRACTICE 02/21/20 documented as of this encounter
--- OUTSIDE RECORDS SUMMARY | 2024-04-20 02:29 | XMS_ITS | Encounter Summary ---
Author Organization [facility] Address [address] [place] [address]. [place], [place] [id number] [place] [address] Care Team Providers Care Elementary Instructional Coach Name Role Phone Rosie Bryant DO Primary Care Provider [phone] Encounter Details Date Type Department Care Team (Latest Contact Info) Description 08/15/2021 Travel Social History Tobacco Use Types Packs/Day [...] PM CDT documented as of this encounter Plan of Treatment Upcoming Encounters Date Type Department Care Team (Late st Contact Info) Description 04/28/2024 2:40 PM FORMSTONE FITTER Office Visit [facility] Orthopedic & Sports Medicine - [place] [address] [place] [address] Jared Mejia MD [address] [place] [address] 05/20/2024 10:20 AM FORMSTONE FITTER Office Visit [facility] Multispecialty Care - [facility] [address] [facility], [address] [place] [address] Scarlet Mendoza MD 3 [facility] [place] [address] 10/11/2024 10:00 AM CDT Office Visit [facility] [address] [facility], [address] [place] [address] Galdino Santos MD Three [facility]. [address] [place] [address] Lary Joel PA [address] [facility], [address] [place] [address] documented as of this encounter Visit Diagnoses Not on filedocumented in this encounter Care Teams Elementary Instructional Coach Relationship Specialty Start Date End Date Rosie Bryant DO [address] [place] [address] PCP - General FAMILY PRACTICE 02/21/20 documented as of this encounter
--- OUTSIDE RECORDS SUMMARY | 2024-04-20 02:29 | XMS_ITS | Encounter Summary ---
Author Organization [facility] Address [address] [place] [address]. [place], [place] [address] [place] [address] Care Team Providers Care Action Installer Name Role Phone Rosie Bryant DO Primary Care Provider [phone] Encounter Details Date Type Department Care Team (Late st Contact Info) Description 08/22/2021 Orders Only [facility] Medical Group Multispecialty Care - [facility] [address] [facility], [address] [place] [id number] Chasity Phan MD 1 [place] [address] Social History Tobacco Use Types Packs/Day Years [...] as of this encounter Progress Notes * Chasity Phan MD - 08/27/2021 1:53 PM CDT Can you please let them know that their labs were within normal limits. We can discuss their results further when they return to their follow up visit. Please let me know if there are any questions. documented in this encounter Plan of Treatment Upcoming Encounters Date Type Department Care Team (Late st Contact Info) Description 04/28/2024 2:40 PM DESKTOP SUPPORT ENGINEER Office Visit [facility] & [facility] Medicine - [place] [address] [place] [address] Jared Mejia MD [address] [place] [address] 05/20/2024 10:20 AM DESKTOP SUPPORT ENGINEER Office Visit [facility] Multispecialty Care - [facility] [address] [facility], [address] [place] [id number] Scarlet Mendoza MD [address] [place] [address] 10/11/2024 10:00 AM CDT Office Visit [facility] THREE [facility], [address] [place] [address] Galdino Santos MD Three [facility]. [address] [place], [place] [address] Lary Joel PA [address] [facility], [address] [place], [place] [address] documented as of this encounter Procedures Procedure Name Priority Date/Time Associated Diagnosis Comments VITAMIN B-12 Routine 08/22/2021 10:11 AM CDT FOLIC ACID SERUM Routine 08/22/2021 10:1 1 AM CDT VITAMIN E Routine 08/22/2021 10:11 AM CDT VITAMIN B6 Routine 08/22/2021 10:11 AM CDT COPPER Routine 08/22/2021 10:11 AM CDT documented in this encounter Results * COPPER (08/22/2021 10:11 AM CDT) COPPER S/P/B 113 70 - 175 mcg/dL [facility] Comment: This test was developed and its analytical performance characteristics have been determined by [employer]. It has not been cleared or approved by the FDA. This assay has been validated pursuant to the CLIA regulations and is used for clinical purposes. 08/22/2021 10:1 1 AM CDT 08/22/2021 10:11 AM CDT Chasity Phan MD LABORATORY Breanna l Result [facility] [address] [place] [address] * (ABNORMAL) VITAMIN B6 (08/22/2021 10:11 AM CDT) VITAMIN B6 S/P/B 69.8(H) 2.1 - 21.7 ng/mL [facility] Comment: Vitamin supplementation within 24 hours prior to blood draw may affect the accuracy of results. This test was developed and its analytical performance characteristics have been determined by [employer]. It has not been cleared or approved by the FDA. This assay has been validated pursuant to the CLIA regulations and is used for clinical purposes. 08/22/2021 10:1 1 AM CDT 08/22/2021 10:11 AM CDT Chasity Phan MD LABORATORY Breanna l Result Performing Organization Address [facility] Co de Phone Number [facility] [address] [place] [address] * VITAMIN E (08/22/2021 10:11 AM CDT) VITAMIN E (ALPHA-TOCOPHEROL) S/P/B 15.3 5.7 - 19.9 mg/L [facility]N tom [facility] Comment:See Note 1 VITAMIN E (GAMMA-TOCOPHEROL) S/P/B 1.6 <4.4 mg/L [facility]N kayceemarion Gan Comment: Vitamin E is used as an antioxidant and influences immune function. It helps to protect cell membranes from damaging oxidative stress. A clinical deficiency of vitamin E may cause motor and sensory neuropathy in adults. One likely cause of vitamin E deficiency is intestinal malabsorption, resulting from bowel disease, pancreatic disease, or chronic cholestasis. Other causes of malabsorption of vitamin E include celiac disease, cystic fibrosis, and intestinal lymphangiectasia. For more information, visit https://ods.od.nih.gov/factsheets/VitaminE -HealthProfessional/ See Note 1 Note 1 This test was developed and its analytical performance characteristics have been determined by [employer]. It has not been cleared or approved by the FDA. This assay has been validated pursuant to the CLIA regulations and is used for clinical purposes. 08/22/2021 10:1 1 AM CDT 08/22/2021 10:11 AM CDT Chasity Phan MD LABORATORY Breanna l Result Performing Organization Address City/[facility]/ZIP Co de Phone Number [facility] [address] [place] [address] * (ABNORMAL) VITAMIN B-12 (08/22/2021 10:11 AM CDT) VITAMIN B12 S/P/B 1,309(H) 200 - 1,100 pg/mL [facility] 08/22/2021 10:1 1 AM CDT 08/22/2021 10:11 AM CDT Chasity Phan MD LABORATORY Breanna l Result Performing Organization Address City/[facility]/ZIP Co de Phone Number [facility] [address] [place] [address] * FOLIC ACID SERUM (08/22/2021 10:11 AM CDT) FOLATE 23.1 ng/mL [facility] Comment: ? Reference Range ? Low: ? <3.4 ? Borderline: ?3.4-5.4 ? Normal: ?>5.4 08/22/2021 10:1 1 AM CDT 08/22/2021 10:11 AM CDT Chasity Phan MD LABORATORY Breanna l Result Performing Organization Address [facility] Co de Phone Number [facility] [address] [place] [address] documented in this encounter Visit Diagnoses Not on filedocumented in this encounter Care Teams Action Installer Relationship Specialty Start Date End Date Rosie Bryant DO [address] [place] [address] PCP - General FAMILY PRACTICE 02/21/20 documented as of this encounter
--- OUTSIDE RECORDS SUMMARY | 2024-04-20 02:29 | XMS_ITS | Encounter Summary ---
Author Organization [facility] Address [address] [place] [address]. [place], [place] [address] [place] [address] Care Team Providers Care Hoof And Shoe Inspector Name Role Phone Rosie Bryant DO Primary Care Provider [phone] Encounter Details Date Type Department Care Team (Latest Contact Info) Description 01/28/2022 Scan HEALTH INFO SRVCS Scanned, Doc Med [...] st Contact Info) Description 04/28/2024 2:40 PM VOCATIONAL TECHNICAL EDUCATION DIRECTOR Office Visit [facility] Medical Group Orthopedic & Sports Medicine - [place] [address] [place] [address] Jared Mejia MD [address] [place] [address] 05/20/2024 10:20 AM VOCATIONAL TECHNICAL EDUCATION DIRECTOR Office Visit [facility] Medical Group Multispecialty Care - [facility] [address] [facility], [address] [place] [address] Scarlet Mendoza MD 3 [facility] [place] [place] [address] 10/11/2024 10:00 AM CDT Office Visit [facility] THREE [facility], [address] [place] [address] Galdino Santos MD Three [facility]. [address] [place], [place] [id number] Lary Joel PA [address] [facility], [address] [place], [place] [address] documented as of this encounter Visit Diagnoses Not on filedocumented in this encounter Care Teams Hoof And Shoe Inspector Relationship Specialty Start Date End Date Rosie Bryant DO [address] [place] [address] PCP - General FAMILY PRACTICE 02/21/20 documented as of this encounter
--- OUTSIDE RECORDS SUMMARY | 2024-04-20 02:29 | XMS_ITS | Encounter Summary ---
Author Organization [facility] Address [address] [place] [address]. [place], [place] [address] [place] [address] Care Team Providers Care Sports Development Officer Name Role Phone Rosie Bryant DO Primary Care Provider [phone] Encounter Details Date Type Department Care Team (Latest Contact Info) Description 02/21/2020 Travel Social History Tobacco Use Types Packs/Day [...] COVID-19? No / Unsure 02/21/2020 5:01 PM BARK PEELER documented as of this encounter Plan of Treatment Upcoming Encounters Date Type Department Care Team (Late st Contact Info) Description 04/28/2024 2:40 PM BARK PEELER Office Visit [facility] Medical Group Orthopedic & Sports Medicine - [place] [address] [place] [address] Jared Mejia MD [address] [place] [address] 05/20/2024 10:20 AM BARK PEELER Office Visit [facility] Medical Group Multispecialty Care - [facility] [address] [facility], [address] [place] [address] Scarlet Mendoza MD [address] [facility] [place] [address] 10/11/2024 10:00 AM CDT Office Visit [facility] THREE [facility], [address] [place], [place] [address] Galdino Santos MD Three [facility]. [address] [place], [place] [address] Lary Joel PA [address] [facility], [address] [place] [address] documented as of this encounter Visit Diagnoses Not on filedocumented in this encounter Care Teams Sports Development Officer Relationship Specialty Start Date End Date Rosie Bryant DO [address] [place] [address] PCP - General FAMILY PRACTICE 02/21/20 documented as of this encounter
--- OUTSIDE RECORDS SUMMARY | 2024-04-20 02:29 | XMS_ITS | Encounter Summary ---
Author Organization [facility] Address [address] [place] [address]. [place], [place] [address] [place] [address] Care Team Providers Care Consultant Technology Name Role Phone Rosie Bryant Primary Care Provider [phone] Reason for Visit * Reason Onset Date Comments Error 09/20/2021 Encounter Details Date Type Department Care Team (Late st Contact Info) Description 09/20/2021 Telephone [facility] Medical [facility] Multispecialty Care - [facility] [address] [facility], [address] [place] [address] Chasity Phan MD 1 [place] [address] Error Social History Tobacco Use Types Packs/Day Years [...] suspected to have Coronavirus/COVID-19? No / Unsure 09/07/2021 5:37 PM CDT documented as of this encounter Plan of Treatment Upcoming Encounters Date Type Department Care Team (Late st Contact Info) Description 04/28/2024 2:40 PM CHIEF SERVICE DISPATCHER Office Visit [facility] Orthopedic & Sports Medicine - [place] [address] [place] [address] Jared Mejia MD [address] [place] [address] 05/20/2024 10:20 AM CHIEF SERVICE DISPATCHER Office Visit [facility] Multispecialty Care - [facility] [address] [facility], [address] [place] [address] Scarlet Mendoza MD 3 [place] [address] 10/11/2024 10:00 AM CDT Office Visit [facility] THREE [facility], [address] [place] [address] Galdino Santos MD Three [facility]. [address] [place] [address] Lary Joel PA [address] [facility], [address] [place] [address] documented as of this encounter Visit Diagnoses Not on filedocumented in this encounter Care Teams Consultant Technology Relationship Specialty Start Date End Date Rosie Bryant DO [address] [place] [address] PCP - General FAMILY PRACTICE 02/21/20 documented as of this encounter
--- OUTSIDE RECORDS SUMMARY | 2024-04-20 02:29 | XMS_ITS | Encounter Summary ---
Author Organization [facility] Address [address] [place] [address]. [place], [place] [id number] [place] [id number] Care Team Providers Care Manager Government Name Role Phone Rosie Bryant Primary Care Provider [phone] Reason for Referral * Imaging (Emergency) - Closed Specialty Diagnoses / Procedures Referred By Meet t Referred To Contact RADIOLOGY Procedures CT ABD+PEL W IV CON ONLY Marifer Madden SCRAPPER Phone: tel: fax: Referral ID Status Reason Start Date Expiration Date Visits Re quested Visits Authorized [id number] Closed 09/03/2021 10/04/2022 1 1 Reason for Visit * Reason Comments Diarrhea Encounter Details Date Type Department Care Team (Late st Contact Info) Description 09/03/2021 9:13 PM CDT - 09/04/2021 1:13 AM CDT Emergency [facility] [place] [address] Mauricio Morales MD [address] [place] [address] Diarrhea Discharge Disposition: Home or Self Care (Routine [...] suspected to have Coronavirus/COVID-19? No / Unsure 09/03/2021 7:05 PM CDT documented as of this encounter Last Filed Vital Signs Vital Sign Reading Time Taken Comments Blood Pressure 151/81 09/04/2021 12:30 AM CDT Pulse 89 09/03/2021 7:35 PM CDT Temperature 37.1 ??C (98.8 ??F) 09/03/2021 7:35 PM CD T Respiratory Rate 20 09/03/2021 7:35 PM CDT Oxygen Saturation 99% 09/04/2021 12:30 AM CDT Inhaled Oxygen Concentration - - Weight 84.8 kg (187 lb) 09/03/2021 7:35 PM CDT Height 180.3 cm (5' 11 ) 09/03/2021 7:35 PM CDT Body Mass Index 26.08 09/03/2021 7:35 PM CDT documented in this encounter Discharge Instructions * Discharge Instructions* Mauricio Morales MD - 09/04/2021 12:55 AM CDT Please follow a clear liquid diet (see attached instructions) for 3 days. After that, please reintroduce solid foods with a diet of bananas, rice, applesauce, and toast (known as the BRAT diet) for 3days. If at the end of this 6-day period you are still experiencing significant nausea, vomiting, and/or diarrhea, please return to the emergency department for further evaluation. Emergency Departments (ED) provide medical screening exams and initial stabilizing treatment of emergency medical conditions. Medicine is an inexact science and many conditions cannot be diagnosed orcompletely treated during a single ED visit. Your treating healthcare provider(s) today feel your condition has been stabilized so further care as an outpatient is reasonable. Emergency care does notsubstitute for complete, ongoing, or follow-up care by your primary care physician or ibm websphere commerce consultant. Your medication list was reviewed prior to treatment, [...] such as many narcotic drug combinations and lxuo-xxx-ghzalkc cold medicines. Your feedback is important to us. Please fill out the survey you will get in the mail. We need yourinput to give you the best care possible! With your feedback we??ll know where we need to focus ourefforts to provide very good service to our patients! * Attachments The following attachments cannot be sent through Care Everywhere. * Clear Liquid Diet (Palestinian) * Nausea and Vomiting Discharge Instructions, Adult (Palestinian) * Diarrhea, Adult ED (Palestinian) documented in this encounter Medications at Time of Discharge 5-Hydroxytryptophan (5-HTP OR) Take 200 mg by mouth daily. amLODIPine 5 MG tablet Take 1 tablet (5 mg total) by mouth daily. 08/11/2021 atenolol 50 MG tablet Take 1 tablet (50 mg total) by mouth daily. 07/23/2021 Cholecalciferol (VITAMIN D3) 50 MCG (2000 UT) Cap Take 4,000 Units by mouth daily. Alternates 2000 and 4000 [id number] OR Take 500 mg by mouth daily. 500mg AM. 1000mg PM MAGNESIUM OR Take 96 mg by mouth daily. Menaquinone-7 (VITAMIN K2 OR) Take by mouth 2 (two) times a day. SCRAPPER THYROID 60 MG tablet Take 1 tablet (60 mg total) by mouth daily. 10/20/2020 vitamin C 1000 MG tablet Take 1 tablet (1,000 mg total) by mouth daily. bismuth subsalicylate (PEPTO-BISMOL MAX ST) 525 MG/15ML Suspension suspension Take 30 mLs by mouth every 6 (six) hours as needed (Abdominal cramping and/or diarrhea). 960 mL 09/04/2021 2 ezetimibe 10 MG tablet Take 10 mg by mouth daily. 06/11/2021 2 loperamide 2 MG capsule Take 1 capsule (2 mg total) by mouth 4 (four) times daily as needed for Diarrhea. 30 capsule 09/04/2021 2 ondansetron 4 MG disintegrating tablet Take 1 tablet (4 mg total) by mouth every 4 (four) hours as needed for Nausea. 20 tablet 09/04/2021 2 documented as of this encounter ED Notes * Delilah Quinn RN - 09/04/2021 1:01 AM CDT Provider discussed today's findings with the patient/family. The patient has been given informationregarding their treatment, follow up and concerning symptoms for which they should seek urgent or emergent attention. I have expressed the importance of seeking attention should there be any new, or w orsening symptoms or persistence of their condition. Patient verbalized understanding of the discharge instructions. * Mauricio Morales MD - 09/04/2021 12:40 AM CDT Chief Complaint Chief Complaint Patient presents with ??? Diarrhea History of Present Illness Chief complaint: Diarrhea Narrative: The patient is a very pleasant 65-year-old female examined in the emergency department. Reports multiple episodes of diarrhea today. Reports 1 episode of emesis as well. States she has been unable to drink fluids d/t having diarrhea immediatly after. Onset: Today Palliative factors: None identified Provoking factors: PO intake Quality: As described above Radiation: None identied Severity: Moderate Time course: Intermittent Medical History ALLERGIES: Allergies Allergen Reactions ??? [...] Start Date End Date Taking? Authorizing Provider bismuth subsalicylate (PEPTO-BISMOL MAX ST) 525 MG/15ML Suspension suspension Take 30 mLs by mouth every 6 (six) hours as needed (Abdominal cramping and/or diarrhea). 09/04/21 Yes Mauricio Morales MD loperamide 2 MG capsule Take 1 capsule (2 mg total) by mouth 4 (four) times daily as needed for Diarrhea. 09/04/21 09/14/21 Yes Mauricio Morales MD ondansetron 4 MG disintegrating tablet Take 1 tablet (4 mg total) by mouth every 4 (four) hours as needed for Nausea. 09/04/21 Yes Mauricio Morales MD 5-Hydroxytryptophan (5-HTP OR) Take by mouth daily. Doc Abstract amLODIPine 5 MG tablet Take 5 mg by mouth daily. 08/11/21 Doc Abstract atenolol 50 MG tablet Take 50 mg by mouth daily. 07/23/21 Doc Abstract Cholecalciferol (VITAMIN D3) 50 MCG (2000 UT) Cap Take 4,000 Units by mouth daily. Doc Abstract ezetimibe 10 MG tablet Take 10 mg by mouth daily. 06/11/21 Doc Abstract [id number] OR Take 500 mg by mouth daily. Doc Abstract Magnesium 80 MG Tab Doc Abstract Menaquinone-7 (VITAMIN K2 OR) Doc Abstract SCRAPPER THYROID 60 MG tablet Take 60 mg by mouth daily. 10/20/20 Doc Abstract vitamin C 1000 MG tablet Take 1,000 mg by mouth daily. Doc Abstract PAST MEDICAL HISTORY: Past Medical History: [...] Never Review of Systems Review of Systems REVIEW OF SYSTEMS: The patient denies fevers, chills, or sweats. Reports nausea, vomiting, and diarrhea. Denies abdominal pain or constipation. Denies chest pain, shortness of breath, dyspnea on exertion, or palpitations. Denies headache, loss of consciousness, or seizures. Denies dysuria or hematuria. Ten systems reviewed and negative except as described above or in the HPI. Physical Exam Vital 24 Hour Range Most Recent Value Temperature Temp Min: 98.8 ??F (37.1 ??C) Max: 98.8 ??F (37.1 ??C) 98.8 ??F (37.1 ??C) Pulse Pulse Min: 89 Max: 89 89 Respiratory Resp Min: 20 Max: 20 20 Blood Pressure BP Min: 141/75 Max: 167/77 (!) 151/81 Pulse Oximetry SpO2 Min: 99 % Max: 100 % 99 % O2 No data recorded Vital Most Recent Value First Value Weight 84.8 kg (187 lb) Weight: 84.8 kg (187 lb) Height 5' 11 (180.3 cm) Height: 5' 11 (180.3 cm) BMI (!) 26.08 N/A Physical Exam VITALS: Reviewed GENERAL: The patient is a very pleasant 65-year-old female examined in the Emergency Department. Patient is in moderate acute distress at the time of my exam. EYES: Pupils are PERRL. Eyes focus and track. Sclerae are nonicteric and not injected. HENT: Normocephalic, atraumatic. The face is symmetric, round, and fully expressive. Hearing is adequate to conversational voice. Ears are without discharge. Nares are grossly patent, and also without discharge. Mucous membranes are dry. NECK: No JVD, tracheal deviation, or subcutaneous emphysema is noted. RESPIRATIONS: No respiratory distress. Pt is breathing easily, speaking in complete sentences. ABDOMEN: The patient denies any abdominal pain. Her abdomen is soft, nontender, and nondistended. No masses, bruits, or hepatosplenomegaly noted. EXTREMITIES: No clubbing, cyanosis, edema, or evidence of trauma is noted. NEURO: No gross focal neuro deficits are appreciated. GCS = 15. No seizure activity is noted in theemergency department. PSYCHIATRIC: The patient's mood, affect and interaction are appropriate to setting. SKIN: Normal color, temperature, and turgor noted throughout. Diagnostic Studies / Procedures ELECTROCARDIOGRAMS: No results found for this visit on 09/03/21. LABORATORY STUDIES: Results for orders placed or performed during the hospital encounter of 09/03/21 CBC W/DIFF AUTOMATED Result Value Ref Range WBC 11.9 (H) 4.5 - 11.0 x10'3/uL RBC 4.52 4.20 - 5.40 x10'6/uL HGB 14.3 12.0 - 16.0 G/DL HCT 43.0 38.0 - 48.0 % MCV 95.1 81.0 - 99.0 FL MCH 31.6 (H) 27.0 - 31.0 PG MCHC 33.3 32.0 - 36.0 G/DL RDW 12.5 11.5 - 14.5 % PLT 328 130 - 400 x10'3/uL MPV 9.5 9.3 - 12.2 FL DIFFERENTIAL TYPE AUTOMATED DIFFERENTIAL NEUTROPHILS 91.5 % LYMPHOCYTES 5.1 % MONOCYTES 2.6 % EOSINOPHILS 0.0 % BASOPHILS 0.3 % IMMATURE GRANS 0.5 % ABS. NEUTROPHILS TOTAL 10.85 (H) 1.80 - 7.70 x10'3/uL ABS. LYMPHOCYTES 0.61 (L) 1.00 - 4.80 x10'3/uL ABS. MONOCYTES 0.31 0.24 - 0.86 x10'3/uL ABS. EOSINOPHILS 0.00 (L) 0.04 - 0.36 x10'3/uL ABS. BASOPHILS 0.03 0.01 - 0.08 x10'3/uL ABS. IMMATURE GRANULOCYTES 0.06 0.00 - 0.49 x10'3/uL COMPREHENSIVE METABOLIC PANEL Result Value Ref Range GLUCOSE 130 (H) 70 - 99 MG/DL BUN 16 7 - 18 MG/DL CREATININE S/P/B 0.82 0.55 - 1.02 MG/DL SODIUM 138 136 - 145 MMOL/L POTASSIUM 4.1 3.5 - 5.1 MMOL/L CHLORIDE S/P/B 106 100 - 108 MMOL/L CO2 28.0 21 - 32 MMOL/L CALCIUM 9.5 8.5 - 10.1 MG/DL BILIRUBIN TOTAL S/P/B 0.9 0.2 - 1.2 MG/DL TOTAL PROTEIN S/P/B 7.8 6.4 - 8.2 G/DL ALBUMIN S/P/B 3.7 3.4 - 5.0 G/DL AST 24 15 - 37 U/L ALT 29 14 - 55 U/L ALKALINE PHOSPHATASE S/P/B 101 50 - 136 U/L ANION GAP 4.0 (L) 5 - 15 MMOL/L BUN CREATININE RATIO 19.4 6 - 26 A/G RATIO 0.9 (L) 1.0 - 2.0 RATIO GFR ESTIMATE 78 (L) >90 ML/MIN/1.73 M2 LIPASE Result Value Ref Range LIPASE 53 (L) 73 - 393 UNITS/L LACTIC ACID Result Value Ref Range LACTIC ACID 1.4 0.4 - 2.0 MMOL/L IMAGING STUDIES: CT ABD+PEL W IV CON ONLY Final Result by User, [id number] (09/03 2328) EXAMINATION: CT ABDOMEN AND PELVIS WITH CONTRAST HISTORY: Non-bloody diarrhea with episode of vomiting. COMPARISON: None Available. TECHNIQUE: 3 mm axial images were obtained through the abdomen and pelvis following the administration of 100 MLS of ISOVUE-370 intravenous contrast through an existing IV line. Additional sagittal & coronal reconstructions were performed. FINDINGS: ABDOMEN: Imaging of the lung bases demonstrates no airspace consolidation or effusions. Liver: Normal in size and CT density. No masses. Spleen: Normal size and CT density. Pancreas: Normal size and CT density. No duct dilatation. No masses. Adrenal Glands: Normal in size and CT density. No masses. Gallbladder and bile ducts: Wall thickening. A 1.1 cm calcified intraluminal stone. No duct dilatation. Kidneys: Normal shape, size and position. No right or left hydronephrosis. Symmetric perfusion. No masses. Aorta: Patent. Normal in caliber. IVC: Patent. Normal in caliber. GI Tract: Small hiatal hernia. No small bowel obstruction. No intraperitoneal or retroperitoneal adenopathy or hematoma. No ascites or pneumoperitoneum is seen. PELVIS: Colon: Normal in caliber and appearance without focal inflammatory changes. Appendix: Normal. Urinary Bladder: Well distended. Uterus & Adnexa: Unremarkable. No pelvic free fluid, hematoma, mass or adenopathy. BONES: Moderate lumbar spondylosis. No distinct destructive bony lesions. IMPRESSION: 1. Cholelithiasis and gallbladder wall thickening. 2. No bowel obstruction or acute appendicitis. 3. No acute obstructive uropathy. A radiation dose lowering technique was used for this procedure, which may include, but is not limited to, dose reduction technique, automated exposure control, the use of iterative reconstruction, ALARA (As Low As Reasonably Achievable) techniques, and Image Gently techniques. Referred By: Interpreted By: Jennifer Ren MD, 09/03/2021 11:23 PM [employer]-based Incentive Payment System (MIPS) Quality Measure/Emergency Medicine Qualified Clinical Data Registry (E-CPR) Data: Not applicable ED Course / Medical Decision Making I estimate there is LOW risk for ACUTE APPENDICITIS, BOWEL OBSTRUCTION, CHOLECYSTITIS, DIVERTICULITIS, INCARCERATED HERNIA, MESENTERIC ISCHEMIA, PANCREATITIS, or PERFORATED BOWEL or ULCER, thus I consider the discharge disposition reasonable. Also, there is no evidence or peritonitis, sepsis, or toxicity. We have discussed the diagnosis and risks, and we agree with discharging home to follow-up with their primary doctor. We also discussed returning to the Emergency Department immediately if newor worsening symptoms occur. We have discussed the symptoms which are most concerning (e.g., bloody stool, fever, changing or worsening pain, vomiting) that necessitate immediate return. The patient is instructed in use of a clear liquid diet for 3 days to be followed and TRY diet for 3 days after that. She is referred to primary care. She is given symptom relief medications. Clinical Impression Nausea, vomiting, and diarrhea (Primary) Disposition: Discharge I dictated portions of this note using Gigmax speech recognition software. Occasional wrong word or sound-alike substitutions may have occurred due to the inherent limitations of voice recognition software. Please read the chart carefully and recognize, using context, where the substitutions may have occurred. If there are any questions, please contact me via [employer] or other HIPAA compliant communication medium for clarification. I, Kristy Grubbs, acting as a scribe, am personally taking down the notes in the presence of Dr.Howard Gume Morales MD. Take no action on this note until reviewed and authenticated by the physician. Mauricio Morales MD 09/04/21 0058 * Marifer Madden NP - 09/03/2021 7:35 PM CDT [place], [place] EMERGENCY DEPARTMENT ENCOUNTER Medical Screening Examination 09/03/21 7:35 PM Chief Complaint : Diarrhea HPI : Maria G Barrow is a 65-year-old female who presents diarrhea about 10 times today , non bloody, no abd pain , has IBS- C. Vomited x 1. Has diarrhea when she tries to drink water. Feels weak. Vital Signs: There were no vitals filed for this visit. Physical exam: A brief physical exam was completed to facilitate/expedite patient care. Amos findings include: alert, vs stable. Plan: Labs & Imaging was ordered to facilitate patient care. Marifer Madden NP 09/03/21 193 Cosigned by Dieter Ibarra MD,PHD at 09/04/2021 5:20 PM CDT * Erin Carlin RN - 09/03/2021 7:34 PM CDT To triage with complaint of diarrhea that started this morning. Denies any other symptoms. documented in this encounter Plan of Treatment Upcoming Encounters Date Type Department Care Team (Late st Contact Info) Description 04/28/2024 2:40 PM [employer] Office Visit [facility] Orthopedic [facility] Sports Medicine - [place] [address] [place] [address] Jared Mejia MD [address] [place] [address] 05/20/2024 10:20 AM [employer] Office Visit [facility] Multispecialty Care - [facility] [address] [facility], [address] [place] [address] Scarlet Mendoza MD [address] [facility] [place] [address] 10/11/2024 10:00 AM CDT Office Visit [facility] [facility], [address] [place] [address] Galdino Santos MD [address] [facility]. [address] [place] [address] Lary Joel PA [address] [facility], [address] [place] [address] documented as of this encounter Procedures Procedure Name Priority Date/Time Associated Diagnosis Comments CT ABD+PEL W CON STAT 09/03/2021 10:5 1 PM CDT COMPREHENSIVE METABOLIC PANEL STAT 09/03/2021 10:04 PM CDT LACTIC ACID TIMED 09/03/2021 10:04 PM CDT CBC W/DIFF AUTOMATED STAT 09/03/2021 10:04 PM CDT LIPASE STAT 09/03/2021 10:04 PM CDT documented in this encounter Results * CT ABD+PEL W IV CON ONLY (09/03/2021 10:51 PM CDT) Anatomical Region Laterality Modality Abdomen Computed Tomogra phy 09/03/2021 11:2 3 PM CDT Impressions 09/03/2021 11:28 PM CDT IMPRESSION: 1. Cholelithiasis and gallbladder wall thickening. 2. No bowel obstruction or acute appendicitis. 3. No acute obstructive uropathy. A radiation dose lowering technique was used for this procedure, which may include, but is not limited to, dose reduction technique, automated exposure control, the use of iterative reconstruction, ALARA (As Low As Reasonably Achievable) techniques, and Image Gently techniques. Referred By: ?? Interpreted By: Jennifer Ren MD, 09/03/2021 11:23 PM Narrative 09/03/2021 11:28 PM CDT EXAMINATION: CT ABDOMEN AND PELVIS WITH CONTRAST HISTORY: Non-bloody diarrhea with episode of vomiting. COMPARISON: None Available. TECHNIQUE: 3 mm axial images were obtained through the abdomen and pelvis following the administration of 100 MLS of ISOVUE-370 intravenous contrast through an existing IV line. Additional sagittal & coronal reconstructions were performed. FINDINGS: ABDOMEN: Imaging of the lung bases demonstrates no airspace consolidation or effusions. Liver: Normal in size and CT density. No masses. Spleen: Normal size and CT density. Pancreas: Normal size and CT density. No duct dilatation. No masses. Adrenal Glands: Normal in size and CT density. No masses. Gallbladder and bile ducts: Wall thickening. ??A 1.1 cm calcified intraluminal stone. No duct dilatation. Kidneys: Normal shape, size and position. No right or left hydronephrosis. Symmetric perfusion. No masses. Aorta: Patent. Normal in caliber. IVC: Patent. Normal in caliber. ?? GI Tract: Small hiatal hernia. No small bowel obstruction. No intraperitoneal ??or retroperitoneal adenopathy or hematoma. No ascites or pneumoperitoneum is seen. PELVIS: Colon: Normal in caliber and appearance without focal inflammatory changes. Appendix: Normal. Urinary Bladder: Well distended. Uterus & Adnexa: Unremarkable. No pelvic free fluid, hematoma, mass or adenopathy. BONES: Moderate lumbar spondylosis. No distinct destructive bony lesions. Procedure Note Sushant Ren MD - 09/03/2021 EXAMINATION: CT ABDOMEN AND PELVIS WITH CONTRAST HISTORY: Non-bloody diarrhea with episode of vomiting. COMPARISON: None Available. TECHNIQUE: 3 mm axial images were obtained through the abdomen and pelvis followingthe administration of 100 MLS of ISOVUE-370 intravenous contrast throughan existing IV line. Additional sagittal & coronal reconstructions wereperformed. FINDINGS: ABDOMEN: Imaging of the lung bases demonstrates no airspace consolidation oreffusions. Liver: Normal in size and CT density. No masses. Spleen: Normal size and CT density. Pancreas: Normal size and CT density. No duct dilatation. No masses. Adrenal Glands: Normal in size and CT density. No masses. Gallbladder and bile ducts: Wall thickening. A 1.1 cm calcifiedintraluminal stone. No duct dilatation. Kidneys: Normal shape, size and position. No right or left hydronephrosis.Symmetric perfusion. No masses. Aorta: Patent. Normal in caliber. IVC: Patent. Normal in caliber. GI Tract: Small hiatal hernia. No small bowel obstruction. No intraperitoneal or retroperitoneal adenopathy or hematoma. No ascites or pneumoperitoneum is seen. PELVIS: Colon: Normal in caliber and appearance without focal inflammatorychanges. Appendix: Normal. Urinary Bladder: Well distended. Uterus & Adnexa: Unremarkable. No pelvic free fluid, hematoma, mass or adenopathy. BONES: Moderate lumbar spondylosis. No distinct destructive bony lesions. IMPRESSION: 1. Cholelithiasis and gallbladder wall thickening. 2. No bowel obstruction or acute appendicitis. 3. No acute obstructive uropathy. A radiation dose lowering technique was used for this procedure, which mayinclude, but is not limited to, dose reduction technique, automatedexposure control, the use of iterative reconstruction, ALARA (As Low AsReasonably Achievable) techniques, and Image Gently techniques. Referred By: Interpreted By: Jennifer Ren MD, 09/03/2021 11:23 PM [address] Final Result * LACTIC ACID (09/03/2021 10:04 PM CDT) LACTIC ACID VENOUS 1.4 0.4 - 2.0 MMOL/L 09/03/2021 10:41 PM CDT [facility] 09/03/2021 10:0 4 PM CDT Marifer Madden SCRAPPER LABORATORY Final Result [facility] [address] [place] [address], [place] [phone] * (ABNORMAL) LIPASE (09/03/2021 10:04 PM CDT) Pathologist [facility] Emergency Department LIPASE 53(L) 73 - 393 UNITS/L 09/03/2021 10:39 PM CDT [facility] 09/03/2021 10:0 4 PM CDT Marifer Madden SCRAPPER LABORATORY Final Result Performing Organization Address City/[facility]/ZIP Co de Phone Number [facility] [address] [place] [address], [place] [phone] * (ABNORMAL) COMPREHENSIVE METABOLIC PANEL (09/03/2021 10:04 PM CDT) GLUCOSE 130(H) 70 - 99 MG/DL 09/03/2021 10:39 PM CDT [facility] BUN 16 7 - 18 MG/DL 09/03/2021 10:39 PM CDT [facility] CREATININE S/P/B 0.82 0.55 - 1.02 MG/DL 09/03/2021 10:39 PM CDT [facility] SODIUM S/P/B 138 136 - 145 MMOL/L 09/03/2021 10:39 PM CDT [facility] POTASSIUM S/P/B 4.1 3.5 - 5.1 MMOL/L 09/03/2021 10:39 PM CDT [facility] CHLORIDE S/P/B 106 100 - 108 MMOL/L 09/03/2021 10:39 PM CDT [facility] CO2 28.0 21 - 32 MMOL/L 09/03/2021 10:39 PM T [facility] CALCIUM S/P/B 9.5 8.5 - 10.1 MG/DL 09/03/2021 10:39 PM CDT [facility] BILIRUBIN TOTAL S/P/B 0.9 0.2 - 1.2 MG/DL 09/03/2021 10:39 PM T [facility] Comment: THIS ASSAY IS NOT RECOMMENDED FOR PATIENTS UNDERGOING TREATMENT WITH ELTROMBOPAG DUE TO THE POTENTIAL FOR FALSELY ELEVATED RESULTS. TOTAL PROTEIN S/P/B 7.8 6.4 - 8.2 G/DL 09/03/2021 10:39 PM CDT [facility] ALBUMIN S/P/B 3.7 3.4 - 5.0 G/DL 09/03/2021 10:39 PM T [facility] AST 24 15 - 37 U/L 09/03/2021 10:39 PM CDT [facility] ALT 29 14 - 55 U/L 09/03/2021 10:39 PM T [facility] ALKALINE PHOSPHATASE S/P/B 101 50 - 136 U/L 09/03/2021 10:39 PM T [facility] ANION GAP 4.0(L) 5 - 15 MMOL/L 09/03/2021 10:39 PM T [facility] BUN CREATININE RATIO 19.4 6 - 26 09/03/2021 10:39 PM T [facility] A/G RATIO 0.9(L) 1.0 - 2.0 RATIO 09/03/2021 10:39 PM CDT [facility] GFR ESTIMATE 78(L) >90 ML/MIN/1.7 3 M2 09/03/2021 10:39 PM CDT [facility] Comment: NOTE: eGFR is not calculated for patients <18 years of age. This is an estimated GFR calculation using the new CKD EPI creatinine equation without race and so does not require a correction factor for race. This estimated GFR should not be used for calculating drug doses. 09/03/2021 10:0 4 PM CDT us Marifer Madden NP LABORATORY Final Result [facility] [address] [place] [address], [place] [phone] * (ABNORMAL) CBC W/DIFF AUTOMATED (09/03/2021 10:04 PM CDT) WBC 11.9(H) 4.5 - 11.0 x10'3/uL 09/03/2021 10:24 PM CDT [facility] RBC 4.52 4.20 - 5.40 x10'6/uL 09/03/2021 10:24 PM CDT [facility] HGB 14.3 12.0 - 16.0 G/DL 09/03/2021 10:24 PM CDT [facility] HCT 43.0 38.0 - 48.0 % 09/03/2021 10:24 PM CDT [facility] MCV 95.1 81.0 - 99.0 FL 09/03/2021 10:24 PM CDT [facility] MCH 31.6(H) 27.0 - 31.0 PG 09/03/2021 10:24 PM CDT [facility] MCHC 33.3 32.0 - 36.0 G/DL 09/03/2021 10:24 PM CDT [facility] RDW 12.5 11.5 - 14.5 % 09/03/2021 10:24 PM CDT [facility] PLT 328 130 - 400 x10'3/uL 09/03/2021 10:24 PM CDT [facility] MPV 9.5 9.3 - 12.2 FL 09/03/2021 10:24 PM CDT [facility] DIFFERENTIAL TYPE AUTOMATED DIFFERENTIAL 09/03/2021 10:24 PM CDT [facility] NEUTROPHILS % 91.5 % 09/03/2021 10:24 PM CDT [facility] LYMPHOCYTES % 5.1 % 09/03/2021 10:24 PM CDT [facility] MONOCYTES % 2.6 % 09/03/2021 10:24 PM CDT [facility] EOSINOPHILS 0.0 % 09/03/2021 10:24 PM CDT [facility] BASOPHILS 0.3 % 09/03/2021 10:24 PM CDT [facility] IMMATURE GRANS % 0.5 % 09/04/19 10:24 PM CDT [facility] ABS. NEUTROPHILS TOTAL 10.85(H) 1.80 - 7.70 x10'3/uL 09/03/2021 10:24 PM CDT [facility] ABS. LYMPHOCYTES 0.61(L) 1.00 - 4.80 x10'3/uL 09/03/2021 10:24 PM CDT [facility] ABS. MONOCYTES 0.31 0.24 - 0.86 x10'3/uL 09/03/2021 10:24 PM CDT [facility] ABS. EOSINOPHILS 0.00(L) 0.04 - 0.36 x10'3/uL 09/03/2021 10:24 PM CDT [facility] ABS. BASOPHILS 0.03 0.01 - 0.08 x10'3/uL 09/03/2021 10:24 PM CDT [facility] ABS. IMMATURE GRANULOCYTES 0.06 0.00 - 0.49 x10'3/uL 09/03/2021 10:24 PM CDT [facility] 09/03/2021 10:0 4 PM CDT us Marifer Madden NP LABORATORY Final Result [facility] [address] [place] [address], [place] [phone] documented in this encounter Visit Diagnoses Diagnosis Nausea, vomiting, and diarrhea- Primary Nausea with vomiting documented in this encounter Administered Medications Inactive Administered Medications - up to 3 most recent administrations Medication Order MAR Action Action Date Dose Rate Site iopamidol (ISOVUE-370) 76 % injection 100 mL 100 mL, Intravenous, IMG once as needed, Contrast, 1 dose, Starting on Fri09/03/21 at 2243, Until Fri09/03/21 at 2251 Given 09/03/2021 10:51 PM CDT 100 mLs L eft Arm ondansetron (ZOFRAN) injection 4 mg 4 mg, Intravenous, Once, 1 dose, On Fri09/03/21 at 1945, IV push over 2-5 minutes. Given 09/03/2021 10:25 PM CDT 4 mg sodium chloride 0.9% bolus infusion SOLN 1,000 mL 1,000 mL, Intravenous, Administer over 15 Minutes, Once, 1 dose, On Fri09/03/21 at 1945 New Bag 09/03/2021 10:26 PM CDT 1,000 mLs documented in this encounter Active and Recently Administered Medications Times are shown in CDT. Scheduled Medication Order 09/02/2021 09/03/2021 09/04/2021 ondansetron (ZOFRAN) injection 4 mg (COMPLETED) 4 mg, Intravenous, Once, 1 dose, On Fri09/03/21 at 1945, IV push over 2-5 minutes. 2225 (Given - Provider: Jennifer Dueñas, NAHUN) sodium chloride 0.9% bolus infusion SOLN 1,000 mL (COMPLETED) 1,000 mL, Intravenous, Administer over 15 Minutes, Once, 1 dose, On Fri09/03/21 at 1945 2226 (New Bag - Provider: Jennifer Dueñas, NAHUN) 0056 (Infusion Stop Time - Provider: Delilah Quinn RN) PRN Medication Order 09/02/2021 09/03/2021 09/04/2021 iopamidol (ISOVUE-370) 76 % injection 100 mL (COMPLETED) 100 mL, Intravenous, IMG once as needed, Contrast, 1 dose, Starting on Fri09/03/21 at 2243, Until Fri09/03/21 at 2251 2251 (Given - Provider: Janie Duff RTR) documented in this encounter Care Teams Manager Government Relationship Specialty Start Date End Date Rosie Bryant DO [address] [place] [address] PCP - General FAMILY PRACTICE 02/21/20 documented as of this encounter
--- OUTSIDE RECORDS SUMMARY | 2024-04-20 02:29 | XMS_ITS | Encounter Summary ---
Author Organization [facility] Address [address] [place] [address]. [place], [place] [id number] [place] [id number] Care Team Providers Care Template Cutter Name Role Phone Kathryn Jaems Primary Care Provider [phone] Reason for Visit * Reason Comments Chest Pain Encounter Details Date Type Department Care Team (Late st Contact Info) Description 03/10/2022 8:49 AM REVENUE STAMPER - 03/10/2022 1:24 PM REVENUE STAMPER Emergency [facility] [place] [address] Romie Weems PA [address] [place] [address] Chest Pain Discharge Disposition: Home or Self [...] Coronavirus/COVID-19? No / Unsure 03/10/2022 8:49 AM REVENUE STAMPER documented as of this encounter Last Filed Vital Signs Vital Sign Reading Time Taken Comments Blood Pressure 165/81 03/10/2022 12:48 PM REVENUE STAMPER Pulse 91 03/10/2022 12:48 PM REVENUE STAMPER Temperature 36.8 ??C (98.2 ??F) 03/10/2022 12:[address] Respiratory Rate 24 03/10/2022 12:48 PM REVENUE STAMPER Oxygen Saturation 99% 03/10/2022 12:48 PM REVENUE STAMPER Inhaled Oxygen Concentration - - Weight 87.1 kg (192 lb) 03/10/2022 8:57 AM REVENUE STAMPER Height 180.3 cm (5' 11 ) 03/10/2022 8:57 AM REVENUE STAMPER Body Mass Index 26.78 03/10/2022 8:57 AM REVENUE STAMPER documented in this encounter Discharge Instructions * Discharge Instructions* DHIRAJ Layton - 03/10/2022 1:12 PM REVENUE STAMPER Take baby aspirin (81mg) daily. Return to the ER if symptoms return, worsen or changes. You should receive a call from cardiology on Friday for setup for follow up appointment. If you haven't heard from them by Friday - call them. Your blood pressure is also high today, this may be anxiety or not feeling well but follow up with your doctor to make sure this has resolved. NUE STAMPER * Attachments The following attachments cannot be sent through Care Everywhere. * Chest Pain (Maldivian) documented in this encounter Medications at Time [...] by mouth daily. Alternates 2000 and 4000 [id number] OR Take 500 mg by mouth daily. 500mg AM. 1000mg PM MAGNESIUM OR Take 96 mg by mouth daily. Menaquinone-7 (VITAMIN K2 OR) Take by mouth 2 (two) times a day. CAT SCAN TECHNOLOGIST THYROID 60 MG tablet Take 1 tablet (60 mg total) by mouth daily. 10/20/2020 vitamin C 1000 MG tablet Take 1 tablet (1,000 mg total) by mouth daily. ezetimibe 10 MG tablet Take 10 mg by mouth daily. 06/11/2021 2 documented as of this encounter ED Notes * DHIRAJ Layton - 03/10/2022 9:17 AM CST [place], [place] EMERGENCY DEPARTMENT ENCOUNTER HISTORICAL INFORMATION Primary Care Doctor: KATHRYN JAMES DO Patient information was obtained primarily from the patient, nursing notes History/Exam limitations: None Provider at Bedside Date/Time Event User Comments 03/10/22 8669 Provider at Bedside Assessing Patient ROMIE WEEMS -- CHIEF COMPLAINT Chest Pain HPI Maria G Barrow is a 66-year-old female who presents with chest achiness since 2am this morning.Pt states she was already up with insomnia this morning around 2am when she developed chest achiness in center of her chest. Pt states pain has persisted but been intermittent since that time. No sob. No alleviating or exacerbating factors. Pt states she is pain free currently. Pt denies CAD or [place] history - has family hx (father, brother) of CAD. PAST MEDICAL HISTORY Past Medical History: Diagnosis Date ??? Disease of thyroid gland ??? Hyperlipemia ??? Hypertension Negative unless otherwise noted SURGICAL HISTORY Past Surgical History: Procedure Laterality Date ??? TONSILLECTOMY Negative unless otherwise noted CURRENT MEDICATIONS No current facility-administered medications for this encounter. Current Outpatient Medications: ??? 5-Hydroxytryptophan (5-HTP OR), Take by mouth daily., Disp: , Rfl: ??? amLODIPine 5 MG tablet, Take 5 mg by mouth daily. , Disp: , Rfl: ??? atenolol 50 MG tablet, Take 50 mg by mouth daily., Disp: , Rfl: ??? Cholecalciferol (VITAMIN D3) 50 MCG (1999 UT) Cap, Take 4,000 Units by mouth daily., Disp: , Rfl: ??? ezetimibe 10 MG tablet, Take 10 mg by mouth daily., Disp: , Rfl: ??? [id number] OR, Take 500 mg by mouth daily., Disp: , Rfl: ??? Magnesium 80 MG Tab, , Disp: , Rfl: ??? Menaquinone-7 (VITAMIN K2 OR), , Disp: , Rfl: ??? CAT SCAN TECHNOLOGIST THYROID 60 MG tablet, Take 60 mg [...] FAMILY HISTORY No family history on file. Negative unless otherwise noted SOCIAL HISTORY Social History Socioeconomic History ??? Marital status: Tobacco Use ??? Smoking status: Never ??? Smokeless tobacco: Never Vaping Use ??? Vaping Use: Never used Substance and Sexual Activity ??? Alcohol use: Never ??? Drug use: Never Negative unless otherwise noted REVIEW OF SYSTEMS Review of Systems Respiratory: Negative for cough and shortness of breath. Cardiovascular: Positive for chest pain. All other systems reviewed and negative PHYSICAL EXAM VITAL SIGNS: Filed Vitals: 03/10/22 0857 03/10/22 1248 BP: (!) 156/71 (!) 165/81 Pulse: 97 91 Resp: 20 24 Temp: 99.1 ??F (37.3 ??C) 98.2 ??F (36.8 ??C) TempSrc: Oral Oral SpO2: 99% 99% Weight: 87.1 kg (192 lb) Height: 5' 11 (1.803 m) Constitutional: Well developed, Well nourished, No acute distress, Non-toxic appearance. HENT: Normocephalic, Atraumatic, Bilateral external ears normal, Oropharynx moist, No oral exudates, Nose normal. Eyes: PERRL, EOMI, Conjunctiva normal, No discharge. Neck- Normal range of motion, No tenderness, Supple, No stridor. Respiratory: Normal breath sounds, No respiratory distress. Cardiovascular: Normal heart rate, Normal rhythm, no chest wall tenderness GI: Bowel sounds normal, Soft, No tenderness, No masses, No pulsatile masses. Musculoskeletal: Intact distal pulses, No edema, No tenderness, No cyanosis, No clubbing. Good range of motion in all major joints. No tenderness to palpation or major deformities noted. Back- No tenderness. Integument: Warm, Dry, No erythema, No rash. Lymphatic: No lymphadenopathy noted. Neurologic: Alert & oriented x 3, Normal motor function, Normal sensory function, No focal deficits noted. Psychiatric: Affect normal, Judgment normal, Mood normal. Pulse Oximetry Interpretation Saturation: 99% Oxygen Delivery: room air Interpretation: normal Results for orders placed or performed during the hospital encounter of 03/10/22 ECG 12 lead Narrative [facility] [address] Test Date: 2022-03-10 Pat Name: MARIA G BARROW Department: Room: [facility] Gender: Female Project Controls Scheduler: : 1955 Requested By: ANTHONY RAE Order Number: [id number] Reading MD: Galdino Santos Measurements Intervals [place] Rate: 93 P: 55 FL: 169 QRS: 50 QRSD: 80 T: 52 QT: 326 QTc: 407 Interpretive Statements SINUS RHYTHM LOW QRS VOLTAGE IN PRECORDIAL LEADS [QRS DEFLECTION < 1.0 mV IN CHEST LEADS] No previous ECG available for comparison Other ischemic changes, not STEMI Romie Weems PA-C NUE STAMPER ECG 12 lead Narrative [facility] [place] Test Date: 2022-03-10 Pat Name: MARIA G BARROW Department: 41 Room: [facility] Gender: Female Project Controls Scheduler: CORDELIA : 1955 Requested By: ANTHONY RAE Order Number: [id number] Reading MD: Measurements Intervals [place] Rate: 87 P: 42 FL: 175 QRS: 39 QRSD: 86 T: 50 QT: 355 QTc: 428 Interpretive Statements SINUS RHYTHM Compared to ECG 03/10/2022 08:54:13 No significant changes DDX: The differential diagnosis for chest pain includes: ACS, Aortic dissection, Pneumothorax, Pulmonary Embolus, Myopericarditis, Esophageal perforation, GI etiology (GERD, gastritis, PUD), Pneumonia, Musculoskeletal. RISK FACTOR ASSESSMENT FOR CP Cardiac Risk Factors were considered in this patient: no Known Hx Diabetes + Known Hx Hypercholesterolemia + Known Hx Hypertension + Known Family history of coronary artery disease or sudden cardiac no Known Hx smoking no Known Hx of Illicit drug use HEART SCORE (reviewed) History: score Slightly suspicious - 0 Moderately suspicious - +1 Highly suspicious - +2 0 EKG: Normal 0 Non-specific repolarization +[address] depression +2 0 Age: <45 0 45-64 +1 >65 +2 2 Risk Factors: No known risk factors 0 1-2 risk factors +1 >3 risk factors or hx of Arthrosclerotic disease +2 1 Initial Troponin Normal limit 0 1-2x normal limit +1 2x normal limit +2 0 Total score = 3 Thoracic Aortic Dissection Risk Factors: no Sudden, severe pain. no Pain described as tearing or ripping . no Pain radiating to back or migrating to abdomen. no Chest pain + neurologic deficit. no Known longstanding high blood pressure. no Known atherosclerosis. no Known . no Known chest injury. no Known cocaine use. no Known heart surgery. no Known bicuspid aortic valve . no Known Marfans, Cleve-Danlos syndrome, Pham's. no Family history of aortic dissection. Pertinent Labs: Results for orders placed or performed during the hospital encounter of 03/10/22 CBC W/DIFF AUTOMATED Result Value Ref Range WBC 7.0 4.5 - 11.0 x10'3/uL RBC 4.38 4.20 - 5.40 x10'6/uL HGB 14.0 12.0 - 16.0 G/DL HCT 42.9 38.0 - 48.0 % MCV 97.9 81.0 - 99.0 FL MCH 32.0 (H) 27.0 - 31.0 PG MCHC 32.6 32.0 - 36.0 G/DL RDW 12.9 11.5 - 14.5 % PLT 279 130 - 400 x10'3/uL MPV 9.8 9.3 - 12.2 FL DIFFERENTIAL TYPE AUTOMATED DIFFERENTIAL NEUTROPHILS 73.9 % LYMPHOCYTES 9.6 % MONOCYTES 15.2 % EOSINOPHILS 0.7 % BASOPHILS 0.3 % IMMATURE GRANS 0.3 % ABS. NEUTROPHILS TOTAL 5.16 1.80 - 7.70 x10'3/uL ABS. LYMPHOCYTES 0.67 (L) 1.00 - 4.80 x10'3/uL ABS. MONOCYTES 1.06 (H) 0.24 - 0.86 x10'3/uL ABS. EOSINOPHILS 0.05 0.04 - 0.36 x10'3/uL ABS. BASOPHILS 0.02 0.01 - 0.08 x10'3/uL ABS. IMMATURE GRANULOCYTES 0.02 0.00 - 0.49 x10'3/uL COMPREHENSIVE METABOLIC PANEL Result Value Ref Range GLUCOSE 101 (H) 70 - 99 MG/DL BUN 16 7 - 18 MG/DL CREATININE S/P/B 0.88 0.55 - 1.02 MG/DL SODIUM 137 136 - 145 MMOL/L POTASSIUM 4.2 3.5 - 5.1 MMOL/L CHLORIDE S/P/B 107 100 - 108 MMOL/L CO2 21.1 21 - 32 MMOL/L CALCIUM 9.3 8.5 - 10.1 MG/DL BILIRUBIN TOTAL S/P/B 0.5 0.2 - 1.2 MG/DL TOTAL PROTEIN S/P/B 8.0 6.4 - 8.2 G/DL ALBUMIN S/P/B 3.8 3.4 - 5.0 G/DL AST 41 (H) 15 - 37 U/L ALT 31 14 - 55 U/L ALKALINE PHOSPHATASE S/P/B 98 50 - 136 U/L ANION GAP 8.9 5 - 15 MMOL/L BUN CREATININE RATIO 18.2 6 - 26 A/G RATIO 0.9 (L) 1.0 - 2.0 RATIO GFR ESTIMATE 72 (L) >90 ML/MIN/1.73 M2 TROPONIN, QUANT Result Value Ref Range TROPONIN I HIGH SENSITIVITY 7 <54 ng/L TROPONIN, QUANT Result Value Ref Range TROPONIN I HIGH SENSITIVITY 9 <54 ng/L RADIOLOGY XR CHEST PORTABLE Final Result by User, [id number] (03/10 923) Examination: Portable chest. Exam time: 0858 hours. Clinical history: Intermittent chest pain. Comparison: None Technique: AP upright view. Findings: The heart is within normal limits for size. Pulmonary vascularity is within normal limits. There is minimal right apical scarring. No acute infiltrates or effusions are identified. The visualized bony thorax is unremarkable for age. IMPRESSION: No acute disease. Referred By: Interpreted By: Giovani Sharp MD, 03/10/2022 9:21 AM MEDS GIVEN IN ER: Medications aspirin chewable tablet 324 mg (324 mg Oral Given 03/10/22 0900) ED COURSE & MEDICAL DECISION MAKING Pertinent Labs & Imaging studies reviewed. (See chart for details) Pt is very nice woman who presents with chest achiness starting this morning that is intermittent (currently resolved). Pt is low risk for ACS (HEART score of 3) but will certainly obtain cardiac workup. ekg with troponins (x2) and remainder of bloodwork wnl. Pt continues to be asymptomatic. I spoke with dr. Cuevas and we discussed pt's case and presentation; he agrees with discharge plan for follow up. He will have his office call tomorrow to get setup for follow up. Pt and ok with plan. Pt understands that is symptoms return or worsen to return to the ER. Discussed taking ASAdaily as well. ? Disposition Discussion: I have discussed today's findings with the [...] and has verbalized understanding of these instructions. DATE: 03/10/2022 1:07 PM PATIENT: Maria G Barrow Discharge Clinical Impressions: Chest pain Discharge Condition: stable Discharge Disposition: Patient discharge to home with I spent time answering the patient's questions. Discharge instructions using teach back, understanding assessed and validated. Please refer to the exit automobile service writer discharge instructions for details surrounding the discharge plan. I did reiterate with the patient that if an urgent need for immediate follow up comes up, not to hesitate to return to the ED. DHIRAJ Layton PA 03/10/22 1311 Cosigned by Anthony Rae MD at 03/10/2022 1:17 PM REVENUE STAMPER NUE STAMPER NUE STAMPER * Chani Sprague RN - 03/10/2022 8:54 AM CST Pt to ED c/o intermittent chest pain in the middle of the night . Denies chestpain currently. Denies sob/dizziness. NUE STAMPER * Chani Sprague RN - 03/10/2022 8:49 AM CST Bed: TG4 Expected date: 03/10/22 Expected time: 7:43 AM Means of arrival: Comments: cp NUE STAMPER documented in this encounter Plan of Treatment Upcoming Encounters Date Type Department Care Team (Late st Contact Info) Description 04/28/2024 2:40 PM REVENUE STAMPER Office Visit [facility] [place] [address] [place] [address] Jared Mejia MD [address] [place] [address] 05/20/2024 10:20 AM REVENUE STAMPER Office Visit [facility] Medical [facility] [address] [facility], [address] [place] [id number] Scarlet Mendoza MD [address] [facility] [place] [address] 10/11/2024 10:00 AM CDT Office Visit [facility] [address] [place] [address] Galdino Santos MD Three [facility]. [address] [place], [place] [address] Lary Joel PA [address] [facility], [address] [place], [place] [id number] documented as of this encounter Procedures Procedure Name Priority Date/Time Associated Diagnosis Comments TROPONIN, QUANT STAT 03/10/2022 10:48 AM REVENUE STAMPER ECG 12-LEAD STAT 03/10/2022 10:40 AM REVENUE STAMPER COMPREHENSIVE METABOLIC PANEL STAT 03/10/2022 9:16 AM REVENUE STAMPER CBC W/DIFF AUTOMATED STAT 03/10/2022 9:16 AM REVENUE STAMPER TROPONIN, QUANT STAT 03/10/2022 9:16 AM REVENUE STAMPER XR CHEST PORTABLE STAT 03/10/2022 9:1 5 AM REVENUE STAMPER ECG 12-LEAD STAT 03/10/2022 8:54 AM REVENUE STAMPER documented in this encounter Results * TROPONIN, QUANT (03/10/2022 10:48 AM REVENUE STAMPER) TROPONIN I HIGH SENSITIVITY 9 <54 ng/L 03/10/2022 11:21 AM REVENUE STAMPER [facility] Comment: HIGH DOSES OF BIOTIN, TROPONIN-SPECIFIC AUTOANTIBODIES, AND ANTIBODY THERAPY CONTAINING HAMA MAY INTERFERE WITH THIS TEST RESULT. CORRELATION TO CLINICAL HISTORY AND PRESENTATION RECOMMENDED. 03/10/2022 10:4 8 AM REVENUE STAMPER us Romie [facility] Final Resu lt [facility] [address] [place] [address], * ECG 12 lead (03/10/2022 10:40 AM REVENUE STAMPER) 03/10/2022 10:4 0 AM REVENUE STAMPER Narrative [facility]IE (IVONNE) RAD - 03/10/2022 9:29 PM REVENUE STAMPER ?[facility] [place] ? [address] ? Test Date: ?2022-03-10 Pat Name: ? MARIA G BARROW ? Department: ?? 41 ? Room: ? TG1 Gender: ? Female ? Project Controls Scheduler: ?? KM : ?1955 ? Requested By: ANTHONY RAE Order Number: [id number] ? Reading MD: ?? Galdino Santos ? Measurements Intervals ?[place] ? Rate: ? 87 ? P: ?42 FL: ? 175 ?QRS: ?39 QRSD: ? 86 ? T: ?50 QT: ? 355 ? QTc: ?428 ? Interpretive Statements SINUS RHYTHM Compared to ECG 03/10/2022 08:54:13 No significant changes No ischemic changes Romie Weems PA-C NUE STAMPER Procedure Note Galdino Santos MD - 03/10/2022 [facility] [place] [address] Test Date: 2022-03-10 Pat Name: MARIA G BARROW Department: 41 Room: [facility] Gender: Female Project Controls Scheduler: CORDELIA : 1955 Requested By: ANTHONY RAE Order Number: [id number] Javier MD: Galdino Santos Measurements Intervals [place] Rate: 87 P: 42 FL: 175 QRS: 39 QRSD: 86 T: 50 QT: 355 QTc: 428 Interpretive Statements SINUS RHYTHM Compared to ECG 03/10/2022 08:54:13 No significant changes No ischemic changes Romie Weems PA-C NUE STAMPER Romie HEARN ECG ORDERABLES Final Resu lt Performing Organization Address City/[facility]/ZIP Co de Phone Number [facility] ([facility] * TROPONIN, QUANT (03/10/2022 9:16 AM REVENUE STAMPER) Pathologist [facility] TROPONIN I HIGH SENSITIVITY 7 <54 ng/L 03/10/2022 10:14 AM REVENUE STAMPER [facility] Comment: HIGH DOSES OF BIOTIN, TROPONIN-SPECIFIC AUTOANTIBODIES, AND ANTIBODY THERAPY CONTAINING HAMA MAY INTERFERE WITH THIS TEST RESULT. CORRELATION TO CLINICAL HISTORY AND PRESENTATION RECOMMENDED. 03/10/2022 9:16 AM REVENUE STAMPER [facility]ie [facility] Final Resu lt Performing Organization Address City/[facility]/ZIP Co de Phone Number [facility] [address] [place] [address], * (ABNORMAL) COMPREHENSIVE METABOLIC PANEL (03/10/2022 9:16 AM REVENUE STAMPER) Pathologist [facility] GLUCOSE 101(H) 70 - 99 MG/DL 03/10/2022 10:14 AM REVENUE STAMPER [facility] BUN 16 7 - 18 MG/DL 03/10/2022 10:14 AM REVENUE STAMPER [facility] CREATININE S/P/B 0.88 0.55 - 1.02 MG/DL 03/10/2022 10:14 AM REVENUE STAMPER [facility] SODIUM S/P/B 137 136 - 145 MMOL/L 03/10/2022 10:14 AM REVENUE STAMPER [facility] POTASSIUM S/P/B 4.2 3.5 - 5.1 MMOL/L 03/10/2022 10:14 AM [facility] Comment:SLIGHT HEMOLYSIS, RE SULT MAY BE AFFECTED. CHLORIDE S/P/B 107 100 - 108 MMOL/L 03/10/2022 10:14 AM [facility] CO2 21.1 21 - 32 MMOL/L 03/10/2022 10:14 AM [facility] CALCIUM S/P/B 9.3 8.5 - 10.1 MG/DL 03/10/2022 10:14 AM [facility] BILIRUBIN TOTAL S/P/B 0.5 0.2 - 1.2 MG/DL 03/10/2022 10:14 AM [facility] Comment: THIS ASSAY IS NOT RECOMMENDED FOR PATIENTS UNDERGOING TREATMENT WITH ELTROMBOPAG DUE TO THE POTENTIAL FOR FALSELY ELEVATED RESULTS. TOTAL PROTEIN S/P/B 8.0 6.4 - 8.2 G/DL 03/10/2022 10:14 AM [facility] ALBUMIN S/P/B 3.8 3.4 - 5.0 G/DL 03/10/2022 10:14 AM [facility] AST 41(H) 15 - 37 U/L 03/10/2022 10:14 AM [facility] Comment:SLIGHT HEMOLYSIS, RE SULT MAY BE AFFECTED. ALT 31 14 - 55 U/L 03/10/2022 10:14 AM [facility] ALKALINE PHOSPHATASE S/P/B 98 50 - 136 U/L 03/10/2022 10:14 AM [facility] ANION GAP 8.9 5 - 15 MMOL/L 03/10/2022 10:14 AM [facility] BUN CREATININE RATIO 18.2 6 - 26 03/10/2022 10:14 AM [facility] A/G RATIO 0.9(L) 1.0 - 2.0 RATIO 03/10/2022 10:14 AM [facility] GFR ESTIMATE 72(L) >90 ML/MIN/1.7 3 M2 03/10/2022 10:14 AM [facility] Comment: NOTE: eGFR is not calculated for patients <18 years of age. This is an estimated GFR calculation using the new CKD EPI creatinine equation without race and so does not require a correction factor for race. This estimated GFR should not be used for calculating drug doses. 03/10/2022 9:16 AM REVENUE STAMPER us Romie [facility] Final Resu lt [facility] [address] [place] [id number], * (ABNORMAL) CBC W/DIFF AUTOMATED (03/10/2022 9:16 AM REVENUE STAMPER) WBC 7.0 4.5 - 11.0 x10'3/uL 03/10/2022 9:30 AM [facility] RBC 4.38 4.20 - 5.40 x10'6/uL 03/10/2022 9:30 AM [facility] HGB 14.0 12.0 - 16.0 G/DL 03/10/2022 9:30 AM [facility] HCT 42.9 38.0 - 48.0 % 03/10/2022 9:30 AM [facility] MCV 97.9 81.0 - 99.0 FL 03/10/2022 9:30 AM [facility] MCH 32.0(H) 27.0 - 31.0 PG 03/10/2022 9:30 AM [facility] MCHC 32.6 32.0 - 36.0 G/DL 03/10/2022 9:30 AM [facility] RDW 12.9 11.5 - 14.5 % 03/10/2022 9:30 AM [facility] PLT 279 130 - 400 x10'3/uL 03/10/2022 9:30 AM [facility] MPV 9.8 9.3 - 12.2 FL 03/10/2022 9:30 AM [facility] DIFFERENTIAL TYPE AUTOMATED DIFFERENTIAL 03/10/2022 9:30 AM [facility] NEUTROPHILS % 73.9 % 03/10/2022 9:30 AM [facility] LYMPHOCYTES % 9.6 % 03/10/2022 9:30 AM [facility] MONOCYTES % 15.2 % 03/10/2022 9:30 AM [facility] EOSINOPHILS 0.7 % 03/10/2022 9:30 AM [facility] BASOPHILS 0.3 % 03/10/2022 9:30 AM [facility] IMMATURE GRANS % 0.3 % 03/10/20 9:30 AM [facility] ABS. NEUTROPHILS TOTAL 5.16 1.80 - 7.70 x10'3/uL 03/10/2022 9:30 AM [facility] ABS. LYMPHOCYTES 0.67(L) 1.00 - 4.80 x10'3/uL 03/10/2022 9:30 AM [facility] ABS. MONOCYTES 1.06(H) 0.24 - 0.86 x10'3/uL 03/10/2022 9:30 AM [facility] ABS. EOSINOPHILS 0.05 0.04 - 0.36 x10'3/uL 03/10/2022 9:30 AM REVENUE STAMPER [facility] ABS. BASOPHILS 0.02 0.01 - 0.08 x10'3/uL 03/10/2022 9:30 AM REVENUE STAMPER [facility] ABS. IMMATURE GRANULOCYTES 0.02 0.00 - 0.49 x10'3/uL 03/10/2022 9:30 AM REVENUE STAMPER [facility] 03/10/2022 9:16 AM REVENUE STAMPER us Romie [facility] Final Resu lt [facility] [address] [place] [address], * XR CHEST PORTABLE (03/10/2022 9:15 AM REVENUE STAMPER) Anatomical Region Laterality Modality Chest Radiographic Loyda ging 03/10/2022 9:21 AM REVENUE STAMPER Impressions 03/10/2022 9:22 AM REVENUE STAMPER IMPRESSION: No acute disease. Referred By: ?? Interpreted By: Giovani Sharp MD, 03/10/2022 9:21 AM Narrative 03/10/2022 9:22 AM REVENUE STAMPER Examination: Portable chest. Exam time: 0858 hours. Clinical history: Intermittent chest pain. Comparison: None Technique: ??AP ??upright view. Findings: The heart is within normal limits for size. ??Pulmonary vascularity is within normal limits. ??There is minimal right apical scarring. ??No acute infiltrates or effusions are identified. ??The visualized bony thorax is unremarkable for age. Procedure Note Giovani Sharp MD - 03/10/2022 Examination: Portable chest. Exam time: 0858 hours. Clinical history: Intermittent chest pain. Comparison: None Technique: AP upright view. Findings: The heart is within normal limits for size. Pulmonaryvascularity is within normal limits. There is minimal right apicalscarring. No acute infiltrates or effusions are identified. Thevisualized bony thorax is unremarkable for age. IMPRESSION: No acute disease. Referred By: Interpreted By: Giovani Sharp MD, 03/10/2022 9:21 AM us Romie [facility] Final Resu lt * ECG 12 lead (03/10/2022 8:54 AM REVENUE STAMPER) 03/10/2022 8:54 AM REVENUE STAMPER Narrative [facility] RAD - 03/10/2022 10:01 AM REVENUE STAMPER ?[facility] [place] ? [address] [facility] [address] [place] ? Test Date: ?2022-03-10 Pat Name: ? MARIA G BARROW ? Department: ?? 41 ? Room: ? INPR Gender: ? Female ? Project Controls Scheduler: ?? KM : ?1955 ? Requested By: ANTHONY RAE Order Number: [id number] ? Reading : ?? Galdino Santos ? Measurements Intervals ?[place] ? Rate: ? 93 ? P: ?55 FL: ? 169 ?QRS: ?50 QRSD: ? 80 ? T: ?52 QT: ? 326 ? QTc: ?407 ? Interpretive Statements SINUS RHYTHM LOW QRS VOLTAGE IN PRECORDIAL LEADS [QRS DEFLECTION < 1.0 mV IN CHEST LEADS] No previous ECG available for comparison Other ischemic changes, not STEMI Romie Weems PA-C NUE STAMPER Procedure Note Galdino Sanots MD - 03/10/2022 [facility] [place] [address] [facility] [facility] Test Date: 2022-03-10 Pat Name: MARIA G BARROW Department: 41 Room: INPR Gender: Female Project Controls Scheduler: CORDELIA : 1955 Requested By: ANTHONY RAE Order Number: [id number] Reading MD: Galdino Santos Measurements Intervals [place] Rate: 93 P: 55 FL: 169 QRS: 50 QRSD: 80 T: 52 QT: 326 QTc: 407 Interpretive Statements SINUS RHYTHM LOW QRS VOLTAGE IN PRECORDIAL LEADS [QRS DEFLECTION < 1.0 mV IN CHESTLEADS] No previous ECG available for comparison Other ischemic changes, not STEMI Romie Weems PA-C NUE STAMPER us Romie HEARN ECG ORDERABLES Final Resu lt [facility] documented in this encounter Visit Diagnoses Diagnosis Chest pain- Primary Chest pain, unspecified documented in this encounter Administered Medications Inactive Administered Medications - up to 3 most recent administrations Medication Order MAR Action Action Date Dose Rate Site aspirin chewable tablet 324 mg 324 mg, Oral, Once, 1 dose, On 03/10/22 at 0900, If not given by EMS or taken immediately prior to arrival Given 03/10/2022 9:00 AM REVENUE STAMPER 324 mg documented in this encounter Active and Recently Administered Medications Times are shown in REVENUE STAMPER. Scheduled Medication Order 03/08/2022 03/09/2022 03/10/2022 aspirin chewable tablet 324 mg (COMPLETED) 324 mg, Oral, Once, 1 dose, On 03/10/22 at 0900, If not given by EMS or taken immediately prior to arrival 0900 (Given - Provid er: Chani Sprague RN) documented in this encounter Care Teams Template Cutter Relationship Specialty Start Date End Date Kathryn James DO [address] [place] [address] PCP - General FAMILY PRACTICE 02/21/20 documented as of this encounter
--- OUTSIDE RECORDS SUMMARY | 2024-04-20 02:29 | XMS_ITS | Encounter Summary ---
Author Organization [facility] Address [address] [place] [address]. [place], [place] [address] [place] [address] Care Team Providers Care Collision Center Manager Name Role Phone Kathryn James Primary Care Provider [phone] Reason for Referral * Imaging (Routine) - Closed Specialty Diagnoses / Procedures Referred By Meet machado Referred To Contact RADIOLOGY Diagnoses Hyperreflexia Procedures MRI CERV SPINE WO CON Sophia Randolph MD Phone: tel: fax: Referral ID Status Reason Start Date Expiration Date Visits Re quested Visits Authorized [id number] Closed 08/15/2021 09/14/2022 1 1 * Imaging (Routine) - Closed Specialty Diagnoses / Procedures Referred By Meet machado Referred To Contact RADIOLOGY Diagnoses Episodic memory loss Procedures MRI BRAIN WWO CON oSphia Randolph MD Phone: tel: fax: Referral ID Status Reason Start Date Expiration Date Visits Re quested Visits Authorized [id number] Closed 08/15/2021 09/14/2022 1 1 Reason for Visit * Reason Comments New Patient Amnesia * Consultation/Treatment (Routine) - Closed Specialty Diagnoses / Procedures Referred By Meet machado Referred To Contact Neurology Psychiatry / NEUROLOGY Diagnoses Other amnesia Luna Segura PA [address] [place] [place] [address] Phone: tel: fax: Sophia Randolph MD Phone: tel: fax: Referral ID Status Reason Start Date Expiration Date Visits Re quested Visits Authorized [id number] Closed 05/22/2021 06/19/2022 100 100 Encounter Details Date Type Department Care Team (Latest Contact Info) Description 08/15/2021 1:00 PM CDT Office Visit [facility] Multispecialty Care - [address], [address] [place] [phone] Sophia Randolph MD 1 [place] [address] New Patient (Amnesia) Social History Tobacco Use Types Packs/Day Years Used Date Smoking Tobacco: Never Smokeless Tobacco: Never Tobacco Cessation:Counseling Given: No Alcohol Use Standard Drinks/Week Comments Never 0 [...] Sign Reading Time Taken Comments Blood Pressure 143/79 08/15/2021 1:05 PM CDT Pulse 67 08/15/2021 1:05 PM CDT Temperature 36.6 ??C (97.9 ??F) 08/15/2021 1:05 PM CD T Respiratory Rate 18 08/15/2021 1:05 PM CDT Oxygen Saturation 97% 08/15/2021 1:05 PM CDT Inhaled Oxygen Concentration - - Weight 88.9 kg (196 lb) 08/15/2021 1:05 PM CDT Height 177.8 cm (5' 10 ) 08/15/2021 1:05 PM CDT Body Mass Index 28.12 08/15/2021 1:05 PM CDT documented in this encounter Progress Notes * Sophia Randolph MD - 08/15/2021 1:00 PM CDT Neurology Clinic [facility] Multispecialty Care - [address], [address] [facility] [address] Dept: [phone] Name: Maria G Barrow Date of : 1955 PCP: KATHRYN JAMES DO Date: 08/15/2021 Chief Complaint: Memory loss History of Present Illness: Maria G Barrow is a 65-year-old female with a past medical history significant for multiple head injuries, hypertension, hypothyroidism, hyperlipidemia who was referred by DHIR[facility] for evaluation of memory loss. She presents with her who aids in [...] daily. ??? Cholecalciferol (VITAMIN D3) 50 MCG (1999 UT) Cap Take 4,000 Units by mouth daily. ??? ezetimibe 10 MG tablet Take 10 mg by mouth daily. ??? [id number] OR Take 500 mg by mouth daily. ??? Magnesium 80 MG Tab ??? Menaquinone-7 (VITAMIN K2 OR) ??? WASTE AND BATTING WASTE CHOPPER THYROID 60 MG tablet Take 60 mg by mouth daily. ??? ondansetron 4 MG disintegrating tablet Take 1 tablet (4 mg total) by mouth every 8 (eight) hours as needed for Nausea. 20 tablet 0 ??? vitamin C 1000 MG tablet Take 1,000 mg by mouth daily. ??? HYDROcodone-acetaminophen 5-325 MG tablet Take 1 tablet by mouth every 6 (six) hours as needed.Indications: Acute Pain < 7 Day Supply 20 tablet 0 No current facility-administered medications for this visit. [...] systems reviewed and are negative. Filed Vitals: 08/15/21 1305 BP: (!) 143/79 Pulse: 67 Resp: 18 Temp: 97.9 ??F (36.6 ??C) TempSrc: Temporal SpO2: 97% Weight: 88.9 kg (196 lb) Height: 5' 10 (1.778 m) GENERAL EXAMINATION Patient is in no [...] touch was intact in all 4 extremities. Mildly diminished vibration of the bilateral ankles which is 5/8 REFLEXES: 3+/4 in upper and lower extremities with crossed adductors, bilateral finger flexor reflex present left greater than right. Steele's negative. COORDINATION: Absent dysmetria on finger -nose -finger. No tremor. GAIT: Normal stride and base. Imaging and Pertinent Labs: None Impression: Maria G Barrow is a 65-year-old female with a past medical history significant for multiple head injuries, hypertension, hypothyroidism, hyperlipidemia who was referred by [facility] for evaluation of memory loss. She reports having a 3-year history of memory loss. She mainly reports having deficits in attentionand trouble with short-term memory. This is redemonstrated with her MMSE. She had borderline normalresults on this test based on her level of education. Discussed that trouble with attention and short-term memory dysfunction can be multifactorial. This may be due to a normal part of aging, underlying stress/anxiety or mood disorder, medical conditions such as ARTI about nutritional deficiencies, or due to subcortical dysfunction in the setting of microvascular disease, or some of the first signs of an underlying neurodegenerative process. Discussed my concerns that with many of the stressors that she has had in her life that this may becontributing. On exam she also had was noted to have hyperreflexia along with mild neuropathy. Symptoms this can be a sign of an underlying B vitamin deficiency. This is still possible even with the amount of supplementation she is taking. As result, we will check for these potential reversible causes of memory loss. She also benefit from brain MRI along with cervical spine imaging to rule out any structural abnormalities. Plan: #Subjective memory loss - Thiamine, folic acid, B12, B6, vitamin E, copper -Brain MRI with and without contrast -No safety issues identified -Continue to follow with homeopathic doctor #Hyperreflexia - Cervical spine MRI without contrast - Labs as above Return to clinic in 3 months Sophia Randolph MD I spent 65 minutes today reviewing the patient's medical record, obtaining history, performing an exam, ordering medications, tests, and/or procedures, documenting in the medical record, counseling and educating the patient/family/caregiver, reviewing and communicating test results and coordinationof care. documented in this encounter Plan of Treatment Upcoming Encounters Date Type Department Care Team (Late st Contact Info) Description 04/28/2024 2:40 PM CIRCUS TRAIN SUPERVISOR Office Visit [facility] Orthopedic & Sports Medicine - [place] [address] [place] [address] Jared Mejia MD [address] [place] [address] 05/20/2024 10:20 AM CIRCUS TRAIN SUPERVISOR Office Visit [facility] Multispecialty Care - [facility] [address] [facility], [address] [place] [phone] Scarlet Mendoza MD [address] [place] [address] 10/11/2024 10:00 AM CDT Office Visit [facility] [address] [facility], [address] [place], [place] [address] Galdino Santos MD Three [facility]. [address] [place], [place] [address] Lary Joel PA [address] [facility], [address] [place], [place] [address] Scheduled Orders Name Type Priority Associated Diagnoses Orde r Schedule VITAMIN B1 THIAMINE Lab Routine Hyperreflexia Expected: 08/15/2021, Expires: 10/15/2021 documented as of this encounter Results * MRI BRAIN WWO CON (09/07/2021 7:06 PM CDT) Anatomical Region Laterality Modality Head Magnetic Resonan ce 09/11/2021 8:04 AM CDT Impressions 09/11/2021 8:10 AM CDT IMPRESSION: 1. No acute intercranial abnormalities identified. No acute infarct, intracranial mass, or abnormal enhancement. 2. Mild small vessel disease and volume loss. Ordered By: SOPHIA RANDOLPH Interpreted By: Milton Mckoy MD, 09/11/2021 8:04 AM Narrative 09/11/2021 8:10 AM CDT DATE: 09/07/2021 6:34 PM INDICATION: Memory loss EXAMINATION: MRI brain with and without contrast. TECHNIQUE: Multiplanar and multisequence MRI images of the brain were obtained before and after uneventful intravenous administration of 16 mL Dotarem COMPARISON: None FINDINGS: No diffusion restriction or evidence of acute infarct. No intracranial mass, mass effect, or midline shift. There are few scattered foci of T2/FLAIR hyperintensity seen in the hemispheric white matter, likely due to small vessel disease. Mild volume loss with enlargement of the ventricles and extra-axial/subarachnoid spaces. No extra-axial collections. Proximal portions of the major intracranial arterial flow voids are patent. Postcontrast images reveal no abnormal intracranial enhancement. No hemorrhagic foci of susceptibility seen on gradient echo images. Craniocervical junction, sellar content, and pineal region unremarkable. Minimal fluid few scattered right mastoid air cells. Trace mucosal thickening in the paranasal sinuses. Visualized orbits unremarkable. Procedure Note Milton Mckoy MD - 09/11/2021 DATE: 09/07/2021 6:34 PM INDICATION: Memory loss EXAMINATION: MRI brain with and without contrast. TECHNIQUE: Multiplanar and multisequence MRI images of the brain wereobtained before and after uneventful intravenous administration of 16 mLDotarem COMPARISON: None FINDINGS: No diffusion restriction or evidence of acute infarct. No intracranialmass, mass effect, or midline shift. There are few scattered foci ofT2/FLAIR hyperintensity seen in the hemispheric white matter, likely dueto small vessel disease. Mild volume loss with enlargement of theventricles and extra-axial/subarachnoid spaces. No extra-axialcollections. Proximal portions of the major intracranial arterial flowvoids are patent. Postcontrast images reveal no abnormal intracranialenhancement. No hemorrhagic foci of susceptibility seen on gradient echoimages. Craniocervical junction, sellar content, and pineal regionunremarkable. Minimal fluid few scattered right mastoid air cells. Tracemucosal thickening in the paranasal sinuses. Visualized orbitsunremarkable. IMPRESSION: 1. No acute intercranial abnormalities identified. No acute infarct,intracranial mass, or abnormal enhancement. 2. Mild small vessel disease and volume loss. Ordered By: SOPHIA RANDOLPH Interpreted By: Milton Mckoy MD, 09/11/2021 8:04 AM us Sophia Randolph MD MRI Breanna l Result * MRI CERV SPINE WO CON (09/07/2021 6:33 PM CDT) Anatomical Region Laterality Modality Spine Magnetic Resonan ce 09/11/2021 8:11 AM CDT Impressions 09/11/2021 8:18 AM CDT IMPRESSION: 1. Multilevel degenerative changes in the cervical spine contributing to varying degrees of spinal canal and foraminal stenosis, as detailed above. 2. No definite cervical cord signal abnormality identified. Ordered By: SOPHIA RANDOLPH Interpreted By: Milton Mckoy MD, 09/11/2021 8:11 AM Narrative 09/11/2021 8:18 AM CDT DATE: 09/07/2021 6:00 PM INDICATION: Memory issues EXAMINATION: MRI of the cervical spine without contrast. TECHNIQUE: Multiplanar and multisequence MRI images of the cervical spine were obtained without contrast. COMPARISON: None FINDINGS: Reversal of the cervical lordosis. Slight retrolisthesis of C5 on C6 and anterolisthesis of C3 on C4. Mid to lower cervical levoscoliosis. Otherwise the cervical vertebral alignment, vertebral body heights, and facet alignment are maintained. Multilevel degenerative changes are evident in the cervical spine with disc degeneration, endplate/uncovertebral osteophytes, and facet hypertrophy noted. Multilevel disc desiccation seen. Greatest loss of disc height at C5-C6 through C7-T1. No definite abnormal signal identified in the cervical cord. Craniocervical junction and visualized posterior fossa contents unremarkable. Imaged portions of the neck soft tissues reveal no definite acute findings. C2-C3: Small disc bulge. Facet hypertrophy. No significant canal or foraminal narrowing. C3-C4: Slight anterolisthesis. Small disc bulge. Mild ligamentum flavum thickening. Facet hypertrophy. Flattening of the thecal sac. No significant foraminal narrowing. C4-C5: Small disc bulge. Small uncovertebral osteophytes. Facet hypertrophy. Mild canal stenosis with flattening of the thecal sac. No cord deformity. Mild right foraminal narrowing. C5-C6: Retrolisthesis. Disc osteophyte complex. Facet hypertrophy. Mild to moderate canal stenosis with partial effacement of the ventral thecal sac and flattening of the ventral cord. Moderate right and mild left foraminal narrowing. C6-C7: Disc osteophyte complex. Facet hypertrophy. Uncovertebral osteophytes. Flattening of the ventral thecal sac without significant canal stenosis. Mild to moderate right and mild left foraminal narrowing. C7-T1: Disc osteophyte complex. Facet hypertrophy. No significant canal or foraminal narrowing. Procedure Note Milton Mckoy MD - 09/11/2021 DATE: 09/07/2021 6:00 PM INDICATION: Memory issues EXAMINATION: MRI of the cervical spine without contrast. TECHNIQUE: Multiplanar and multisequence MRI images of the cervical spinewere obtained without contrast. COMPARISON: None FINDINGS: Reversal of the cervical lordosis. Slight retrolisthesis of C5 on C6 andanterolisthesis of C3 on C4. Mid to lower cervical levoscoliosis.Otherwise the cervical vertebral alignment, vertebral body heights, andfacet alignment are maintained. Multilevel degenerative changes areevident in the cervical spine with disc degeneration,endplate/uncovertebral osteophytes, and facet hypertrophy noted.Multilevel disc desiccation seen. Greatest loss of disc height at C5- A0vsopdjk C7-T1. No definite abnormal signal identified in the cervicalcord. Craniocervical junction and visualized posterior fossa contentsunremarkable. Imaged portions of the neck soft tissues reveal no definiteacute findings. C2-C3: Small disc bulge. Facet hypertrophy. No significant canal orforaminal narrowing. C3-C4: Slight anterolisthesis. Small disc bulge. Mild ligamentum flavumthickening. Facet hypertrophy. Flattening of the thecal sac. Nosignificant foraminal narrowing. C4-C5: Small disc bulge. Small uncovertebral osteophytes. Facethypertrophy. Mild canal stenosis with flattening of the thecal sac. Nocord deformity. Mild right foraminal narrowing. C5-C6: Retrolisthesis. Disc osteophyte complex. Facet hypertrophy. Mild tomoderate canal stenosis with partial effacement of the ventral thecal sacand flattening of the ventral cord. Moderate right and mild left foraminalnarrowing. C6-C7: Disc osteophyte complex. Facet hypertrophy. Uncovertebralosteophytes. Flattening of the ventral thecal sac without significantcanal stenosis. Mild to moderate right and mild left foraminalnarrowing. C7-T1: Disc osteophyte complex. Facet hypertrophy. No significant canal orforaminal narrowing. IMPRESSION: 1. Multilevel degenerative changes in the cervical spine contributing tovarying degrees of spinal canal and foraminal stenosis, as detailedabove. 2. No definite cervical cord signal abnormality identified. Ordered By: SOPHIA RANDOLPH Interpreted By: Milton Mckoy MD, 09/11/2021 8:11 AM us Sophia Randolph MD MRI Breanna l Result documented in this encounter Visit Diagnoses Diagnosis Episodic memory loss- Primary Memory loss Hyperreflexia Abnormal reflex Abnormal levels of other serum enzymes Episodic memory loss Memory loss Hyperreflexia Abnormal reflex documented in this encounter Care Teams Collision Center Manager Relationship Specialty Start Date End Date Kathryn James DO [address] [place] [address] PCP - General FAMILY PRACTICE 02/21/20 documented as of this encounter
--- OUTSIDE RECORDS SUMMARY | 2024-04-20 02:29 | XMS_ITS | Encounter Summary ---
Author Organization [facility] Address [address] [place] [address]. [place], [place] [id number] [place] [address] Care Team Providers Care Television Servicer Name Role Phone Rosie Bryant DO Primary Care Provider [phone] Encounter Details Date Type Department Care Team (Latest Contact Info) Description 10/24/2020 Travel Social History Tobacco Use Types Packs/Day [...] st Contact Info) Description 04/28/2024 2:40 PM TEXTILE COLORIST FORMULATOR Office Visit [facility] Orthopedic & Sports Medicine - [place] [address] [place] [address] Jared Mejia MD [address] [place] [address] 05/20/2024 10:20 AM TEXTILE COLORIST FORMULATOR Office Visit [facility] Multispecialty Care - [facility] [address] [facility], [address] [place] [address] Scarlet Mendoza MD 3 [facility] [place] [address] 10/11/2024 10:00 AM CDT Office Visit [facility] [address] [facility], [address] [place] [address] Galdino Santos MD Three [facility]. [address] [place] [address] Lary Joel PA [address] [facility], [address] [place] [address] documented as of this encounter Visit Diagnoses Not on filedocumented in this encounter Care Teams Television Servicer Relationship Specialty Start Date End Date Rosie Bryant DO [address] [place] [address] PCP - General FAMILY PRACTICE 02/21/20 documented as of this encounter
--- OUTSIDE RECORDS SUMMARY | 2024-04-20 02:29 | XMS_ITS | Encounter Summary ---
Author Organization [facility] Address [address] [place] [address]. [place], [place] [address] [place] [address] Care Team Providers Care Equipment Specialist Name Role Phone Rosie Bryant Primary Care Provider [phone] Reason for Visit * Reason Onset Date Comments Results 09/13/2021 Encounter Details Date Type Department Care Team (Late st Contact Info) Description 09/13/2021 Telephone [facility] Multispecialty Care - [facility] [address] [facility], [address] [place] [address] Chasity Phan MD [address] [place] [address] Results Social History Tobacco Use Types Packs/Day [...] as of this encounter Progress Notes * Frannie Michaels MA - 09/20/2021 2:59 PM CDT I spoke with the patient re: her results and informed her of the f/u she has scheduled. I asked herto calling the office back if she has any concerns prior to the f/u. Pt verbalized understanding. * Pao Nolan - 09/20/2021 8:17 AM CDT Patient calling again to get her results from Dr. Parra office. Tenisha and patient have been playing phone tag. Patient call back number [phone] * Lilly Marte - 09/18/2021 11:07 AM CDT Maria G called today to get the results of her MRI. Please call to discuss. * Lilly Marte - 09/14/2021 9:06 AM CDT Maria G returned your call, Please give her a call back * Tenisha Kerns MA - 09/13/2021 3:08 PM CDT LVM for pt to call back so we can go over results Per. Dr. PARRA * Janey Fenton MA - 09/13/2021 8:17 AM CDT ----- Message from Chasity Phan MD sent at 09/11/2021 2:30 PM CDT ----- Can you please let them know that their Brain mri showed mild changes related to aging but no changes to explain her memory loss. Her cervical spine mri shows arthritis but there is no compression ofthe spinal cord. We can discuss their results further when they return to their follow up visit. Please let me know if there are any questions. documented in this encounter Plan of Treatment Upcoming Encounters Date Type Department Care Team (Late st Contact Info) Description 04/28/2024 2:40 PM SERVICE CASHIER Office Visit [facility] Orthopedic & [facility] Medicine - [place] [address] [place] [address] Jared Mejia MD [address] [place] [address] 05/20/2024 10:20 AM SERVICE CASHIER Office Visit [facility] Multispecialty Care - [facility] [address] [facility], [address] [place] [address] Scarlet Mendoza MD [address] [place] [address] 10/11/2024 10:00 AM CDT Office Visit [facility] THREE [facility], [address] [place] [address] Galdino Santos MD Three [facility]. [address] [place], [place] [address] Lary Joel PA [address] [facility], [address] [place] [address] documented as of this encounter Visit Diagnoses Not on filedocumented in this encounter Care Teams Equipment Specialist Relationship Specialty Start Date End Date Vernace, Rosie M, DO [address] [place] [address] PCP - General FAMILY PRACTICE 02/21/20 documented as of this encounter
--- OUTSIDE RECORDS SUMMARY | 2024-04-20 02:29 | XMS_ITS | Encounter Summary ---
Author Organization [facility] Address [address] [place] [address]. [place], [place] [id number] [place] [address] Care Team Providers Care Quality Assurance Associate Name Role Phone Rosie Bryant DO Primary Care Provider [phone] Encounter Details Date Type Department Care Team (Latest Contact Info) Description 09/03/2021 Travel Social History Tobacco Use Types Packs/Day [...] st Contact Info) Description 04/28/2024 2:40 PM ULTRASOUND COORDINATOR [facility] - [place] [address] [place] [address] Jared Mejia MD [address] [place] [address] 05/20/2024 10:20 AM ULTRASOUND COORDINATOR [facility] - [facility] [address] [facility], [address] [place] [address] Sacrlet Mendoza MD 3 [facility] [place] [address] 10/11/2024 10:00 AM CDT Office Visit [facility] THREE [facility], [address] [place] [address] Galdino Santos MD Three [facility]. [address] [place] [address] Lary Joel PA 3 [facility], [address] [place] [address] documented as of this encounter Visit Diagnoses Not on filedocumented in this encounter Care Teams Quality Assurance Associate Relationship Specialty Start Date End Date Rosie Bryant DO [address] [place] [address] PCP - General FAMILY PRACTICE 02/21/20 documented as of this encounter
--- OUTSIDE RECORDS SUMMARY | 2024-04-20 02:29 | XMS_ITS | Encounter Summary ---
Author Organization [facility] Address [address] [place] [address]. [place], [place] [address] [place] [address] Care Team Providers Care Junior Linux Administrator Name Role Phone Rosie Bryant Primary Care Provider [phone] Reason for Visit * Reason Onset Date Comments Results 04/11/2022 Encounter Details Date Type Department Care Team (Late st Contact Info) Description 04/11/2022 Telephone [facility] Multispecialty Care - [facility] [address] [facility], [address] [place] [address] Chasity Phan MD 1 [place] [address] Results Social History Tobacco Use Types Packs/Day [...] Coronavirus/COVID-19? No / Unsure 04/04/2022 10:40 AM CATEGORY SPECIALIST documented as of this encounter Progress Notes * Sarai Lange - 04/17/2022 9:47 AM CST Pt thought her PCP was going to get auth for cpap but they called her today and told her that we have to Please call pt to f/u GORY SPECIALIST * Anatoliy Christianson LPN - 04/11/2022 12:13 PM CST Spoke with patient informing her that the sleep study she has sleep apnea. Patient verbalized understanding. Patient states she is okay with getting a cpap machine. GORY SPECIALIST documented in this encounter Plan of Treatment Upcoming Encounters Date Type Department Care Team (Late st Contact Info) Description 04/28/2024 2:40 PM CATEGORY SPECIALIST Office Visit [facility] Orthopedic & Sports Medicine - [place] [address] [place] [address] Jared Mejia MD [address] [place] [address] 05/20/2024 10:20 AM CATEGORY SPECIALIST Office Visit [facility] Multispecialty Care - [facility] [address] [facility], [address] [place] [address] Scarlet Mendoza MD 3 [place] [address] 10/11/2024 10:00 AM CDT Office Visit [facility] THREE [facility], [address] [place] [address] Galdino Santos MD Three [facility]. [address] [place], [place] [id number] Lary Joel PA 3 [facility], [address] [place], [place] [address] documented as of this encounter Visit Diagnoses Not on filedocumented in this encounter Care Teams Junior Linux Administrator Relationship Specialty Start Date End Date Rosie Bryant DO [address] [place] [address] PCP - General FAMILY PRACTICE 02/21/20 documented as of this encounter
--- OUTSIDE RECORDS SUMMARY | 2024-04-20 02:29 | XMS_ITS | Encounter Summary ---
Author Organization [facility] Address [address] [place] [address]. [place] [address] [place] [address] Care Team Providers Care Bakery Sales Clerk Name Role Phone Unavailable Primary Care Provider Unavailabl e Encounter Details Date Type Department Care Team (Late Contact Info) Description 12/06/2015 Abstract [facility] [place], [place] [id number] Naun Lauren MD [facility] [address] [address] Social History Tobacco Use Types Packs/Day Years Used Date Smoking Tobacco: Never Assessed Comments Unknown Sex and Gender Information Value Date Recorded Sex Assigned at Not on file Legal Sex Female 7:00 PM CDT Gender Identity Not on file Sexual Orientation Not on file documented as of this encounter Plan of Treatment Upcoming Encounters Date Type Department Care Team (Late Contact Info) Description 04/28/2024 2:40 PM WASTE MANAGEMENT ENGINEER Office Visit [facility] Orthopedic & Sports Medicine - [place] [address] [place] [address] Jared Mejia MD [address] [place] [address] 05/20/2024 10:20 AM WASTE MANAGEMENT ENGINEER Office Visit [facility] - [facility] 3 [facility], [address] [place] [address] Scarlet Mendoza MD 3 [facility] [place] [address] 10/11/2024 10:00 AM CDT Office Visit [facility] THREE [facility], [address] [place] [address] Galdino Santos MD Three [facility]. [address] [place] [address] Lary Joel PA 3 [facility], [address] [place] [address] documented as of this encounter Visit Diagnoses Not on filedocumented in this encounter
--- OUTSIDE RECORDS SUMMARY | 2024-04-20 02:29 | XMS_ITS | Encounter Summary ---
Author Organization [facility] Address [address] [place] [address]. [place], [place] [address] [place] [address] Care Team Providers Care Shuttle Final Inspector Name Role Phone Rosie Bryant Primary Care Provider Reason for Referral * Imaging (Routine) - Closed Specialty Diagnoses / Procedures Referred By Contac t Referred To Contact RADIOLOGY Diagnoses Hyperreflexia Procedures MRI CERV SPINE WO CON Sophia Randolph MD Phone: tel: fax: Referral ID Status Reason Start Date Expiration Date Visits Re quested Visits Authorized [id number] Closed 08/15/2021 09/14/2022 1 1 * Imaging (Routine) - Closed Specialty Diagnoses / Procedures Referred By Contcody t Referred To Contact RADIOLOGY Diagnoses Episodic memory loss Procedures MRI BRAIN WWO CON Sophia Randolph MD Phone: tel: fax: Referral ID Status Reason Start Date Expiration Date Visits Re quested Visits Authorized [id number] Closed 08/15/2021 09/14/2022 1 1 Reason for Visit * Imaging (Routine) - Closed Specialty Diagnoses / Procedures Referred By Contac t Referred To Contact RADIOLOGY Diagnoses Episodic memory loss Procedures MRI BRAIN WWO CON Sophia Randolph MD Phone: tel: fax: Referral ID Status Reason Start Date Expiration Date Visits Re quested Visits Authorized [id number] Closed 08/15/2021 09/14/2022 1 1 Encounter Details Date Type Department Care Team (Latest Contact Info) Description 09/07/2021 5:41 PM CDT - 09/07/2021 11:59 PM CDT Hospital Encounter [facility] MRI [address] [facility] [place] [address] Sophia Randolph MD 1 [place] [address] Discharge Disposition: Home or Self Care (Routine [...] PM CDT documented as of this encounter Medications [...] by mouth daily. Alternates 2000 and 4000 [id number] OR Take 500 mg by mouth daily. 500mg AM. 1000mg PM MAGNESIUM OR Take 96 mg by mouth daily. Menaquinone-7 (VITAMIN K2 OR) Take by mouth 2 (two) times a day. CAR RUNNER THYROID 60 MG tablet Take 1 tablet [...] 09/04/2021 2 documented as of this encounter Progress Notes * Sophia Randolph MD - 09/07/2021 6:15 PM CDT Can you please let them [...] st Contact Info) Description 04/28/2024 2:40 PM TEST LEAD APPLICATION TESTING Office Visit [facility] Orthopedic & Sports Medicine - [place] [address] Jared Mejia MD [address] [place] [address] 05/20/2024 10:20 AM TEST LEAD APPLICATION TESTING Office Visit [facility] Mult[facility]pecialty Care - [facility] 3 [facility], [address] [place] [address] Scarlet Mendoza MD 3 [place] [address] 10/11/2024 10:00 AM CDT Office Visit [facility] THREE [facility], [address] [place] [address] Galdino Santos MD Three [facility]. [address] [place] [address] Lary Joel PA 3 [facility], [address] [place] [address] documented as of this encounter Procedures Procedure Name Priority Date/Time Associated Diagnosis Comments MRI BRAIN WWO CON Routine 09/07/2021 7:0 6 PM CDT Episodic memory loss MRI CERV SPINE WO CON Routine 09/07/2021 6:33 PM CDT Hyperreflexia documented in this encounter Results * MRI BRAIN WWO [...] Greatest loss of disc height at C5- K6nwvsbic C7-T1. No definite abnormal signal identified in [...] identified. Ordered By: SOPHIA RANDOLPH Interpreted By: iMlton Mckoy MD, 09/11/2021 8:11 AM us Sophia Randolph MD MRI Breanna l Result documented in this encounter Visit Diagnoses Diagnosis Episodic memory loss Memory loss Hyperreflexia Abnormal reflex documented in this encounter Administered Medications Inactive Administered Medications - up to 3 most recent administrations Medication Order MAR Action Action Date Dose Rate Site gadoterate meglumine (DOTAREM) 10 MMOL/20ML injection 16 mL 16 mL, Intravenous, IMG once as needed, Contrast, 1 dose, Starting on Fri09/07/21 at 1856, Until Fri09/07/21 at 1856 Given 09/07/2021 6:56 PM CDT 16 mLs Left Arm documented in this encounter Care Teams Shuttle Final Inspector Relationship Specialty Start Date End Date Rosie Bryant DO [address] [place] [address] PCP - General FAMILY PRACTICE 02/21/20 documented as of this encounter
--- OUTSIDE RECORDS SUMMARY | 2024-04-20 02:29 | XMS_ITS | Encounter Summary ---
Author Organization [facility] Address [address] [place] [address]. [place], [place] [address] [place] [address] Care Team Providers Care Alemite Operator Name Role Phone Rosie Bryant DO Primary Care Provider [phone] Encounter Details Date Type Department Care Team (Latest Contact Info) Description 09/07/2021 Travel Social History Tobacco Use Types Packs/Day [...] (Late Contact Info) Description 04/28/2024 2:40 PM FLASH RANGING CREWMEMBER Office Visit [facility] Orthopedic & Sports Medicine - [place] [address] [place] [address] Jared Mejia MD [address] [place] [address] 05/20/2024 10:20 AM FLASH RANGING CREWMEMBER Office Visit [facility] Multispecialty Care - [facility] [address] [facility], [address] [place] [address] Scarlet Mendoza MD 3 [facility] [place] [address] 10/11/2024 10:00 AM CDT Office Visit [facility] THREE [facility], [address] [place] [address] Galdino Santos MD Three [facility]. [address] [place] [address] Lary Joel PA 3 [facility], [address] [place] [address] documented as of this encounter Visit Diagnoses Not on filedocumented in this encounter Care Teams Alemite Operator Relationship Specialty Start Date End Date Rosie Bryant DO [address] [place] [address] PCP - General FAMILY PRACTICE 02/21/20 documented as of this encounter
--- OUTSIDE RECORDS SUMMARY | 2024-04-20 02:33 | XMS_ITS | Encounter Summary ---
Author Organization [facility] Address [address] [place] [address] Care Team Providers Care Red Cap Name Role Phone Unavailable Primary Care Provider Unavailabl e Reason for Referral * Sleep (Routine) - Closed Specialty Diagnoses / Procedures Referred By Contac t Referred To Contact Diagnoses Sleep apnea, unspecified type Procedures POLYSOMNOGRAPHY 4 OR MORE PARAMETERS Justice Rausch FNP [address] [place] [phone] Referral ID Status Reason Start Date Expiration Date Visits Re quested Visits Authorized [id number] Closed 07/31/2022 08/31/2023 1 1 Reason for Visit * Reason Comments Establish Care Sleep Problem Encounter Details Date Type Department Care Team (Late st Contact Info) Description 07/31/2022 10:00 AM CDT Office Visit [facility] Pulmonology [address] [place] [address] Justice Rausch FNP [address] [place] [phone] Sleep apnea, unspecified type (Primary Dx); Primary hypertension Social History Tobacco Use Types Packs/Day Years Used Date Smoking Tobacco: Never Passive Smoke Exposure: Never Smokeless Tobacco: Never Alcohol Use Standard Drinks/Week Comments Never 0 (1 standard drink = 0.6 oz pur e alcohol) Sex and Gender Information Value Date Recorded Sex Assigned at Not on file Gender Identity Not on file Sexual Orientation Not on file documented as of this encounter Last Filed Vital Signs Vital Sign Reading Time Taken Comments Blood Pressure 124/78 07/31/2022 10:12 AM CDT Pulse 69 07/31/2022 10:12 AM CDT Temperature - - Respiratory Rate - - Oxygen Saturation 98% 07/31/2022 10:12 AM CDT ra Inhaled Oxygen Concentration - - Weight 89.5 kg (197 lb 6.4 oz) 07/31/2022 10:12 AM CDT Height 180.3 cm (5' 11 ) 07/31/2022 10:12 AM CDT Body Mass Index 27.53 07/31/2022 10:12 AM CDT documented in this encounter Progress Notes * Justice Rausch FNP - 07/31/2022 10:08 AM CDT Pulmonary Outpatient Sleep History and Physical CHERRY Jenkins 07/31/2022 10:08 AM Patient Name: Maria G Barrow 1955 Primary Care Physician: No primary care provider on file. Date of Service: 07/31/2022 Impression: Sleep Apnea Recommendations: Schedule sleep study I discussed the pathophysiology and treatment options for Obstructive Sleep Apnea HPI: Patient is a 66 y.o. female who is seen in consultation. She is having trouble with her memory. Started about 3 years ago but seems to be getting worse. She had a home sleep study in 2021 but isunsure if results were accurate. Her is present and notes she snored in the past. They now sleep in separate bedrooms. She is unsure if she has apneic episodes. She falls asleep easily but wakes up at night. She feels tired during the day and occasionally takes naps. No restless leg symptomatology. She denies significant weight gain. The sleep history is as follows; Bedtime: 12:00-1:00 am; Wake up Time: 8:00 am Sleep Latency: 5 minutes Number of awakenings: 2-3 Total Sleep time: 6 hours Patient has history of snoring Patient unsure if she has apneic episodes Patient does not feel refreshed upon awakening Darden Sleepiness Scale: 5 RLS: no Caffeine: 1 per day Weight gain: 0 Past Medical History: No past medical history on file. Past Surgical History: No past surgical history on file. Current Medications: No current outpatient medications on file. No current facility-administered medications for this visit. Medication Allergies: Not on File Family History: No family history on file. Social History: Social History Tobacco Use Smoking status: Not on file Smokeless tobacco: Not on file Substance Use Topics Alcohol use: Not on file PHYSICAL EXAM BP 124/78 Pulse 69 Ht 5' 11 (1.803 m) Wt 89.5 kg (197 lb 6.4 oz) SpO2 98% Comment: ra BMI 27.53 kg/m?? Neck size 14 General: Alert, stable, in no distress. HEENT: Nares are patent. Neck: Supple, symmetrical, trachea midline, no adenopathy, thyroid normal. The Soft palate is Mallampati Class 3. Lungs: Clear breath sounds. No crackles or wheeze. Heart: Regular rhythm. No murmur. Abdomen: Soft non-tender. No mass. Extremities: No cyanosis, clubbing or edema. CHERRY Jenkins documented in this encounter Miscellaneous Notes * Patient Instructions - Justice Rausch FNP - 07/31/2022 10:27 AM CDT Sleep Lab Scheduling The sleep lab will be contacting you within 24-48 hours to schedule your sleep study. If you do nothear from them, you may contact them directly at [phone]. Be sure to have your calender and any other important information handy when you call. After you have completed the study, please allow 10-14 business days for our office to obtain your results. After that time period, you may contact our office directly at [phone] to discuss yourresults. Your sleep study results will be posted to your [employer] account prior to your phone call from our office. Please allow time for your physician to review and dictate the next step in treatment. Billing: Please note that there will be two separate charges for your sleep study. One for the study and one for the reading. The reading will be billed according to the date it is read. documented in this encounter Plan of Treatment Not on file documented as of this encounter Results * POLYSOMNOGRAPHY 4 OR MORE PARAMETERS (12/31/2022 12:50 AM CDT) Narrative Procedure Note Luna Mg MD - 12/31/2022 12:50 AM CDT [place], [place] [address] Sleep Study CSN: [id number] DATE OF SERVICE: STUDY Nocturnal polysomnogram. A 67-year-old with a body mass index of 27.5 kg/sq m with suspected sleepapnea. METHODS The study was performed with the registered vascular technologist (rvt) in attendance for theentire test. Polysomnography was performed according to AASM standards. The polysomnogram tracing was reviewed in its entirety. Hypopneas were scored using hypopnea rules as per CMS requirements: Peaksignal excursion drops by greater than or equal to 30% of pre-eventbaseline, with greater than or equal to 4% oxygen desaturation, forgreater than or equal to 10 seconds. H2 hypopneas were scored when the peak signal excursion dropped by greaterthan or equal to 30% of pre-event baseline, for greater than or equal to10 seconds, in association with either greater than or equal to 3% oxygendesaturation or an arousal. FINDINGS Lights out 11:44 p.m., lights on 7:30 a.m. latency to sleep onset was26.5 minutes. Sleep efficiency was 58.9%. The patient spent 8.6% of theTST in stage I, 74.7% of the TST in stage II, 6.7% of the TST in stageIII, and 10% of the TST in stage REM. RESPIRATORY EVENT SUMMARY Hypopneas scored based on 4% or greater desaturation per CMS definition.Through the night, the patient had 2 obstructive apneas, 18 hypopneas tony overall AHI of 4.4 per hour, RDI of 7 per hour, REM AHI of 17.5 perhour, supine AHI of 6 per hour. Average oxygen saturation of 94.5%.Minimum oxygen saturation of 88%. LIMB MOVEMENTS No periodic limb movements were noted. CARDIAC The patient's rhythm was normal sinus with an average heart rate of 64beats per minute. The patient did wear a mouth guard for the study. INTERPRETATION This study was not supportive of a diagnosis of obstructive sleep apneawith an overall normal AHI of 4.4 per hour. The patient wore a mouthguard for the study. Average oxygen saturation of 94.5%. Minimum oxygensaturation of 88%. Time in minutes with saturations less than 89% was 0.1minute. RECOMMENDATIONS The patient may benefit from evaluation and management of primary snoring,clinical correlation indicated. AC:MEDQ [id number] Dictated by: Luna Mg MD Justice Rausch [facility] ORDERABLES [facility] documented in this encounter Visit Diagnoses Diagnosis Sleep apnea, unspecified type- Primary Primary hypertension Unspecified essential hypertension Sleep apnea, unspecified type documented in this encounter
--- OUTSIDE RECORDS SUMMARY | 2024-04-20 02:33 | XMS_ITS | Continuity of Care Document ---
Author Organization [facility] Address [address] [place] [address] [address] [place] [address] Phone Care Team Providers Care Fatback Trimmer Name Role Phone Brandin JACKSON, OTR/LKimberlee Unavailable Unavail able Procedures Procedure Date OT RE-EVALUATION THERAPEUTIC EXERCISES MANUAL THERAPY FUNC ACTIVITY ULTRASOUND THERAPY HOT/COLD PACK THERAPEUTIC EXERCISES MANUAL THERAPY FUNC ACTIVITY ULTRASOUND THERAPY HOT/COLD PACK THERAPEUTIC EXERCISES NEUROMUSCULAR RE-ED MANUAL THERAPY FUNC ACTIVITY ULTRASOUND THERAPY HOT/COLD PACK THERAPEUTIC EXERCISES NEUROMUSCULAR RE-ED MANUAL THERAPY FUNC ACTIVITY ULTRASOUND THERAPY HOT/COLD PACK THERAPEUTIC EXERCISES NEUROMUSCULAR RE-ED MANUAL THERAPY FUNC ACTIVITY ULTRASOUND THERAPY HOT/COLD PACK THERAPEUTIC EXERCISES NEUROMUSCULAR RE-ED MANUAL THERAPY FUNC ACTIVITY ULTRASOUND THERAPY HOT/COLD PACK THERAPEUTIC EXERCISES NEUROMUSCULAR RE-ED MANUAL THERAPY FUNC ACTIVITY ULTRASOUND THERAPY HOT/COLD PACK THERAPEUTIC EXERCISES NEUROMUSCULAR RE-ED MANUAL THERAPY FUNC ACTIVITY ULTRASOUND THERAPY HOT/COLD PACK THERAPEUTIC EXERCISES NEUROMUSCULAR RE-ED MANUAL THERAPY FUNC ACTIVITY ULTRASOUND THERAPY HOT/COLD PACK THERAPEUTIC EXERCISES NEUROMUSCULAR RE-ED MANUAL THERAPY FUNC ACTIVITY ULTRASOUND THERAPY HOT/COLD PACK THERAPEUTIC EXERCISES NEUROMUSCULAR RE-ED MANUAL THERAPY FUNC ACTIVITY ULTRASOUND THERAPY HOT/COLD PACK THERAPEUTIC EXERCISES NEUROMUSCULAR RE-ED MANUAL THERAPY FUNC ACTIVITY ULTRASOUND THERAPY HOT/COLD PACK THERAPEUTIC EXERCISES NEUROMUSCULAR RE-ED MANUAL THERAPY FUNC ACTIVITY ULTRASOUND THERAPY HOT/COLD PACK THERAPEUTIC EXERCISES NEUROMUSCULAR RE-ED MANUAL THERAPY FUNC ACTIVITY ULTRASOUND THERAPY HOT/COLD PACK THERAPEUTIC EXERCISES NEUROMUSCULAR RE-ED MANUAL THERAPY FUNC ACTIVITY ULTRASOUND THERAPY HOT/COLD PACK THERAPEUTIC EXERCISES NEUROMUSCULAR RE-ED MANUAL THERAPY FUNC ACTIVITY ULTRASOUND THERAPY HOT/COLD PACK THERAPEUTIC EXERCISES NEUROMUSCULAR RE-ED MANUAL THERAPY FUNC ACTIVITY ULTRASOUND THERAPY HOT/COLD PACK Theraputty THERAPEUTIC EXERCISES NEUROMUSCULAR RE-ED MANUAL THERAPY FUNC ACTIVITY ULTRASOUND THERAPY HOT/COLD PACK THERAPEUTIC EXERCISES NEUROMUSCULAR RE-ED MANUAL THERAPY FUNC ACTIVITY ULTRASOUND THERAPY HOT/COLD PACK THERAPEUTIC EXERCISES NEUROMUSCULAR RE-ED MANUAL THERAPY FUNC ACTIVITY ULTRASOUND THERAPY HOT/COLD PACK THERAPEUTIC EXERCISES NEUROMUSCULAR RE-ED MANUAL THERAPY FUNC ACTIVITY ULTRASOUND THERAPY HOT/COLD PACK OT RE-EVALUATION THERAPEUTIC EXERCISES NEUROMUSCULAR RE-ED MANUAL THERAPY FUNC ACTIVITY ULTRASOUND THERAPY HOT/COLD PACK THERAPEUTIC EXERCISES NEUROMUSCULAR RE-ED MANUAL THERAPY FUNC ACTIVITY ULTRASOUND THERAPY HOT/COLD PACK THERAPEUTIC EXERCISES NEUROMUSCULAR RE-ED MANUAL THERAPY FUNC ACTIVITY ULTRASOUND THERAPY HOT/COLD PACK THERAPEUTIC EXERCISES NEUROMUSCULAR RE-ED MANUAL THERAPY FUNC ACTIVITY ULTRASOUND THERAPY HOT/COLD PACK THERAPEUTIC EXERCISES NEUROMUSCULAR RE-ED MANUAL THERAPY FUNC ACTIVITY HOT/COLD PACK OT EVALUATION THERAPEUTIC EXERCISES FUNC ACTIVITY HOT/COLD PACK Advance Directives Directive Yes / No Effective Date File Name No Information Encounters Encounter Description Practice Location Reason(s) For Visit Diagnoses Date Provider Providers Copied on Encounter [facility], [address] [address], [place], [place], [id number], [place] tel:[phone] [place] No Information Brandin Mohan. [address] [facility], [address], [place], [place], [facility], . tel:[phone] [address], [place], [place], [id number], tel:[phone] [place] No Information Brandin Mohan. [address] [place] [address], [address], [place], [place], [facility] [place], . tel:[phone] Referring Provider: Aldair Hickey, [address], [place], [address]. tel:[phone] [address], [place], [place], [id number], tel:[phone] [place] No Information Brandin Mohan. [address] [place] [address], [address], [place], [place], [facility] [place], . tel:[phone] Referring Provider: Aldair Hickey, [address], [place], [address]. tel:[phone] [address], [place], [place], [id number], tel:[phone] [place] No Information Brandin Mohan. [address] [place] [address], [address], [place], [place], [facility] [place], . tel:[phone] Referring Provider: Aldair Hickey, [address], [place], [address]. tel:[phone] [address], [place], [id number], tel:[phone] [place] No Information Brandin Mohan. [address] [facility], [address], [place], [place], [facility] [place], . tel:[phone] Referring Provider: Aldair Hickey, [address], [place], [address]. tel:[phone], [place], [place], [address], tel:[phone] [place] No Information Brandin Mohan. [address] [place] [address], [address], [place], [place], [facility] [place], . tel:[phone] Referring Provider: Aldair Hickey, [address], [place], [address]. tel:[phone], [place], [place], [address], [place] tel:[phone] [place] No Information Brandin Mohan. [address] [place] [address], [address], [place], [place], [facility] [place], . tel:[phone] Referring Provider: Aldair Hickey, [address], [place], [address]. tel:[phone], [place], [place], [id number], [place] tel:[phone] [place] No Information Brandin Mohan. [address] [place] [address], [address], [place], [place], [facility] [place], . tel:[phone] Referring Provider: Aldair Hickey, [address], [place], [address]. tel:[phone], [place], [place], [id number], [place] tel:[phone] [place] No Information Brandin Mohan. [address] [place] [address], [address], [place], [place], [facility] [place], . tel:[phone] Referring Provider: Aldair Hickey, [address], [place], [address]. tel:[phone], [place], [place], [address], tel:[phone] [place] No Information Brandin Mohan. [address] [facility], [address], [place], [facility] [place], . tel:[phone] Referring Provider: Aldair Hickey, [address], [place], [address]. tel:[phone], [place], [place], [address], tel:[phone] [place] No Information Brandin Mohan. [address] [place] [address], [address], [place], [place], [facility] [place], . tel:[phone] Referring Provider: Aldair Hickey, [address], [place], [address]. tel:[phone], [place], [place], [address], tel:[phone] [place] No Information Ghotrajean Mohan. [address] [place] [address], [address], [place], [place], [facility] [place], . tel:[phone] Referring Provider: Aldair Hickey, [address], [place], [address]. tel:[phone], [place], [place], [address], tel:[phone] [place] No Information Brandin Mohan. [address] [place] [address], [address], [place], [facility] [place], . tel:[phone] Referring Provider: Aldair Hickey, [address], [place], [address]. tel:[phone], [place], [place], [address], tel:[phone] [place] No Information Brandin Mohan. [address] [place] [address], [address], [place], [facility] [place], . tel:[phone] Referring Provider: Aldair Hickey [address], [place], [address]. tel:[phone] [address], [place], [place], [address], tel:[phone] [place] No Information Brandin Mohan. [address] [place] [address], [address], [place], [facility] [place], . tel:[phone] Referring Provider: Aldair Hickey [address], [place], [place], [facility]. tel:[phone] [address], [place], [place], [address], tel:[phone] [place] No Information Brandin Mohan. [address] [place] [address], [address], [place], [facility] [place], . tel:[phone] Referring Provider: Aldair Hickey [address], [place], [address]. tel:[phone] [address], [place], [place], [address], tel:[phone] [place] No Information Brandin Mohan. [address] [facility], [address], [place], [facility] [place], . tel:[phone] Referring Provider: Aldair Hickey [address], [place], [address]. tel:[phone] [address], [place], [address], tel:[phone] [place] No Information Brandin Mohan. [address] [facility], [address], [place], [facility] [place], . tel:[phone] Referring Provider: Aldair Edelmira, [address], [place], [address]. tel:[phone], [place], [place], [address], tel:[phone] [place] No Information Brandin Mohan. [address] [place] [address], [address], [place], [facility] [place], . tel:[phone] Referring Provider: Aldair Hickey, [address], [place], [address]. tel:[phone] [address], [place], [place], [address], tel:[phone] [place] No Information Brandin Mohan. [address] [place] [address], [address], [place], [facility] [place], . tel:[phone] Referring Provider: Aldair Hickey, [address], [place], [address]. tel:[phone] [address], [place], [place], [address], [place] tel:[phone] [place] No Information Brandin Mohan. [address] [place] [address], [address], [place], [facility] [place], . tel:[phone] Referring Provider: Aldair Hickey, [address], [place], [address]. tel:[phone] [address], [place], [place], [address], [place] tel:[phone] [place] No Information Brandin Mohan. [address] [place] [address], [address], [place], [facility] [place], . tel:[phone] Referring Provider: Aldair Hickey, [address], [place], [address]. tel:[phone] [address], [place], [place], [address], tel:[phone] [place] No Information Brandin Mohan. [address] [facility], [address], [place], [facility] [place], . tel:[phone] Referring Provider: Aldair Hickey, [address], [place], [address]. tel:[phone], [place], [place], [address], tel:[phone] [place] No Information Brandin Mohan. [address] [facility], [address], [place], [facility] [place], . tel:[phone] Referring Provider: Aldair Hickey, [address], [place], [address]. tel:[phone] [address], [place], [place], [address], tel:[phone] [place] No Information Brandin Mohan. [address] [facility], [address], [place], [facility] [place], . tel:[phone] Referring Provider: Aldair Hickey, [address], [place], [address]. tel:[phone], [place], [place], [address], tel:[phone] [place] No Information Brandin Mohan. [address] [facility], [address], [place], [facility] [place], . tel:[phone] Referring Provider: Aldair Hickey [address], [place], [address]. tel:[phone], [place], [place], [address], tel:[phone] [place] No Information Brandin Barcenasa. [address] [facility], [address], [place], [address], [place]. tel:[phone] Referring Provider: Paul Linton[address], [place], [address]. tel:[phone] [facility], [facility] [facility] [address], [place], [place], [address], [place] tel:[phone] [place] Pain in joint involving hand Brandin Mohan. [address] [facility], [address], [place], [address], [place]. tel:[phone] Referring Provider: Paul L[address], [place], [address]. tel:[phone] Family History Family Member Type Diagnosis Age At Onset No Information Payers Payer name Insurance type Covered republican ID Authordayna polanco(s) [facility] [id number] Social History Type Description Quantity Date Captured [...]
--- OUTSIDE RECORDS SUMMARY | 2024-04-20 02:33 | XMS_ITS | Encounter Summary ---
Author Organization [facility] Address [address] [place] [address] Care Team Providers Care Safe Technician Name Role Phone Unavailable Primary Care Provider Unavailabl e Encounter Details Date Type Department Care Team (Late st Contact Info) Description 08/09/2022 Abstract [facility] Pulmonology [facility] [address] [place] [address] Justice Rausch, [address] [place] [id number] Social History Tobacco Use Types Packs/Day Years [...]
--- OUTSIDE RECORDS SUMMARY | 2024-04-20 02:33 | XMS_ITS | Encounter Summary ---
Author Organization [facility] Address [address] [place] [address] Care Team Providers Care Garden Tractor Mechanic Name Role Phone Unavailable Primary Care Provider Unavailabl e Encounter Details Date Type Department Care Team (Late st Contact Info) Description 11/25/2023 External Device Data [facility] ABSTRACTION Provider, Abstract NO ADDRESS ON FILE Social History Tobacco Use Types Packs/Day Years [...]
--- OUTSIDE RECORDS SUMMARY | 2024-04-20 02:33 | XMS_ITS | Encounter Summary ---
Author Organization [facility] Address [address] [place] [address] Care Team Providers Care Steam Pipe Fitter Name Role Phone Unavailable Primary Care Provider Unavailabl e Reason for Referral * Sleep (Routine) - Closed Specialty Diagnoses / Procedures Referred By Contac t Referred To Contact Diagnoses Sleep apnea, unspecified type Procedures POLYSOMNOGRAPHY 4 OR MORE PARAMETERS Justice Rausch FNP [address] [place] [phone] Referral ID Status Reason Start Date Expiration Date Visits Re quested Visits Authorized [id number] Closed 07/31/2022 08/31/2023 1 1 Reason for Visit * Sleep (Routine) - Closed Specialty Diagnoses / Procedures Referred By Meet machado Referred To Contact Diagnoses Sleep apnea, unspecified type Procedures POLYSOMNOGRAPHY 4 OR MORE PARAMETERS Justice Rausch FNP [address] [place] [phone] Referral ID Status Reason Start Date Expiration Date Visits Re quested Visits Authorized [id number] Closed 07/31/2022 08/31/2023 1 1 Encounter Details Date Type Department Care Team (Late st Contact Info) Description 12/03/2022 7:55 PM CDT - 12/03/2022 11:59 PM CDT Hospital Encounter [facility] Adult Sleep Medicine [facility] [address] [place] [address] Justice Rausch FNP [address] [place] [phone] Discharge Disposition: Home or Self Care Social History Tobacco Use Types Packs/Day Years Used Date Smoking Tobacco: Never Passive Smoke Exposure: Never Smokeless Tobacco: Never Alcohol Use Standard Drinks/Week Comments Never 0 (1 standard drink = 0.6 oz pur e alcohol) Sex and Gender Information Value Date Recorded Sex Assigned at Not on file Gender Identity Not on file Sexual Orientation Not on file documented as of this encounter Medications at Time of Discharge Medication Sig Dispensed Refills Start Date End Date thyroid, pork, ([employer] Thyroid) 60 mg tablet Take 60 mg by mouth daily. 10/20/2020 Cholecalciferol, Vitamin D3, 50 mcg (2,000 unit) Capsule Take 4,000 Units by mouth daily. atenoloL (TENORMIN) 50 mg tablet Take 50 mg by mouth daily. 07/23/2021 ascorbic acid, vitamin C, (VITAMIN C) 1,000 mg Tablet Take 1,000 mg by mouth daily. amLODIPine (NORVASC) 5 mg tablet Take 5 mg by mouth daily. 08/11/2021 documented as of this encounter Procedure Notes * Luna Mg MD - 12/31/2022 12:50 AM CDTAssociated Order(s): POLYSOMNOGRAPHY 4 OR MORE PARAMETERS [place], [place] [address] Sleep Study CSN: [id number] DATE OF SERVICE: STUDY Nocturnal polysomnogram. A 67-year-old with a body mass index of 27.5 kg/sq m with suspected sleep apnea. METHODS The study was performed with the radiation therapy technologist in attendance for the entire test. Polysomnography was performed according to AASM standards. The polysomnogram tracing was reviewed in its entirety. Hypopneas were scored using hypopnea rules as per CMS requirements: Peak signal excursion drops by greater than or equal to 30% of pre-event baseline, with greater than or equal to 4% oxygen desaturation, for greater than or equal to 10 seconds. H2 hypopneas were scored when the peak signal excursion dropped by greater than or equal to 30% of pre-event baseline, for greater than or equal to 10 seconds, in association with either greater thanor equal to 3% oxygen desaturation or an arousal. FINDINGS Lights out 11:44 p.m., lights on 7:30 a.m. latency to sleep onset was 26.5 minutes. Sleep efficiency was 58.9%. The patient spent 8.6% of the TST in stage I, 74.7% of the TST in stage II, 6.7% of theTST in stage III, and 10% of the TST in stage REM. RESPIRATORY EVENT SUMMARY Hypopneas scored based on 4% or greater desaturation per CMS definition. Through the night, the patient had 2 obstructive apneas, 18 hypopneas for an overall AHI of 4.4 per hour, RDI of 7 per hour, REM AHI of 17.5 per hour, supine AHI of 6 per hour. Average oxygen saturation of 94.5%. Minimum oxygen saturation of 88%. LIMB MOVEMENTS No periodic limb movements were noted. CARDIAC The patient's rhythm was normal sinus with an average heart rate of 64 beats per minute. The patient did wear a mouth guard for the study. INTERPRETATION This study was not supportive of a diagnosis of obstructive sleep apnea with an overall normal AHI of 4.4 per hour. The patient wore a mouth guard for the study. Average oxygen saturation of 94.5%. Minimum oxygen saturation of 88%. Time in minutes with saturations less than 89% was 0.1 minute. RECOMMENDATIONS The patient may benefit from evaluation and management of primary snoring, clinical correlation indicated. AC:MEDQ DID: [id number] Dictated by: Luna Mg MD documented in this encounter Plan of Treatment Not on file documented as of this encounter Procedures Procedure Name Priority Date/Time Associated Diagnosis Comments POLYSOMNOGRAPHY 4 OR MORE PARAMETERS Routine 12/31/2022 12:50 AM CDT Sleep apnea, unspecified type documented in this encounter Results * POLYSOMNOGRAPHY 4 OR MORE PARAMETERS (12/31/2022 12:50 AM CDT) Narrative Procedure Note Luna Mg MD - 12/31/2022 12:50 AM CDT [place], [place] [address] Sleep Study CSN: [id number] DATE OF SERVICE: STUDY Nocturnal polysomnogram. A 67-year-old with a body mass index of 27.5 kg/sq m with suspected sleepapnea. METHODS The study was performed with the radiation therapy technologist in attendance for theentire test. Polysomnography was [...] management of primary snoring,clinical correlation indicated. AC:MEDQ DID:[id number] Dictated by: Luna Mg MD Justice Rausch [facility] documented in this encounter Visit Diagnoses Diagnosis Sleep apnea, unspecified type documented in this encounter
--- OUTSIDE RECORDS SUMMARY | 2024-04-20 02:33 | XMS_ITS | Encounter Summary ---
Author Organization [facility] Address [address] [place] [address] Care Team Providers Care Butadiene Compressor Operator Name Role Phone Unavailable Primary Care Provider Unavailabl e Encounter Details Date Type Department Care Team (Late st Contact Info) Description 04/22/2023 External Device Data STL ABSTRACTION Provider, Abstract [...]
--- OUTSIDE RECORDS SUMMARY | 2024-04-20 02:33 | XMS_ITS | Encounter Summary ---
Author Organization [facility] Address [address] [place] [address] Care Team Providers Care Union Carpenter Name Role Phone Unavailable Primary Care Provider Unavailabl e Reason for Visit * Reason Onset Date Comments sleep study result 01/01/2023 Encounter Details Date Type Department Care Team (Late st Contact Info) Description 01/01/2023 Telephone [facility] Pulmonology [facility] [address] [place] [address] Justice Rausch FNP [address] [place], [place] [address] [address] sleep study result Social History Tobacco Use Types Packs/Day Years Used Date Smoking Tobacco: Never Passive Smoke Exposure: Never Smokeless Tobacco: Never Alcohol Use Standard Drinks/Week Comments Never 0 (1 standard drink = 0.6 oz pur e alcohol) Sex and Gender Information Value Date Recorded Sex Assigned at Not on file Gender Identity Not on file Sexual Orientation Not on file documented as of this encounter Miscellaneous Notes * Telephone Encounter - Justice Raushc FNP - 01/01/2023 10:13 AM CDT Sleep study does not show sleep apnea. Patient received results on 12/30/22. documented in this encounter Plan of Treatment Not on file documented as of this encounter Visit Diagnoses Not on filedocumented in this encounter
--- OUTSIDE RECORDS SUMMARY | 2024-04-20 02:33 | XMS_ITS | Encounter Summary ---
Author Organization [facility] Address [address] [place] [address] Care Team Providers Care Fur Finisher Seamstress Name Role Phone Unavailable Primary Care Provider Unavailabl e Encounter Details Date Type Department Care Team (Late st Contact Info) Description 06/06/2023 External Device Data STL ABSTRACTION Provider, Abstract [...]
--- OUTSIDE RECORDS SUMMARY | 2024-04-20 02:33 | XMS_ITS | Encounter Summary ---
Author Organization [facility] Address [address] [place] [address] Care Team Providers Care Ornamental Iron Worker Helper Name Role Phone Unavailable Primary Care Provider [...]
--- OUTSIDE RECORDS SUMMARY | 2024-04-20 02:33 | XMS_ITS | Encounter Summary ---
Author Organization [facility] Address [address] [place] [address] Care Team Providers Care Sales Advisor Name Role Phone Unavailable Primary Care Provider Unavailabl e Encounter Details Date Type Department Care Team (Late st Contact Info) Description 05/14/2023 External Device Data STL ABSTRACTION Provider, Abstract [...]
--- OUTSIDE RECORDS SUMMARY | 2024-04-20 02:33 | XMS_ITS | Encounter Summary ---
Author Organization [facility] Address [address] [place] [address] Care Team Providers Care Build And Deployment Engineer Name Role Phone Unavailable Primary Care Provider Unavailabl e Encounter Details Date Type Department Care Team (Late st Contact Info) Description 11/04/2023 External Device Data ST[facility] ABSTRACTION Provider, Abstract [...]
--- OUTSIDE RECORDS SUMMARY | 2024-04-20 02:33 | XMS_ITS | Clinical Summary ---
Author Organization [facility] Address [address] [place] [address] Phone Care Team Providers Care Double Corner Cutter Name Role Phone Unavailable Primary Care Provider Unavailabl e Allergies Active Allergy Reactions Criticality Noted Date Comments Acetaminophen Other (See Comments) 10/24/2020 Albuterol Other (See Comments) 10/24/2020 Budesonide-Formoterol Anaphylaxis High 10/24/2020 Cephalexin Rash Low 11/24/2021 Donepezil Other (See Comments) 10/24/2020 htn Erythromycin Diarrhea Low 10/24/2020 Ezetimibe Other (See Comments) 11/24/2021 Icosapent Ethyl Diarrhea Low 11/24/2021 Melatonin Unknown 03/08/2022 Naproxen Other (See Comments) 10/24/2020 Hot flashes, constipation, bruising Nitrofurantoin Other (See Comments) 10/24/2020 Reeyppl-Kdy-Uhs Reductase Inhibitors Other (See Comments) 10/24/2020 Intolerant Topiramate Other (See Comments) 10/24/2020 Medications Medication Sig Dispensed Refills Start Date End Date Status thyroid, pork, (GLOBAL SALES EXECUTIVE Thyroid) 60 mg tablet Take 60 mg by mouth daily. 10/20/2020 Active Cholecalciferol, Vitamin D3, 50 mcg (2,000 unit) Capsule Take 4,000 Units by mouth daily. Active atenoloL (TENORMIN) 50 mg tablet Take 50 mg by mouth daily. 07/23/2021 Active ascorbic acid, vitamin C, (VITAMIN C) 1,000 mg Tablet Take 1,000 mg by mouth daily. Active amLODIPine (NORVASC) 5 mg tablet Take 5 mg by mouth daily. 08/11/2021 Active Active Problems Problem Noted Date Diagnosed Date Primary hypertension 07/31/2022 Hyperlipidemia, mixed 04/04/2022 Overview (07/31/2022): Last Assessment & Plan: Her most recent lipids show an LDL of 150. She is not tolerant of statins or Zetia. I discussed PCSK9 inhibitor therapy and she has not interested at this time. Precordial pain 04/04/2022 Overview (07/31/2022): Last Assessment & Plan: She has not had any more chest discomfort. Her symptoms sound noncardiac in nature. I discussed exercise stress testing, but at this time she would like to monitor her symptoms. I am in agreement. Social History Tobacco Use Types Packs/Day Years [...] Mass Index 27.53 07/31/2022 10:12 AM CDT Plan of Treatment Health Maintenance Due Date Last Done Comments DTAP/TDAP/TD VACCINES (1 - Tdap) 1972 BREAST CANCER SCREENING 1993 COLORECTAL SCREENING 1998 Colorectal Cancer Screening 1998 FIT-DNA Q 3 years 1998 FIT/FOBT Q 1 year 1998 Flex Sig/CT Colonography Q 5 years 1998 ZOSTER VACCINE (2 of 3) 03/15/2014 01/18/2014 OSTEOPOROSIS SCREENING 2018 PNEUMOCOCCAL VACCINE 65+ YEARS (1 of 1 - PCV) 12/08/19 INFLUENZA VACCINE (#1) 2023 RSV VACCINE (60+ or ) (1 - 1-dose 75+ series) 2028
--- OUTSIDE RECORDS SUMMARY | 2024-04-20 02:33 | XMS_ITS | Encounter Summary ---
Author Organization [facility] Address [address] [place] [address] Care Team Providers Care Marketing Development Specialist Name Role Phone Unavailable Primary Care Provider Unavailabl e Encounter Details Date Type Department Care Team (Late st Contact Info) Description 03/06/2023 External Device Data STL ABSTRACTION Provider, Abstract [...]
--- OUTSIDE RECORDS SUMMARY | 2024-04-20 02:33 | XMS_ITS | Encounter Summary ---
Author Organization [facility] Address [address] [place] [address] Care Team Providers Care Printing Sign Machine Operator Name Role Phone Unavailable Primary Care Provider Unavailabl e Encounter Details Date Type Department Care Team (Late st Contact Info) Description 10/07/2023 External Device Data STL ABSTRACTION Provider, Abstract [...]
--- OUTSIDE RECORDS SUMMARY | 2024-04-20 02:33 | XMS_ITS | Encounter Summary ---
Author Organization [facility] Address [address] [place] [address] Care Team Providers Care Dining Service Supervisor Name Role Phone Unavailable Primary Care Provider Unavailabl e Encounter Details Date Type Department Care Team (Late st Contact Info) Description 12/17/2023 External Device Data STL ABSTRACTION Provider, Abstract [...]
--- OUTSIDE RECORDS SUMMARY | 2024-04-20 02:33 | XMS_ITS | Encounter Summary ---
Author Organization [facility] Address [address] [place] [address] Care Team Providers Care Rubber Mold Maker Name Role Phone Unavailable Primary Care Provider Unavailabl e Encounter Details Date Type Department Care Team (Late st Contact Info) Description 06/09/2023 External Device Data STL ABSTRACTION Provider, Abstract [...]
--- OUTSIDE RECORDS SUMMARY | 2024-04-20 02:33 | XMS_ITS | Encounter Summary ---
Author Organization [facility] Address [address] [place] [address] Care Team Providers Care Stonework Supervisor Name Role Phone Unavailable Primary Care Provider Unavailabl e Encounter Details Date Type Department Care Team (Late st Contact Info) Description 10/21/2023 External Device Data STL ABSTRACTION Provider, Abstract [...]
--- OUTSIDE RECORDS SUMMARY | 2024-04-20 02:33 | XMS_ITS | Encounter Summary ---
Author Organization [facility] Address [address] [place] [address] Care Team Providers Care Farm Equipment Operator Name Role Phone Unavailable Primary Care Provider Unavailabl e Encounter Details Date Type Department Care Team (Late st Contact Info) Description 12/30/2023 External Device Data STL ABSTRACTION Provider, Abstract [...]
--- OUTSIDE RECORDS SUMMARY | 2024-04-20 02:33 | XMS_ITS | Continuity of Care Document ---
Author Organization [facility] Address [address] [place] [address] [address] [place] [address] Phone Care Team Providers Care Production Line Mechanic Name Role Phone Dylan Corona Unavailable Unavailable Advance Directives Directive Yes / No Effective Date File Name No Information Encounters Encounter Description Practice Location Reason(s) For Visit Diagnoses Date Provider Providers Copied on Encounter [facility], [id number] [place] [address] [address], [place], [place], [id number], [place] tel:[phone] [facility] No Information 0-[address] Edward. [address] , [address], [place], [place], [facility], [place]. tel:[phone] Referring Provider: Oseas Freed MD, [address], [place], [place], [facility]. tel:[phone] Family History Family Member Type Diagnosis Age At Onset No Information Payers Payer name Insurance type Covered constitution party ID Authoriza tion(s) No Information Social [...]
--- OUTSIDE RECORDS SUMMARY | 2024-04-20 02:33 | XMS_ITS | Encounter Summary ---
Author Organization [facility] Address [address] [place] [address] Care Team Providers Care Cone Former Name Role Phone Unavailable Primary Care Provider Unavailabl e Encounter Details Date Type Department Care Team (Late st Contact Info) Description 12/16/2023 External Device Data STL ABSTRACTION Provider, Abstract [...]
--- OUTSIDE RECORDS SUMMARY | 2024-04-20 02:33 | XMS_ITS | Encounter Summary ---
Author Organization [facility] Address [address] [place] [address] Care Team Providers Care Motorboat Operator Name Role Phone Unavailable Primary Care Provider Unavailabl e Encounter Details Date Type Department Care Team (Late st Contact Info) Description 05/29/2023 Abstract [facility] [place] [address] [address] [place] [address] Jenn Hale MD NO ADDRESS ON FILE Social History Tobacco [...]
--- OUTSIDE RECORDS SUMMARY | 2024-04-20 02:33 | XMS_ITS | Encounter Summary ---
Author Organization [facility] Address [address] [place] [address] Care Team Providers Care Overhead Crane Operator Name Role Phone Unavailable Primary Care [...]
--- OUTSIDE RECORDS SUMMARY | 2024-04-20 02:33 | XMS_ITS | Encounter Summary ---
Author Organization [facility] Address [address] [place] [address] Care Team Providers Care Kennel Assistant Name Role Phone Unavailable Primary Care Provider Unavailabl e Reason for Visit * Reason Onset Date Comments Results 12/30/2022 Sleep study Encounter Details Date Type Department Care Team (Late st Contact Info) Description 12/30/2022 Telephone [facility] Pul[facility] [address] [place] [address] Luna Mg MD [address] [place] [address] Results (Sleep study) Social History Tobacco Use Types Packs/Day Years [...] encounter Miscellaneous Notes * Telephone Encounter - Darcy Hoffman - 12/31/2022 8:33 AM CDT Spoke with patient and let her know her AHI number and that no treatment is needed at this time. * Telephone Encounter - Darcy Hoffman - 12/30/2022 12:07 PM CDT Spoke with patient and told her that Dr Mg reviewed the sleep study but has not dictacted. She did say that the patient didn't have sleep apnea, but that is all I have for now. I will call her back when the report is dictated and more info given. * Telephone Encounter - Darcy Hoffman - 12/30/2022 12:06 PM CDT Pt called asking for results of sleep study. documented in this encounter Plan of Treatment Not on file documented as of this encounter Visit Diagnoses Not on filedocumented in this encounter
--- OUTSIDE RECORDS SUMMARY | 2024-04-20 02:33 | XMS_ITS | Encounter Summary ---
Author Organization [employer] Address [address] [place] [address] Care Team Providers Care Printer Machine Name Role Phone Unavailable Primary Care Provider Unavailabl e Reason for Visit * Reason Onset Date Comments PATIENT QUESTION 07/31/2022 Encounter Details Date Type Department Care Team (Late st Contact Info) Description 07/31/2022 Telephone [email or web address] Adult Sleep Medicine [facility] [address] [place] [address] Justice Rausch FNP [address] [place], [place] [address] [place] [address] PATIENT QUESTION Social History Tobacco Use Types Packs/Day Years [...] encounter Miscellaneous Notes * Telephone Encounter - Kal Barrett - 07/31/2022 11:29 AM CDT That is fine. * Telephone Encounter - Justice Rausch FNP - 07/31/2022 11:28 AM CDT Kal see message below. * Telephone Encounter - Karyna Stearns - 07/31/2022 11:15 AM CDT Thony, This patient told me she will only have her sleep study here at our location if she is allowed to sleep at least until 7 or 7:30 am. 7:30 is preferable. I told her I would schedule her on a night the Day Tech will be available in the morning, and then ask the provider and Sleep Lab Value Stream Leader for permission. How would you like me to proceed? documented in this encounter Plan of Treatment Not on file documented as of this encounter Visit Diagnoses Not on filedocumented in this encounter
== END 2024-04-13 06:33 | disposition home or self-care (01) ==
PROVIDERS: Emergency Provider Emergency Medicine; PCP Family Medicine
DX: K80.70 Calculus of gallbladder and bile duct without cholecystitis without obstruction (principal); R10.13 Epigastric pain; R07.89 Other chest pain; Z20.822 Contact with and (suspected) exposure to COVID-19; M85.80 Other specified disorders of bone density and structure, unspecified site; E03.9 Hypothyroidism, unspecified; I10 Essential (primary) hypertension; E78.5 Hyperlipidemia, unspecified
CPT/HCPCS: 36415; 71045; 74177; 80053; 83690; 83735; 84484; 85025; 85610; 85730; 87637; 93005; 96361; 96374; 96375; 99284; J2270; J2405; J2470; J7030; Q9967

== ENCOUNTER 2024-08-26 08:45 | Emergency (ER) | payer MEDICARE, SELFPAY ==
--- OUTSIDE RECORDS SUMMARY | 2024-08-26 08:53 | XMS_ITS | Encounter Summary ---
Author Organization [facility] Address [address] [place] [address] Care Team Providers Care Motor Equipment Lieutenant Name Role Phone Rosie Bryant Jerson GUERRERO Primary Care Provider [phone] Encounter Details Date Type Department Care Team (Late st Contact Info) Description 05/02/2022 Abstract [facility] [address] Vero Le [place] Social History Tobacco Use [...] Information Value Date Recorded Sex Assigned at Female 05/19/2024 7:52 AM PROMOTIONAL MARKETING ANALYST Legal Sex Female 7:00 PM CDT Gender Identity Not on file Sexual Orientation Not on file COVID-19 Exposure Response Date Recorded In the last 10 days, have yo u been in contact with someone who was confirmed or suspected to have Coronavirus/COVID-19? No / Unsure 04/04/2022 10:40 AM PROMOTIONAL MARKETING ANALYST documented as of this encounter Plan of Treatment Upcoming Encounters Date Type Department Care Team (Late st Contact Info) Description 10/11/2024 10:00 AM CDT [facility] [place] [address] Galdino Santos MD [facility]. [address] [place], [place] [address] Lary Joel PA [address] [facility], [address] [place] [address] 11/17/2024 11:20 AM CDT Office Visit [facility] [address] [facility] [address], [address] [place] [address] Scarlet Mendoza MD [address] [facility] [place] [address] documented as of this encounter Procedures Procedure Name Priority Date/Time Associated Diagnosis Comments LIPID PANEL Routine 02/27/2022 documented in this encounter Results * LIPID PANEL (02/27/2022) CHOLESTEROL 234 TRIGLYCERIDES 117 HDL 56 LDL (CALCULATED) 155 NON HDL CHOLESTEROL 178 us Default History Genericprovider LABORATORY Final Result documented in this encounter Visit Diagnoses Not on filedocumented in this encounter Care Teams Motor Equipment Lieutenant Relationship Specialty Start Date End Date Rosie Bryant DO [address] [place] [address] PCP - General FAMILY PRACTICE 02/21/20 documented as of this encounter
--- OUTSIDE RECORDS SUMMARY | 2024-08-26 08:53 | XMS_ITS | Clinical Summary ---
Author Organization [facility] Address [address] [place] [address] Phone Care Team Providers Care Agricultural Engineering Technologist Name Role Phone Unavailable Primary Care Provider [...] constipation, bruising Nitrofurantoin Other (See Comments) 10/24/2020 Xeowdch-Cml-Hnl Reductase Inhibitors Other (See Comments) 10/24/2020 Intolerant Topiramate Other (See Comments) 10/24/2020 Medications thyroid, pork, (ASSEMBLY MEMBER Thyroid) 60 mg tablet Take 60 mg [...] drink = 0.6 oz pur e alcohol) Comments Unknown Sex and Gender Information Value Date Recorded Sex Assigned at Not on file Legal Sex Female 4:38 PM CDT Gender Identity Not on file [...] Flex Sig/CT Colonography Q 5 years 1998 PNEUMOCOCCAL VACCINE 50+ YEARS (1 of 1 - PCV) 12/08/19 04 ZOSTER VACCINE (2 of 3) 03/15/2014 01/18/2014 OSTEOPOROSIS SCREENING 2018 INFLUENZA VACCINE (#1) 2023 RSV VACCINE (60+ or ) (1 - 1-dose 75+ series) 2028 Insurance MEDICARE PART A AND B [facility] [id number]
--- OUTSIDE RECORDS SUMMARY | 2024-08-26 08:54 | XMS_ITS | Data Portability ---
Author Organization YOAN - [facility], P.CRoberta, [facility] Address [address] [place] [address] Assessment No assessment recorded. Plan of Treatment Reminders Order Date Submit Date Provider Last Modified By Organization Details Last Modified Time Details Appointments None recorded. Lab TSH, serum or plasma - on or about 09-30-182018 019 [facility] In-House Results, For Internal Use Only, Do Not Delete/merge, [id number] 9 09:26:45 T4, free, serum 2018 019 [facility] In-House Results, For Internal Use Only, Do Not Delete/merge, [id number] 9 09:26:45 T3, total, serum 2018 019 [facility] In-House Results, For Internal Use Only, Do Not Delete/merge, [id number] 9 09:26:45 T3, reverse, serum 2018 019 [facility] In-House Results, For Internal Use Only, Do Not Delete/merge, [id number] 9 09:26:45 respirator y allergen panel - [facility] b 2018 019 [facility] In-House Results, For Internal Use Only, Do Not Delete/merge, [id number] 9 09:38:18 food allergen panel, serum 2018 019 [facility] In-House Results, For Internal Use Only, Do Not Delete/merge, [id number] 9 18:56:25 rapid strep group A, throat 2017 018 [facility] In-House Results, For Internal Use Only, Do Not Delete/merge, [id number] 8 21:19:16 culture, skin 2014 015 jblechle Not available 5 08:49:07 Referral None recorded. Procedures None recorded. Surgeries None recorded. Imaging XR, chest, 2 view 2018 019 [facility], [address], [address], [place], [address], 9 04:45:22 Medication Orders Phosphatid yl Serine 2018 019 [facility]58245, [address], [place], [place], [id number], 9 17:07:20 DHEA 25mg 2018 019 [facility] #22932, [address], [place], [place], [id number], 9 17:07:13 Calcarea Carbonica 2018 019 [facility] #40684, [address] , [place], [place], [id number], 9 17:07:13 Phosphorus 2018 019 [facility]06619, [address] , [place], [place], [id number], 9 16:16:32 Phosphorus 2018 019 [email or web address], [address] , [place], [place], [id number], 9 16:16:32 Zithromax 250 mg tablet 2017 018 [facility], [address] , [place], [place], [id number], 9 13:22:16 Berberis Quartz 2017 018 [email or web address], [address] , [place], [place], [id number], 9 13:22:14 Eupatorium Compound 2017 018 [email or web address], [address], [place], [place], [id number], 9 13:22:12 Ledum Palustre 2014 015 [facility] , [address] [place], [address], 8 13:43:57 Patient TargetsNo targets recorded. Patient Instructions Encounter Date Encounter Id Patient Instructions Last Modified By Organization Details Last Modified Time 02/01/2015 [id number] Don't scratch us e cream tid cwessling Not available 02/01/2015 17:57:21 04/03/2018 [id number] strep throat: care instructions cwessling Not available 04/03/2018 15:10:06 upper respirator y infection (cold): care instructions cwessling Not available 04/03/2018 15:10:06 05/05/2018 [id number] chronic cough: care instructions cwessling Not available 05/05/2018 18:43:01 [facility] IgG food Allergen panel cwessling Not available 05/05/2018 18:42:14 06/02/2018 [id number] hair loss from alopecia areata: care instructions cwessling Not available 06/02/2018 14:04:52 Provide copy of recent blood work. ZRT Neuroadrenal expanded cwessling Not available 06/02/2018 14:04:30 09/01/2018 [id number] 5HTP to bid cwessling Not available 17:07:11 Reason for Referral None Reported. Results Created Date Observation Date Name Description Value Unit Range Abnormal Flag Note LastModifiedBy Organization Detail LastModifiedTime 02/06/20 15 02/04/2015 cultu re, aerob ic culture, aerobic bacteria SEE NOTE CULTU RE, AEROB IC BACTE DEBI MICRO NUMBE R: [id number] 106 TEST STATU S: FINAL SPECI MEN SOURC E: INSEC T BITE WOUND SPECI MEN QUALI TY: ADEQU ATE RESUL T: No Growt h NO COLLE CTION DATE RECEI LUIS. WE HAVE USED THE DATE THE SPECI MEN WAS RECEI LUIS BY THIS LABOR ATORY THE COLLE CTION DATE. IF THIS IS INCOR RECT, PLEAS E CONTA CT CLIEN T SERVI CHRYSTAL. PHONE NUMBNan R: [phone] Not Available [facility] [address] [place], [address], 02/05/2015 19:53:09 01/13/2001/13/2015 T4, free, serum T4, free 0.9 NG/dL 0.8-1. 8 normal Not Available [facility] [address] [address] [place], [address], 01/13/2015 08:50:19 01/13/2001/13/2015 TSH, serum or plasm a TSH 2.40 mIU/L 0.40-4 .50 normal Not Available [facility] [address] [place], [address], 01/13/2015 08:50:19 01/13/2001/13/2015 T3, free, serum or plasm a T3, free 2.8 pg/mL 2.3-4. 2 normal Not Available [facility] [address] [place], [address], 01/13/2015 08:50:20 01/13/2001/13/2015 vitam in D, 25-hy [...] /MS is recom mirtha d: order code [id number] (pee ents >2yrs ). For more infor dia mccloud on this test, go to: http: //wilfrid [email or web address] [employer].c om/fa q/FAQ 163 (This link is being provi ded for infor dia nal/e ducat ional purpo ses only. ) Not Available [address] , [place], [address], 01/13/2015 08:50:20 01/13/20 15 01/13/2015 vitam in D, 25-hy droxy , total , serum comment We recei luis a handw ritte n test order for Vitam in D and perfo rmed 95352 , Vitam in D, 25-OH ,Tota l,IA test. If this is not what you inten ded to order , pleas e conta ct your local clien t servi ce repre senta tive immed iatel y so that we may adjus t our anibal ng appro yary jessica. You may also inqui re about alter nativ e or addit ional testi ng. Not Available [address], [place], [address], 01/13/2015 08:50:20 04/03/20 18 04/03/2018 rapid strep group A, throa t Strep positi ve Not Available In-House Results For Internal Use Only, Do Not Delete/merge, [id number] 04/03/2018 15:11:14 05/07/19 19 05/11/2018 respi rator y aller gen panel - [facility] berrios y b dermatophago ides pteronyssinu s (D1) IgE <0.10 kU/L normal Not Available [facility] [address] [place], [address], 05/11/2018 18:56:24 05/07/19 19 05/11/2018 respi rator y aller gen panel - [place] y b class 0 Not Available [address] [address] [place], [address], 05/11/2018 18:56:24 05/07/19 19 05/11/2018 respi rator y aller gen panel - [place] y b dermatophago ides farinae (D2) IgE <0.10 kU/L normal Not Available [address] , [place], [address], 05/11/2018 18:56:24 05/07/19 19 05/11/2018 respi rator y aller gen panel - [place] y b class 0 Not Available [address] [address] [place], [address], 05/11/2018 18:56:24 05/07/19 19 05/11/2018 respi rator y aller gen panel - [place] y b penicillium notatum (M1) IgE <0.10 kU/L normal Not Available [address] [address] [place], [address], 05/11/2018 18:56:24 05/07/19 19 05/11/2018 respi rator y aller gen panel - [place] y b class 0 Not Available [address] [place], [address], 05/11/2018 18:56:24 05/07/1905/11/2018 respi rator y aller gen panel - [place] y b cladosporium herbarum (M2) IgE <0.10 kU/L normal Not Available [address], [address], 05/11/2018 18:56:24 05/07/19 19 05/11/2018 respi rator y aller gen panel - [place] y b class 0 Not Available [address] [address] [place], [address], 05/11/2018 18:56:24 05/07/19 19 05/11/2018 respi rator y aller gen panel - [place] y b aspergillus fumigatus (M3) IgE <0.10 kU/L normal Not Available [address], [place], [address], 05/11/2018 18:56:24 05/07/19 19 05/11/2018 respi rator y aller gen panel - [place] y b class 0 Not Available [address], [place], [address], 05/11/2018 18:56:24 05/07/19 19 05/11/2018 respi rator y aller gen panel - [place] y b alternaria alternata (M6) IgE <0.10 kU/L normal Not Available [address], [place], [address], 05/11/2018 18:56:24 05/07/19 19 05/11/2018 respi rator y aller gen panel - [place] y b class 0 Not Available [address], [place], [address], 05/11/2018 18:56:24 05/07/19 19 05/11/2018 respi rator y aller gen panel - [place] y b CAT dander (E1) IgE <0.10 kU/L normal Not Available [address], [place], [address], 05/11/2018 18:56:24 05/07/19 19 05/11/2018 respi rator y aller gen panel - [place] y b class 0 Not Available [address], [place], [address], 05/11/2018 18:56:24 05/07/19 19 05/11/2018 respi rator y aller gen panel - [place] berrios y b dog dander (E5) IgE <0.10 kU/L normal Not Available [address] [address] [place], [address], 05/11/2018 18:56:24 05/07/19 19 05/11/2018 respi rator y aller gen panel - [place] y b class 0 Not Available [address] [place], [address], 05/11/2018 18:56:24 05/07/19 19 05/11/2018 respi rator y aller gen panel - [place] y b cockroach (I6) IgE <0.10 kU/L normal Not Available [address] [address] [place], [address], 05/11/2018 18:56:24 05/07/19 19 05/11/2018 respi rator y aller gen panel - [place] y b class 0 Not Available [address] [place], [address], 05/11/2018 18:56:24 05/07/19 19 05/11/2018 respi rator y aller gen panel - [place] y b maple (box elder) (T1) IgE <0.10 kU/L normal Not Available [address] [address] [place], [address], 05/11/2018 18:56:24 05/07/19 19 05/11/2018 respi rator y aller gen panel - [place] y b class 0 Not Available [address] [address] [place], [address], 05/11/2018 18:56:24 05/07/19 19 05/11/2018 respi rator y aller gen panel - [place] y b mountain cedar (T6) IgE <0.10 kU/L normal Not Available [address] [place], [address], 05/11/2018 18:56:24 05/07/19 19 05/11/2018 respi rator y aller gen panel - [place] y b class 0 Not Available [address] [place], [address], 05/11/2018 18:56:24 05/07/19 19 05/11/2018 respi rator y aller gen panel - [place] y b walnut tree (T10) IgE <0.10 kU/L normal Not Available [address] [place], [address], 05/11/2018 18:56:24 05/07/19 19 05/11/2018 respi rator y aller gen panel - [place] y b class 0 Not Available [address] [place], [address], 05/11/2018 18:56:24 05/07/19 19 05/11/2018 respi rator y aller gen panel - [place] y b sycamore (T11) IgE <0.10 kU/L normal Not Available [address] , [place], [address], 05/11/2018 18:56:24 05/07/19 19 05/11/2018 respi rator y aller gen panel - [place] y b class 0 Not Available [address] [place], [address], 05/11/2018 18:56:24 05/07/19 19 05/11/2018 respi rator y aller gen panel - [place] y b cottonwood (T14) IgE <0.10 kU/L normal Not Available [address] [place], [address], 05/11/2018 18:56:24 05/07/19 19 05/11/2018 respi rator y aller gen panel - [place] y b class 0 Not Available [address] [address] [place], [address], 05/11/2018 18:56:24 05/07/19 19 05/11/2018 respi rator y aller gen panel - [place] y b white alexa (T15) IgE <0.10 kU/L normal Not Available [address] [address] [place], [address], 05/11/2018 18:56:24 05/07/19 19 05/11/2018 respi rator y aller gen panel - [place] y b class 0 Not Available [address] [place], [address], 05/11/2018 18:56:24 05/07/19 19 05/11/2018 respi rator y aller gen panel - [place] y b oak (T7) IgE <0.10 kU/L normal Not Available [address] , [place], [address], 05/11/2018 18:56:24 05/07/19 19 05/11/2018 respi rator y aller gen panel - [place] b class 0 Not Available [address] [address] [place], [address], 05/11/2018 18:56:24 05/07/19 19 05/11/2018 respi rator y aller gen panel - [place] b elm (T8) IgE <0.10 kU/L normal Not Available [address] [place], [address], 05/11/2018 18:56:24 05/07/19 19 05/11/2018 respi rator y aller gen panel - [place] b class 0 Not Available [address] [address] [place], [address], 05/11/2018 18:56:24 05/07/19 19 05/11/2018 respi rator y aller gen panel - [place] y b hickory/peca n tree (T22) IgE <0.10 kU/L normal Not Available [address], [place], [address], 05/11/2018 18:56:24 05/07/19 19 05/11/2018 respi rator y aller gen panel - [place] y b class 0 Not Available [address] [address] [place], [address], 05/11/2018 18:56:24 05/07/19 19 05/11/2018 respi rator y aller gen panel - [place] y b white mulberry (T70) IgE <0.10 kU/L normal Not Available [address], [place], [address], 05/11/2018 18:56:24 05/07/19 19 05/11/2018 respi rator y aller gen panel - [place] y b class 0 Not Available [address], [place], [address], 05/11/2018 18:56:24 05/07/19 19 05/11/2018 respi rator y aller gen panel - [place] y b bermuda grass (g2) IgE <0.10 kU/L normal Not Available [address], [place], [address], 05/11/2018 18:56:24 05/07/19 19 05/11/2018 respi rator y aller gen panel - [place] y b class 0 Not Available [address] [address] [place], [address], 05/11/2018 18:56:24 05/07/19 19 05/11/2018 respi rator y aller gen panel - [place] y b aaron grass (g6) IgE <0.10 kU/L normal Not Available [address] [address] [place], [address], 05/11/2018 18:56:24 05/07/19 19 05/11/2018 respi rator y aller gen panel - [place] y b class 0 Not Available [address] [address] [place], [address], 05/11/2018 18:56:24 05/07/19 19 05/11/2018 respi rator y aller gen panel - [place] y b common ragweed (short) (W1) IgE <0.10 kU/L normal Not Available [address] [address] [place], [address], 05/11/2018 18:56:24 05/07/19 19 05/11/2018 respi rator y aller gen panel - [place] y b class 0 Not Available [address] [address] [place], [address], 05/11/2018 18:56:24 05/07/19 19 05/11/2018 respi rator y aller gen panel - [place] b rough pigweed (W14) IgE <0.10 kU/L normal Not Available [address] [address] [place], [address], 05/11/2018 18:56:24 05/07/19 19 05/11/2018 respi rator y aller gen panel - [place] b class 0 Not Available [address] [address] [place], [address], 05/11/2018 18:56:24 05/07/19 19 05/11/2018 respi rator y aller gen panel - [place] b liberian thistle (W11) IgE <0.10 kU/L normal Not Available [address], [place], [address], 05/11/2018 18:56:24 05/07/19 19 05/11/2018 respi rator y aller gen panel - [place] b class 0 Not Available [address], [place], [address], 05/11/2018 18:56:24 05/07/19 19 05/11/2018 respi rator y aller gen panel - [place] b rough tam elder (W16) IgE <0.10 kU/L normal Not Available [address] , [place], [address], 05/11/2018 18:56:24 05/07/19 19 05/11/2018 respi rator y aller gen panel - [place] b class 0 Not Available [address], [place], [address], 05/11/2018 18:56:24 05/07/19 19 05/11/2018 respi rator y aller gen panel - [place] y b mouse urine proteins (E72) IgE <0.10 kU/L normal Not Available [address], [place], [address], 05/11/2018 18:56:24 05/07/19 19 05/11/2018 respi rator y aller gen panel - [place] b class 0 Not Available [address], [place], [address], 05/11/2018 18:56:24 05/07/1905/11/2018 respi rator y aller gen panel - [place] y b immunoglobul in E 20 kU/L <or=11 4 normal Not Available [address], [place], [address], 05/11/2018 18:56:24 05/07/19 19 05/11/2018 inter preta [...] cteri stics have been deter mined by [facility]. It has not been clear ed or appro luis by the U.S. Food and Drug Admin istra tion. This assay has been valid ated pursu ant to the CLIA regul ation s and is used for clini everett purpo ses. Not Available [facility] [address] [address] [place], [address], 05/11/2018 18:56:24 05/07/1905/11/2018 food aller gen panel , serum casein (F78) IgG 14.1 mcg/m L < 2.0 high Not Available [facility] [address] [place], [address], 05/11/2018 18:56:25 05/07/1905/11/2018 food aller gen panel , serum cacao (chocolate) (F93) IgG <2.0 mcg/m L < 2.0 Not Available [facility] [address] [place], [address], 05/11/2018 18:56:25 05/07/19 19 05/11/2018 food aller gen panel , serum codfish (F3) IgG <2.0 mcg/m L < 2.0 Not Available [address], [address], 05/11/2018 18:56:25 05/07/19 19 05/11/2018 food aller gen panel , serum coffee (F221) IgG 4.7 mcg/m L < 2.0 high Not Available [address], [address], 05/11/2018 18:56:25 05/07/19 19 05/11/2018 food aller gen panel , serum maize/corn (F8) IgG 5.9 mcg/m L < 2.0 high Not Available [address], [address], 05/11/2018 18:56:25 05/07/19 19 05/11/2018 food aller gen panel , serum egg white (F1) IgG 2.8 mcg/m L < 2.0 high Not Available [address], [address], 05/11/2018 18:56:25 05/07/19 19 05/11/2018 food aller gen panel , serum peanut (F13) IgG <2.0 mcg/m L < 2.0 Not Available [address], [address], 05/11/2018 18:56:25 05/07/19 19 05/11/2018 food aller gen panel , serum soybean (F14) IgG 2.5 mcg/m L < 2.0 high Not Available [address], [address], 05/11/2018 18:56:25 05/07/19 19 05/11/2018 food aller gen panel , serum tomato (F25) IgG 2.1 mcg/m L < 2.0 high Not Available [facility] [address], [place], [address], 05/11/2018 18:56:25 05/07/19 19 05/11/2018 food aller gen panel , serum wheat (F4) IgG 5.0 mcg/m L < 2.0 high Not Available [facility] [address] , [place], [address], 05/11/2018 18:56:25 05/07/19 19 05/11/2018 food aller gen panel , serum yeast (F45) IgG <2.0 mcg/m L < 2.0 This test( s) was perfo rmed using a kit that has not been clear ed or appro luis by the FDA. The sandoval tical perfo rmanc e aba cteri stics of this test have been deter mined by [facility]. This test, and [...] peuti c inter venti ons. Not Available [facility] [address] [address] [place], [address], 05/11/2018 18:56:25 10/01/1910/04/2018 T3, rever se, serum T3 reverse, lc/MS/MS 11 NG/dL 825 This test was devel oped and its sandoval tical perfo rmanc e aba cteri stics have been deter mined by [facility] . It has not been clear ed or appro luis by FDA. This assay has been valid ated pursu ant to the CLIA regul ation s and is used for clini everett purpo ses. Not Available [facility] [address] [address] [place], [address], 10/04/2018 20:25:30 10/01/19 19 10/04/2018 T3, total , serum T3, total 108 NG/dL 76-181 normal Not Available [facility] [address] [address] [place], [address], 10/04/2018 20:25:31 10/01/19 19 10/04/2018 T4, free, serum T4, free 0.9 NG/dL 0.8-1. 8 normal Not Available [facility] [address] [address] [place], [address], 10/04/2018 20:25:31 10/01/19 19 10/04/2018 TSH, serum or plasm a TSH 2.47 mIU/L 0.40-4 .50 normal Not Available [facility] [address] [address] [place], [address], 10/04/2018 20:25:31 05/06/19 19 05/06/2018 XR, chest , 2 view No observ ation record ed. Formerly [facility] [address], [place], [address], 05/07/2018 09:59:58 Result Notes None recorded. Problems Name Problem SNOMED Code Status Onset Date Resolution Date Notes Provider Name and Address Organization Details Recorded Time Hypothyroidis m 24283096 Active Paco Marshall MD [address] [place] [address], [address] , [facility] 5 19:39:02 Vitamin D deficiency 23995775 Active Paco Marshall MD [address] [place] [address], [address] , [facility] 5 19:39:02 Essential hypertension 81632966 Active Paco Marshall MD [address] [place] [address], [address] , [facility] 5 19:39:02 Menopause present 461996830 Active Paco Marshall MD [address] [place], [address] , [facility] 5 19:39:02 Loss of hair 124090702 Active Paco Marshall MD [address] [place] [address], [address] , [facility] 5 19:39:02 Insect bite - wound 357660317 Active Paco Marshall MD [address] [place] [address], [address] , [facility] 5 17:57:20 Lichenificati on Active Paco Marshall MD [address] [place] [address], [address] , [facility] 5 17:57:20 Fracture of tooth 31644089 Active Paco Marshall MD [address] [place], [address] , [facility] 5 17:57:20 Problem Notes None recorded. Procedures Surgical History None recorded. Imaging Results Imaging Date Name Status LastModified by Organiz ation Details LastModified Time 05/06/2018 XR, chest, 2 view completed [facility] [address] [place] [address] [address], [place], [address], 05/07/2018 09:59:58 Procedure Notes None recorded. Medical Equipment None Reported. Allergies Allergen ID Allergen Name Allergen Category Reaction Reaction Severity Criticality Documentation Date Start Date Code Code System Note Provider Name and Address Organization Details Recorded Time erythromy travon medicatio n diarrhea Not available Not available 04/22/2014 4053 RxNorm Z mike shelia ated Paco Marshall MD [address] [place], [address], [facility] 8 15:10:34 95147 Topamax medicatio n Not available Not available Not available 04/22/2014 90244 3 RxNorm Yi Terrybo rk, [facility] 5 18:05:18 29991 albuterol sulfate medicatio n Not available Not available Not available 04/03/2018 97635 3 RxNorm Betty Smithdaletariq beckman, [facility] 8 13:45:27 92170 naproxen medicatio n Not available Not available Not available 04/03/2018 7258 RxNorm [facility] rk, [facility] 8 13:45:37 83044 acetamino phen medicatio n Not available Not available Not available 04/03/2018 161 RxNorm Betty Smithdale rk, [facility] 8 13:45:46 22545 Symbicort medicatio n Not available Not available Not available 04/03/2018 13422 8 RxNorm [facility] rk, [facility] 8 13:45:57 84944 Darvocet- N medicatio n other Not available Not available 04/03/2018 96587 UNK alter ed [facility] Paco Marshall MD [address] [place], [address] [place] [address], P.C[facility] 8 14:56:13 Medications Name Sig Start [...] completed Not Available Not Available Not Available [facility] Thyroid 15 mg tablet Take 1 tablet every day by oral route. 2013 active Not Available Not Available Not Avai lable prednisone 50 mg tablet 04/03 completed Not Available Not Available Not Available Synthroid 50 mcg tablet 06/02 completed Not Available Not Available Not Available [facility] Thyroid 30 mg tablet Take 1 tablet [...] Address Organization Details Last Updated DateTime 5 58194.8 0533 g 73 /min 29.1 kg/m2 180.34 cm 129 mm[Hg] 78 mm[Hg] Yaron Kaplan [facility] 5 17:18:25 Date Recorded Body weight Body mass index (BMI) Body height Heart rate Body temperature Systolic blood pressure Diastolic blood pressure Provider Name and Address Organization Details Last Updated DateTime 8 14109.5 8 g 26.7 kg/m2 180.34 cm 90 /min 100.3 [degF] 162 mm[Hg] 82 mm[Hg] Betty Garcia [facility] 8 13:48:27 Date Recorded Body height Body mass index (BMI) Body weight Heart rate Body temperature Systolic blood pressure Diastolic blood pressure Provider Name and Address Organization Details Last Updated DateTime 9 180.34 cm 26.5 kg/m2 61083.5 5 g 69 /min 97.7 [degF] 143 mm[Hg] 81 mm[Hg] Rubi Lisa [facility] 9 17:46:17 Date Recorded Body height Body mass index (BMI) Body weight Heart rate Systolic blood pressure Diastolic blood pressure Provider Name and Address Organization Details Last Updated DateTime 9 180.34 cm 26.5 kg/m2 26876.5 5 g 65 /min 145 mm[Hg] 79 mm[Hg] Davide Willett [facility] 9 13:24:14 Date Recorded Body height Body mass index (BMI) Body weight Heart rate Systolic blood pressure Diastolic blood pressure Provider Name and Address Organization Details Last Updated DateTime 9 180.34 cm 26.8 kg/m2 10564.7 4 g 73 /min 135 mm[Hg] 79 mm[Hg] Davide Willett [facility] 9 16:16:39 Social History Question Answer Notes LastModified by Organizat ion Details LastModified Time Tobacco Smoking Status Never Smoker Not Available [employer] 02/22/2020 03:29:37 What Is Your Level Of Alcohol Consumption? Occasional [id number] Information not available 02/22/2020 How Much Tobacco Do You Smoke? No [id number] Information not available 02/22/2020 Sex: Unknown Functional Status None recorded. Mental Status None recorded. Family History Nothing Reported. Medical History Condition Response Coronary Artery Disease N Gout N Kidney Stones N Blood Diseases N Hyperthyroidism N Depression N COPD N Hypothyroidism N Developmental or Behavioral Disorders N Anxiety Disorder N Muscle, Joint, or Bone Problems N Vision or Eye Problems N Arthritis N Head Injury/Concussion N Congenital Anomalies N Cancer N Stroke N ADHD N Bladder or Kidney Problems N Hospital Admission other than N High Cholesterol N Liver Disease N Fibromyalgia N Headaches N Kidney Disease N Ear or Hearing Problems N Thyroid Problems N Skin Problems N Anemia N Constipation N Mental Illness N Diabetes N Bedwetting N Heart Problems/Murmur N Seizures/Epilepsy N Tuberculosis N Diverticulitis N Asthma N Allergies N Reflux/GERD N Heart Disease N Pulmonary Embolism N Hypertension N Chicken Pox Y Autism Spectrum Disorder (ASD) N Osteoporosis N Gynecological HistoryNo gynecological history recorded. Obstetrics History GPAL:G 0 P 0 0 0 0 Past Encounters Encounter ID Performer Location Encounter Start Date Encounter Closed Date Diagnosis/Indication Diagnosis SNOMED-CT Code Diagnosis ICD10 Code Diagnosis Note [id number] Paco Marshall MD Main Office [address] [place] [address] 04/22/2014 17:11:49 04/22/2014 18:59:59 Hypothyroidism 23754115 Vitamin D deficiency 21621853 Essential hypertension 48127587 Menopause present 436177340 [id number] Paco Marshall MD Main Office [address] [place] [address] 01/09/2015 17:47:26 01/09/2015 20:00:36 Hypothyroidism 96436862 Essential hypertension 04530410 Menopause present 386800398 Vitamin D deficiency 01050789 Loss of hair 808900458 [id number] Paco Marshall MD Main Office [address] [place] [address] 02/01/2015 16:58:49 02/01/2015 18:05:50 Insect bite - wound 373750832 T14.8 Lichenification 55277665 6 L28.0 Fracture of tooth 654587 09 S02.5XXB [id number] Paco Marshall MD Main Office [address] [place] [address] 04/03/2018 13:38:45 04/03/2018 15:15:40 Streptococcal sore throat 46981016 J02.0 Upper resp iratory infection 87713583 J06.9 [id number] Paco Marshall MD Main Office [address] [place] [address] 05/05/2018 17:43:44 05/05/2018 18:56:34 Chronic cough 15711717 R05 [id number] Paco Marshall MD Main Office [address] [place] [address] 06/02/2018 13:20:27 06/02/2018 14:15:55 Chronic cough 08013615 R05 Constipation 95035189 K5 9.00 Poor short -term memory 699594633 R41.3 Loss of hair 871291499 L 65.9 [id number] Paco Marshall MD Main Office [address] [place] [id number] 09/01/2018 16:14:51 09/01/2018 17:16:11 Hypothyroidism 53339009 E03.9 Insomnia 045570726 G47.0 0 Impaired cognition 14737 6002 R41.89 Hypertensive disorder 38 762240 I10 Dysphoric mood 15860938 R45.89 Health Concerns Section Related Observation LastModified by Organization Detai ls LastModified Time None Recorded Concern Status LastModified by Organization Details LastModified Time None Recorded Advance Directives Directive None Recorded Payers Encounter Date Sequence Insurance Name Policy Number Policy Montoya Covered Member ID Montoya Member ID Guarantor Name 02/01/2015 1 [place] [id number] Maria G Jerson Kassing [id number] Maria Gisauro Gannonsing 04/03/2018 1 [place] [id number] Maria G M Kassing [id number] Maria G Jessica Kassing 05/05/2018 1 [place] [id number] Maria G M Kassing [id number] Maria G Barrow 06/02/2018 1 [place] [id number] Maria G Barrow [id number] Maria G Barrow 09/01/2018 1 [place] [id number] Maria G Barrow [id number] Maria G Barrow Notes Date Note Type Note Provider Name and Address Organization Details Recorded Time 5 text/html L tooth broke off during night - concern over exposure to mercury filling. Has dentist appointment for tomorrow. spider bite R forearm started itching - saw PA toy Hopper in [place] - steroid cream Triamcinolone 0.1% helped only slightly. area has not diminished. Skin now thickened Paco Marshall MD [address] [place], [address], [facility] 02/01/2015 17:57:35 8 text/html Sick since mid January.Current symptoms:fevercough which disturbs sleep. Minimally productive.Light headed as though would fall Paco Marshall MD [address] [place], [address], [facility] 04/03/2018 15:11:48 9 text/html Continued cough - not a day without cough since 01-30 Generally better but not gone.Completed Z miek for strep the and cough has reduced, but is not gone. something in my throat - mucus and I swallow it. Tired of coughing.Pain sternum and lower chest during and after the cough. Faint nausea with it.Does not wake me at night.Has not noticed other triggers. Paco Marshall MD [address] [place], [address], [facility] 05/05/2018 18:43:46 9 text/html Phosphorus [...] since a month ago. Paco Marshall MD [address] [place], [address], [facility] 06/02/2018 14:04:55 9 text/html Phosphorus [...] Cold sensitive.desires sweetsNot tidy. Paco Marshall MD [address] [place], [address], [facility] 09/01/2018 17:07:28 OBGyn Episode No OBEpisode recorded.
--- OUTSIDE RECORDS SUMMARY | 2024-08-26 08:54 | XMS_ITS | Clinical Summary ---
Author Organization [facility] Address [address] [place] [address] Care Team Providers Care Roofing Subcontractor Name Role Phone Rosie Bryant DO Primary Care Provider [phone] Source Comments [facility],non-owned Affiliates and Associated Physician Practices is amultiple site organization consisting of ambulatory clinics and hospital sitesin [place], [place], [place] and [place]. This disclosure is being madepursuant to the Care Everywhere program and may not contain all information available regarding this patient. Last updated 18.[facility] Social History Tobacco Use Types Packs/Day Years Used Date Smoking Tobacco: Never Smokeless Tobacco: Never Tobacco Cessation:Counseling Given: Not Answered PHQ-2 Answer Date Recorded Patient Health Questionnaire-2 Score 0 03/10/2023 Comments Unknown Sex and Gender Information Value Date Recorded Sex Assigned at Not on file Legal Sex Female 7:28 AM CDT Gender Identity Not on file Sexual [...] LIPID TESTING 1955 MAMMOGRAM 1955 MEDICARE AWV 12 MONTHS 1955 HEPATITIS C SCREENING 12/03/1971 DTAP/TDAP/TD VACCINES (1 - Tdap) 1972 PNEUMOCOCCAL VACCINE 50+ (1 of 1 - PCV) 12/08/2003 ZOSTER VACCINE (1 of 2) 12/08/2003 COVID-19 VACCINE (1 - 2023-2 5 season) 2023 DEPRESSION SCREENING 04/21/2024 03/17/2023, 01/28/2022 INFLUENZA VACCINE (Season Ended) 2024 Respiratory Syncytial Virus (RSV) Vaccine Pt: or [...] patient's age to complete this topic MENINGOCOCCAL (Group B) VACCINE SHARED DECISION-MAKING Aged Out No longer eligible based on patient's age to complete this topic MENINGOCOCCAL GROUPS A/C/Y/W VACCINE Aged Out No longer eligible b ased on patient's age to complete this topic [place] [address] [facility] AAR MEDICARE Care Teams Roofing Subcontractor Relationship Specialty Start Date End Date Rosie Bryant DO [address] [place] [address] PCP - General 12/12/21
--- OUTSIDE RECORDS SUMMARY | 2024-08-26 08:54 | XMS_ITS | Clinical Summary ---
Author Organization [facility] Address [facility] [place] [address] Care Team Providers Care Goat Farmer Name Role Phone SymonemarivelRosie buchanan Jerson GUERRERO Primary Care Provider [phone] Allergies Active Allergy Reactions Criticality Noted Date [...] Blurred vision 10/24/2020 Albuterol Shakiness 10/24/2020 Medications DESIZING MACHINE OPERATOR THYROID 60 MG tablet Take 1 [...] Take 200 mg by mouth daily. Active [id number] OR Take 500 mg by mouth daily. 500mg AM. 1000mg PM Active Digestive Enzymes (DIGESTIVE ENZYME OR) Take 200 mg by mouth daily. Active Multiple Vitamin (MULTIVITAMIN IRON-FREE) Tab Take by mouth daily. Active ibuprofen (MOTRIN) 200 MG tablet Take 1 tablet (200 mg total) by mouth every 8 (eight) hours as needed for Pain. Active donepezil (ARICEPT) 5 MG TabIndications: Mild cognitive impairment Take 1 tablet (5 mg total) by mouth nightly at bedtime. 30 tablet 11 Active Active Problems Problem Noted Date Diagnosed [...] time. Assessment & Plan (04/04/2022 11:41 AM TELECOMMUNICATOR SUPERVISOR): She has not had any more chest [...] well. Assessment & Plan (04/04/2022 11:41 AM TELECOMMUNICATOR SUPERVISOR): Her most recent lipids show an LDL of 150. She is not tolerant of statins or Zetia. I discussed PCSK9 inhibitor therapy and she has not interested at this time. Immunizations Immunization Administration Dates Next Due Zoster (Zostavax) 95875 Unt/0.65Ml 01/18/2014 Family History Medical History Relation Comments Arthritis Father cardiac stent Father Transient ischemic attack Maternal Grandmother Arthritis Mother Relation Status Comments Brother 1 Alive Brother 2 Alive Brother 3 Alive Father Maternal Grandfather Maternal Grandmother Mother Alive Paternal Grandfather Paternal Grandmother Sister Social History Tobacco Use Types Packs/Day Years Used Date Smoking Tobacco: Never Smokeless Tobacco: Never Tobacco Cessation:Counseling Given: Yes Alcohol Use Standard Drinks/Week Comments Yes 0 (1 standard drink = 0.6 oz pure alcohol) I may have a glass of wine once or twice a year. AUDIT-C Answer Date Recorded Q1: How often do you have a drink containing alc ohol? Never 02/21/2020 Average Number of Drinks Not on file 020 Frequency of Binge Drinking Not on file 05/2019 PHQ-2 Answer Date Recorded Patient Health Questionnaire-2 Score 0 05/20/2024 Comments No Sex and Gender Information Value Date Recorded Sex Assigned at Female 05/19/2024 7:52 AM TELECOMMUNICATOR SUPERVISOR Legal Sex Female 7:00 PM CDT Gender Identity Not on file Sexual Orientation Not on file Last Filed Vital Signs Vital Sign Reading Time Taken Comments Blood Pressure 150/80 05/20/2024 10:25 AM TELECOMMUNICATOR SUPERVISOR Pulse 65 05/20/2024 10:25 AM TELECOMMUNICATOR SUPERVISOR Temperature 36.3 C (97.3 F) 05/12/2024 2:55 PM TELECOMMUNICATOR SUPERVISOR Respiratory Rate 22 04/07/2024 6:20 AM TELECOMMUNICATOR SUPERVISOR Oxygen Saturation 97% 05/20/2024 10:25 AM TELECOMMUNICATOR SUPERVISOR Inhaled Oxygen Concentration - - Weight 92.1 kg (203 lb) 05/20/2024 10:25 AM TELECOMMUNICATOR SUPERVISOR Height 177.8 cm (5' 10 ) 04/07/2024 5:05 AM TELECOMMUNICATOR SUPERVISOR Body Mass Index 29.13 04/07/2024 5:05 AM TELECOMMUNICATOR SUPERVISOR Plan of Treatment Upcoming Encounters Date Type Department Care Team (Late st Contact Info) Description 10/11/2024 10:00 AM CDT Office Visit [facility] [place] [address] Galdino Santos MD [facility]. [address] [place] [address] Lary Joel PA [address] [facility], [address] [place] [address] 11/17/2024 11:20 AM CDT Office Visit [facility] [address] [facility], [address] [place] [address] Scarlet Mendoza MD [address] [place] [address] Health Maintenance Due Date Last Done Comments Colorectal Cancer Screening Colonoscopy (10 Years) 1953 Hepatitis C 12/08/1971 Mammogram Screening 1993 Zoster Vaccines (2 of 3) 03/15/2014 01/18/2014 Annual Medicare Wellness Visit 2018 Dexa Scan (General) 2018 Pneumococcal Vaccine: 50+ Ye ars (2 of 2 - PPSV23) 10/23/2022 10/23/2021 COVID-19 Vaccine (1 - 2023-2 5 season) 2023 RSV Immunization or 60+ Years (1 - 1-dose 75+ series) 2028 DTaP, Tdap and Td Vaccines ( 2 - Td or Tdap) 08/13/2032 08/13/2022 PHQ-2 (Physician [place]) Completed 05/20/2024 Meningococcal B Vaccine Aged Out No l onger eligible based on patient's age to complete this topic Meningococcal Vaccine Aged Out No dieter tavares eligible based on patient's age to complete this topic RSV Immunizations Under 20 Months Aged Out No longer eligible based on patient's age to complete this topic Insurance MEDICARE [facility] Care Teams Goat Farmer Relationship Specialty Start Date End Date Rosie Bryant DO [address] [place] [address] PCP - General FAMILY PRACTICE 02/21/20
[2024-08-26 09:15] VITALS: BP 164/81; PULSE 65; RESP 14; TEMP 36.8; O2SAT 98
[2024-08-26 09:22] VITALS: RESP 15
[2024-08-26 09:26] VITALS: BP 146/75; PULSE 64; RESP 21; O2SAT 93
--- NOTE | 2024-08-26 09:30 | ED.GENADULT ---
HPI - General Adult General Chief complaint: Recheck/Abnormal Lab/Rx Stated complaint: took extra BP & thyroid medication Time Seen by Provider: 08/26/24 08:50 History of Present Illness HPI narrative: Patient is a 68-year-old female who presents emergency department with chief complaint of accidental overdose. Patient took an extra dose of her blood pressure medicines and her thyroid medications morning. Patient reports that she feels maybe a little lightheaded but reports having no chest pain no shortness of breath reports that she did not call poison Control Related Data Home Medications ?Medication ?Instructions ?Recorded ?Confirmed ?Last Taken ?Type multivitamin 1 tablet PO DAILY 04/01/19 06/09/24 Unknown History calcium 200 mg (as 1 tablet PO BID 06/18/19 06/09/24 Unknown History citrate)-vitamin D3 6.25 mcg (250 unit) tablet glycine 500 mg capsule mg PO 01/11/20 06/09/24 Unknown History prasterone (dhea) 25 mg tablet 25 mg PO DAILY 01/11/20 06/09/24 Unknown History (DHEA) ascorbic acid (vitamin C) 500 mg 500 mg PO DAILY 09/21/20 06/09/24 Unknown History tablet cholecalciferol (vitamin D3) 75 6,000 unit PO DAILY 09/21/20 06/09/24 Unknown History mcg (3,000 unit) tablet Allergies Allergy/AdvReac Type Severity Reaction Status Date / Time naproxen Allergy Intermediate Other Verified 08/26/24 08:54 albuterol Allergy Mild Jittery Verified 08/26/24 08:54 budesonide Allergy Unknown Unknown Verified 08/26/24 08:54 erythromycin base Allergy Unknown Diarrhea Verified 08/26/24 08:54 formoterol Allergy Unknown Unknown Verified 08/26/24 08:54 cephalexin Allergy Rash Verified 08/26/24 08:54 nitrofurantoin (From Allergy Rash Verified 08/26/24 08:54 Macrobid) acetaminophen AdvReac Mild Fatigued Verified 08/26/24 08:54 donepezil AdvReac Mild Hypertensio Verified 08/26/24 08:54 n methylprednisolone AdvReac Mild Unknown Verified 08/26/24 08:54 topiramate AdvReac Mild VISION Verified 08/26/24 08:54 ABNORMALITIES Review of Systems Review of Systems: A 10 system review of systems was completed on the patient and is negative except for what is stated in the HPI. Nursing and ancillary documentation was reviewed. [facility] Past Medical History Medical History Hx of colonic polyp Osteopenia Postmenopausal Hepatitis C antibody test negative (~03/11/17) Metabolic syndrome X Mixed hyperlipidemia Overweight Hypothyroidism Essential (primary) hypertension Surgical History Surgical History History of dilation and curettage History of tonsillectomy (~1956) History of adenoidectomy (~1956) Hx of laparoscopy (~1986) History of breast biopsy (~1991) History of colonoscopy (~02/28/21) Family History Family History Mother Hypertension Father Family history of cardiovascular disease Grandparent Cerebrovascular accident Social History Social History Smoking status: Never smoker Second hand tobacco smoke exposure: No Alcohol intake: current Alcohol use details: rarely Substance use: never Do You Feel Safe in your Home?: Yes Lack of Transportation: No Lack of Food: Never True Current Housing: I Have Housing Concerned About Future Housing: No Difficulty Paying Gas/Electric Bills: No Difficulty Paying for Meds: No Currently Unemployed: No Education: Master's Degree or Higher Difficulty w/ Childcare or Family Care: No Living arrangements: with family Occupation/Education: retired Exam Narrative: GENERAL: Well-appearing, well-nourished, and in no acute distress. HEAD: Normocephalic, atraumatic. EYES: PERRLA and EOMI. ENT: Nares clear, no rhinorrhea or epistaxis. Mucous membranes moist. NECK: Supple. CHEST: Clear to auscultation. No respiratory distress. HEART: Regular rate and rhythm. No murmur heard. Normal peripheral pulses. ABDOMEN: Soft, nontender, nondistended, normal active bowel sounds. EXTREMITIES: Normal range of motion. No edema. SKIN: Warm, dry, no rash. NEURO: No focal deficits. Alert and oriented x3. PSYCH: Normal mood and affect. Course Vital Signs Vital signs: Vital Signs Temperature 36.8 C 08/26/24 09:15 Pulse Rate 65 08/26/24 09:15 Respiratory Rate 14 08/26/24 09:15 Blood Pressure 164/81 H 08/26/24 09:15 Pulse Oximetry 98 08/26/24 09:15 Oxygen Delivery Room Air 08/26/24 09:15 Temperature 36.8 C 08/26/24 09:15 Pulse Rate 64 08/26/24 09:26 Respiratory Rate 21 H 08/26/24 09:26 Blood Pressure 146/75 H 08/26/24 09:26 Pulse Oximetry 93 08/26/24 09:26 Oxygen Delivery Room Air 08/26/24 09:15 Medical Decision Making MDM Narrative Medical decision making narrative: Poison control was contacted and recommended that the patient be watched for a brief period time and then could be discharged home and not require any further testing. Vital Signs Vital Signs: Vital Signs Temperature 36.8 C 08/26/24 09:15 Pulse Rate 65 08/26/24 09:15 Respiratory Rate 14 08/26/24 09:15 Blood Pressure 164/81 H 08/26/24 09:15 Pulse Oximetry 98 08/26/24 09:15 Oxygen Delivery Room Air 08/26/24 09:15 Temperature 36.8 C 08/26/24 09:15 Pulse Rate 64 08/26/24 09:26 Respiratory Rate 21 H 08/26/24 09:26 Blood Pressure 146/75 H 08/26/24 09:26 Pulse Oximetry 93 08/26/24 09:26 Oxygen Delivery Room Air 08/26/24 09:15 Discharge Plan Discharge Clinical Impression: Accidental overdose Patient Disposition: Home Condition: Stable Instructions: Antibiotic Form, Accidental Ingestion of Medicine in Children (DC) Additional Instructions: Please avoid taking additional doses of her medication. In the future if you have an episode like this please contact poison Control for recommendations Patient Language: Cambodian Prescriptions: No Action calcium citrate-vitamin D3 200 mg calcium -250 unit tablet 1 tablet PO BID cholecalciferol (vitamin D3) 75 mcg (3,000 unit) tablet 6,000 unit PO DAILY Patient Comments: 4,000 units one day 6,0000 units next day alternating multivitamin Tablet 1 tablet PO DAILY DHEA 25 mg tablet 25 mg PO DAILY glycine 500 mg capsule PO ascorbic acid (vitamin C) 500 mg tablet 500 mg PO DAILY thyroid (pork) [Ferriday Thyroid] 60 mg tablet 60 mg PO DAILY Qty: 90 1RF atenolol 50 mg tablet See Rx Instructions .ROUTE .COMPLEX Qty: 90 1RF Dose Instruction: TAKE 1 TABLET BY MOUTH EVERY DAY Rx Instructions: TAKE 1 TABLET BY MOUTH EVERY DAY amlodipine 5 mg tablet See Rx Instructions .ROUTE .COMPLEX Qty: 90 1RF Dose Instruction: TAKE 1 TABLET BY MOUTH EVERY DAY Rx Instructions: TAKE 1 TABLET BY MOUTH EVERY DAY lisinopril 10 mg tablet 10 mg PO DAILY Qty: 90 0RF Follow-up/Referrals: Rosie Bryant DO [Primary Care Provider] -
--- NOTE | 2024-08-26 10:07 | PC.NURSE ---
Poison control given update. All questions answered.
[2024-08-26 10:52] VITALS: BP 108/75; PULSE 59; RESP 17; O2SAT 100
== END 2024-08-26 11:04 | disposition home or self-care (01) ==
PROVIDERS: Emergency Provider Emergency Medicine; PCP Family Medicine
DX: T46.1X1A Poisoning by calcium-channel blockers, accidental (unintentional), initial encounter (principal); T46.4X1A Poisoning by angiotensin-converting-enzyme inhibitors, accidental (unintentional), initial encounter; T44.7X1A Poisoning by beta-adrenoreceptor antagonists, accidental (unintentional), initial encounter; T38.1X1A Poisoning by thyroid hormones and substitutes, accidental (unintentional), initial encounter; M85.80 Other specified disorders of bone density and structure, unspecified site; I10 Essential (primary) hypertension; E78.2 Mixed hyperlipidemia; E03.9 Hypothyroidism, unspecified; E88.810 Metabolic syndrome; Z86.0100 Personal history of colon polyps, unspecified
CPT/HCPCS: 99281

== ENCOUNTER 2024-09-23 10:11 | Outpatient (CLI) | payer MEDICARE, SELFPAY ==
--- NOTE | ~2024-09-23 | CT_ITS ---
Non-contrast Head CT History: Amnesia Technique: Axial non-contrast imaging of the brain was performed. Dose reduction technique was used on this scan by utilizing automated exposure control and iterative reconstruction technique. The dose -length product (DLP) was 605.33 mGy-cm. Findings: There is no evidence of intracranial hemorrhage, mass lesion, or acute infarct. Brain par enchyma appears normal. The ventricles and subarachnoid spaces are normal in size. The calvarium ap pears normal. The visualized paranasal sinuses and mastoid air cells are clear. Impression: No significant abnormality seen. Reviewed, dictated and finalized at location . Impression: No significant abnormality seen.
--- OUTSIDE RECORDS SUMMARY | 2024-09-23 11:08 | XMS_ITS | Clinical Summary ---
Author Organization [facility] Address [address] [place] [address] Care Team Providers Care Chief Of Police Name Role Phone Rosie Bryant DO Primary Care Provider [phone] Source Comments [facility],non-owned Affiliates and Associated Physician Practices is amultiple site organization consisting of ambulatory clinics and hospital sitesin [place], [place], [place] and [place]. This disclosure is being madepursuant to the Care Everywhere program and may not contain all information available regarding this patient. Last updated 18.[facility] Social History Tobacco Use Types [...] age to complete this [place] [address] [facility] AAR MEDICARE Care Teams Chief Of Police Relationship Specialty Start Date End Date Rosie Bryant DO [address] [place] [address] PCP - General 12/12/21
--- OUTSIDE RECORDS SUMMARY | 2024-09-23 11:09 | XMS_ITS | Clinical Summary ---
Author Organization [facility] Address [address] [place] [address] Phone Care Team Providers Care Shipping Clerk/Admin Name Role Phone Unavailable Primary Care Provider [...] constipation, bruising Nitrofurantoin Other (See Comments) 10/24/2020 Tixuvfb-Rjh-Jqq Reductase Inhibitors Other (See Comments) 10/24/2020 Intolerant Topiramate Other (See Comments) 10/24/2020 Medications thyroid, pork, (MEDICAL SCIENTIFIC LIAISON Thyroid) 60 mg tablet Take 60 mg [...] 10:12 AM CDT Height 180.3 cm (5' 11) 07/31/2022 10:12 AM CDT Body Mass Index [...] 2028 Insurance MEDICARE PART A AND B [facility] [id number]
== END 2024-09-23 10:12 | disposition home or self-care (01) ==
PROVIDERS: PCP Family Medicine; Visit Provider Nurse Practitioner
DX: R41.3 Other amnesia (principal)
CPT/HCPCS: 70450

== ENCOUNTER 2024-10-04 13:15 | Outpatient (CLI) | payer MEDICARE, SELFPAY ==
--- NOTE | ~2024-10-04 | XR_ITS ---
CHEST RADIOGRAPH, PA AND LATERAL CLINICAL HISTORY: cough x 2 months, non smoker . COMPARISON: 04/13/2024 TECHNIQUE: PA and lateral views of the chest. FINDINGS The cardiomediastinal silhouette is unremarkable. Peribronchial thickening is detected bilaterally. The remainder of the lungs are clear. IMPRESSION: Peribronchial thickening, without focal infiltrate or effusion. Reviewed, dictated and finalized at location A.
== END 2024-10-04 13:16 | disposition home or self-care (01) ==
PROVIDERS: PCP Family Medicine; Visit Provider Family Medicine
DX: R91.8 Other nonspecific abnormal finding of lung field (principal); R05.9 Cough, unspecified
CPT/HCPCS: 71046

== ENCOUNTER 2024-11-29 10:31 | Outpatient (CLI) | payer MEDICARE, SELFPAY ==
--- NOTE | ~2024-11-29 | DEXA_ITS ---
Bone Density Report Name: ASHLEY HILL Age: 68 Sex: Female Ethnicity: White Date of : 1955 Indication: osteopenia; height loss; Referring Provider: CATALINA OLGUIN Study: Bone densitometry was performed. Exam Date: November 29, 2024 Accession number: [id number] Bone Density: Region BMD T-score Z-score Classification AP Spine(L1-L4) 0.951 -0.9 1.3 Normal Femoral Neck (Left) 0.693 -1.4 0.4 Osteopenia Total Hip (Left) 0.794 -1.2 0.3 Osteopenia Femoral Neck (Right) 0.697 -1.4 0.5 Osteopenia Total Hip (Right) 0.857 -0.7 0.9 Normal Total Hip Mean 0.826 -1.0 0.6 Normal World Health Organization criteria for BMD impression classify patients as: Normal (T-score at or above -1.0), Osteopenia (T-score between -1.0 and -2.5), or Osteoporosis (T-score at or below -2.5). 10-year Fracture Risk(1): Major Osteoporotic Fracture 9.8% Hip Fracture 1.4% Reported Risk Factors: [place] (), Neck BMD=0.693, BMI=28.1 (1) FRAX(R) Version 3.08. Fracture probability calculated for an untreated patient. Fracture probability may be lower if the patient has received treatment. Previous Exams: Region Exam Age BMD T-score BMD Change BMD Change Date g/cm2 vs Baseline vs Previous AP Spine (L1-L4) 11/29/2024 68 0.951 -0.9 -0.047 (-4.7%) -0.029 (-3.0%) 08/20/2021 65 0.980 -0.6 -0.017 (-1.8%) -0.017 (-1.8%) 04/29/2019 63 0.998 -0.4 Total Hip(Left) 11/29/2024 68 0.794 -1.2 -0.034 (-4.1%) 0.021 (2.7%) 08/20/2021 65 0.773 -1.4 -0.056 (-6.7%) -0.056 (-6.7%) 04/29/2019 63 0.828 -0.9 Total Hip(Right) 11/29/2024 68 0.857 -0.7 -0.049 (-5.4%) 0.051 (6.3%)* 08/20/2021 65 0.806 -1.1 -0.099 (-11.0% -0.099 (-11.0% 04/29/2019 63 0.906 -0.3 *Denotes significance at 95% confidence level, LSC for AP Spine = 0.022 g/cm2, LSC for Total Hip = 0.027 g/cm2 Clinical Information Provided by Patient: Has used the following medications: Vitamin D, Calcium Patient maximum height was 71 Menopause Age: 46 No regular weight bearing exercise Does not regularly consume dairy products Drinks caffeinated beverages Onset of menses at age 11 Number of children 2 Impression: The patient has low bone mass, based on the Left Femoral Neck T-score. The patient has an estimated ten-year risk of hip fracture of 1.4% and an estimated ten-year risk of major fracture of 9.8%, based on the WHO FRAX algorithm. The BMD for the AP Spine (L1-L4) decreased, changing by -3.0% since the last DXA exam. Discussion: BONE DENSITY IS LOW AT ONE OR MORE SKELETAL SITES. This patient's lowest T-score is low at one or more skeletal sites. It meets the World Health Organization's (WHO) criteria for ?low bone mass? (T-score between -1.0 and -2.5). The patient's 10-year risk of fracture as calculated by FRAX is less than the threshold where pharmacological therapy is recommended by the National Osteoporosis Foundation (NOF). However, all treatment decisions require clinical judgment and consideration of individual patient factors, including patient preferences, comorbidities, previous drug use, risk factors not captured in the FRAX model (e.g., frailty, falls, vitamin D deficiency, increased bone turnover, interval significant decline in bone density) and possible under or overestimation of fracture risk by FRAX. The patient should follow a healthful lifestyle (good nutrition with adequate calcium and vitamin D, and appropriate weight-bearing exercise). Follow-Up: Consider repeating this study in 2 years to reassess this patient's status, or sooner if there is some new clinical indication. Reported by: CORA on 11/29/2024 11:31:00 AM. Reviewed, dictated and finalized at location A.
--- OUTSIDE RECORDS SUMMARY | 2024-11-29 10:41 | XMS_ITS | Clinical Summary ---
Author Organization [facility] Address [address] [place] [address] Care Team Providers Care Agriculture Scientist Name Role Phone Rosie Bryant DO Primary Care Provider [phone] Source Comments [facility],non-owned Affiliates and Associated Physician Practices is amultiple site organization consisting of ambulatory clinics and hospital sitesin [place], [place], [place] and [place]. This disclosure is being madepursuant to the Care Everywhere program and may not contain all information available regarding this patient. Last updated 18.[facility] Social History Tobacco Use Types Packs/Day [...] DEPRESSION SCREENING 04/21/2024 03/17/2023, 01/28/2022 INFLUENZA VACCINE (#1) 2024 Respiratory Syncytial Virus (RSV) Vaccine Pt: [...] age to complete this topic Insurance MEDICARE [facility] AAR MEDICARE Care Teams Agriculture Scientist Relationship Specialty Start Date End Date Rosie Bryant DO [address] [place] [address] PCP - General 12/12/21
--- OUTSIDE RECORDS SUMMARY | 2024-11-29 10:41 | XMS_ITS | Clinical Summary ---
Author Organization [facility] Address [address] [place] [address] Phone Care Team Providers Care Siderographer Name Role Phone Unavailable Primary Care Provider [...] constipation, bruising Nitrofurantoin Other (See Comments) 10/24/2020 Izuprlz-Ptd-Lgx Reductase Inhibitors Other (See Comments) 10/24/2020 Intolerant Topiramate Other (See Comments) 10/24/2020 Medications thyroid, pork, (HEALTH RECORDS TECHNOLOGY TEACHER Thyroid) 60 mg tablet Take 60 mg [...] 01/18/2014 OSTEOPOROSIS SCREENING 2018 INFLUENZA VACCINE (#1) 2024 RSV VACCINE (60+ or ) (1 - 1-dose 75+ series) 2028 Insurance MEDICARE PART A AND B [facility] [id number] [facility] Address: [facility] [address] [place] [address]
== END 2024-11-29 10:32 | disposition home or self-care (01) ==
LOC: ANHIMG 10:32
PROVIDERS: PCP Family Medicine; Visit Provider Nurse Practitioner
DX: M85.88 Other specified disorders of bone density and structure, other site (principal); M85.852 Other specified disorders of bone density and structure, left thigh; M85.851 Other specified disorders of bone density and structure, right thigh
CPT/HCPCS: 77080

== ENCOUNTER 2024-12-16 16:44 | Outpatient (CLI) | payer MEDICARE, SELFPAY ==
--- OUTSIDE RECORDS SUMMARY | 2003-11-08 05:45 | XMS_ITS | Continuity of Care Document ---
Author Organization [facility] Address [address] [place] [address] [address] [place] [address] Phone Care Team Providers Care Chute Man Name Role Phone Dylan Corona Unavailable Unavailable Advance Directives Directive Yes / No Effective Date File Name No Information Encounters Encounter Description Practice Location Reason(s) For Visit Diagnoses Date Provider Providers Copied on Encounter [facility], [id number] [place] [address] [address], [place], [place], [id number], [place] tel:[phone] [facility] No Information 0-200 4 Doisy Edward. [address] [facility] [address] , [address], [place], [place], [facility], [place]. tel:[phone] Referring Provider: Oseas Freed MD, [address], [place], [place], [facility]. tel:[phone] Family History Family Member Type Diagnosis Age At Onset No Information Payers Payer name Insurance type Covered alliance party ID Authoriza tion(s) No Information Social History Type Description Quantity Date Captured Comments Sex Female Smoking Status No Information Chief Complaint And Reason For Visit No Information Reason For Referral Reason For Referral No Information History Of Present Illness Encounter Date Complaint History Of Prese nt Illness No Information Functional Status Date Functional Assessmen t No Information Instructions Date Instruction Additional Infor mation No Information Assessments Type Assessment Date No Information Patient Care Teams Name Effective Dates (start - stop) Status Members No Information
--- NOTE | ~2024-12-16 | CT_ITS ---
EXAMINATION: CT chest high resolution wo wv DATE: 12/16/2024 17:09 INDICATION: R05.9 - Cough, unspecified TECHNIQUE: Computed tomography (CT) of the chest was performed without intravenous contrast. Additional 3D reconstructions utilizing coronal maximum intensity projection (MIP) were performed. Automated exposure control and iterative reconstruction technique were employed. The dose-length product was 24 9.95 mGy-cm. COMPARISON: CT abdomen pelvis dated 04/13/2024 FINDINGS: Mild biapical pleural-parenchymal scarring. There are couple 2 mm nodules, one in the anterobasilar left lower lobe on series 4, image 109 and the second in the left upper lobe on image 42. No pneumonia, pulmonary edema, pleural effusion or pneumothorax. Heart size is normal. No pericardial effusion. Thoracic aorta is normal in caliber. No pathologically enlarged thoracic lymphadenopathy. Sludge in the fundus of the gallbladder peripheral to a large peripherally and centrally calcified gallstone at the neck of the gallbladder. Mild thoracic dextroscoliosis with mild spondylosis. Moderate to severe lower cervical spondylosis. IMPRESSION: 1. Mild biapical pleural-parenchymal scarring and a couple indeterminate 2 mm nodule left lung. If the patient is low risk for lung cancer, no follow-up is needed. If the patient is high risk (i.e., history of smoking or asbestos or significant radiation exposure), optional follow-up chest CT could be considered at 12 months. 2. Cholelithiasis. Reviewed, dictated and finalized at location A. IMPRESSION: 1. Mild biapical pleural-parenchymal scarring and a couple indeterminate 2 mm n odule left lung. If the patient is low risk for lung cancer, no follow-up is ne eded. If the patient is high risk (i.e., history of smoking or asbestos or sign ificant radiation exposure), optional follow-up chest CT could be considered at 12 months. 2. Cholelithiasis.
--- OUTSIDE RECORDS SUMMARY | 2024-12-16 16:51 | XMS_ITS | Clinical Summary ---
Author Organization [facility] Address [address] [place] [address] Care Team Providers Care Wine Steward/Stewardess Name Role Phone SymonemarivelRosie buchanan Jerson GUERRERO Primary Care Provider [phone] Allergies Active Allergy Reactions Criticality Noted Date [...] Blurred vision 10/24/2020 Albuterol Shakiness 10/24/2020 Medications CNA HHA THYROID 60 MG tablet Take 1 tablet (60 mg total) by mouth daily. 10/21/19 21 Active atenolol 50 MG tablet Take 1 tablet (50 mg total) by mouth daily. 07/24/19 22 Active amLODIPine 5 MG tablet Take 1 tablet (5 mg total) by mouth daily. 08/12/19 22 Active Cholecalcifero l (VITAMIN D3) 50 MCG (2000 UT) Cap Take 4,000 Units by mouth daily. Alternates 2000 and 4000 Active vitamin C 1000 MG tablet Take 1 tablet (1,000 mg total) by mouth daily. Active Menaquinone-7 (VITAMIN K2 OR) Take by mouth 2 (two) times a day. Active MAGNESIUM OR Take 96 mg by mouth daily. Active 5-Hydroxytrypt ophan (5-HTP OR) Take 200 mg by mouth daily. Active [id number] OR Take 500 mg by mouth daily. 500mg AM. 1000mg PM Active Digestive Enzymes (DIGESTIVE ENZYME OR) Take 200 mg by mouth daily. Active Multiple Vitamin (MULTIVITAMIN IRON-FREE) Tab Take by mouth daily. Active lisinopril (PRINIVIL) 10 MG tablet Take 1 tablet (10 mg total) by mouth daily. 08/24/19 25 Active Fexofenadine HCl (ALLERGY 24-HR OR) Take 1 tablet by mouth daily. Active famotidine (PEPCID) 20 MG tablet Take 1 tablet (20 mg total) by mouth daily. Active donepezil (ARICEPT) 5 MG TabIndications :Mild cognitive impairment Take 1 tablet (5 mg total) by mouth nightly at bedtime. 30 tablet 11 05/20/19 25 025 Discontinued Active Problems Problem Noted Date Diagnosed Date Lichenification 11/17/2023 Obesity (BMI 30-39.9) 10/09/2023 Assessment & Plan (10/09/2023 12:40 PM CDT): Encouraged lifestyle modifications including diet and exercise. Fracture of tooth 09/26/2022 Hypothyroidism 09/26/2022 Insect bite 09/26/2022 Loss of hair 09/26/2022 Menopause present 09/26/2022 Vitamin D deficiency 09/26/2022 Primary hypertension 07/31/2022 Assessment & Plan (10/11/2024 11:11 AM CDT): Blood pressure is mildly elevated in office today. Recommended monitoring blood pressure at home for the next 2 weeks and call readings into our office. Continue amlodipine, atenolol, lisinopril. Precordial pain 04/04/2022 Assessment & Plan (10/11/2024 11:10 AM CDT): No recurrence of symptoms. Continue to monitor. Assessment & Plan (10/09/2023 12:40 PM CDT): She is not having any symptoms at this time. Assessment & Plan (04/04/2022 11:41 AM CONSUMER SCIENCE TEACHER): She has not had any more chest discomfort. Her symptoms sound noncardiac in nature. I discussed exercise stress testing, but at this time she would like to monitor her symptoms. I am in agreement. Hyperlipidemia, mixed 04/04/2022 Assessment & Plan (10/11/2024 11:12 AM CDT): Last lipid panel with an LDL of 155. Will repeat now. She is intolerant to statin therapy and Zetia. May need to consider addition of PCSK9 inhibitor pending repeat lipid panel results Assessment & Plan (10/09/2023 12:40 PM CDT): Her LDL is 155. I discussed options with her including Coronary Artery Calcium scoring, PCSK9 inhibitor, or Bempedoic acid. We will try to obtain her most recent lipid panel from primary care. I encouraged lifestyle modifications we well. Assessment & Plan (04/04/2022 11:41 AM CONSUMER SCIENCE TEACHER): Her most recent lipids show an LDL of 150. She is not tolerant of statins or Zetia. I discussed PCSK9 inhibitor therapy and she has not interested at this time. Encounters Date Type Department Care Team Description 11/17/2024 11:20 AM CDT Office Visit [facility] [address], [address] [place] [address] Scarlet Mendoza MD Follow Up 11/17/2024 Travel 10/19/2024 Results [facility], [address] [place] [address] Sintia Villagomez RN THYROXINE, FREE (FT4), CBC, MANUAL DIFF, LIPID PANEL, Additional followed-up results: 2 10/11/2024 10:00 AM CDT [facility] [address] [facility] [place] [address] Galdino Santos MD Lanter, Megan N, PA Lipids (1 yr follow up) 10/11/2024 Travel 10/11/2024 Orders Only [facility] [address] [facility] [place] [address] Alisa Mccray MA from Last 3 Months Immunizations Immunization Administration Dates Next Due Zoster (Zostavax) [address] Unt/0.65Ml 01/18/2014 Family History Medical History Relation [...] Sex Assigned at Female 05/19/2024 7:52 AM CONSUMER SCIENCE TEACHER Legal Sex Female 7:00 PM CDT Gender Identity Not on file Sexual Orientation Not on file Last Filed Vital Signs Vital Sign Reading Time Taken Comments Blood Pressure 133/83 11/17/2024 11:16 AM CDT Pulse 65 11/17/2024 11:16 AM CDT Temperature 36.9 C (98.5 F) 11/17/2024 11:16 AM CDT Respiratory Rate 22 04/07/2024 6:20 AM CONSUMER SCIENCE TEACHER Oxygen Saturation 95% 11/17/2024 11:16 AM CDT Inhaled Oxygen Concentration - - Weight 89.5 kg (197 lb 6.4 oz) 11/17/2024 11:16 AM CDT Height 177.8 cm (5' 10) 11/17/2024 11:16 AM CDT Body Mass Index 28.32 11/17/2024 11:16 AM CDT Plan of Treatment Upcoming Encounters Date Type Department Care Team (Late st Contact Info) Description 10/17/2025 10:30 AM CDT Office Visit [facility], [address] [place] [address] Galdino Santos MD [facility]. [address] [place] [address] 11/23/2025 10:40 AM CDT Office Visit [facility] [address], [address] [place] [id number] Scarlet Mendoza MD [address] [place] [address] Health Maintenance Due Date Last Done Comments [...] Td or Tdap) 08/13/2032 08/13/2022 PHQ-2 (Physician Tichnor) Completed 05/20/2024 Meningococcal B Vaccine Aged Out No l onger eligible based on patient's age to complete this topic Meningococcal Vaccine Aged Out No dieter tavares eligible based on patient's age to complete this topic RSV Immunizations Under 20 Months Aged Out No longer eligible based on patient's age to complete this topic Procedures Procedure Name Priority Date/Time Associated Diagnosis Comments VITAMIN D, 25 OH Routine 10/18/2024 CMP (ABSTRACTED LAB) Routine 10/18/2024 LIPID PANEL Routine 10/18/2024 CBC, MANUAL DIFF Routine 10/18/2024 THYROXINE, FREE (FT4) Routine 10/18/2024 THYROID STIM HORMONE TSH Routine 10/18/2024 from Last 3 Months Results * (ABNORMAL) CMP (ABSTRACTED LAB) (10/18/2024) Pathologist [facility] SODIUM S/P/B 141 POTASSIUM S/P/B 4.4 CHLORIDE S/P/B 104 CO2 27 BUN 14 CREATININE S/P/B 0.68 0.5 - 1.0 EGFR NON-AFR. AMER. 94(A) <=90 CALCIUM S/P/B 9.1 GLUCOSE 90 mg/dL TOTAL PROTEIN S/P/B 6.5 ALBUMIN S/P/B 4.2 3.5 - 5.0 AST 19 ALT 17 ALKALINE PHOSPHATASE S/P/B 91 BILIRUBIN TOTAL S/P/B 0.5 GLOBULIN 2.3 10/18/2024 us Default History Genericprovider LAB-OUTSIDE/ABST RACTED Final Result * LIPID PANEL (10/18/2024) Pathologist [facility] CHOLESTEROL 215 TRIGLYCERIDES 145 HDL 47 LDL (CALCULATED) 141 NON HDL CHOLESTEROL 168 us Default History Genericprovider LABORATORY Edited Result - Final * CBC, MANUAL DIFF (10/18/2024) WBC 7.9 HGB 13.2 HCT 41.3 PLT 365 us Default History Genericprovider LABORATORY Edited Result - Final * THYROXINE, FREE (FT4) (10/18/2024) FREE T4 0.9 us Default History Genericprovider LABORATORY Edited Result - Final * THYROID STIM HORMONE TSH (10/18/2024) TSH 2.35 us Default History Genericprovider LABORATORY Edited Result - Final * VITAMIN D, 25 OH (10/18/2024) VITAMIN D 25 HYDROXY S/P/B 82 10/18/2024 us Default History Genericprovider LABORATORY Final Result from Last 3 Months Insurance MEDICARE [facility] Care Teams Wine Steward/Stewardess Relationship Specialty Start Date End Date Rosie Bryant DO [address] [place] [address] PCP - General FAMILY PRACTICE 02/21/20
--- OUTSIDE RECORDS SUMMARY | 2024-12-16 16:51 | XMS_ITS | Clinical Summary ---
Author Organization [facility] Address [address] [place] [address] Phone Care Team Providers Care Private Eye Name Role Phone Unavailable Primary Care Provider [...] constipation, bruising Nitrofurantoin Other (See Comments) 10/24/2020 Neepetq-Jum-Oxp Reductase Inhibitors Other (See Comments) 10/24/2020 Intolerant Topiramate Other (See Comments) 10/24/2020 Medications thyroid, pork, (FITNESS CLUB MANAGER Thyroid) 60 mg tablet Take 60 mg [...] 2028 Insurance MEDICARE PART A AND B [facility] [id number] [place] [address]
--- OUTSIDE RECORDS SUMMARY | 2024-12-16 16:51 | XMS_ITS | Clinical Summary ---
Author Organization [facility] Address [address] [place] [address] Care Team Providers Care Solution Manager Name Role Phone Rosie Bryant DO Primary Care Provider [phone] Source Comments [facility],non-owned Affiliates and Associated Physician Practices is amultiple site organization consisting of ambulatory clinics and hospital sitesin [place], [place], [place] and [place]. This disclosure is being madepursuant to the Care Everywhere program and may not contain all information available regarding this patient. Last updated 18.[facility] Social History Tobacco Use Types Packs/Day [...] age to complete this topic Insurance MEDICARE [facility] AAR MEDICARE Care Teams Solution Manager Relationship Specialty Start Date End Date Rosie Bryant DO [address] [place] [address] PCP - General 12/12/21
== END 2024-12-16 16:45 | disposition home or self-care (01) ==
PROVIDERS: PCP Family Medicine; Visit Provider Family Medicine
DX: R91.8 Other nonspecific abnormal finding of lung field (principal); J98.4 Other disorders of lung; K80.20 Calculus of gallbladder without cholecystitis without obstruction
CPT/HCPCS: 71250

== ENCOUNTER 2025-01-06 13:22 | Outpatient (CLI) | payer MEDICARE, SELFPAY ==
--- OUTSIDE RECORDS SUMMARY | 2025-01-06 13:30 | XMS_ITS | Clinical Summary ---
Author Organization [facility] Address [address] [place] [address] Care Team Providers Care Hedge Fund Manager Name Role Phone Rosie Bryant DO Primary Care Provider [phone] Source Comments [facility],non-owned Affiliates and Associated Physician Practices is amultiple site organization consisting of ambulatory clinics and hospital sitesin [place], [place], [place] and [place]. This disclosure is being madepursuant to the Care Everywhere program and may not contain all information available regarding this patient. Last updated 18.[facility] Social History Tobacco Use Types [...] 12/08/2003 ZOSTER VACCINE (1 of 2) 12/08/2003 DEPRESSION SCREENING 04/21/2024 03/17/2023, 01/28/2022 COVID-19 VACCINE (1 - 2023-2 5 season) 2024 INFLUENZA VACCINE (#1) 2024 Respiratory Syncytial Virus [...] age to complete this topic Insurance MEDICARE [facility] AAR MEDICARE Care Teams Hedge Fund Manager Relationship Specialty Start Date End Date Rosie Bryant DO [address] [place] [address] PCP - General 12/12/21
--- OUTSIDE RECORDS SUMMARY | 2025-01-06 13:30 | XMS_ITS | Clinical Summary ---
Author Organization [facility] Address [address] [place] [address] Phone Care Team Providers Care Glass Cutter Name Role Phone Unavailable Primary Care [...] constipation, bruising Nitrofurantoin Other (See Comments) 10/24/2020 [place]-Nxg-Ndq Reductase Inhibitors Other (See Comments) 10/24/2020 Intolerant Topiramate Other (See Comments) 10/24/2020 Medications thyroid, pork, (DISTRIBUTION TRANSFORMER ASSEMBLER Thyroid) 60 mg tablet Take 60 mg [...] A AND B [facility] [id number]
--- NOTE | 2025-01-06 16:47 | WPDPFTINT ---
PFT Procedure Performed PFT Procedure Performed Spirometry with Pre/Post Bronchodilator Plethysmography (Lung Vol) Diffusing Cap (DLCO) Flow Vol Loop PFT Interpretation This is a pulmonary function test with pre and post-bronchodilator spirometry, plethysmography and diffusing capacity. The test was performed and results interpreted in accordance with the 2019 and 2005 ATS/ERS Task Force guidelines respectively using the Global Lung Function Initiative-2012 reference equations. Patient demonstrated good effort and cooperation. Reproducibility criteria were met. The quality of the pre bronchodilator spirometry maneuver was Grade A and post bronchodilator spirometry maneuver was Grade A. Findings: Spirometry: There is decreased maximal expiratory airflow at all lung volumes with a concave expiratory flow tracing. The contour the inspiratory flow tracing is normal. The pre bronchodilator FVC is 2.79 L, 81% predicted. The pre bronchodilator FEV1 is 1.83 L, 69% predicted. The pre bronchodilator FEV1: FVC ratio is 66%. The post bronchodilator FVC is 3.10 L, representing a 11% increase. The post bronchodilator FEV1 is 2.01 L, representing a 10% increase. The post bronchodilator FEV1: FVC ratio 65%. Plethysmography: The total lung capacity is 5.71 L, 96% predicted. The functional residual capacity is 3.31 L, 96% predicted. The residual volume is 2.67 L, 106% predicted. Diffusing capacity: The diffusing capacity unadjusted for hemoglobin and carboxyhemoglobin is 18.9, 83% predicted. The diffusing capacity adjusted for alveolar volume is 4.48, 112% predicted. Impression: The FEV1 is less than 80% predicted and the FEV1: FVC ratio is greater than the lower limit of normal consistent with Preserved Ratio Impaired Spirometry (PRISm) with a normal FVC. There is no significant improvement after inhaling a single dose of albuterol. The lung volumes are normal. The diffusing capacity is normal. There are no prior studies for comparison
== END 2025-01-06 13:23 | disposition home or self-care (01) ==
LOC: ANHPFT 13:26
PROVIDERS: PCP Family Medicine; Visit Provider Family Medicine
DX: R05.9 Cough, unspecified (principal); R94.2 Abnormal results of pulmonary function studies
CPT/HCPCS: 94060; 94726; 94729

== ENCOUNTER 2025-03-07 13:13 | Outpatient (CLI) | payer MEDICARE, SELFPAY ==
--- NOTE | ~2025-03-07 | XR_ITS ---
EXAMINATION: XR humerus LT, 03/07/2025 13:29 TUB WASH OPERATOR HISTORY: M79.602 - Pain in left arm COMPARISON: No comparisons available. Findings: No acute fracture or malalignment. No significant degenerative changes. Soft tissues unremarkable. Impression: No acute fracture or malalignment. Reviewed, dictated and finalized at location P. WASH OPERATOR Impression: No acute fracture or malalignment.
--- NOTE | ~2025-03-07 | XR_ITS ---
XR skull min 4V Indication: Headache, pain x 2 months Comparison: None Technique: 3 view. Findings: No acute fracture or malalignment. No significant degenerative changes. Soft tissues are unremarkable. Impression: No acute fracture or malalignment. Reviewed, dictated and finalized at location P. RCYCLE MECHANIC Impression: No acute fracture or malalignment.
== END 2025-03-07 13:14 | disposition home or self-care (01) ==
LOC: GOSHIMG 13:14
PROVIDERS: PCP Family Medicine; Visit Provider Family Medicine
DX: M79.602 Pain in left arm (principal); R51.9 Headache, unspecified
CPT/HCPCS: 70260; 73060

== ENCOUNTER 2025-03-10 13:40 | Outpatient (CLI) | payer MEDICARE, SELFPAY ==
--- NOTE | ~2025-03-10 | MM_ITS ---
EXAMINATION: MM screening adenike BI w troy HISTORY: Screening TECHNIQUE: Craniocaudal and mediolateral oblique 3-D tomosynthesis images were obtained and synthetic 2-D images were generated. CAD analysis was submitted and interpreted. COMPARISON: No prior mammogram is available for comparison at this institution. BREAST PARENCHYMAL COMPOSITION: Not dense: There are scattered areas of fibroglandular density. FINDINGS: There are bilateral breast asymmetries in the periareolar locations. There is a cluster of calcifications in the periareolar location of the left breast which are indeterminate. IMPRESSION: 1. Bilateral breast asymmetries. Indeterminate cluster of left breast calcifications. 2. Additional mammographic views and possible breast ultrasound are recommended. BI-RADS Category 0: Incomplete: Needs additional imaging evaluation. Reviewed, dictated and finalized at location O. TRIC TOOL REPAIRER IMPRESSION: 1. Bilateral breast asymmetries. Indeterminate cluster of left breast calcifica tions. 2. Additional mammographic views and possible breast ultrasound are recommended . BI-RADS Category 0: Incomplete: Needs additional imaging evaluation.
--- OUTSIDE RECORDS SUMMARY | 2025-03-10 16:55 | XMS_ITS | Encounter Summary ---
Author Organization [facility] Address [address] [place] [id number] Care Team Providers Care Bilingual Call Center Representative Name Role Phone Rosie Bryant Jerson GUERRERO Primary Care Provider [phone] Encounter Details Date Type Department Care Team (Late st Contact Info) Description 05/02/2022 Abstract [facility] [address] Vero Le MA Social History Tobacco Use [...] Sex Assigned at Female 05/19/2024 7:52 AM BENDING FRAME OPERATOR Legal Sex Female 7:00 PM CDT Gender Identity Not on file Sexual Orientation Not on file COVID-19 Exposure Response Date Recorded In the last 10 days, have yo u been in contact with someone who was confirmed or suspected to have Coronavirus/COVID-19? No / Unsure 04/04/2022 10:40 AM BENDING FRAME OPERATOR documented as of this encounter Plan of Treatment Upcoming Encounters Date Type Department Care Team (Late st Contact Info) Description 10/17/2025 10:30 AM CDT Office Visit [facility] [address] [place] [address] Galdino Santos MD [address] [place] [address] 11/23/2025 10:40 AM CDT Office Visit [facility] [address] [place] [phone] Scarlet Mendoza MD [address] [place] [address] documented as of this encounter Procedures Procedure Name Priority Date/Time Associated Diagnosis Comments CMP (ABSTRACTED LAB) Routine 10/18/2024 LIPID PANEL Routine 10/18/2024 CBC, MANUAL DIFF Routine 10/18/2024 THYROXINE, FREE (FT4) Routine 10/18/2024 THYROID STIM HORMONE TSH Routine 10/18/2024 VITAMIN D, 25 OH Routine 10/18/2024 LIPID PANEL Routine 02/27/2022 documented in this encounter Results * VITAMIN D, 25 OH (10/18/2024) VITAMIN D 25 HYDROXY S/P/B 82 10/18/2024 us Default History Genericprovider LABORATORY Final Result * (ABNORMAL) CMP (ABSTRACTED LAB) (10/18/2024) Pathologist [facility] SODIUM S/P/B 141 POTASSIUM S/P/B 4.4 CHLORIDE S/P/B 104 CO2 27 BUN 14 CREATININE S/P/B 0.68 0.5 - 1.0 EGFR NON-AFR. AMER. 94(A) <=90 CALCIUM S/P/B 9.1 GLUCOSE 90 mg/dL TOTAL PROTEIN S/P/B 6.5 ALBUMIN S/P/B 4.2 3.5 - 5.0 AST 19 ALT 17 ALKALINE PHOSPHATASE S/P/B 91 BILIRUBIN TOTAL S/P/B 0.5 GLOBULIN 2.3 10/18/2024 Default History Genericprovider LAB-OUTSIDE/ABST RACTED Final Result * LIPID PANEL (10/18/2024) Pathologist [facility] CHOLESTEROL 215 TRIGLYCERIDES 145 HDL 47 LDL (CALCULATED) 141 NON HDL CHOLESTEROL 168 Default History Genericprovider LABORATORY Edited Result - Final * CBC, MANUAL DIFF (10/18/2024) Pathologist [facility] WBC 7.9 HGB 13.2 HCT 41.3 PLT 365 Default History Genericprovider LABORATORY Edited Result - Final * THYROXINE, FREE (FT4) (10/18/2024) [facility] FREE T4 0.9 Default History Genericprovider LABORATORY Edited Result - Final * THYROID STIM HORMONE TSH (10/18/2024) Pathologist [facility] TSH 2.35 us Default History Genericprovider LABORATORY Edited Result - Final * LIPID PANEL (02/27/2022) [facility] CHOLESTEROL 234 TRIGLYCERIDES 117 HDL 56 LDL (CALCULATED) 155 NON HDL CHOLESTEROL 178 Default History Genericprovider LABORATORY Final Result documented in this encounter Visit Diagnoses Not on filedocumented in this encounter Care Teams Bilingual Call Center Representative Relationship Specialty Start Date End Date Rosie Bryant DO [address] [place] [address] PCP - General FAMILY PRACTICE 02/21/20 documented as of this encounter
--- OUTSIDE RECORDS SUMMARY | 2025-03-10 16:55 | XMS_ITS | Data Portability ---
Author Organization [facility] - [facility], PRobertaCRoberta, [facility] Address [address] [place] [address] Assessment No assessment recorded. Plan of Treatment Reminders Order Date Submit Date Provider Last Modified By Organization Details Last Modified Time Details Appointments None recorded. Lab TSH, serum or plasma - on or about 09-30-182018 019 [facility] In-House Results, For Internal Use Only, Do Not Delete/merge, [id number] 9 09:26:45 T4, free, serum 2018 019 [facility] In-House Results, For Internal Use Only, Do Not Delete/merge, [id number] 9 09:26:45 T3, total, serum 2018 019 [facility] In-House Results, For Internal Use Only, Do Not Delete/merge, [id number] 9 09:26:45 T3, reverse, serum 2018 019 [facility] In-House Results, For Internal Use Only, Do Not Delete/merge, [id number] 9 09:26:45 respirator y allergen panel - [facility] b 2018 019 [facility] In-House Results, For Internal Use Only, Do Not Delete/merge, [id number] 9 09:38:18 food allergen panel, serum 2018 019 [facility] In-House Results, For Internal Use Only, Do Not Delete/merge, [id number] 9 18:56:25 rapid strep group A, throat 2017 018 [facility] In-House Results, For Internal Use Only, Do Not Delete/merge, [id number] 8 21:19:16 culture, skin 2014 015 jblechle Not available 5 08:49:07 Referral None recorded. Procedures None recorded. Surgeries None recorded. Imaging XR, chest, 2 view 2018 019 [facility], [address], [address], [place], [address], 9 04:45:22 Medication Orders Phosphatid yl Serine 2018 019 [facility] #02281, [address], [place], [place], [id number], 9 17:07:20 DHEA 25mg 2018 019 [facility] #50806, [address] , [place], [place], [id number], 9 17:07:13 Calcarea Carbonica 2018 019 [facility] #86642, [address], [place], [place], [id number], 9 17:07:[address] [facility] #14026, [address], [place], [place], [id number], 9 16:16:[address] [facility] #22881, [address], [place], [place], [id number], 9 16:16:32 Zithromax 250 [address] tablet [address] [facility] #80088, [address] , [place], [place], [id number], 9 13:22:16 Berberis Quartz 2017 018 [facility]99820, [address], [place], [place], [id number], 9 13:22:14 Eupatorium Compound 2017 018 [facility]51201, [address], [place], [place], [id number], 9 13:22:12 Ledum Palustre 2014 015 [facility] , [address] [place], [address], 8 13:43:57 Patient TargetsNo targets recorded. Patient Instructions Encounter Date Encounter Id Patient Instructions Last Modified By Organization Details Last Modified Time 02/01/2015 [id number] Don't scratch us e cream tid cwessling Not available 02/01/2015 17:57:21 04/03/2018 [id number] strep throat: care instructions cwessling Not available 04/03/2018 15:10:06 upper respirator y infection (cold): care instructions cwessling Not available 04/03/2018 15:10:06 05/05/2018 [id number] chronic cough: care instructions cwessling Not available 05/05/2018 18:43:01 [facility] food Allergen panel cwessling Not available 05/05/2018 18:42:14 06/02/2018 [id number] hair loss from alopecia areata: care instructions cwessling Not available 06/02/2018 14:04:52 Provide copy of recent blood work. ZRT Neuroadrenal expanded cwessling Not available 06/02/2018 14:04:30 09/01/2018 [id number] 5HTP to bid cwessling Not available 17:07:11 Reason for Referral None Reported. Results Created Date Observation Date Name Description Value Unit Range Abnormal Flag Note LastModifiedBy Organization Detail LastModifiedTime 02/06/20 15 02/04/2015 cultu re, aerob ic culture, aerobic bacteria SEE NOTE CULTU RE, AEROB IC BACTE DEBI MICRO NUMBE R: [id number] 106 TEST STATU S: FINAL SPECI MEN [...] CLIEN T SERVI CHRYSTAL. PHONE NUMBE R: [phone] Not Available [email or web address] [address] [address] [place], [address], 02/05/2015 19:53:09 01/13/2001/13/2015 T4, free, serum T4, free 0.9 NG/dL 0.8-1. 8 normal Not Available [email or web address] [address] [address] [place], [address], 01/13/2015 08:50:19 01/13/2001/13/2015 TSH, serum or plasm a TSH 2.40 mIU/L 0.40-4 .50 normal Not Available [facility] [address] [address] [place], [address], 01/13/2015 08:50:19 01/13/2001/13/2015 T3, free, serum or plasm a T3, free 2.8 pg/mL 2.3-4. 2 normal Not Available [email or web address] [address] [address] [place], [address], 01/13/2015 08:50:20 01/13/2001/13/2015 vitam in D, 25-hy [...] /MS is recom mirtha d: order code 85275 (pee ents >2yrs ). For more infor dia mccloud on this test, go to: http: //[facility] [place] evon goyal stdia gnost ics.c om/fa q/FAQ 163 (This link is being provi ded for infor dia nal/e ducat ional purpo ses only. ) Not Available [address] [address] [address] , [place], [address], 01/13/2015 08:50:20 01/13/20 15 01/13/2015 vitam in D, 25-hy droxy , total , serum comment We recei luis a handw ritte n test order for Vitam in D and perfo rmed [id number] , Vitam in D, 25-OH ,Tota l,IA test. If this is not what you inten ded to order , pleas e conta ct your local clien t servi ce repre senta tive immed iatel y so that we may adjus t our anibal ng appro yary jessica. You may also inqui re about alter nativ e or addit ional testi ng. Not Available [address] [address] [address], [place], [address], 01/13/2015 08:50:20 04/03/20 18 04/03/2018 rapid strep group A, throa t Strep positi ve Not Available In-House Results For Internal Use Only, Do Not Delete/merge, [id number] 04/03/2018 15:11:14 05/07/19 19 05/11/2018 respi rator y aller gen panel - [facility] berrios y b dermatophago ides pteronyssinu s (D1) IgE <0.10 kU/L normal Not Available [email or web address] [address] [address] [place], [address], 05/11/2018 18:56:24 05/07/19 19 05/11/2018 respi rator y aller gen panel - [place] class 0 Not Available [address] [address] [place], [address], 05/11/2018 18:56:24 05/07/19 19 05/11/2018 respi rator y aller gen panel - [place] b dermatophago ides farinae (D2) IgE <0.10 kU/L normal Not Available [address] [address] [place], [address], 05/11/2018 18:56:24 05/07/19 19 05/11/2018 respi rator y aller gen panel - [facility] [place] berrios y b class 0 Not Available [address] [address] [place], [address], 05/11/2018 18:56:24 05/07/19 19 05/11/2018 respi rator y aller gen panel - [facility] [place] berrios y b penicillium notatum (M1) IgE <0.10 kU/L normal Not Available [address] [address] [place], [address], 05/11/2018 18:56:24 05/07/19 19 05/11/2018 respi rator y aller gen panel - [facility] [place] berrios y b class 0 Not Available [address] [address] [place], [address], 05/11/2018 18:56:24 05/07/19 19 05/11/2018 respi rator y aller gen panel - [facility] [place] berrios y b cladosporium herbarum (M2) IgE <0.10 kU/L normal Not Available [address] [address] [place], [address], 05/11/2018 18:56:24 05/07/19 19 05/11/2018 respi rator y aller gen panel - [place] b class 0 Not Available [address] [address] [address], [place], [address], 05/11/2018 18:56:24 05/07/19 19 05/11/2018 respi rator y aller gen panel - [place] [facility] y b aspergillus fumigatus (M3) IgE <0.10 kU/L normal Not Available [facility] [address] [address] [place], [address], 05/11/2018 18:56:24 05/07/19 19 05/11/2018 respi rator y aller gen panel - [place] [facility] [place] ber[place] y b class 0 Not Available [facility] [address] [address] [place], [address], 05/11/2018 18:56:24 05/07/19 19 05/11/2018 respi rator y aller gen panel - [place] [facility] y b alternaria alternata (M6) IgE <0.10 kU/L normal Not Available [facility] [address] [address] [place], [address], 05/11/2018 18:56:24 05/07/19 19 05/11/2018 respi rator y aller gen panel - [place] [facility] y b class 0 Not Available [facility] [address] [address] [place], [address], 05/11/2018 18:56:24 05/07/19 19 05/11/2018 respi rator y aller gen panel - [place] [facility] y b CAT dander (E1) IgE <0.10 kU/L normal Not Available [facility] [address] [address] [place], [address], 05/11/2018 18:56:24 05/07/19 19 05/11/2018 respi rator y aller gen panel - [place] [facility] y b class 0 Not Available [facility] [address] [address] [place], [address], 05/11/2018 18:56:24 05/07/19 19 05/11/2018 respi rator y aller gen panel - [place] ber[place] y b dog dander (E5) IgE <0.10 kU/L normal Not Available [address] [address] [place], [address], 05/11/2018 18:56:24 05/07/19 19 05/11/2018 respi rator y aller gen panel - [place] y b class 0 Not Available [address] [address] [place], [address], 05/11/2018 18:56:24 05/07/19 19 05/11/2018 respi rator y aller gen panel - [place] [facility] y b cockroach (I6) IgE <0.10 kU/L normal Not Available [address] [address] [place], [address], 05/11/2018 18:56:24 05/07/19 19 05/11/2018 respi rator y aller gen panel - [place] ber[place] y b class 0 Not Available [address] [address] [place], [address], 05/11/2018 18:56:24 05/07/19 19 05/11/2018 respi rator y aller gen panel - [place] ber[place] y b maple (box elder) (T1) IgE <0.10 kU/L normal Not Available [address] [address] [place], [address], 05/11/2018 18:56:24 05/07/19 19 05/11/2018 respi rator y aller gen panel - [place] y b class 0 Not Available [address] [address] [place], [address], 05/11/2018 18:56:24 05/07/19 19 05/11/2018 respi rator y aller gen panel - [place] y b mountain cedar (T6) IgE <0.10 kU/L normal Not Available [address] [address], [place], [address], 05/11/2018 18:56:24 05/07/19 19 05/11/2018 respi rator y aller gen panel - [place] y b class 0 Not Available [address] [address], [place], [address], 05/11/2018 18:56:24 05/07/19 19 05/11/2018 respi rator y aller gen panel - [place] [facility] b walnut tree (T10) IgE <0.10 kU/L normal Not Available [address] [address] , [place], [address], 05/11/2018 18:56:24 05/07/19 19 05/11/2018 respi rator y aller gen panel - [place] b class 0 Not Available [address] [address], [place], [address], 05/11/2018 18:56:24 05/07/19 19 05/11/2018 respi rator y aller gen panel - [place] y b sycamore (T11) IgE <0.10 kU/L normal Not Available [address] [address] [address], [place], [address], 05/11/2018 18:56:24 05/07/19 19 05/11/2018 respi rator y aller gen panel - [place] b class 0 Not Available [address] [address] [address], [place], [address], 05/11/2018 18:56:24 05/07/19 19 05/11/2018 respi rator y aller gen panel - [place] [facility] [place] ber[place] y b cottonwood (T14) IgE <0.10 kU/L normal Not Available [address] [address] [place], [address], 05/11/2018 18:56:24 05/07/19 19 05/11/2018 respi rator y aller gen panel - [place] [facility] [place] ber[place] y b class 0 Not Available [address] [address] [place], [address], 05/11/2018 18:56:24 05/07/19 19 05/11/2018 respi rator y aller gen panel - [place] [facility] y b white alexa (T15) IgE <0.10 kU/L normal Not Available [address] [address] [place], [address], 05/11/2018 18:56:24 05/07/19 19 05/11/2018 respi rator y aller gen panel - [place] b class 0 Not Available [address] [address] [place], [address], 05/11/2018 18:56:24 05/07/19 19 05/11/2018 respi rator y aller gen panel - [place] b oak (T7) IgE <0.10 kU/L normal Not Available [address] [address] [place], [address], 05/11/2018 18:56:24 05/07/19 19 05/11/2018 respi rator y aller gen panel - [place] b class 0 Not Available [address] [address] [place], [address], 05/11/2018 18:56:24 05/07/19 19 05/11/2018 respi rator y aller gen panel - [place] elm (T8) IgE <0.10 kU/L normal Not Available [address] [address] [place], [address], 05/11/2018 18:56:24 05/07/19 19 05/11/2018 respi rator y aller gen panel - [place] b class 0 Not Available [address] [address] [place], [address], 05/11/2018 18:56:24 05/07/19 19 05/11/2018 respi rator y aller gen panel - [place] [facility] b hickory/peca n tree (T22) IgE <0.10 kU/L normal Not Available [address] [address] [place], [address], 05/11/2018 18:56:24 05/07/19 19 05/11/2018 respi rator y aller gen panel - [place] b class 0 Not Available [facility] [address] [address] [place], [address], 05/11/2018 18:56:24 05/07/19 19 05/11/2018 respi rator y aller gen panel - [place] ber[place] y b white mulberry (T70) IgE <0.10 kU/L normal Not Available [address] [address] [address], [place], [address], 05/11/2018 18:56:24 05/07/19 19 05/11/2018 respi rator y aller gen panel - [place] b class 0 Not Available [address] [address] [address], [place], [address], 05/11/2018 18:56:24 05/07/19 19 05/11/2018 respi rator y aller gen panel - [place] [facility] y b bermuda grass (g2) IgE <0.10 kU/L normal Not Available [facility] [address] [address] [place], [address], 05/11/2018 18:56:24 05/07/19 19 05/11/2018 respi rator y aller gen panel - [place] [facility] b class 0 Not Available [facility] [address] [address] [place], [address], 05/11/2018 18:56:24 05/07/19 19 05/11/2018 respi rator y aller gen panel - [place] b aaron grass (g6) IgE <0.10 kU/L normal Not Available [address] [address] [place], [address], 05/11/2018 18:56:24 05/07/19 19 05/11/2018 respi rator y aller gen panel - [place] y b class 0 Not Available [address] [address] [place], [address], 05/11/2018 18:56:24 05/07/19 19 05/11/2018 respi rator y aller gen panel - [place] [facility] y b common ragweed (short) (W1) IgE <0.10 kU/L normal Not Available [address] [address] [place], [address], 05/11/2018 18:56:24 05/07/19 19 05/11/2018 respi rator y aller gen panel - [place] b class 0 Not Available [address] [address] [place], [address], 05/11/2018 18:56:24 05/07/19 19 05/11/2018 respi rator y aller gen panel - [place] b rough pigweed (W14) IgE <0.10 kU/L normal Not Available [address] [address] [place], [address], 05/11/2018 18:56:24 05/07/19 19 05/11/2018 respi rator y aller gen panel - [place] b class 0 Not Available [address] [address] [place], [address], 05/11/2018 18:56:24 05/07/19 19 05/11/2018 respi rator y aller gen panel - [place] [facility] b turks and caicos islander thistle (W11) IgE <0.10 kU/L normal Not Available [address] [address], [place], [address], 05/11/2018 18:56:24 05/07/19 19 05/11/2018 respi rator y aller gen panel - [place] b class 0 Not Available [address] [address] [address], [place], [address], 05/11/2018 18:56:24 05/07/19 19 05/11/2018 respi rator y aller gen panel - [place] b rough tam elder (W16) IgE <0.10 kU/L normal Not Available [address] [address] [address], [place], [address], 05/11/2018 18:56:24 05/07/19 19 05/11/2018 respi rator y aller gen panel - [place] b class 0 Not Available [address] [address] [address], [place], [address], 05/11/2018 18:56:24 05/07/19 19 05/11/2018 respi rator y aller gen panel - [place] [facility] b mouse urine proteins (E72) IgE <0.10 kU/L normal Not Available [address] [address] [address], [place], [address], 05/11/2018 18:56:24 05/07/19 19 05/11/2018 respi rator y aller gen panel - [place] b class 0 Not Available [address] [address] [address], [place], [address], 05/11/2018 18:56:24 05/07/1905/11/2018 respi rator y aller gen panel - [place] b immunoglobul in E 20 kU/L <or=11 4 normal Not Available [address] [address] [address], [place], [address], 05/11/2018 18:56:24 05/07/19 19 05/11/2018 inter preta [...] cteri stics have been deter mined by [email or web address]. It has not been clear ed or appro luis by the U.S. Food and Drug Admin istra tion. This assay has been valid ated pursu ant to the CLIA regul ation s and is used for clini everett purpo ses. Not Available [facility] [address] [address] [place], [address], 05/11/2018 18:56:24 05/07/1905/11/2018 food aller gen panel , serum casein (F78) IgG 14.1 mcg/m L < 2.0 high Not Available [email or web address] [address] [place] [address] [place], [address], 05/11/2018 18:56:25 05/07/1905/11/2018 food aller gen panel , serum cacao (chocolate) (F93) IgG <2.0 mcg/m L < 2.0 Not Available [email or web address] [address] [address] [place], [address], 05/11/2018 18:56:25 05/07/19 19 05/11/2018 food aller gen panel , serum codfish (F3) IgG <2.0 mcg/m L < 2.0 Not Available [address], [address], 05/11/2018 18:56:25 05/07/19 19 05/11/2018 food aller gen panel , serum coffee (F221) IgG 4.7 mcg/m L < 2.0 high Not Available [address], [address], 05/11/2018 18:56:25 05/07/19 19 05/11/2018 food aller gen panel , serum maize/corn (F8) IgG 5.9 mcg/m L < 2.0 high Not Available [address], [address], 05/11/2018 18:56:25 05/07/19 19 05/11/2018 food aller gen panel , serum egg white (F1) IgG 2.8 mcg/m L < 2.0 high Not Available [address], [address], 05/11/2018 18:56:25 05/07/19 19 05/11/2018 food aller gen panel , serum peanut (F13) IgG <2.0 mcg/m L < 2.0 Not Available [address], [address], 05/11/2018 18:56:25 05/07/19 19 05/11/2018 food aller gen panel , serum soybean (F14) IgG 2.5 mcg/m L < 2.0 high Not Available [facility] [address], [address], 05/11/2018 18:56:25 05/07/19 19 05/11/2018 food aller gen panel , serum tomato (F25) IgG 2.1 mcg/m L < 2.0 high Not Available [email or web address] [address] [address] [address], [place], [address], 05/11/2018 18:56:25 05/07/19 19 05/11/2018 food aller gen panel , serum wheat (F4) IgG 5.0 mcg/m L < 2.0 high Not Available [facility] [address] [address] [address], [place], [address], 05/11/2018 18:56:25 05/07/19 19 05/11/2018 food aller gen panel , serum yeast (F45) IgG <2.0 mcg/m L < 2.0 This test( s) was perfo rmed using a kit that has not been clear ed or appro luis by the FDA. The sandoval tical perfo rmanc e aba cteri stics of this test have been deter mined by [facility] mcintyre cia, [...] peuti c inter venti ons. Not Available [email or web address] [address] [address] [address], [place], [address], 05/11/2018 18:56:25 10/01/1910/04/2018 T3, rever se, serum T3 reverse, lc/MS/MS 11 NG/dL 8-25 This test was devel oped and its sandoval tical perfo rmanc e aba cteri stics have been deter mined by [facility] tutDestinee woodson . It has not been clear ed or appro luis by FDA. This assay has been valid ated pursu ant to the CLIA regul ation s and is used for clini everett purpo ses. Not Available [address] [address] [place], [address], 10/04/2018 20:25:30 10/01/19 19 10/04/2018 T3, total , serum T3, total 108 NG/dL 76-181 normal Not Available [facility] [address] [address] [place], [address], 10/04/2018 20:25:31 10/01/19 19 10/04/2018 T4, free, serum T4, free 0.9 NG/dL 0.8-1. 8 normal Not Available [facility] [address] [place] [address] [place], [address], 10/04/2018 20:25:31 10/01/1910/04/2018 TSH, serum or plasm a TSH 2.47 mIU/L 0.40-4 .50 normal Not Available [facility] [address] [place] [address] [place], [address], 10/04/2018 20:25:31 05/06/19 19 05/06/2018 XR, chest , 2 view No observ ation record ed. [facility] (Imaging) [address], [place], [address], 05/07/2018 09:59:58 Result Notes None recorded. Problems Name Problem SNOMED Code Status Onset Date Resolution Date Notes Provider Name and Address Organization Details Recorded Time Hypothyroidis m 21984969 Active Paco Marshall MD [address] [place] [address], [address] , [facility] 5 19:39:02 Vitamin D deficiency 41121774 Active Paco Marshall MD [address] [place] [address], [address] , [facility] 5 19:39:02 Essential hypertension 40908720 Active Paco Marshall MD [address] [place] [address], [address] , [facility] 5 19:39:02 Menopause present 822954400 Active Paco Marshall MD [address] [place] [address], [address] , [facility] 5 19:39:02 Loss of hair 281142858 Active Paco Marshall MD [address] [place] [address], [address] , [facility] 5 19:39:02 Insect bite - wound 502340674 Active Paco Marshall MD [address] [place] [address], [address] , [facility] 5 17:57:20 Lichenificati on Active Paco Marshall MD [address] [place] [address], [address] , [facility] 5 17:57:20 Fracture of tooth 48333041 Active Paco Marshall MD [address] [place] [address], [address] , [facility] 5 17:57:20 Problem Notes None recorded. Medical Equipment None Reported. Allergies Allergen ID Allergen Name Allergen Category Reaction Reaction Severity Criticality Documentation Date Start Date Code Code System Note Provider Name and Address Organization Details Recorded Time 82270 erythromy travon medicatio n diarrhea Not available Not available 04/22/2014 4053 RxNorm Z mike shelia ated Paco Marshall MD [address] [place] [address], [phone], [facility] 8 15:10:34 54046 Topamax medicatio n Not available Not available Not available 04/22/2014 64848 3 RxNorm Yi beckman [facility] 5 18:05:18 27864 albuterol sulfate medicatio n Not available Not available Not available 04/03/2018 87647 3 RxNorm Betty beckman [facility] 8 13:45:27 21956 naproxen medicatio n Not available Not available Not available 04/03/2018 7258 RxNorm Betty beckman [facility] 8 13:45:37 96330 acetamino phen medicatio n Not available Not available Not available 04/03/2018 161 RxNorm Betty Byrontariq beckman [facility] 8 13:45:46 68429 Symbicort medicatio n Not available Not available Not available 04/03/2018 43613 8 RxNorm Betty Byrontariq beckman [facility] 8 13:45:57 90483 Darvocet- N medicatio n other Not available Not available 04/03/2018 alter ed renaldo [facility] Paco Marshall MD [address] [place], [address] [place] [address] [facility] 8 14:56:13 Medications Name Sig Start Date Stop Date Status Note LastModified by Organization Details LastModified Time Phosphorus 200 1m 2d; 12x3 tid 06/02 completed Not Available Not Available Not Available Berberis Quartz 1sc 06/02 completed Not Available Not Available Not Available Phosphorus 200 2d; 12x 3 qd 09/01 [...] Not Available Not Available Not Avai lable Phosphatidy l Serine 100 mg 1 bid 2018 active Not Available Not Available Not Avai lable azithromyci n 250 mg tablet TAKE 2 [...] completed Not Available Not Available Not Available [facility] Thyroid 15 mg tablet Take 1 tablet every day by oral route. 2013 active Not Available Not Available Not Avai lable prednisone 50 mg tablet 04/03 completed Not Available Not Available Not Available Synthroid 50 mcg tablet 06/02 completed Not Available Not Available Not Available [facility] Thyroid 30 mg tablet Take 1 tablet [...] Available Not Available Vitals Date Recorded Body height Body mass index (BMI) Body weight Heart rate Body temperature Systolic And Diastolic Provider Name and Address Organization Details Last Updated DateTime 9 180.34 cm 26.5 kg/m2 51200.5 5 g 69 /min 97.7 [degF] 143/81 mm[Hg] Rubi Lisa [facility] 9 17:46:17 Date Recorded Body height Body mass index (BMI) Body weight Heart rate Systolic And Diastolic Provider Name and Address Organization Details Last Updated DateTime 06/02/2018 180.34 cm 26.5 kg/m2 79383.55 g 65 /min 145/79 mm[Hg] [facility] 06/02/2018 13:24:14 Date Recorded Body height Body mass index (BMI) Body weight Heart rate Systolic And Diastolic Provider Name and Address Organization Details Last Updated DateTime 09/01/2018 180.34 cm 26.8 kg/m2 67783.74 g 73 /min 135/79 mm[Hg] Davide [facility] 09/01/2018 16:16:39 Date Recorded Body weight Heart rate Body mass index (BMI) Body height Systolic And Diastolic Provider Name and Address Organization Details Last Updated DateTime 02/01/2015 24859.80 533 g 73 /min 29.1 kg/m2 180.34 cm 129/78 mm[Hg] Yaron Kaplan [facility] 02/01/2015 17:18:25 Date Recorded Body weight Body mass index (BMI) Body height Heart rate Body temperature Systolic And Diastolic Provider Name and Address Organization Details Last Updated DateTime 8 80465.5 8 g 26.7 kg/m2 180.34 cm 90 /min 100.3 [degF] 162/82 mm[Hg] Betty Garcia [facility] 8 13:48:27 Social History Question Answer Notes LastModified by [facility] Details LastModified Time Tobacco Smoking Status Never Smoker Not Available [facility] 02/22/2020 03:29:37 How Much Tobacco Do You Smoke? No [id number] Information not available 02/22/2020 Sex: Unknown Functional Status Question Answer Note LastModified by [facility] Details LastModified Time What is your level of alcohol consumption? Occasional [id number] Information not available 02/22/2020 Mental Status None recorded. Family History Nothing [...] Diagnosis SNOMED-CT Code Diagnosis ICD10 Code Diagnosis IMO Codes Diagnosis Note [id number] Paco Marshall MD Main Office [address] [place] [address] 3[address]-834 3 04/22/2014 17:11:49 04/22/2014 18:59:59 Hypothyroidism 85961595 Vitamin D deficiency 98897346 Essential hypertension 56935634 Menopause present 260158964 [id number] Paco Marshall MD Main Office [address] [place] [address] 58036-119 3 01/09/2015 17:47:26 01/09/2015 20:00:36 Hypothyroidism 12376930 Essential hypertension 79358923 Menopause present 982304177 Vitamin D deficiency 18461616 Loss of hair 899286738 [id number] Paco Marshall MD Main Office [address] [place] [address] 32740-318 3 02/01/2015 16:58:49 02/01/2015 18:05:50 Insect bite - wound 380036240 T14.8 Lichenification 06850388 6 L28.0 Fracture of tooth 729390 09 S02.5XXB [id number] Paco Marshall MD Main Office [address] [place] [address] 55339-772 3 04/03/2018 13:38:45 04/03/2018 15:15:40 Streptococcal sore throat 20172440 J02.0 Upper resp iratory infection 13858710 J06.9 [id number] Paco Marshall MD Main Office [address] [place] [address] 39397-278 3 05/05/2018 17:43:44 05/05/2018 18:56:34 Chronic cough 34117318 R05 [id number] Paco Marshall MD Main Office [address] [place] [address] 15353-892 3 06/02/2018 13:20:27 06/02/2018 14:15:55 Chronic cough 03492980 R05 Constipation 82895134 K5 9.00 Poor short -term memory 837881539 R41.3 Loss of hair 015101580 L 65.9 [id number] Paco Marshall MD Main Office [address] [place] [address] 83933-985 3 09/01/2018 16:14:51 09/01/2018 17:16:11 Hypothyroidism 96325812 E03.9 Insomnia 537863936 G47.0 0 Impaired cognition 58588 6002 R41.89 Hypertensive disorder 38 625279 I10 Dysphoric mood 15469633 R45.89 Health Concerns Section Related Observation LastModified by Organization Detai ls LastModified Time None Recorded Concern Status LastModified by Organization Details LastModified Time None Recorded Advance Directives Directive None Recorded Payers Insurance Date Sequence Insurance Name Policy Number Policy Montoya Covered Member ID Montoya Member ID Guarantor Name 09/11/2018 1 [place] [id number] Maria G Barrow [id number] Maria G Barrow Notes Date Note Type Note Provider Name and Address Organization Details Recorded Time 5 text/html L tooth broke off during night - concern over exposure to mercury filling. Has dentist appointment for tomorrow. spider bite R forearm started itching - saw PA for in [place] - steroid cream Triamcinolone 0.1% helped only slightly. area has not diminished. Skin now thickened Paco Marshall MD [address] [place], [address], [facility] 02/01/2015 17:57:35 8 text/html Sick since mid January.Current symptoms:fevercough which disturbs sleep. Minimally productive.Light headed as though would fall Paco Marshall MD [address] [place], [address], [facility] 04/03/2018 15:11:48 9 text/html ROS as noted in the HPI Continued cough - not a day without cough since -Generally better but not gone.Completed Z mike for strep the and cough has reduced, but is not gone.something in my throat - mucus and I swallow it. Tired of coughing.Pain sternum and lower chest during and after the cough. Faint nausea with it.Does not wake me at night.Has not noticed other triggers. Paco Marshall MD [address] [place], [address], [facility] 05/05/2018 18:43:46 9 text/html ROS as noted in the HPI Phosphorus helped a lotCough down to occasional throat clearing and has [...] since a month ago. Paco Marshall MD [address] [place], [address], [facility] 06/02/2018 14:04:55 9 text/html ROS as noted in the HPI Phosphorus helped cough but had to stop [...] Cold sensitive.desires sweetsNot tidy. Paco Marshall MD [address] [place], [address], [facility] 09/01/2018 17:07:28 OBGyn Episode No OBEpisode recorded.
--- OUTSIDE RECORDS SUMMARY | 2025-03-10 16:55 | XMS_ITS | Clinical Summary ---
Author Organization [facility] Address [address] [place] [address] Care Team Providers Care Heater Planer Operator Name Role Phone Rosie Bryant DO Primary Care Provider [phone] Source Comments [facility],non-owned Affiliates and Associated Physician Practices is amultiple site organization consisting of ambulatory clinics and hospital sitesin [place], [place], [place] and [place]. This disclosure is being madepursuant to the Care Everywhere program and may not contain all information available regarding this patient. Last updated 18.[facility] Social History Tobacco Use Types Packs/Day [...] 04/21/2024 03/17/2023, 01/28/2022 COVID-19 VACCINE (1 - 2024-2 6 season) 2024 INFLUENZA VACCINE (#1) 2024 Respiratory [...] age to complete this topic Insurance MEDICARE [facility] MEDICARE Care Teams Heater Planer Operator Relationship Specialty Start Date End Date Rosie Bryant DO [address] [place] [address] PCP - General 12/12/21
--- OUTSIDE RECORDS SUMMARY | 2025-03-10 16:55 | XMS_ITS | Clinical Summary ---
Author Organization [facility] Address [facility] [place] [address] Care Team Providers Care Terrapin Fisher Name Role Phone SymonemarivelRosie buchanan Jerson DO Primary Care Provider Allergies Active Allergy Reactions Criticality Noted Date [...] Blurred vision 10/24/2020 Albuterol Shakiness 10/24/2020 Medications TECHNICIAN SEMICONDUCTOR DEVELOPMENT THYROID 60 MG tablet Take 1 tablet [...] Take 200 mg by mouth daily. Active [id number] OR Take 500 mg by mouth daily. 500mg AM. 1000mg PM Active Digestive Enzymes (DIGESTIVE ENZYME OR) Take 200 mg by mouth daily. Active Multiple Vitamin (MULTIVITAMIN IRON-FREE) Tab Take by mouth daily. Active lisinopril (PRINIVIL) 10 MG tablet Take 1 tablet (10 mg total) by mouth daily. Active Fexofenadine HCl (ALLERGY 24-HR OR) Take 1 tablet by mouth daily. Active famotidine (PEPCID) 20 MG tablet Take 1 tablet (20 mg total) by mouth daily. Active Active Problems Problem Noted Date Diagnosed [...] time. Assessment & Plan (04/04/2022 11:41 AM HEALTH ECONOMIST): She has not had any more chest [...] well. Assessment & Plan (04/04/2022 11:41 AM HEALTH ECONOMIST): Her most recent lipids show an LDL of 150. She is not tolerant of statins or Zetia. I discussed PCSK9 inhibitor therapy and she has not interested at this time. Immunizations Immunization Administration Dates Next Due Zoster (Zostavax) 50383 Unt/0.65Ml 01/18/2014 Family History Medical History Relation [...] Sex Assigned at Female 05/19/2024 7:52 AM HEALTH ECONOMIST Legal Sex Female 7:00 PM CDT Gender Identity Not on file Sexual Orientation Not on file Last Filed Vital Signs Vital Sign Reading Time Taken Comments Blood Pressure 133/83 11/17/2024 11:16 AM CDT Pulse 65 11/17/2024 11:16 AM CDT Temperature 36.9 C (98.5 F) 11/17/2024 11:16 AM CDT Respiratory Rate 22 04/07/2024 6:20 AM HEALTH ECONOMIST Oxygen Saturation 95% 11/17/2024 11:16 AM CDT Inhaled Oxygen Concentration - - Weight 89.5 kg (197 lb 6.4 oz) 11/17/2024 11:16 AM CDT Height 177.8 cm (5' 10) 11/17/2024 11:16 AM CDT Body Mass Index 28.32 11/17/2024 11:16 AM CDT Plan of Treatment Upcoming Encounters Date Type Department Care Team (Late st Contact Info) Description 10/17/2025 10:30 AM CDT Office Visit [facility], [address] [place] [address] Galdino Santos MD [facility]. [address] [place] [address] 11/23/2025 10:40 AM CDT Office Visit [facility] - [facility] [address] [address], [address] [place] [address] Scarlet Mendoza MD [address] [place] [address] Health Maintenance Due Date Last Done Comments Colorectal Cancer Screening Colonoscopy (10 Years) 1955 Hepatitis C 12/08/1971 Mammogram Screening 1993 Zoster Vaccines (2 of 3) 03/15/2014 01/18/2014 Annual Medicare Wellness Visit 2018 Dexa Scan (General) 2018 Pneumococcal Vaccine: 50+ Ye ars (2 of 2 - PCV20 or PCV21) 10/23/2022 10/23/2021 COVID-19 Vaccine (1 - 2024-2 6 season) 2024 Influenza Adult (#1) 2025 RSV Immunization or 60+ Years (1 - 1-dose 75+ series) 2028 DTaP, Tdap and Td Vaccines ( 2 - Td or Tdap) 08/13/2032 08/13/2022 PHQ-2 (Physician [place]') Completed 05/20/2024 Hepatitis A Vaccines Aged Out No long er eligible based on patient's age to complete this topic Meningococcal B Vaccine Aged Out No l onger eligible based on patient's age to complete this topic Meningococcal Vaccine Aged Out No dieter tavares eligible based on patient's age to complete this topic RSV Immunizations Under 20 Months Aged Out No longer eligible based on patient's age to complete [place] [id number] [facility] Care Teams Terrapin Fisher Relationship Specialty Start Date End Date Rosie Bryant DO [address] [place] [address] PCP - General FAMILY PRACTICE 02/21/20
--- OUTSIDE RECORDS SUMMARY | 2025-03-10 16:55 | XMS_ITS | Clinical Summary ---
Author Organization [facility] Address [address] [place] [address] Phone Care Team Providers Care Bet Taker Name Role Phone Unavailable Primary Care Provider [...] constipation, bruising Nitrofurantoin Other (See Comments) 10/24/2020 Dptlhdd-Oeh-Hfb Reductase Inhibitors Other (See Comments) 10/24/2020 Intolerant Topiramate Other (See Comments) 10/24/2020 Medications thyroid, pork, (VOICE INTERCEPT TECHNICIAN Thyroid) 60 mg tablet Take 60 mg [...] 2028 Insurance MEDICARE PART A AND B [facility] [id number]
== END 2025-03-10 13:41 | disposition home or self-care (01) ==
PROVIDERS: PCP Family Medicine; Visit Provider Family Medicine
DX: Z12.31 Encounter for screening mammogram for malignant neoplasm of breast (principal); R92.8 Other abnormal and inconclusive findings on diagnostic imaging of breast
CPT/HCPCS: 77063; 77067